=== PATIENT | male | born 1955 | race Two or more races ===

== ENCOUNTER 2017-02-01 06:17 | Emergency (ER) | payer BC, OTHER ==
[~2017-02-01 06:17] MED LIST: AMLO10TA2 PO; APIX5TAB PO; ASPI-482 PO; ATOR40TA PO; CARV12.5 PO; CIPR500T PO; CLOP75TA57 PO; DILT120T PO; FENO54TA6 PO; FLUT16SP NS; LOSA50TA6 PO; NIAC500T PO; NITR0.4T22 SL; OMEG1CAP6 PO; combivent
--- NOTE | 2017-02-01 06:42 | PHYS DOC ---
Past Medical History Past Medical History: A-Fib, Heart Disease, Hypertension Past Surgical History: Other Additional Past Surgical Histo: STENT Alcohol Use: Occasionally Drug Use: None Adult General Chief Complaint Chief Complaint: Congestion HPI HPI Patient is a 61 year old M who presents with SOA for the past 2 days. Pt states increased SOA with productive cough. Pt denies fevers or cp. Pt has a smoking hx but quite 27 years ago. Review of Systems Review of Systems Constitutional: Denies fever or chills [] Eyes: Denies change in visual acuity, redness, or eye pain [] HENT: Denies nasal congestion or sore throat [] Respiratory: Productive cough and shortness of breath [] Cardiovascular: No additional information not addressed in HPI [] GI: Denies abdominal pain, nausea, vomiting, bloody stools or diarrhea [] : Denies dysuria or hematuria [] Musculoskeletal: Denies back pain or joint pain [] Integument: Denies rash or skin lesions [] Neurologic: Denies headache, focal weakness or sensory changes [] Current Medications Current Medications Current Medications Medications (Trade) Dose Ordered Sig/Connie Start Time Stop Time Status Last Admin Dose Admin Albuterol/ Ipratropium (Duoneb) 3 ml 1X ONCE 02/01/17 09:00 02/01/17 09:01 DC 02/01/17 09:05 3 ML Dexamethasone Sodium Phosphate (Decadron) 10 mg 1X ONCE 02/01/17 09:00 02/01/17 09:01 DC 02/01/17 09:43 10 MG Allergies Allergies Allergies Coded Allergies Type Severity Reaction Last Updated Verified iodine Allergy Unknown 07/22/15 Yes Physical Exam Physical Exam Constitutional: Well developed, well nourished, no acute distress, non-toxic appearance. [] HENT: Normocephalic, atraumatic, bilateral external ears normal, oropharynx moist, no oral exudates, nose normal. [] Eyes: PERRLA, EOMI, conjunctiva normal, no discharge. [] Neck: Normal range of motion, no tenderness, supple, no stridor. [] Cardiovascular:Heart rate regular rhythm, no murmur [] Lungs & Thorax: Crackles left lung base, no tachypnea Abdomen: Bowel sounds normal, soft, no tenderness, no masses, no pulsatile masses. [] Skin: Warm, dry, no erythema, no rash. [] Back: No tenderness, no CVA tenderness. [] Extremities: No tenderness, no cyanosis, no clubbing, ROM intact, no edema. [] Neurologic: Alert and oriented X 3, normal motor function, normal sensory function, no focal deficits noted. [] Psychologic: Affect normal, judgement normal, mood normal. [] Current Patient Data Vital Signs Vital Signs Date Time Temp Pulse Resp B/P (MAP) Pulse Ox O2 Delivery O2 Flow Rate FiO2 02/01/17 09:22 86 16 182/99 (126) 94 Room Air 02/01/17 06:31 98.7 98.7 Lab Values Laboratory Tests Test 02/01/17 07:18 White Blood Count 9.6 x10^3/uL (4.0-11.0) Red Blood Count 5.04 x10^6/uL (4.30-5.70) Hemoglobin 13.8 g/dL (13.0-17.5) Hematocrit 41.9 % (39.0-53.0) Mean Corpuscular Volume 83 fL (79-100) Mean Corpuscular Hemoglobin 27 pg (25-35) Mean Corpuscular Hemoglobin Concent 33 g/dL (31-37) Red Cell Distribution Width 13.4 % (11.5-14.5) Platelet Count 171 x10^3/uL (140-400) Neutrophils (%) (Auto) 81 % (31-73) H Lymphocytes (%) (Auto) 11 % (24-48) L Monocytes (%) (Auto) 5 % (0-9) Eosinophils (%) (Auto) 2 % (0-3) Basophils (%) (Auto) 1 % (0-3) Neutrophils # (Auto) 7.8 x10^3uL (1.8-7.7) H Lymphocytes # (Auto) 1.1 x10^3/uL (1.0-4.8) Monocytes # (Auto) 0.5 x10^3/uL (0.0-1.1) Eosinophils # (Auto) 0.2 x10^3/uL (0.0-0.7) Basophils # (Auto) 0.0 x10^3/uL (0.0-0.2) Sodium Level 140 mmol/L (136-145) Potassium Level 4.1 mmol/L (3.5-5.1) Chloride Level 105 mmol/L (98-107) Carbon Dioxide Level 26 mmol/L (21-32) Anion Gap 9 (6-14) Blood Urea Nitrogen 21 mg/dL (8-26) Creatinine 1.1 mg/dL (0.7-1.3) Estimated GFR (Cockcroft-Gault) 68.1 BUN/Creatinine Ratio 19 (6-20) Glucose Level 137 mg/dL (70-99) H Calcium Level 8.5 mg/dL (8.5-10.1) Total Bilirubin 0.9 mg/dL (0.2-1.0) Aspartate Amino Transferase (AST) 18 U/L (15-37) Alanine Aminotransferase (ALT) 29 U/L (16-63) Alkaline Phosphatase 79 U/L (46-116) Troponin I Quantitative 0.039 ng/mL (0.000-0.055) Total Protein 6.5 g/dL (6.4-8.2) Albumin 3.7 g/dL (3.4-5.0) Albumin/Globulin Ratio 1.3 (1.0-1.7) Laboratory Tests 02/01/17 07:18 Laboratory Tests 02/01/17 07:18 EKG EKG 0707: EKG shows normal sinus rhythm rate of 83 no STEMI [] Radiology/Procedures Radiology/Procedures Chest x-ray shows right lower lobe pneumonia [] Course & Med Decision Making Course & Med Decision Making Pertinent Labs and Imaging studies reviewed. (See chart for details) ED course: Patient was seen and examined emergency room CBC, CMP, troponin, EKG, chest x- ray were ordered 0915: Patient was reexamined still complaining of some difficult to breathing with minimal wheezing heard throughout therefore breathing treatment was ordered 0938: Patient was reexamined feeling much better and wanting to go home. Wheezing had resolved after the breathing treatment and steroids. Explained to the patient will be sent home with antibiotics and steroids MDM: After reviewing the chart, CC/HPI/PMH, physical exam, [lab results], [ radiological results], I do not believe the patient has a significant rust or infection warranting further workup and/or admission at this time. I believe the patient has a right lower lobe pneumonia with bronchitis and is not septic and can be discharged home with oral antibiotics and short-term follow-up with his PCP. Patient is comfortable being discharged home. Patient is stable for discharge. Additional verbal discharge instructions were provided to the patient and that if symptoms get worse or any new symptoms arise that are worrisome to the patient he is to return to the emergency room immediately [] Dragon Disclaimer Dragon Disclaimer This electronic medical record was generated, in whole or in part, using a voice recognition dictation system. Departure Departure Impression: Primary Impression: Right lower lobe pneumonia Additional Impression: Bronchitis Disposition: 01 HOME, SELF-CARE Condition: IMPROVED Referrals: NO PCP (PCP) Patient Instructions: Acute Bronchitis, Pneumonia, Adult Additional Instructions: Please follow up with your family doctor next one to 2 days and return if symptoms increase Scripts Azithromycin (ZITHROMAX) 250 Mg Tablet 1 PKG PO UD, #6 TAB Prov: SAVANNAH HALE DO 02/01/17 Prednisone (PREDNISONE) 50 Mg Tablet 1 TAB PO DAILY, #5 TAB Prov: SAVANNAH HALE DO 02/01/17 Problem Qualifiers SAVANNAH HALE DO Feb 01, 2017 06:42
[2017-02-01 07:27] LABS: BASO % 1 % (0-3); EOS % 2 % (0-3); HEMATOCRIT 41.9 % (39.0-53.0); HEMOGLOBIN 13.8 g/dL (13.0-17.5); LYMPH # 1.1 x10^3/uL (1.0-4.8); LYMPH % 11 % (24-48); MEAN CORPUSCULAR HEMOGLOBIN 27 pg (25-35); MEAN CORPUSCULAR HGB CONC 33 g/dL (31-37); MEAN CORPUSCULAR VOLUME 83 fL (79-100); MONO % 5 % (0-9); NEUT % 81 % (31-73); PLATELET COUNT 171 x10^3/uL (140-400); RED BLOOD COUNT 5.04 x10^6/uL (4.30-5.70); RED CELL DISTRIBUTION WIDTH 13.4 % (11.5-14.5); WHITE BLOOD COUNT 9.6 x10^3/uL (4.0-11.0)
[2017-02-01 07:36] LABS: CALCIUM 8.5 mg/dL (8.5-10.1); CREATININE 1.1 mg/dL (0.7-1.3); GFR 68.1; POTASSIUM 4.1 mmol/L (3.5-5.1)
[2017-02-01 07:42] LABS: ALBUMIN 3.7 g/dL (3.4-5.0); ALBUMIN/GLOBULIN RATIO 1.3 (1.0-1.7); TOTAL BILIRUBIN 0.9 mg/dL (0.2-1.0); TOTAL PROTEIN 6.5 g/dL (6.4-8.2)
[2017-02-01] MEDS ORDERED: DEXAMETHASONE SOD PHOS 4 MG/ML VIAL IV ONE (09:00)
[2017-02-01] MEDS ORDERED: IPRATRPIUM/ALBUTEROL 0.5/2.5MG 3 ML NEBU. NEB ONE (09:00)
[2017-02-01] MEDS ORDERED: cefTRIAXone IM 1 GM VIAL IM ONE (09:45)
[2017-02-01] MEDS ORDERED: AZIT250T PO (09:47)
[2017-02-01] MEDS ORDERED: PRED50TA PO (09:47)
--- NOTE | 2017-02-01 09:52 | RAD ---
Chest radiograph 2 views 02/01/2017 Clinical indication: Shortness of air for 3 days, productive cough. Comparison: Chest radiograph 07/22/2015. Findings: Mild right perihilar interstitial opacities without focal consolidation. No pleural effusion or pneumothorax. Cardiac and mediastinal silhouettes are within normal limits. Impression: Asymmetric prominent right perihilar interstitial opacities which may represent bronchitis or less likely viral pneumonia. No consolidating pneumonia.
[2017-02-01 10:09] VITALS: BP 182/89
--- NOTE | 2017-02-01 12:51 | EKG ---
[facility] [address] [place] [address] Test Date: 2017-02-01 Test Time: 07:02:09 Pat Name: LONDON CRESPO Department: Room: Gender: M Noc Engineer: [id number] : 1955 Requested By: SAVANNAH HALE Order Number: [id number] Reading MD: Henrry Heller Measurements Intervals [place] Rate: 83 P: 54 [place]: 162 QRS: 24 QRSD: 88 T: 57 QT: 392 QTc: 467 Interpretive Statements SINUS RHYTHM Electronically Signed On 02-02-2017 12:03:15 CDT by Henrry Heller
== END 2017-02-01 10:33 | disposition home or self-care (01) ==
LOC: ER 06:17
DX: J18.1 Lobar pneumonia, unspecified organism (principal); J40 Bronchitis, not specified as acute or chronic; I48.91 Unspecified atrial fibrillation; I11.9 Hypertensive heart disease without heart failure; Z87.891 Personal history of nicotine dependence; Z95.5 Presence of coronary angioplasty implant and graft; Z88.8 Allergy status to other drugs, medicaments and biological substances
CPT/HCPCS: 36415; 71020; 80053; 84484; 85025; 93005; 94250; 94640; 96372; 96374; 99285; J0696; J1100; J7620

== ENCOUNTER 2018-01-01 03:11 | Inpatient (IN) | payer OTHER ==
[2018-01-01] MEDS: IPRATRPIUM/ALBUTEROL 0.5/2.5MG 3 ML NEBU. NEB ×5 (03:27→20:26)
[2018-01-01 03:47] LABS: ADD MAN DIFF? NO
[2018-01-01 03:53] LABS: BASO % 1 % (0-3); EOS # 0.1 x10^3/uL (0.0-0.7); EOS % 1 % (0-3); HEMATOCRIT 46.3 % (39.0-53.0); HEMOGLOBIN 15.9 g/dL (13.0-17.5); LYMPH # 1.2 x10^3/uL (1.0-4.8); LYMPH % 14 % (24-48); MEAN CORPUSCULAR HEMOGLOBIN 29 pg (25-35); MEAN CORPUSCULAR HGB CONC 34 g/dL (31-37); MEAN CORPUSCULAR VOLUME 86 fL (79-100); MONO # 0.2 x10^3/uL (0.0-1.1); MONO % 2 % (0-9); NEUT # 7.4 x10^3uL (1.8-7.7); NEUT % 83 % (31-73); PLATELET COUNT 192 x10^3/uL (140-400); RED CELL DISTRIBUTION WIDTH 13.3 % (11.5-14.5); WHITE BLOOD COUNT 8.9 x10^3/uL (4.0-11.0)
[2018-01-01 03:54] LABS: BILIRUBIN,URINE NEGATIVE (NEG); CLARITY,URINE CLOUDY; COLOR,URINE YELLOW; GLUCOSE,URINE NEGATIVE (NEG); NITRITE,URINE NEGATIVE (NEG); PROTEIN,URINE 30 mg/dL (NEG-TRACE); UROBILINOGEN,URINE 0.2 mg/dL (0.2 mg/dL)
[2018-01-01] MEDS: ACETAMINOPHEN 325 MG TABLET. PO (04:00)
[2018-01-01 04:20] LABS: LACTIC ACID 3.3 mmol/L (0.4-2.0)
[2018-01-01 04:29] LABS: BACTERIA,URINE 0 /HPF (0-FEW); RBC,URINE OCC /HPF (0-2)
[2018-01-01 04:30] LABS: SQUAMOUS EPITHELIAL CELL,UR OCC /LPF
[2018-01-01] MEDS: IV NORMAL SALINE 1000ML BAG 1,000 ML IV ×4 (04:55→09:23)
[2018-01-01] MEDS ORDERED: ACETAMINOPHEN 325 MG TABLET. PO (05:00)
[2018-01-01] MEDS ORDERED: fentaNYL PF VIAL 100 MCG/2 ML VIAL IV (05:00)
[2018-01-01] MEDS ORDERED: ONDANSETRON PF 4 MG/2 ML VIAL. IV (05:00)
[2018-01-01 05:21] LABS: NT-PRO BNP 325 pg/mL (0-124)
[2018-01-01 05:21] LABS: CKMB MASS 0.8 ng/mL (0.0-3.6); CREATINE KINASE 74 U/L (39-308)
[2018-01-01 05:23] LABS: TROPONINI < 0.017 ng/mL (0.000-0.055)
[2018-01-01] MEDS: VANCOMYCIN 2 GM in IV NORMAL SALINE 500ML BAG 500 ML IV (05:30)
[2018-01-01] MEDS: PIPERACILLIN/TAZOBACTAM 4.5 GM in IV NORMAL SALINE 100ML 100 ML IV ×4 (05:30→23:21)
[2018-01-01 05:31] LABS: ANION GAP 10 (6-14); BLOOD UREA NITROGEN 26 mg/dL (8-26); BUN/CREATININE RATIO 17 (6-20); CALCIUM 8.7 mg/dL (8.5-10.1); CARBON DIOXIDE 28 mmol/L (21-32); CHLORIDE 102 mmol/L (98-107); CREATININE 1.5 mg/dL (0.7-1.3); GFR 47.4; GLUCOSE 169 mg/dL (70-99); POTASSIUM 3.9 mmol/L (3.5-5.1); SODIUM 140 mmol/L (136-145)
[2018-01-01 05:36] LABS: ALBUMIN 3.8 g/dL (3.4-5.0); ALBUMIN/GLOBULIN RATIO 1.2 (1.0-1.7); ALK PHOS 101 U/L (46-116); ALT (SGPT) 47 U/L (16-63); AST (SGOT) 31 U/L (15-37); MAGNESIUM 1.6 mg/dL (1.8-2.4); TOTAL BILIRUBIN 0.9 mg/dL (0.2-1.0)
[2018-01-01 08:25] LABS: LACTIC ACID 3.8 mmol/L (0.4-2.0)
[2018-01-01 08:26] LABS: TROPONINI 0.034 ng/mL (0.000-0.055)
[2018-01-01] MEDS ORDERED: PIP/TAZO PER PHARMACY MC (09:15)
[2018-01-01] MEDS ORDERED: NITROGLYCERIN SUBLINGUAL 0.4 MG BOTTLE OF 25. SL (09:15)
[2018-01-01] MEDS ORDERED: VANCOMYCIN PER PHARMACY MC (09:15)
[2018-01-01] MEDS: ASPIRIN ENTERIC COATED 81 MG TABLET.DR. PO (09:23)
[2018-01-01] MEDS: APIXABAN 5 MG TABLET. PO ×2 (09:24→21:01)
[2018-01-01] MEDS: amLODIPine BESYLATE 10 MG TABLET PO (09:24)
[2018-01-01] MEDS: SOTALOL 80 MG TABLET. PO ×2 (09:24→21:01)
[2018-01-01] MEDS ORDERED: ENOXAPARIN 40 MG/0.4 ML SYRINGE. SQ (09:30)
[2018-01-01] MEDS ORDERED: FUROSEMIDE 40 MG TABLET. PO (10:00)
[2018-01-01] MEDS: DOXYCYCLINE HYCLATE 100 MG TABLET PO ×2 (11:16→21:01)
[2018-01-01] MEDS: BUDESONIDE 0.5 MG/2 ML NEBU. NEB ×2 (12:04→20:26)
[2018-01-01 12:17] LABS: LACTIC ACID 2.1 mmol/L (0.4-2.0); TROPONINI < 0.017 ng/mL (0.000-0.055)
[2018-01-01] MEDS ORDERED: PIPERACILLIN/TAZOBACTAM 3.375 GM in IV NORMAL SALINE 50ML 50 ML IV (14:00)
[2018-01-01] MEDS: LINEZOLID 600 MG TABLET PO ×2 (15:28→23:20)
[2018-01-01] MEDS ORDERED: guaiFENesin DM 200MG/20MG 10 ML SYRUP PO (15:30)
[2018-01-01] MEDS: ANTI-COAG MONITOR BY PHARMACY. MC (15:43)
[2018-01-01] MEDS: ATORVASTATIN CALCIUM 40 MG TABLET. PO (21:01)
[2018-01-01 23:13] LABS: MRSA BY PCR Negative (Negative)
[2018-01-02] MEDS: PIPERACILLIN/TAZOBACTAM 4.5 GM in IV NORMAL SALINE 100ML 100 ML IV ×3 (05:28→17:15)
[2018-01-02] MEDS: ASPIRIN ENTERIC COATED 81 MG TABLET.DR. PO (06:30)
[2018-01-02] MEDS: ANTI-COAG MONITOR BY PHARMACY. MC (07:38)
[2018-01-02 08:16] LABS: HEMOGLOBIN 14.1 g/dL (13.0-17.5); MEAN CORPUSCULAR HEMOGLOBIN 29 pg (25-35); MEAN CORPUSCULAR HGB CONC 34 g/dL (31-37); MEAN CORPUSCULAR VOLUME 85 fL (79-100); PLATELET COUNT 131 x10^3/uL (140-400); RED BLOOD COUNT 4.85 x10^6/uL (4.30-5.70); RED CELL DISTRIBUTION WIDTH 13.5 % (11.5-14.5); WHITE BLOOD COUNT 10.8 x10^3/uL (4.0-11.0)
[2018-01-02] MEDS: APIXABAN 5 MG TABLET. PO ×2 (08:18→20:38)
[2018-01-02] MEDS: DOXYCYCLINE HYCLATE 100 MG TABLET PO (08:18)
[2018-01-02] MEDS: amLODIPine BESYLATE 10 MG TABLET PO (08:19)
[2018-01-02] MEDS: LINEZOLID 600 MG TABLET PO (08:19)
[2018-01-02] MEDS: SOTALOL 80 MG TABLET. PO ×2 (08:24→20:39)
[2018-01-02 08:30] LABS: ANION GAP 6 (6-14); BLOOD UREA NITROGEN 15 mg/dL (8-26); CALCIUM 8.1 mg/dL (8.5-10.1); CARBON DIOXIDE 28 mmol/L (21-32); CHLORIDE 103 mmol/L (98-107); CREATININE 1.2 mg/dL (0.7-1.3); GFR 61.3; GLUCOSE 154 mg/dL (70-99); POTASSIUM 3.5 mmol/L (3.5-5.1); SODIUM 137 mmol/L (136-145)
[2018-01-02] MEDS: IPRATRPIUM/ALBUTEROL 0.5/2.5MG 3 ML NEBU. NEB ×5 (08:31→19:44)
[2018-01-02] MEDS: BUDESONIDE 0.5 MG/2 ML NEBU. NEB ×2 (08:31→19:44)
[2018-01-02] MEDS: LACTOBACILLUS RHAMNOSUS GG 1 CAPSULE. PO ×2 (09:00→20:38)
[2018-01-02] MEDS: ONDANSETRON PF 4 MG/2 ML VIAL. IV (09:47)
[2018-01-02] MEDS: ATORVASTATIN CALCIUM 40 MG TABLET. PO (20:38)
[2018-01-03] MEDS: PIPERACILLIN/TAZOBACTAM 4.5 GM in IV NORMAL SALINE 100ML 100 ML IV ×4 (06:04→17:53)
[2018-01-03] MEDS: BUDESONIDE 0.5 MG/2 ML NEBU. NEB (07:25)
[2018-01-03] MEDS: IPRATRPIUM/ALBUTEROL 0.5/2.5MG 3 ML NEBU. NEB ×5 (07:25→19:14)
[2018-01-03] MEDS: ASPIRIN ENTERIC COATED 81 MG TABLET.DR. PO (07:54)
[2018-01-03] MEDS: ACETAMINOPHEN 500 MG TABLET PO (07:54)
[2018-01-03] MEDS: LACTOBACILLUS RHAMNOSUS GG 1 CAPSULE. PO ×2 (07:55→20:32)
[2018-01-03] MEDS: APIXABAN 5 MG TABLET. PO ×2 (07:55→20:32)
[2018-01-03] MEDS: SOTALOL 80 MG TABLET. PO ×2 (07:55→20:32)
[2018-01-03] MEDS: amLODIPine BESYLATE 10 MG TABLET PO (07:55)
[2018-01-03] MEDS: VANCOMYCIN 2 GM in IV NORMAL SALINE 500ML BAG 500 ML IV (15:08)
[2018-01-03] MEDS: VANCOMYCIN PER PHARMACY MC (18:47)
[2018-01-03] MEDS: ATORVASTATIN CALCIUM 40 MG TABLET. PO (20:33)
[2018-01-04] MEDS: PIPERACILLIN/TAZOBACTAM 4.5 GM in IV NORMAL SALINE 100ML 100 ML IV ×5 (00:19→23:50)
[2018-01-04] MEDS: VANCOMYCIN 2 GM in IV NORMAL SALINE 500ML BAG 500 ML IV ×2 (02:54→15:30)
[2018-01-04 03:04] LABS: ADD MAN DIFF? NO
[2018-01-04 03:08] LABS: BASO # 0.1 x10^3/uL (0.0-0.2); BASO % 1 % (0-3); EOS # 0.3 x10^3/uL (0.0-0.7); EOS % 4 % (0-3); HEMATOCRIT 40.9 % (39.0-53.0); LYMPH # 1.9 x10^3/uL (1.0-4.8); LYMPH % 24 % (24-48); MEAN CORPUSCULAR HEMOGLOBIN 29 pg (25-35); MEAN CORPUSCULAR HGB CONC 34 g/dL (31-37); MEAN CORPUSCULAR VOLUME 85 fL (79-100); MONO # 0.7 x10^3/uL (0.0-1.1); MONO % 8 % (0-9); NEUT % 63 % (31-73); PLATELET COUNT 150 x10^3/uL (140-400); RED CELL DISTRIBUTION WIDTH 13.4 % (11.5-14.5); WHITE BLOOD COUNT 7.9 x10^3/uL (4.0-11.0)
[2018-01-04 03:31] LABS: ANION GAP 4 (6-14); BLOOD UREA NITROGEN 13 mg/dL (8-26); CALCIUM 8.1 mg/dL (8.5-10.1); CARBON DIOXIDE 30 mmol/L (21-32); CHLORIDE 104 mmol/L (98-107); CREATININE 1.2 mg/dL (0.7-1.3); GFR 61.3; GLUCOSE 181 mg/dL (70-99); POTASSIUM 3.6 mmol/L (3.5-5.1); SODIUM 138 mmol/L (136-145)
[2018-01-04] MEDS: ASPIRIN ENTERIC COATED 81 MG TABLET.DR. PO (05:51)
[2018-01-04] MEDS: IPRATRPIUM/ALBUTEROL 0.5/2.5MG 3 ML NEBU. NEB ×5 (08:52→22:00)
[2018-01-04] MEDS: SOTALOL 80 MG TABLET. PO ×2 (09:34→20:53)
[2018-01-04] MEDS: APIXABAN 5 MG TABLET. PO ×2 (09:34→20:53)
[2018-01-04] MEDS: amLODIPine BESYLATE 10 MG TABLET PO (09:35)
[2018-01-04] MEDS: LACTOBACILLUS RHAMNOSUS GG 1 CAPSULE. PO ×2 (09:35→20:53)
[2018-01-04] MEDS: ANTI-COAG MONITOR BY PHARMACY. MC (12:28)
[2018-01-04 14:47] LABS: VANC TR 13.3 mcg/mL (10.0-20.0)
[2018-01-04] MEDS: VANCOMYCIN PER PHARMACY MC (15:06)
[2018-01-04] MEDS: ATORVASTATIN CALCIUM 40 MG TABLET. PO (20:54)
[2018-01-05] MEDS: VANCOMYCIN 2 GM in IV NORMAL SALINE 500ML BAG 500 ML IV (04:15)
[2018-01-05] MEDS: PIPERACILLIN/TAZOBACTAM 4.5 GM in IV NORMAL SALINE 100ML 100 ML IV (06:03)
[2018-01-05 07:04] LABS: ADD MAN DIFF? NO
[2018-01-05 07:10] LABS: BASO % 1 % (0-3); EOS # 0.3 x10^3/uL (0.0-0.7); EOS % 4 % (0-3); HEMATOCRIT 41.7 % (39.0-53.0); HEMOGLOBIN 14.3 g/dL (13.0-17.5); LYMPH # 1.9 x10^3/uL (1.0-4.8); LYMPH % 21 % (24-48); MEAN CORPUSCULAR HEMOGLOBIN 29 pg (25-35); MEAN CORPUSCULAR HGB CONC 34 g/dL (31-37); MEAN CORPUSCULAR VOLUME 86 fL (79-100); MONO # 0.7 x10^3/uL (0.0-1.1); MONO % 8 % (0-9); NEUT % 67 % (31-73); PLATELET COUNT 162 x10^3/uL (140-400); RED BLOOD COUNT 4.86 x10^6/uL (4.30-5.70); RED CELL DISTRIBUTION WIDTH 13.2 % (11.5-14.5)
[2018-01-05 07:26] LABS: ANION GAP 4 (6-14); BLOOD UREA NITROGEN 15 mg/dL (8-26); CALCIUM 8.4 mg/dL (8.5-10.1); CARBON DIOXIDE 30 mmol/L (21-32); CHLORIDE 105 mmol/L (98-107); CREATININE 1.2 mg/dL (0.7-1.3); GFR 61.3; GLUCOSE 144 mg/dL (70-99); POTASSIUM 3.8 mmol/L (3.5-5.1); SODIUM 139 mmol/L (136-145)
[2018-01-05] MEDS: IPRATRPIUM/ALBUTEROL 0.5/2.5MG 3 ML NEBU. NEB ×2 (08:27→12:03)
[2018-01-05] MEDS: APIXABAN 5 MG TABLET. PO (08:33)
[2018-01-05] MEDS: LACTOBACILLUS RHAMNOSUS GG 1 CAPSULE. PO (08:33)
[2018-01-05] MEDS: ACETAMINOPHEN 500 MG TABLET PO (08:33)
[2018-01-05] MEDS: ASPIRIN ENTERIC COATED 81 MG TABLET.DR. PO (08:34)
[2018-01-05] MEDS: SOTALOL 80 MG TABLET. PO (08:34)
[2018-01-05] MEDS: amLODIPine BESYLATE 10 MG TABLET PO (08:36)
[2018-01-05] MEDS ORDERED: AMOXICILLIN/K CLAV 875/125MG TABLET. PO (10:00)
== END 2018-01-05 12:15 | disposition home or self-care (01) | DRG 871 ==
LOC: 6 SOUTH 01-02 09:52 → ER 03:11 → 1 WEST ICU 04:50
PROVIDERS: Internal Medicine
DX: A41.9 Sepsis, unspecified organism (principal); J18.9 Pneumonia, unspecified organism; J44.0 Chronic obstructive pulmonary disease with (acute) lower respiratory infection; N17.9 Acute kidney failure, unspecified; Z68.41 Body mass index [BMI] 40.0-44.9, adult; R65.20 Severe sepsis without septic shock; D35.02 Benign neoplasm of left adrenal gland; R09.02 Hypoxemia; E66.9 Obesity, unspecified; E78.5 Hyperlipidemia, unspecified; F17.201 Nicotine dependence, unspecified, in remission; G47.33 Obstructive sleep apnea (adult) (pediatric); I11.0 Hypertensive heart disease with heart failure; I25.10 Atherosclerotic heart disease of native coronary artery without angina pectoris; I50.9 Heart failure, unspecified; M19.90 Unspecified osteoarthritis, unspecified site; I48.91 Unspecified atrial fibrillation; Z82.49 Family history of ischemic heart disease and other diseases of the circulatory system; Z95.5 Presence of coronary angioplasty implant and graft
CPT/HCPCS: 36415; 71045; 71250; 74176; 80048; 80053; 80202; 81001; 82553; 83605; 83735; 83880; 84484; 85025; 85027; 87040; 87086; 87205; 87641; 93005; 94640; 94760; 96361; 96365; 96368; 97161-GP; 97165-GO; 99285; 99285-25; J1956; J2405; J2543; J3370; J7030; J7040; J7620; J7626

== ENCOUNTER 2019-03-09 10:31 | Inpatient (IN) | payer OTHER, MEDICAID ==
[~2019-03-09] VITALS: Ht 167.6 cm; Wt 117.1 kg
[~2019-03-09 10:31] MED LIST changes: -AMLO10TA2 PO; +AMLO10TA8 PO; +ATORVASTATIN CA80 MG PO; +AZIT250T PO; +DOCU-109 PO; +FURO40TA4 PO; +LOSA-73 PO; +LOSA100T14 PO; -LOSA50TA6 PO; +LUBI8CAP4 PO; +POLY17PO28 PO; +POTA20TA82 PO; +PRED50TA PO; +PROVENTIL HFA6.7 GM IH; +SOTA80TA20 PO; +SOTA80TA48 PO
[2019-03-09] MEDS ORDERED: ASPIRIN CHEWABLE 81 MG TABLET. PO ONE (11:00)
[2019-03-09 11:20] LABS: BASO % 1 % (0-3); EOS # 0.2 x10^3/uL (0.0-0.7); EOS % 3 % (0-3); HEMATOCRIT 41.7 % (39.0-53.0); HEMOGLOBIN 13.8 g/dL (13.0-17.5); LYMPH # 1.3 x10^3/uL (1.0-4.8); LYMPH % 16 % (24-48); MEAN CORPUSCULAR HEMOGLOBIN 29 pg (25-35); MEAN CORPUSCULAR HGB CONC 33 g/dL (31-37); MEAN CORPUSCULAR VOLUME 88 fL (79-100); MONO # 0.5 x10^3/uL (0.0-1.1); MONO % 6 % (0-9); NEUT # 6.1 x10^3/uL (1.8-7.7); NEUT % 75 % (31-73); PLATELET COUNT 192 x10^3/uL (140-400); RED BLOOD COUNT 4.74 x10^6/uL (4.30-5.70); RED CELL DISTRIBUTION WIDTH 13.1 % (11.5-14.5); WHITE BLOOD COUNT 8.2 x10^3/uL (4.0-11.0)
--- NOTE | 2019-03-09 11:27 | RAD ---
EXAM: Chest, single view. HISTORY: Shortness of breath. COMPARISON: CT dated 01/01/2018. FINDINGS: A frontal view of the chest is obtained. There is no infiltrate, pleural effusion or pneumothorax. There is a stable prominent cardiac silhouette. IMPRESSION: No acute pulmonary finding. Electronically signed by: Ying Quinonez MD (03/09/2019 11:24 AM) [place] [id number]
[2019-03-09 11:30] LABS: CALCIUM 9.5 mg/dL (8.5-10.1); CREATININE 1.2 mg/dL (0.7-1.3); GFR 61.1; POTASSIUM 4.1 mmol/L (3.5-5.1)
[2019-03-09 11:34] LABS: PROTHROMBIN TIME PATIENT 14.6 SEC (11.7-14.0)
[2019-03-09 11:36] LABS: ALBUMIN 3.6 g/dL (3.4-5.0); ALBUMIN/GLOBULIN RATIO 1.1 (1.0-1.7); TOTAL BILIRUBIN 0.8 mg/dL (0.2-1.0); TOTAL PROTEIN 6.8 g/dL (6.4-8.2)
--- NOTE | 2019-03-09 12:32 | PHYS DOC ---
Past Medical History Past Medical History: A-Fib, CAD, CHF, COPD, High Cholesterol, Heart Disease, Hypertension Past Surgical History: Other Additional Past Surgical Histo: STENT X 3,HERNIA Alcohol Use: Rarely Drug Use: None Adult General Chief Complaint Chief Complaint: CHEST PAIN HPI HPI Patient is a 63 year old male presenting with chest pain onset about 2 weeks ago on and off worse with lying flat at night associate with shortness of breath as well as frequent diaphoresis he says when he tries to lift a heavy box or walk a short distance he gets very short of breath. Initially does for some chest tightness described as substernal radiates up to the sternal area He is very worried about his cardiac stents which she had placed in 2011 he is followed over at he does not recall his last stress test CO6 months ago but then the was not sure could've been much longer they really don't know exactly. Review of Systems Review of Systems Constitutional: Frequent sweating, or eye pain [] HENT: Denies nasal congestion or sore throat []positive cough Positive nausea and intermittent vomiting Musculoskeletal: Denies back pain or joint pain [] Integument: Denies rash or skin lesions [] Neurologic: Denies headache, focal weakness or sensory changes [] Endocrine: Denies polyuria or polydipsia [] All other systems were reviewed and found to be within normal limits, except as documented in this note. Current Medications Current Medications Current Medications Medications (Trade) Dose Ordered Sig/Connie Start Time Stop Time Status Last Admin Dose Admin Aspirin (Children'S Aspirin) 324 mg 1X ONCE 03/09/19 11:00 03/09/19 11:01 DC 03/09/19 10:57 324 MG Allergies Allergies Allergies Coded Allergies Type Severity Reaction Last Updated Verified iodine Allergy Unknown 07/22/15 Yes Physical Exam Physical Exam Constitutional: Well developed, well nourished, no acute distress, non-toxic appearance. [] HENT: Normocephalic, atraumatic, bilateral external ears normal, oropharynx moist, no oral exudates, nose normal. [] Eyes: PERRLA, EOMI, conjunctiva normal, no discharge. [] Neck: Normal range of motion, no tenderness, supple, no stridor. [] Cardiovascular:Heart rate regular rhythm, 2/6 systolic murmur Lungs & Thorax: Bilateral breath sounds clear to auscultation []decreased breath sounds at the right lung base Abdomen: Bowel sounds normal, soft, no tenderness, no masses, no pulsatile masses. [] Skin: Warm, dry, no erythema, no rash. [] Back: No tenderness, no CVA tenderness. [] Extremities: No tenderness, no cyanosis, no clubbing, ROM intact, 1+ symmetric edema bilaterally Neurologic: Alert and oriented X 3, normal motor function, normal sensory function, no focal deficits noted. [] Psychologic: Affect normal, judgement normal, mood normal. [] Current Patient Data Vital Signs Vital Signs Date Time Temp Pulse Resp B/P (MAP) Pulse Ox O2 Delivery O2 Flow Rate FiO2 03/09/19 10:35 97.4 80 20 179/102 (127) 94 Room Air 97.4 Lab Values Laboratory Tests Test 03/09/19 11:04 White Blood Count 8.2 x10^3/uL (4.0-11.0) Red Blood Count 4.74 x10^6/uL (4.30-5.70) Hemoglobin 13.8 g/dL (13.0-17.5) Hematocrit 41.7 % (39.0-53.0) Mean Corpuscular Volume 88 fL (79-100) Mean Corpuscular Hemoglobin 29 pg (25-35) Mean Corpuscular Hemoglobin Concent 33 g/dL (31-37) Red Cell Distribution Width 13.1 % (11.5-14.5) Platelet Count 192 x10^3/uL (140-400) Neutrophils (%) (Auto) 75 % (31-73) H Lymphocytes (%) (Auto) 16 % (24-48) L Monocytes (%) (Auto) 6 % (0-9) Eosinophils (%) (Auto) 3 % (0-3) Basophils (%) (Auto) 1 % (0-3) Neutrophils # (Auto) 6.1 x10^3/uL (1.8-7.7) Lymphocytes # (Auto) 1.3 x10^3/uL (1.0-4.8) Monocytes # (Auto) 0.5 x10^3/uL (0.0-1.1) Eosinophils # (Auto) 0.2 x10^3/uL (0.0-0.7) Basophils # (Auto) 0.0 x10^3/uL (0.0-0.2) Prothrombin Time 14.6 SEC (11.7-14.0) H Prothrombin Time INR 1.2 (0.8-1.1) H Sodium Level 142 mmol/L (136-145) Potassium Level 4.1 mmol/L (3.5-5.1) Chloride Level 106 mmol/L (98-107) Carbon Dioxide Level 26 mmol/L (21-32) Anion Gap 10 (6-14) Blood Urea Nitrogen 12 mg/dL (8-26) Creatinine 1.2 mg/dL (0.7-1.3) Estimated GFR (Cockcroft-Gault) 61.1 BUN/Creatinine Ratio 10 (6-20) Glucose Level 150 mg/dL (70-99) H Calcium Level 9.5 mg/dL (8.5-10.1) Total Bilirubin 0.8 mg/dL (0.2-1.0) Aspartate Amino Transferase (AST) 27 U/L (15-37) Alanine Aminotransferase (ALT) 43 U/L (16-63) Alkaline Phosphatase 78 U/L (46-116) Troponin I Quantitative 0.053 ng/mL (0.000-0.055) [id number]-Type Natriuretic Peptide 564 pg/mL (0-124) H Total Protein 6.8 g/dL (6.4-8.2) Albumin 3.6 g/dL (3.4-5.0) Albumin/Globulin Ratio 1.1 (1.0-1.7) Lipase 83 U/L (73-393) Laboratory Tests 03/09/19 11:04 Laboratory Tests 03/09/19 11:04 EKG EKG []EKG shows a sinus rhythm rate of [address] elevation was noted interpreted by me the time of encounter Radiology/Procedures Radiology/Procedures [] Impressions: Chest x-ray negative according to the radiologist I thought there might be some mild congestion Course & Med Decision Making Course & Med Decision Making Pertinent Labs and Imaging studies reviewed. (See chart for details) []63-year-old history of multiple medical problems including coronary artery disease status post stent placement back in 2011 followed at cardiology presenting with sensation of chest discomfort as well as dyspnea on exertion diaphoresis generalized weakness for the last 2 weeks EKG shows no definite ischemia. Troponin is 0.053 it is sort of intermediate at this time. BNP was mildly elevated I felt a chest x-ray showed some mild congestion and the symptoms of orthopnea that are described be consistent with this. Perhaps it is a CHF component of symptoms after rule out acute coronary syndrome given his history of probably warrants risk stratification I spoke with Dr. TAVARES PLAN TO ADMIT FOR THE ABOVE Dragon Disclaimer Dragon Disclaimer This electronic medical record was generated, in whole or in part, using a voice recognition dictation system. Departure Departure Impression: Primary Impression: Chest pain Disposition: ADMITTED INPATIENT Admitting Physician: JUAN Condition: STABLE Referrals: UNKNOWN PCP NAME (PCP) LAMONT CONDE MD Mar 09, 2019 12:32
[2019-03-09] MEDS ORDERED: NITROGLYCERIN SUBLINGUAL 0.4 MG BOTTLE OF 25. SL PRN (12:45)
--- NOTE | 2019-03-09 13:13 | PDOC1 ---
History and Physical Date of Admission Date of Admission DATE: 03/09/19 TIME: 13:11 Identification/Chief Complaint Chief Complaint Chest pain Source Source: Patient History of Present Illness History of Present Illness Mr Davis is a 63 year old male w/ PMHx A-Fib, CAD s/p stenting x2, CHF, COPD, High Cholesterol, Heart Disease, Hypertension who is presenting with acute chest pain. His original onset was about 2 weeks ago on and off worse with lying flat at night associate with shortness of breath as well as frequent diaphoresis he says when he tries to lift a heavy box or walk a short distance he gets very short of breath. Initially does for some chest tightness described as substernal radiates up to the sternal area. He is very worried about his cardiac stents which she had placed in 2011 he is followed over at he does not recall his last stress test, it was actually done here last year (negative). He is recovering from a hemorrhoidectomy 3 weeks ago, still has some rectal pain. Also, on ROS he notes a bilateral axillary rash and left elbow rash that is just slightly pruritic, but is irritated. Initial EKG shows no ST segment changes, troponin was 0.05. Concerning his chest pain and his risk ACS will be admitted for further workup and treatment of his pain. Past Medical History Cardiovascular: AFIB, CAD, HTN, Hyperlipidemia Pulmonary: COPD, Pneumonia CENTRAL NERVOUS SYSTEM: Other GI: GERD Heme/Onc: No pertinent hx Psych: No pertinent hx Musculoskeletal: Osteoarthritis Infectious disease: No pertinent hx Renal/: No pertinent hx, Other Endocrine: Hypothyroidism, Other Past Surgical History Past Surgical History: Hernia Repair, Other Family History Family History: Heart Disease Social History Smoke: Quit (18 years ago) ALCOHOL: none Drugs: None Current Problem List Problem List Problems Medical Problems: (1) Chest pain Status: Acute Current Medications Current Medications Current Medications Aspirin (Children'S Aspirin) 324 mg 1X ONCE PO Last administered on 03/09/19at 10:57; Start 03/09/19 at 11:00; Stop 03/09/19 at 11:01; Status DC Nitroglycerin (Nitrostat) 0.4 mg PRN Q5MIN PRN SL CHEST PAIN; Start 03/09/19 at 12:45; Stop 03/10/19 at 12:44 Active Scripts Active Polyethylene Glycol 3350 17 Gm Powd.pack 17 Gm PO PRN DAILY PRN Amitiza (Lubiprostone) 8 Mcg Capsule 8 Mcg PO BIDWMEALS 30 Days Colace (Docusate Sodium) 100 Mg Capsule 100 Mg PO PRN DAILY PRN Betapace (Sotalol Hcl) 80 Mg Tablet 80 Mg PO BID 30 Days Reported Proventil Hfa Inhaler (Albuterol Sulfate) 6.7 Gm Hfa.aer.ad 2 Puff IH PRN Q6HRS PRN Furosemide 40 Mg Tablet 40 Mg PO DAILY Atorvastatin Calcium 80 Mg Tablet 80 Mg PO HS Losartan Potassium 100 Mg Tablet 100 Mg PO DAILY Potassium Chloride 20 Meq Tablet.er 20 Meq PO DAILY Eliquis (Apixaban) 5 Mg Tablet 5 Mg PO BID Aspir 81 (Aspirin) 81 Mg Tablet.dr 1 Tab PO DAILY LAST DOSE GIVEN: DATE: 07/23/15 TIME: 0900 AM NEXT DOSE DUE: DATE: TOMORROW 07/24/15 TIME: 0900 AM Amlodipine Besylate 10 Mg Tablet 10 Mg PO DAILY LAST DOSE GIVEN: DATE: 07/23/15 TIME: 0900 NEXT DOSE DUE: DATE: Tomorr07/24/15 TIME: 0900 NITROGLYCERIN SubLingual (Nitroglycerin) 0.4 Mg Tab.subl 0.4 Mg SL PRN Q5MIN PRN Allergies Allergies: Coded Allergies: iodine (Verified Allergy, Unknown, 07/22/15) ROS General: YES: Fatigue, Malaise; No: Chills, Night Sweats, Appetite, Other PSYCHOLOGICAL ROS: No: Anxiety, Behavioral Disorder, Concentration difficultie, Decreased libido, Depression, Disorientation, Hallucinations, Hostility, Irritablity, Memory difficulties, Mood Swings, Obsessive thoughts, Physical abuse, Sexual abuse, Sleep disturbances, Suicidal ideation, Other Eyes: No Blurry vision, No Decreased vision, No Double vision, No Dry eyes, No Excessive tearing, No Eye Pain, No Itchy Eyes, No Loss of vision, No Photophobia, No Scotomata, No Uses contacts, No Uses glasses, No Other HEENT: No: Heacaches, Visual Changes, Hearing change, Nasal congestion, Nasal discharge, Oral lesions, Sinus pain, Sore Throat, Epistaxis, Sneezing, Snoring, Tinnitus, Vertigo, Vocal changes, Other ALLERGY AND IMMUNOLOGY: No: Hives, Insect Bite Sensitivity, Itchy/Watery Eyes, Nasal Congestion, Post Nasal Drip, Seasonal Allergies, Other Hematological and Lymphatic: No: Bleeding Problems, Blood Clots, Blood Transfusions, Brusing, Night Sweats, Pallor, Swollen Lymph Nodes, Other ENDOCRINE: No: Breast Changes, Galactorrhea, Hair Pattern Changes, Hot Flashes, Malaise/lethargy, Mood Swings, Palpitations, Polydipsia/polyuria, Skin Changes, Temperature Intolerance, Unexpected Weight Changes, Other Breast: No New/Changing Breast Lumps, No Nipple changes, No Nipple discharge, No Other Respiratory: YES: Cough, Shortness of breath; No: Hemoptysis, Orthopnea, Pleuritic Pain, SOB with excertion, Sputum Ch anges, Stridor, Tachypnea, Wheezing, Other Cardiovascular: yes Chest Pain; No Palpitations, No Orthopnea, No Paroxysmal Noc. Dyspnea, No Edema, No Lt Headedness, No Other Gastrointestinal: No Nausea, No Vomiting, No Abdominal Pain, No Diarrhea, No Constipation, No Melena, No Hematochezia, No Other Genitourinary: No Dysuria, No Frequency, No Incontinence, No Hematuria, No Retention, No Discharge, No Urgency, No Pain, No Flank Pain, No Other, No , No , No , No , No , No , No Musculoskeletal: No Gait Disturbance, No Joint Pain, No Joint Stiffness, No Joint Swelling, No Muscle Pain, No Muscular Weakness, No Pain In:, No Swelling In:, No Other Neurological: No Behavorial Changes, No Bowel/Bladder ControlChng, No Confusion, No Dizziness, No Gait Disturbance, No Headaches, No Impaired Coord/balance, No Memory Loss, No Numbness/Tingling, No Seizures, No Speech Problems, No Tremors, No Visual Changes, No Weakness, No Other Skin: Yes Rash, Yes Skin Lesion Changes; No Dry Skin, No Eczema, No Hair Changes, No Lumps, No Mole Changes, No Mottling, No Nail Changes, No Pruritus, No Other, No Acne Physical Exam General: Alert, Oriented X3, Cooperative, No acute distress HEENT: Atraumatic, PERRLA, EOMI, Mucous membr. moist/pink Lungs: Other (Slight scattered wheezing) Heart: S1S2, RRR, no gallops, no murmurs Abdomen: Normal bowel sounds, Soft, No tenderness, No hepatosplenomegaly, No masses, Other (Large contour) Male Genitals Exam: normal genitalia Rectal Exam: other (No bleeding) Extremities: No clubbing, No cyanosis, No edema, Normal pulses, No tenderness/swelling Skin: No breakdown, No significant lesion, Other (Bilateral scattered raised macules with satellite lesions) Neuro: Normal gait, Normal speech, Strength at 5/5 X4 ext, Normal tone, Sensation intact, Cranial nerves 3-12 NL, Reflexes 2+ Psych/Mental Status: Mental status NL, Mood NL Vitals Vitals Vital Signs Date Time Temp Pulse Resp B/P (MAP) Pulse Ox O2 Delivery O2 Flow Rate FiO2 03/09/19 12:06 76 158/88 (111) 93 Room Air 03/09/19 10:35 97.4 20 97.4 Labs Labs Laboratory Tests Test 03/09/19 11:04 White Blood Count 8.2 x10^3/uL (4.0-11.0) Red Blood Count 4.74 x10^6/uL (4.30-5.70) Hemoglobin 13.8 g/dL (13.0-17.5) Hematocrit 41.7 % (39.0-53.0) Mean Corpuscular Volume 88 fL (79-100) Mean Corpuscular Hemoglobin 29 pg (25-35) Mean Corpuscular Hemoglobin Concent 33 g/dL (31-37) Red Cell Distribution Width 13.1 % (11.5-14.5) Platelet Count 192 x10^3/uL (140-400) Neutrophils (%) (Auto) 75 % (31-73) Lymphocytes (%) (Auto) 16 % (24-48) Monocytes (%) (Auto) 6 % (0-9) Eosinophils (%) (Auto) 3 % (0-3) Basophils (%) (Auto) 1 % (0-3) Neutrophils # (Auto) 6.1 x10^3/uL (1.8-7.7) Lymphocytes # (Auto) 1.3 x10^3/uL (1.0-4.8) Monocytes # (Auto) 0.5 x10^3/uL (0.0-1.1) Eosinophils # (Auto) 0.2 x10^3/uL (0.0-0.7) Basophils # (Auto) 0.0 x10^3/uL (0.0-0.2) Prothrombin Time 14.6 SEC (11.7-14.0) Prothromb Time International Ratio 1.2 (0.8-1.1) Sodium Level 142 mmol/L (136-145) Potassium Level 4.1 mmol/L (3.5-5.1) Chloride Level 106 mmol/L (98-107) Carbon Dioxide Level 26 mmol/L (21-32) Anion Gap 10 (6-14) Blood Urea Nitrogen 12 mg/dL (8-26) Creatinine 1.2 mg/dL (0.7-1.3) Estimated GFR (Cockcroft-Gault) 61.1 BUN/Creatinine Ratio 10 (6-20) Glucose Level 150 mg/dL (70-99) Calcium Level 9.5 mg/dL (8.5-10.1) Total Bilirubin 0.8 mg/dL (0.2-1.0) Aspartate Amino Transf (AST/SGOT) 27 U/L (15-37) Alanine Aminotransferase (ALT/SGPT) 43 U/L (16-63) Alkaline Phosphatase 78 U/L (46-116) Troponin I Quantitative 0.053 ng/mL (0.000-0.055) GP-Pzh-D-Type Natriuretic Peptide 564 pg/mL (0-124) Total Protein 6.8 g/dL (6.4-8.2) Albumin 3.6 g/dL (3.4-5.0) Albumin/Globulin Ratio 1.1 (1.0-1.7) Lipase 83 U/L (73-393) Laboratory Tests Test 03/09/19 11:04 White Blood Count 8.2 x10^3/uL (4.0-11.0) Red Blood Count 4.74 x10^6/uL (4.30-5.70) Hemoglobin 13.8 g/dL (13.0-17.5) Hematocrit 41.7 % (39.0-53.0) Mean Corpuscular Volume 88 fL (79-100) Mean Corpuscular Hemoglobin 29 pg (25-35) Mean Corpuscular Hemoglobin Concent 33 g/dL (31-37) Red Cell Distribution Width 13.1 % (11.5-14.5) Platelet Count 192 x10^3/uL (140-400) Neutrophils (%) (Auto) 75 % (31-73) Lymphocytes (%) (Auto) 16 % (24-48) Monocytes (%) (Auto) 6 % (0-9) Eosinophils (%) (Auto) 3 % (0-3) Basophils (%) (Auto) 1 % (0-3) Neutrophils # (Auto) 6.1 x10^3/uL (1.8-7.7) Lymphocytes # (Auto) 1.3 x10^3/uL (1.0-4.8) Monocytes # (Auto) 0.5 x10^3/uL (0.0-1.1) Eosinophils # (Auto) 0.2 x10^3/uL (0.0-0.7) Basophils # (Auto) 0.0 x10^3/uL (0.0-0.2) Prothrombin Time 14.6 SEC (11.7-14.0) Prothromb Time International Ratio 1.2 (0.8-1.1) Sodium Level 142 mmol/L (136-145) Potassium Level 4.1 mmol/L (3.5-5.1) Chloride Level 106 mmol/L (98-107) Carbon Dioxide Level 26 mmol/L (21-32) Anion Gap 10 (6-14) Blood Urea Nitrogen 12 mg/dL (8-26) Creatinine 1.2 mg/dL (0.7-1.3) Estimated GFR (Cockcroft-Gault) 61.1 BUN/Creatinine Ratio 10 (6-20) Glucose Level 150 mg/dL (70-99) Calcium Level 9.5 mg/dL (8.5-10.1) Total Bilirubin 0.8 mg/dL (0.2-1.0) Aspartate Amino Transf (AST/SGOT) 27 U/L (15-37) Alanine Aminotransferase (ALT/SGPT) 43 U/L (16-63) Alkaline Phosphatase 78 U/L (46-116) Troponin I Quantitative 0.053 ng/mL (0.000-0.055) IB-Fyx-N-Type Natriuretic Peptide 564 pg/mL (0-124) Total Protein 6.8 g/dL (6.4-8.2) Albumin 3.6 g/dL (3.4-5.0) Albumin/Globulin Ratio 1.1 (1.0-1.7) Lipase 83 U/L (73-393) Images Images CXR - A frontal view of the chest is obtained. There is no infiltrate, pleural effusion or pneumothorax. There is a stable prominent cardiac silhouette. VTE Prophylaxis Ordered VTE Prophylaxis Devices: No VTE Pharmacological Prophylaxi: Yes Assessment/Plan Assessment/Plan A/P: Chest pain - high risk ACS. Cardiology consulted. Will trend troponins. BB, ASA, morphine prn. Likely will need angiography Axillary rash - looks like fungal intertrigo. will treat topically with nystatin cream Paroxysmal A-Fib - sinus rhythm currently, on sotalol and eliquis, will continue. Hold eliquis tonight for likely cath in AM CAD s/p stenting x2 - has [facility] f/u outpatient diastolic CHF - seems to be in mild acute failure. Will need echo to assess EF as reduced EF could be reason to hold or d/c his anti-arrhythmic COPD - cont albuterol prn High Cholesterol - LDL goal < 70mg/dL, will cont Hypertension - cont amlodipine, sotalol Hyperglycemia - 150mg/dL, will check A1c FEN - Cardiac diet PPX - eliquis FULL CODE Dispo - inpatient for acute coronary syndrome DANIELLA TAVARES MD Mar 09, 2019 13:13
--- NOTE | 2019-03-09 13:48 | PDOC2 ---
VICKIE MITCHELL BISCUIT MACHINE OPERATOR 03/09/19 1348: CARDIAC CONSULT DATE OF CONSULT Date of Consult DATE: 03/09/19 TIME: 13:28 REASON FOR CONSULT Reason for Consult: Chest pain REFERRING PHYSICIAN Referring Physician: Andreas SOURCE Source: Chart review, Patient HISTORY OF PRESENT ILLNESS HISTORY OF PRESENT ILLNESS This is a pleasant 63 yo male admitted for complains of chest pain and shortness. of breath. Reports that he has not been feeling well in the last month. He has been more tired than usual. He recently had hemorrhoidectomy about 3 weeks ago at and tolerated the procedure well. He has been having plethora of symptoms. Positive for orthopnea and PND which were intermittent despite use of CPAP. Also sometimes with leg swelling. He has been having PEDERSON and exertional CP worse in the last week. He has been having almost daily. He could not really tell me how long an episode last but he said it takes a while with rest before the SOA and chest pain dissipates. Describes his chest discomfort as pressure and it seem to occur more at night and early in the morning and sometimes waking up diaphoretic. Occasional palpitations and his activity tolerance has decreased. His NTG SL was and decided to take one last night but it did not help. He has been compliant with his medications including eliquis which he took this morning. He was told to stop his ASA 2 months ago for unknown reason. His PCP is Dr. Avila and he was referred to Dr. Carr from cardiology, he assumes because his PCP is at the same office as Dr. Carr. He is familiar to our cardiology group. PAST MEDICAL HISTORY Past Medical History Cardiovascular: AFIB, CAD, HTN, Hyperlipidemia Pulmonary: COPD, Pneumonia CENTRAL NERVOUS SYSTEM: Other (No pertinent history) GI: GERD, hemorrhoids, anal fissure, constipation Heme/Onc: No pertinent hx Psych: No pertinent hx Musculoskeletal: Osteoarthritis Infectious disease: No pertinent hx ENT: No pertinent hx Renal/: ED new Endocrine: left adrenal adenoma Dermatology: No pertinent hx PAST SURGICAL HISTORY Past Surgical History right inguinal hernia repair, Other (s/p PCI/stent in 2013 and PCI/SALOME to RCA in 2016), hemorrhoidectomy 3 weeks ago FAMILY HISTORY Family History Heart Disease (mother) SOCIAL HISTORY Smoke: Quit ALCOHOL: none Drugs: None Lives: with Family CURRENT MEDICATIONS CURRENT MEDICATIONS Current Medications Medications (Trade) Dose Ordered Sig/Connie Route PRN Reason Start Time Stop Time Status Last Admin Dose Admin Aspirin (Children'S Aspirin) 324 mg 1X ONCE PO 03/09/19 11:00 03/09/19 11:01 DC 03/09/19 10:57 ALLERGIES ALLERGIES: Coded Allergies: iodine (Verified Allergy, Unknown, 07/22/15) ROS Review of System 14 point ROS evaluated with pertinent positives noted per HPI PHYSICAL EXAM General: Alert, Oriented X3, Cooperative, No acute distress HEENT: Atraumatic, Mucous membr. moist/pink Lungs: Clear to auscultation, Normal air movement Heart: Regular rate (sinus arrhythmia), Normal S1, Normal S2, Other (2/6 systolic murmur to LLS border) Abdomen: Soft, No tenderness, Other (obese) Extremities: No cyanosis, Other (1+ bilateral LE pitting edema) Skin: No breakdown, Other (axillary scattered maculopapular lesions) Neuro: Normal speech, Sensation intact Psych/Mental Status: Mental status NL, Mood NL MUSCULOSKELETAL: Osteoarthritic changes both hands VITALS/I&O VITALS/I&O: Vital Signs Date Time Temp Pulse Resp B/P (MAP) Pulse Ox O2 Delivery O2 Flow Rate FiO2 03/09/19 12:06 76 158/88 (111) 93 Room Air 03/09/19 10:35 97.4 20 97.4 LABS Lab: Laboratory Tests Test 03/09/19 11:04 White Blood Count 8.2 x10^3/uL (4.0-11.0) Red Blood Count 4.74 x10^6/uL (4.30-5.70) Hemoglobin 13.8 g/dL (13.0-17.5) Hematocrit 41.7 % (39.0-53.0) Mean Corpuscular Volume 88 fL (79-100) Mean Corpuscular Hemoglobin 29 pg (25-35) Mean Corpuscular Hemoglobin Concent 33 g/dL (31-37) Red Cell Distribution Width 13.1 % (11.5-14.5) Platelet Count 192 x10^3/uL (140-400) Neutrophils (%) (Auto) 75 % (31-73) H Lymphocytes (%) (Auto) 16 % (24-48) L Monocytes (%) (Auto) 6 % (0-9) Eosinophils (%) (Auto) 3 % (0-3) Basophils (%) (Auto) 1 % (0-3) Neutrophils # (Auto) 6.1 x10^3/uL (1.8-7.7) Lymphocytes # (Auto) 1.3 x10^3/uL (1.0-4.8) Monocytes # (Auto) 0.5 x10^3/uL (0.0-1.1) Eosinophils # (Auto) 0.2 x10^3/uL (0.0-0.7) Basophils # (Auto) 0.0 x10^3/uL (0.0-0.2) Prothrombin Time 14.6 SEC (11.7-14.0) H Prothrombin Time INR 1.2 (0.8-1.1) H Sodium Level 142 mmol/L (136-145) Potassium Level 4.1 mmol/L (3.5-5.1) Chloride Level 106 mmol/L (98-107) Carbon Dioxide Level 26 mmol/L (21-32) Anion Gap 10 (6-14) Blood Urea Nitrogen 12 mg/dL (8-26) Creatinine 1.2 mg/dL (0.7-1.3) Estimated GFR (Cockcroft-Gault) 61.1 BUN/Creatinine Ratio 10 (6-20) Glucose Level 150 mg/dL (70-99) H Calcium Level 9.5 mg/dL (8.5-10.1) Total Bilirubin 0.8 mg/dL (0.2-1.0) Aspartate Amino Transferase (AST) 27 U/L (15-37) Alanine Aminotransferase (ALT) 43 U/L (16-63) Alkaline Phosphatase 78 U/L (46-116) Troponin I Quantitative 0.053 ng/mL (0.000-0.055) TW-Jfl-Q-Type Natriuretic Peptide 564 pg/mL (0-124) H Total Protein 6.8 g/dL (6.4-8.2) Albumin 3.6 g/dL (3.4-5.0) Albumin/Globulin Ratio 1.1 (1.0-1.7) Lipase 83 U/L (73-393) Laboratory Tests 03/09/19 11:04 Laboratory Tests 03/09/19 11:04 ECHOCARDIOGRAM ECHOCARDIOGRAM <Conclusion> The left ventricle is normal size. The left ventricular systolic function is normal and the ejection fraction is within normal range. The Ejection Fraction is 50-55%. There is mild concentric left ventricular hypertrophy. There is no significant aortic valvular stenosis. Doppler and Color Flow revealed no significant aortic regurgitation. Doppler and Color-flow revealed mild mitral regurgitation. Doppler and Color Flow revealed no tricuspid valve regurgitation noted. DATE: 07/23/15 1624 STRESS TEST STRESS TEST Conclusion 1. Regadenoson cardioisotope stress test did not show any evidence of ischemia or infarct. 2. Normal left ventricular systolic function with ejection fraction calculated at 66%. 3. Low risk for cardiac events. DATE: 02/27/18 1411 ASSESSMENT/PLAN ASSESSMENT/PLAN 1. Chest pain: UA features 2. CAD: past stents 3. HTN: labile episodes 4. PAFIB: maintaining SR. 5. HLP 6. Morbid obesity 7. New onset DM2 vs dysmetabolic syndrome 8. ALEN: CPAP at home 9. Bilateral Axillary maculopapular rash: defer to PCP 10. Mild acute diastolic CHF Recommendations 1. Will obtain accurate med list. Continue sotalol, QTc 472. Hold eliquis, last dose this am 2. Restart home BP meds. ASA and statin 3. TTE, lipids in AM. Check A1C. Trend troponin 4. Lasix x1. 5. C tomorrow, risks and benefits discussed and agreeable to proceed. 6. Will premed for iodine allergy precath CALEB KNIGHT MD 03/09/19 7014: CARDIAC CONSULT ASSESSMENT/PLAN ASSESSMENT/PLAN Patient seen and examined. Agree with ZOO KEEPER's assessment and plan. Clinical picture suspicious for unstable angina Myocardial infarction has been ruled out Agree with cardiac catheterization for definitive evaluation tomorrow We will premedicate for dye allergy 2-D echo showed LVEF 50% with moderate mitral regurgitation PAF maintaining sinus rhythm. Hold eliquis for cardiac cath. Thank you for your consultation. VICKIE MITCHELL APRN Mar 09, 2019 13:48 CALEB KNIGHT MD Mar 09, 2019 16:49
[2019-03-09 13:56] VITALS: BP 141/98
--- NOTE | 2019-03-09 14:22 | EKG ---
[facility] [address] [place] [address] Test Date: 2019-03-09 Test Time: 10:37:11 Pat Name: LONDON CRESPO Department: Room: 209 1 Gender: M Muffler Hand: : 1955 Requested By: LAMONT CONDE Order Number: [id number] Reading MD: Elie Le Measurements Intervals [place] Rate: 80 P: -55 DC: 178 QRS: 47 QRSD: 82 T: 64 QT: 406 QTc: 472 Interpretive Statements SINUS RHYTHM ATRIAL PREMATURE COMPLEX(ES) LOW LIMB LEADS NONSPECIFIC ST-T WAVE CHANGES. Electronically Signed On 03-18-2019 15:42:18 CDT by Elie Le
[2019-03-09] MEDS ORDERED: ALBUTEROL SULFATE 2.5 MG/3 ML NEBU. INH PRN (14:30)
[2019-03-09] MEDS ORDERED: POLYETHYLENE GLYCOL 3350 17 GM PACKET. PO PRN (14:30)
[2019-03-09] MEDS ORDERED: DOCUSATE SODIUM 100 MG CAPSULE. PO PRN (14:30)
[2019-03-09] MEDS: NYSTATIN 100,000 UNIT/GM TOPICAL CREAM 15GM TUBE. TP SCH ×2 (14:30→20:53)
[2019-03-09] MEDS ORDERED: CARV6.2511 PO (14:43)
[2019-03-09] MEDS ORDERED: OLME40TA12 PO (14:45)
[2019-03-09] MEDS ORDERED: FUROSEMIDE 40 MG TABLET. PO ONE (14:45)
[2019-03-09] MEDS: amLODIPine BESYLATE 10 MG TABLET PO SCH (14:53)
[2019-03-09] MEDS: LOSARTAN POTASSIUM 50 MG TABLET. PO SCH (14:53)
[2019-03-09] MEDS: POTASSIUM CHLORIDE 20 MEQ TABLET.ER. PO SCH (14:53)
[2019-03-09] MEDS: ASPIRIN ENTERIC COATED 81 MG TABLET.DR. PO SCH (14:53)
--- NOTE | 2019-03-09 15:44 | CARD ---
MR#: [id number] Date of Study: 03/09/2019 Ordering Physician: VICKIE MITCHELL, Referring Physician: VICKIE MITCHELL Tech: Rekha Harper MATEO APPROVED REPORT EXAM: Two-dimensional and M-mode echocardiogram with Doppler and color Doppler. Other Information Quality : AverageHR: 76bpm Rhythm : NSR INDICATION Chest Pain 2D DIMENSIONS RVDd3.4 (2.9-3.5cm)Left Atrium(2D)4.6 (1.6-4.0cm) IVSd1.6 (0.7-1.1cm)Aortic Root(2D)2.7 (2.0-3.7cm) LVDd5.2 (3.9-5.9cm)LVOT Diameter1.8 (1.8-2.4cm) PWd1.3 (0.7-1.1cm)LVDs4.1 (2.5-4.0cm) FS (%) 19.6 %SV51.0 ml M-Mode DIMENSIONS Left Atrium(MM)4.63 (2.5-4.0cm)Aortic Root2.99 (2.2-3.7cm) Aortic Valve AoV Peak Ej.169.0cm/sAoV VTI28.1cm AO Peak GR.11.4mmHgLVOT Peak Ej.71.1cm/s AO Mean GR.6mmHgAVA (VMAX)1.04cm2 CLARENCE (VTI)1.24ul8TX P 1/2 Getz2148cl Mitral Valve MV E Itrqszkz666.9cm/sMV E Peak Gr.127mmHg MV DECEL APCP993zyCW A Reewvsnl96.2cm/s MV E Mean Gr.4mmHgE/A Ratio4.4 Pulmonary Valve PV Peak Fhncocjs99.8cm/s Tricuspid Valve TR P. Pqtgworz569tp/sRAP VIWDMMNE7dzLf TR Peak Gr.25kaOxTURE36huWe LEFT VENTRICLE The left ventricle is normal size. There is moderate concentric left ventricular hypertrophy. Left ve ntricle systolic function is low normal. The Ejection Fraction is 50%. There is normal LV segmental w all motion. RIGHT VENTRICLE The right ventricle is normal size. There is normal right ventricular wall thickness. The right ventr icular systolic function is normal. ATRIA The left atrium is mild to moderately dilated. The right atrium is mildly dilated. The interatrial se ptum is intact with no evidence for an atrial septal defect or patent foramen ovale as noted on 2-D o r Doppler imaging. AORTIC VALVE The aortic valve is trileaflet. The aortic valve is mildly calcified. Doppler and Color Flow revealed trace aortic regurgitation. There is no significant aortic valvular stenosis. MITRAL VALVE The mitral valve is normal in structure and function. There is no evidence of mitral valve prolapse. There is no mitral valve stenosis. Doppler and Color-flow revealed moderate mitral regurgitation. TRICUSPID VALVE The tricuspid valve is normal in structure and function. Doppler and Color Flow revealed mild tricusp id regurgitation. The PA pressure was estimated at 31 mmHg. There is no tricuspid valve prolapse or v egetation. There is no tricuspid valve stenosis. PULMONIC VALVE The pulmonic valve is not well visualized. GREAT VESSELS The aortic root is normal in size. The ascending aorta is normal in size. The IVC is normal in size a nd collapses >50% with inspiration. PERICARDIAL EFFUSION There is no evidence of significant pericardial effusion. Critical Notification Critical Value: No <Conclusion> Left ventricle systolic function is low normal. The Ejection Fraction is 50%. Moderate mitral regurgitation. Mild tricuspid regurgitation. The PA pressure was estimated at 31 mmHg. There is no evidence of significant pericardial effusion. Signed by : Cristiano García, Electronically Approved : 03/09/2019 15:44:22
[2019-03-09] MEDS: CARVEDILOL 6.25 MG TABLET. PO SCH (17:03)
[2019-03-09] MEDS: LUBIPROSTONE 8 MCG CAPSULE PO SCH (17:03)
[2019-03-09 19:22] VITALS: BP 119/56
[2019-03-09] MEDS: SOTALOL 80 MG TABLET. PO SCH (20:52)
[2019-03-09] MEDS ORDERED: ATORVASTATIN CALCIUM 40 MG TABLET. PO SCH (21:00)
[2019-03-09 22:31] VITALS: BP 137/79
[2019-03-10] VITALS (15 sets, daily range): BP systolic 134–181; BP diastolic 68–107
[2019-03-10 03:13] LABS: HEMOGLOBIN A1C 6.4 % (4.8-5.6)
[2019-03-10 04:47] LABS: BASO % 1 % (0-3); EOS # 0.3 x10^3/uL (0.0-0.7); EOS % 5 % (0-3); HEMATOCRIT 42.2 % (39.0-53.0); HEMOGLOBIN 14.3 g/dL (13.0-17.5); LYMPH # 1.8 x10^3/uL (1.0-4.8); LYMPH % 26 % (24-48); MEAN CORPUSCULAR HEMOGLOBIN 30 pg (25-35); MEAN CORPUSCULAR HGB CONC 34 g/dL (31-37); MEAN CORPUSCULAR VOLUME 88 fL (79-100); MONO # 0.6 x10^3/uL (0.0-1.1); MONO % 8 % (0-9); NEUT # 4.4 x10^3/uL (1.8-7.7); NEUT % 61 % (31-73); PLATELET COUNT 172 x10^3/uL (140-400); RED BLOOD COUNT 4.81 x10^6/uL (4.30-5.70); RED CELL DISTRIBUTION WIDTH 13.4 % (11.5-14.5); WHITE BLOOD COUNT 7.2 x10^3/uL (4.0-11.0)
[2019-03-10 05:03] LABS: CALCIUM 9.6 mg/dL (8.5-10.1); CREATININE 1.2 mg/dL (0.7-1.3); GFR 61.1; MAGNESIUM 1.9 mg/dL (1.8-2.4); POTASSIUM 3.4 mmol/L (3.5-5.1)
[2019-03-10 05:10] LABS: CHOLESTEROL/HDL RATIO 7.1
[2019-03-10] MEDS: LUBIPROSTONE 8 MCG CAPSULE PO SCH ×2 (08:00→16:54)
[2019-03-10] MEDS ORDERED: FUROSEMIDE 40 MG TABLET. PO SCH (09:00)
[2019-03-10] MEDS ORDERED: OLMESARTAN MEDOXOMIL 40 MG PO SCH (09:00)
[2019-03-10] MEDS: CARVEDILOL 6.25 MG TABLET. PO SCH ×2 (09:12→16:55)
[2019-03-10] MEDS: ASPIRIN ENTERIC COATED 81 MG TABLET.DR. PO SCH (09:12)
[2019-03-10] MEDS: POTASSIUM CHLORIDE 20 MEQ TABLET.ER. PO SCH (09:12)
[2019-03-10] MEDS: amLODIPine BESYLATE 10 MG TABLET PO SCH (09:12)
[2019-03-10] MEDS: LOSARTAN POTASSIUM 50 MG TABLET. PO SCH (09:13)
[2019-03-10] MEDS: SOTALOL 80 MG TABLET. PO SCH (09:13)
[2019-03-10] MEDS: NYSTATIN 100,000 UNIT/GM TOPICAL CREAM 15GM TUBE. TP SCH (09:14)
[2019-03-10] MEDS ORDERED: LIDOCAINE 1% PF 2 ML VIAL. ONE (10:35)
[2019-03-10] MEDS ORDERED: diphenhydrAMINE 50 MG/ML VIAL IVP ONE (11:00)
[2019-03-10] MEDS ORDERED: methylPREDNISolone SOD SUCC PF 125 MG/2 ML VIAL. IV ONE (11:00)
[2019-03-10] MEDS ORDERED: FAMOTIDINE 20 MG/2 ML VIAL IVP ONE (11:00)
[2019-03-10] MEDS ORDERED: VERAPAMIL 5 MG/2 ML VIAL. ONE (11:13)
[2019-03-10] MEDS ORDERED: fentaNYL PF VIAL 100 MCG/2 ML VIAL ONE (11:13)
[2019-03-10] MEDS ORDERED: HEPARIN for IV BOLUS 10,000 UNIT/10 ML VIAL. ONE (11:13)
[2019-03-10] MEDS ORDERED: MIDAZOLAM HCL/PF 2 MG/2 ML VIAL. ONE ×2 (11:13→11:50)
[2019-03-10] MEDS ORDERED: NITROGLYCERIN 200 MCG/2 ML SYRINGE FOR CATH/VASC LAB. ONE (11:14)
--- NOTE | 2019-03-10 11:27 | PDOC ---
[employer] PROGRESS NOTE Chief Complaint Chief Complaint Chest pain History of Present Illness History of Present Illness 03/10/19 Pt seen and examined EF= 50-55% Troponin = .053, .031, .023 PT is feeling better and denies any chest pain today He states that he often gets sweaty and his worried about why he has to change his clothes so much. We are checking his thyroid. MARGARITO RN Vitals/I&O Vitals/I&O: Vital Signs Date Time Temp Pulse Resp B/P (MAP) Pulse Ox O2 Delivery O2 Flow Rate FiO2 03/10/19 09:13 72 148/86 03/10/19 08:00 Room Air 03/10/19 07:00 98.7 18 97 98.7 I & O 03/09/19 03/09/19 03/10/19 15:00 23:00 07:00 Intake Total 0 ml Output Total 901 ml Balance -901 ml 0 ml Physical Exam General: Alert, Oriented X3, Cooperative, No acute distress Heart: Regular rate (sinus arrhythmia), Normal S1, Normal S2, Other (2/6 systolic murmur to LLS border) Lungs: Clear Abdomen: Soft, No tenderness, Other (obese) Extremities: No cyanosis, Other (1+ bilateral LE pitting edema) Skin: No breakdown, Other (axillary scattered maculopapular lesions) Labs Labs: Laboratory Tests Test 03/09/19 15:40 03/09/19 18:15 03/10/19 03:27 Troponin I Quantitative 0.031 ng/mL (0.000-0.055) 0.023 ng/mL (0.000-0.055) White Blood Count 7.2 x10^3/uL (4.0-11.0) Red Blood Count 4.81 x10^6/uL (4.30-5.70) Hemoglobin 14.3 g/dL (13.0-17.5) Hematocrit 42.2 % (39.0-53.0) Mean Corpuscular Volume 88 fL (79-100) Mean Corpuscular Hemoglobin 30 pg (25-35) Mean Corpuscular Hemoglobin Concent 34 g/dL (31-37) Red Cell Distribution Width 13.4 % (11.5-14.5) Platelet Count 172 x10^3/uL (140-400) Neutrophils (%) (Auto) 61 % (31-73) Lymphocytes (%) (Auto) 26 % (24-48) Monocytes (%) (Auto) 8 % (0-9) Eosinophils (%) (Auto) 5 % (0-3) Basophils (%) (Auto) 1 % (0-3) Neutrophils # (Auto) 4.4 x10^3/uL (1.8-7.7) Lymphocytes # (Auto) 1.8 x10^3/uL (1.0-4.8) Monocytes # (Auto) 0.6 x10^3/uL (0.0-1.1) Eosinophils # (Auto) 0.3 x10^3/uL (0.0-0.7) Basophils # (Auto) 0.0 x10^3/uL (0.0-0.2) Sodium Level 141 mmol/L (136-145) Potassium Level 3.4 mmol/L (3.5-5.1) Chloride Level 104 mmol/L (98-107) Carbon Dioxide Level 29 mmol/L (21-32) Anion Gap 8 (6-14) Blood Urea Nitrogen 18 mg/dL (8-26) Creatinine 1.2 mg/dL (0.7-1.3) Estimated GFR (Cockcroft-Gault) 61.1 Glucose Level 150 mg/dL (70-99) Calcium Level 9.6 mg/dL (8.5-10.1) Magnesium Level 1.9 mg/dL (1.8-2.4) Triglycerides Level 216 mg/dL (0-150) Cholesterol Level 228 mg/dL (0-200) LDL Cholesterol, Calculated 153 mg/dL (0-100) VLDL Cholesterol, Calculated 43 mg/dL (0-40) Non-HDL Cholesterol Calculated 196 mg/dL (0-129) HDL Cholesterol 32 mg/dL (40-60) Cholesterol/HDL Ratio 7.1 Review of Systems Review of Systems: Denies n/v/d Denies weakness Assessment and Plan Assessmemt and Plan Problems Medical Problems: (1) Chest pain Status: Acute Assessment Chest pain Axillary rash Afib CAD COPD High cholesterol Htn Plan Cardiac monitoring Serial EKG Serial enzymes Cardiac diet Full code DVT prophylaxis Appreciate card input Discharge per cards Comment Review of Relevant I have reviewed the following items robbin (where applicable) has been applied. Medications: Current Medications Medications (Trade) Dose Ordered Sig/Connie Route PRN Reason Start Time Stop Time Status Last Admin Dose Admin Amlodipine Besylate (Norvasc) 10 mg DAILY PO 03/09/19 15:00 03/10/19 09:12 Aspirin (Ecotrin) 81 mg DAILY PO 03/09/19 15:00 03/10/19 09:12 Lubiprostone (Amitiza) 8 mcg BIDWMEALS PO 03/09/19 17:00 03/09/19 17:03 Sotalol HCl (Betapace) 80 mg BID PO 03/09/19 21:00 03/10/19 09:13 Atorvastatin Calcium (Lipitor) 80 mg QHS PO 03/09/19 21:00 03/09/19 20:51 Losartan Potassium (Cozaar) 100 mg DAILY PO 03/09/19 15:00 03/10/19 09:13 Potassium Chloride (Klor-Con) 20 meq DAILYWBKFT PO 03/09/19 15:00 03/10/19 09:12 Nystatin (Mycostatin) 1 prabhjot BID TP 03/09/19 14:30 03/10/19 09:14 Methylprednisolone Sodium Succinate (SOLU-Medrol 125MG VIAL) 125 mg 1X ONCE IV 03/10/19 11:00 03/10/19 11:01 DC 03/10/19 10:56 Diphenhydramine HCl (Benadryl) 25 mg 1X ONCE IVP 03/10/19 11:00 03/10/19 11:01 DC 03/10/19 10:55 Famotidine (Pepcid Vial) 20 mg 1X ONCE IVP 03/10/19 11:00 03/10/19 11:01 DC 03/10/19 10:55 Furosemide (Lasix) 40 mg 1X ONCE PO 03/09/19 14:45 03/09/19 14:46 DC 03/09/19 15:19 Carvedilol (Coreg) 6.25 mg BIDWMEALS PO 03/09/19 17:00 03/10/19 09:12 REZA KOWALSKI III DO Mar 10, 2019 11:27
[2019-03-10] MEDS ORDERED: MIDAZOLAM HCL/PF 2 MG/2 ML VIAL. IV ONE (11:30)
[2019-03-10] MEDS ORDERED: LIDOCAINE 1% PF 2 ML VIAL. INJ ONE (11:30)
[2019-03-10] MEDS ORDERED: NITROGLYCERIN 200 MCG/2 ML SYRINGE FOR CATH/VASC LAB. IART ONE (11:30)
[2019-03-10] MEDS ORDERED: IODIXANOL 320 MG/ML 100 ML VIAL. IART ONE (11:30)
[2019-03-10] MEDS ORDERED: fentaNYL PF VIAL 100 MCG/2 ML VIAL IV ONE (11:30)
[2019-03-10] MEDS ORDERED: HEPARIN for IV BOLUS 10,000 UNIT/10 ML VIAL. IART ONE (11:30)
[2019-03-10] MEDS ORDERED: VERAPAMIL 5 MG/2 ML VIAL. IART ONE (11:30)
[2019-03-10] MEDS ORDERED: IODIXANOL 320 MG/ML 100 ML VIAL. ONE (11:40)
--- NOTE | 2019-03-10 11:47 | NUR ---
SS following for discharge planning. SS reviewed pt chart. Pt is from home with spouse and is currently on room air. SS will continue to follow for discharge planning.
[2019-03-10] MEDS ORDERED: POTASSIUM CHLORIDE 20 MEQ TABLET.ER. PO ONE (12:00)
--- NOTE | 2019-03-10 12:31 | PDOC ---
MODERATE SEDATION ASSESSMENT RISKS/ALTERNATIVES Risks/Alternatives Risks and alternatives of this type of sedation and procedure discussed with: RISK/ALTERNATIVES: Patient H & P ON CHART H & P H & P on chart and reviewed for co-morbid conditions and appropriate labs. H&P ON CHART: Yes STATUS PREG STATUS ASSESSED: N/A MEDS/ALLERGIES REVIEWED Meds/Allergies Reviewed Medications and Allergies including time and route of recently administered narcotics and sedatives. MEDS/ALLERGIES REVIEWED: Yes ASA RATING ASA RATING: II AIRWAY ASSESSMENT Airway Assessment Airway patency, oral function limitations, presence of caps, crowns, dentures, partials, and ability to extend neck assessed. AIRWAY ASSESSMENT: Yes MALLAMPATI SCORE MALLAMPATI SCORE: II PRE-SEDATION ASSESSMENT PRE-SEDATION ASSESSMENT: Yes CALEB KNIGHT MD Mar 10, 2019 12:30
--- NOTE | 2019-03-10 12:44 | CARD ---
MR#: [id number] Date of Study: 03/10/2019 Ordering Physician: VICKIE MITCHELL, Referring Physician: VICKIE MITCHELL Tech: Leisa Washburn APPROVED REPORT Technologist: Leisa Washburn Nurse: Pushpa Lowry RN Procedure(s) performed: Left heart catheterization and selective coronary angiography via right trans radial approach fl time: 4.7 mins dose: 56 gy/cm2 contrast: 75 ml moderate sedation: 24 min INDICATION The indication(s) include : unstable angina . CSHA Clinical Frailty Scale [facility] Clinical Frailty Scale: Managing Well Heart Failure Heart Failure: No PROCEDURE NARRATIVE After explaining the risks, benefits and alternative options, informed consent was obtained from fatemeh ent. Patient was brought to the cardiac Baker Test and right wrist was prepped and draped in the usual fashion after confirming a positive modified Demetrius's test. Arterial access was obtained in the righ t radial artery and a 6 Ukrainian sheath was inserted. 6 Ukrainian Harrison catheter was used to perform shilpa ective angiography of the left and right coronary arteries. LVEDP and transaortic gradients were maria victoria ured. Left ventriculography was not performed since 2-D echo this admission showed normal LV systolic function. Patient tolerated the procedure well. Hemostasis was achieved using TR band. There were no immediate complications. The following findings were noted. FINDINGS 1. Hemodynamics: Left ventricular end-diastolic pressure of 24 mmHg. No pullback gradient across th e aortic valve. 2. Coronary angiography: a. The left main coronary artery arose from the left sinus of Valsalva, was short, gave rise to the left anterior descending and left circumflex arteries and did not show any significant stenosis. b. The left anterior descending artery did not show any significant stenosis. c. The left circumflex artery showed widely patent stent in the proximal to midsegment. d. The right coronary artery was a large and dominant vessel arising from the right sinus of Valsalv a that showed widely patent stent in the midsegment. Conclusion No significant coronary artery disease with widely patent previously placed stents and left circumfle x and right coronary arteries. Recommendations Medical Therapy Signed by : Cristiano Pasnoori, Electronically Approved : 03/10/2019 12:44:12
[2019-03-10] MEDS ORDERED: NITROGLYCERIN SUBLINGUAL 0.4 MG BOTTLE OF 25. SL PRN (12:45)
[2019-03-10] MEDS ORDERED: IV 1/2 NORMAL SALINE 1,000 ML IV SCH (13:00)
--- NOTE | 2019-03-10 17:38 | NUR ---
Discharge Note: SADIQ CRESPO [place] Discharge instructions and discharge home medications reviewed with Patient and a copy given. All questions have been answered and understanding verbalized. The following instructions and handouts were given: coronary angiography, chest pain Patient discharged to home or self care with self via ambulated
--- NOTE | 2019-03-15 08:13 | DS ---
DATE OF DISCHARGE: 03/10/2019 ADMISSION DIAGNOSIS: Chest pain. DISCHARGE DIAGNOSIS: Atypical chest pain. CONSULTS: Cardiology. PROCEDURES: Cardiac catheterization, which was negative and showed a 50% EF. HOSPITAL COURSE: The patient is a pleasant 63-year-old male who presented with chest pain. He was admitted. We checked serial enzymes, serial EKGs. We consulted Cardiology. He was actually taken for a catheterization, which apparently was clean. They recommended medical management. We discharged to home with close outpatient followup. DISPOSITION: Home. ACTIVITY: As tolerated. DIET: Low sodium. MEDICATIONS: Please see the MRAD. TOTAL TIME: 32 minutes. REZA KOWALSKI DO DR: YANN/shiv JOB#: [id number] / [id number]
== END 2019-03-10 17:40 | disposition home or self-care (01) | DRG 286 ==
LOC: ER 10:31 → OBSVTOIN 12:30 → 2 NORTH 12:30
PROVIDERS: ADMIT Internal Medicine; ATTEND Internal Medicine
PROC: 4A023N7 Measurement of Cardiac Sampling and Pressure, Left Heart, Percutaneous Approach (ICD-10-PCS; principal; 2019-03-10)
PROC: B2111ZZ Fluoroscopy of Multiple Coronary Arteries using Low Osmolar Contrast (ICD-10-PCS; 2019-03-10)
PROC: B2151ZZ Fluoroscopy of Left Heart using Low Osmolar Contrast (ICD-10-PCS; 2019-03-10)
DX: I25.110 Atherosclerotic heart disease of native coronary artery with unstable angina pectoris (principal); I50.33 Acute on chronic diastolic (congestive) heart failure; Z68.41 Body mass index [BMI] 40.0-44.9, adult; J44.9 Chronic obstructive pulmonary disease, unspecified; E78.00 Pure hypercholesterolemia, unspecified; I11.0 Hypertensive heart disease with heart failure; I48.91 Unspecified atrial fibrillation; E78.5 Hyperlipidemia, unspecified; K21.9 Gastro-esophageal reflux disease without esophagitis; M19.90 Unspecified osteoarthritis, unspecified site; E03.9 Hypothyroidism, unspecified; G47.33 Obstructive sleep apnea (adult) (pediatric); E66.01 Morbid (severe) obesity due to excess calories; L29.9 Pruritus, unspecified; Z95.5 Presence of coronary angioplasty implant and graft; Z87.01 Personal history of pneumonia (recurrent); Z88.8 Allergy status to other drugs, medicaments and biological substances; Z82.49 Family history of ischemic heart disease and other diseases of the circulatory system
CPT/HCPCS: 36415; 71045; 80048; 80053; 80061; 83036; 83690; 83735; 83880; 84443; 84484; 85025; 85610; 93005; 93306; 93458; 99152; 99153; C1769; C1892; J1200; J1644; J2250; J2930; J3010; J3490; Q9967; G0378

== ENCOUNTER 2019-04-06 08:41 | Emergency (ER) | payer OTHER, MEDICAID ==
[~2019-04-06] VITALS: Ht 167.6 cm; Wt 111.1 kg
[~2019-04-06 08:41] MED LIST changes: +CARV6.2511 PO; +OLME40TA12 PO
[2019-04-06 09:28] LABS: CALCIUM 8.4 mg/dL (8.5-10.1); CREATININE 1.4 mg/dL (0.7-1.3); GFR 51.2; POTASSIUM 4.1 mmol/L (3.5-5.1)
--- NOTE | 2019-04-06 09:36 | RAD ---
CHEST AP ONLY History: Shortness of breath Comparison: March 09, 2019 Findings: No consolidation or pleural effusion. Normal heart size. Impression: 1. No acute cardiopulmonary process. Electronically signed by: Eusebio Cabrales DO (04/06/2019 9:32 AM) [facility]
[2019-04-06 09:37] LABS: ALBUMIN 3.6 g/dL (3.4-5.0); ALBUMIN/GLOBULIN RATIO 1.2 (1.0-1.7); TOTAL BILIRUBIN 0.8 mg/dL (0.2-1.0); TOTAL PROTEIN 6.7 g/dL (6.4-8.2)
[2019-04-06 09:50] LABS: BASO # 0.1 x10^3/uL (0.0-0.2); BASO % 1 % (0-3); EOS # 0.3 x10^3/uL (0.0-0.7); EOS % 3 % (0-3); HEMATOCRIT 43.2 % (39.0-53.0); LYMPH # 1.3 x10^3/uL (1.0-4.8); LYMPH % 14 % (24-48); MEAN CORPUSCULAR HEMOGLOBIN 28 pg (25-35); MEAN CORPUSCULAR HGB CONC 33 g/dL (31-37); MEAN CORPUSCULAR VOLUME 87 fL (79-100); MONO # 0.4 x10^3/uL (0.0-1.1); MONO % 5 % (0-9); NEUT # 6.9 x10^3/uL (1.8-7.7); NEUT % 77 % (31-73); PLATELET COUNT 156 x10^3/uL (140-400); RED BLOOD COUNT 4.97 x10^6/uL (4.30-5.70); RED CELL DISTRIBUTION WIDTH 13.5 % (11.5-14.5)
[2019-04-06] MEDS ORDERED: IPRATRPIUM/ALBUTEROL 0.5/2.5MG 3 ML NEBU. NEB ONE (10:15)
--- NOTE | 2019-04-06 10:56 | PHYS DOC ---
Past Medical History Past Medical History: A-Fib, CAD, CHF, COPD, High Cholesterol, Heart Disease, Hypertension Past Surgical History: Other Additional Past Surgical Histo: STENT X 3,HERNIA Alcohol Use: Rarely Drug Use: None Adult General Chief Complaint Chief Complaint: SHORTNESS OF BREATH HPI HPI Patient is a 63 year old male with history of CAD, COPD, congestive heart failure presents with productive cough with increased shortness of breath over the past 3-5 days. No fever chills, nausea vomiting or sweats. Orts chest tightness but denies chest pain. Denies increased leg pain or swelling. No history of DVT or PE. Patient is compliant with therapy. [] Review of Systems Review of Systems Review symptoms as per history of present illness. All other review symptoms are negative. All other systems were reviewed and found to be within normal limits, except as documented in this note. Current Medications Current Medications Current Medications Medications (Trade) Dose Ordered Sig/Connie Start Time Stop Time Status Last Admin Dose Admin Albuterol/ Ipratropium (Duoneb) 3 ml 1X ONCE 04/06/19 10:15 04/06/19 10:16 DC 04/06/19 10:30 3 ML Furosemide (Lasix) 20 mg 1X ONCE 04/06/19 11:00 04/06/19 11:01 DC 04/06/19 11:19 20 MG Allergies Allergies Allergies Coded Allergies Type Severity Reaction Last Updated Verified iodine Allergy Intermediate 03/10/19 Yes Physical Exam Physical Exam Constitutional: Well developed, well nourished, no acute distress, non-toxic appearance. [] HENT: Normocephalic, atraumatic, bilateral external ears normal, oropharynx moist, dry, nonproductive cough.. [] Eyes: PERRLA, EOMI, conjunctiva normal, no discharge. [] Neck: Normal range of motion, no tenderness, supple, no stridor. [] Cardiovascular:Heart rate regular rhythm, no murmur [] Lungs & Thorax: Patient's nonlabored, coarse diminished breath sounds with rales in bases.[] Abdomen: Bowel sounds normal, soft, no tenderness, no masses, no pulsatile masses. [] Skin: Warm, dry, no erythema, no rash. [] Back: No tenderness, no CVA tenderness. [] Extremities: No tenderness, no cyanosis, no clubbing, ROM intact, no edema. [] Neurologic: Alert and oriented X 3, normal motor function, normal sensory function, no focal deficits noted. [] Psychologic: Affect normal, judgement normal, mood normal. [] Current Patient Data Vital Signs Vital Signs Date Time Temp Pulse Resp B/P (MAP) Pulse Ox O2 Delivery O2 Flow Rate FiO2 04/06/19 10:30 94 Room Air 04/06/19 08:51 97.4 86 30 184/98 (126) 2.0 97.4 Lab Values Laboratory Tests Test 04/06/19 09:00 White Blood Count 9.0 x10^3/uL (4.0-11.0) Red Blood Count 4.97 x10^6/uL (4.30-5.70) Hemoglobin 14.0 g/dL (13.0-17.5) Hematocrit 43.2 % (39.0-53.0) Mean Corpuscular Volume 87 fL (79-100) Mean Corpuscular Hemoglobin 28 pg (25-35) Mean Corpuscular Hemoglobin Concent 33 g/dL (31-37) Red Cell Distribution Width 13.5 % (11.5-14.5) Platelet Count 156 x10^3/uL (140-400) Neutrophils (%) (Auto) 77 % (31-73) H Lymphocytes (%) (Auto) 14 % (24-48) L Monocytes (%) (Auto) 5 % (0-9) Eosinophils (%) (Auto) 3 % (0-3) Basophils (%) (Auto) 1 % (0-3) Neutrophils # (Auto) 6.9 x10^3/uL (1.8-7.7) Lymphocytes # (Auto) 1.3 x10^3/uL (1.0-4.8) Monocytes # (Auto) 0.4 x10^3/uL (0.0-1.1) Eosinophils # (Auto) 0.3 x10^3/uL (0.0-0.7) Basophils # (Auto) 0.1 x10^3/uL (0.0-0.2) Sodium Level 140 mmol/L (136-145) Potassium Level 4.1 mmol/L (3.5-5.1) Chloride Level 103 mmol/L (98-107) Carbon Dioxide Level 28 mmol/L (21-32) Anion Gap 9 (6-14) Blood Urea Nitrogen 24 mg/dL (8-26) Creatinine 1.4 mg/dL (0.7-1.3) H Estimated GFR (Cockcroft-Gault) 51.2 BUN/Creatinine Ratio 17 (6-20) Glucose Level 203 mg/dL (70-99) H Calcium Level 8.4 mg/dL (8.5-10.1) L Total Bilirubin 0.8 mg/dL (0.2-1.0) Aspartate Amino Transferase (AST) 41 U/L (15-37) H Alanine Aminotransferase (ALT) 52 U/L (16-63) Alkaline Phosphatase 80 U/L (46-116) Troponin I Quantitative 0.038 ng/mL (0.000-0.055) OY-Bkr-L-Type Natriuretic Peptide 355 pg/mL (0-124) H Total Protein 6.7 g/dL (6.4-8.2) Albumin 3.6 g/dL (3.4-5.0) Albumin/Globulin Ratio 1.2 (1.0-1.7) Laboratory Tests 04/06/19 09:00 Laboratory Tests 04/06/19 09:00 EKG EKG [EKG: #1 Reviewed] EKG #2 reviewed Radiology/Procedures Radiology/Procedures [Chest x-ray: Reviewed] Course & Med Decision Making Course & Med Decision Making Pertinent Labs and Imaging studies reviewed. (See chart for details) [Symptoms carefully improved with breathing treatment and Lasix. Chest pain. Repeat EKG does not show any acute ST-T wave changes. Repeat troponin pending. Anticipate discharge home with continued supportive care cardiology follow-up.] Dragon Disclaimer Dragon Disclaimer This electronic medical record was generated, in whole or in part, using a voice recognition dictation system. Departure Departure Impression: Primary Impression: Dyspnea Additional Impression: Congestive heart failure Disposition: HOME, SELF-CARE Condition: STABLE Referrals: ERNST WEIR (PCP) Patient Instructions: Heart Failure, [id number] Additional Instructions: Please take an extra dose of your diuretic daily for the next 3 days. 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 Return to the ED if new or worsening symptoms. Problem Qualifiers IDALIA ARMANDO DO Apr 06, 2019 10:56
[2019-04-06] MEDS ORDERED: FUROSEMIDE 20 MG/2 ML VIAL. IVP ONE (11:00)
[2019-04-06 13:05] VITALS: BP 162/79
--- NOTE | 2019-04-06 13:53 | EKG ---
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
--- NOTE | 2019-04-06 13:53 | EKG ---
[facility] [address] [place] [address] Test Date: 2019-04-06 Test Time: 08:46:25 Pat Name: LONDON CRESPO Department: Room: Gender: M Legal Advisor: : 1955 Requested By: IDALIA ARMANDO Order Number: [id number] Reading MD: Measurements Intervals [place] Rate: 83 P: 53 ND: 198 QRS: 48 QRSD: 82 T: 58 QT: 406 QTc: 483 Interpretive Statements SINUS RHYTHM LOW LIMB LEAD VOLTAGE T ABNORMALITY IN ANTERIOR LEADS PROLONGED QT ABNORMAL ECG RI6.01 No previous ECG available for comparison
== END 2019-04-06 13:25 | disposition home or self-care (01) ==
LOC: ER 08:41
DX: I11.0 Hypertensive heart disease with heart failure (principal); I50.9 Heart failure, unspecified; R06.02 Shortness of breath; I48.91 Unspecified atrial fibrillation; E78.00 Pure hypercholesterolemia, unspecified; I25.10 Atherosclerotic heart disease of native coronary artery without angina pectoris; Z95.5 Presence of coronary angioplasty implant and graft; Z98.890 Other specified postprocedural states; Z88.8 Allergy status to other drugs, medicaments and biological substances
CPT/HCPCS: 36415; 71045; 80053; 83880; 84484; 85025; 93005; 94640; 96374; 99285; J1940; J7620

== ENCOUNTER 2019-04-15 04:53 | Inpatient (IN) | payer OTHER, MEDICAID ==
[~2019-04-15] VITALS: Ht 167.6 cm; Wt 119.3 kg
[2019-04-15 05:19] LABS: BASO # 0.1 x10^3/uL (0.0-0.2); BASO % 1 % (0-3); EOS # 0.2 x10^3/uL (0.0-0.7); EOS % 3 % (0-3); HEMATOCRIT 45.5 % (39.0-53.0); LYMPH # 2.3 x10^3/uL (1.0-4.8); LYMPH % 25 % (24-48); MEAN CORPUSCULAR HEMOGLOBIN 29 pg (25-35); MEAN CORPUSCULAR HGB CONC 33 g/dL (31-37); MEAN CORPUSCULAR VOLUME 87 fL (79-100); MONO # 0.6 x10^3/uL (0.0-1.1); MONO % 7 % (0-9); NEUT # 5.9 x10^3/uL (1.8-7.7); NEUT % 65 % (31-73); PLATELET COUNT 194 x10^3/uL (140-400); RED BLOOD COUNT 5.22 x10^6/uL (4.30-5.70); RED CELL DISTRIBUTION WIDTH 13.2 % (11.5-14.5); WHITE BLOOD COUNT 9.1 x10^3/uL (4.0-11.0)
--- NOTE | 2019-04-15 05:19 | PHYS DOC ---
Past Medical History Past Medical History: A-Fib, CAD, CHF, COPD, High Cholesterol, Heart Disease, Hypertension Past Surgical History: Other Additional Past Surgical Histo: STENT X 3,HERNIA Alcohol Use: None Drug Use: None Adult General Chief Complaint Chief Complaint: SHORTNESS OF BREATH HPI HPI 62-year-old male presents to the emergency department with complaints of shortness of breath. Patient has a history of COPD, congestive heart rate, hypertension, obstructive sleep apnea. Patient states he woke approximately 1 hour ago from his sleep with shortness of breath. describes him not feeling well over the last 1-2 weeks. He describes a cough which is nonproductive. Denies any chest pain, nausea, vomiting, abdominal pain. Nothing makes his symptoms worse, nothing makes his symptoms better. Saturations 77% on RA upon arrival Review of Systems Review of Systems Constitutional: Denies fever or chills [] HENT: congestion, no sore throat Respiratory: + cough/SOB Cardiovascular: No additional information not addressed in HPI [] GI: Denies abdominal pain, nausea, vomiting, bloody stools or diarrhea [] : Denies dysuria or hematuria [] Musculoskeletal: Denies back pain or joint pain [] Neurologic: Denies headache, focal weakness or sensory changes [] All other systems were reviewed and found to be within normal limits, except as documented in this note. Current Medications Current Medications Current Medications Medications (Trade) Dose Ordered Sig/Connie Start Time Stop Time Status Last Admin Dose Admin Albuterol/ Ipratropium (Duoneb) 3 ml 1X ONCE 04/15/19 05:30 04/15/19 05:31 DC 04/15/19 05:21 3 ML Levofloxacin/ Dextrose 150 ml @ 100 mls/hr 1X ONCE 04/15/19 06:00 04/15/19 07:29 Methylprednisolone Sodium Succinate (SOLU-Medrol 125MG VIAL) 125 mg 1X ONCE 04/15/19 05:30 04/15/19 05:31 DC Allergies Allergies Allergies Coded Allergies Type Severity Reaction Last Updated Verified iodine Allergy Intermediate 03/10/19 Yes Physical Exam Physical Exam Constitutional: Well developed, well nourished, no acute distress, non-toxic appearance. [] HENT: Normocephalic, atraumatic, bilateral external ears normal, oropharynx moist, no oral exudates, nose normal. [] Eyes: PERRLA, EOMI, conjunctiva normal, no discharge. [] Cardiovascular:Heart rate regular rhythm, no murmur [] Lungs & Thorax: exp wheeze appreciated bilaterally Abdomen: Bowel sounds normal, soft, no tenderness, no masses, no pulsatile masses. [] Skin: Warm, dry, no erythema, no rash. [] Back: No tenderness, no CVA tenderness. [] Extremities: No tenderness, no edema. [] Neurologic: Alert and oriented X 3, no focal deficits noted. [] Psychologic: Affect normal, judgement normal, mood normal. [] Current Patient Data Vital Signs Vital Signs Date Time Temp Pulse Resp B/P (MAP) Pulse Ox O2 Delivery O2 Flow Rate FiO2 04/15/19 05:18 97 Nasal Cannula 4.0 04/15/19 04:55 98.4 89 28 191/109 (136) 98.4 Lab Values Laboratory Tests Test 04/15/19 05:03 White Blood Count 9.1 x10^3/uL (4.0-11.0) Red Blood Count 5.22 x10^6/uL (4.30-5.70) Hemoglobin 15.0 g/dL (13.0-17.5) Hematocrit 45.5 % (39.0-53.0) Mean Corpuscular Volume 87 fL (79-100) Mean Corpuscular Hemoglobin 29 pg (25-35) Mean Corpuscular Hemoglobin Concent 33 g/dL (31-37) Red Cell Distribution Width 13.2 % (11.5-14.5) Platelet Count 194 x10^3/uL (140-400) Neutrophils (%) (Auto) 65 % (31-73) Lymphocytes (%) (Auto) 25 % (24-48) Monocytes (%) (Auto) 7 % (0-9) Eosinophils (%) (Auto) 3 % (0-3) Basophils (%) (Auto) 1 % (0-3) Neutrophils # (Auto) 5.9 x10^3/uL (1.8-7.7) Lymphocytes # (Auto) 2.3 x10^3/uL (1.0-4.8) Monocytes # (Auto) 0.6 x10^3/uL (0.0-1.1) Eosinophils # (Auto) 0.2 x10^3/uL (0.0-0.7) Basophils # (Auto) 0.1 x10^3/uL (0.0-0.2) Sodium Level 143 mmol/L (136-145) Potassium Level 4.3 mmol/L (3.5-5.1) Chloride Level 104 mmol/L (98-107) Carbon Dioxide Level 28 mmol/L (21-32) Anion Gap 11 (6-14) Blood Urea Nitrogen 28 mg/dL (8-26) H Creatinine 1.5 mg/dL (0.7-1.3) H Estimated GFR (Cockcroft-Gault) 47.3 BUN/Creatinine Ratio 19 (6-20) Glucose Level 217 mg/dL (70-99) H Calcium Level 8.2 mg/dL (8.5-10.1) L Total Bilirubin 0.7 mg/dL (0.2-1.0) Aspartate Amino Transferase (AST) 38 U/L (15-37) H Alanine Aminotransferase (ALT) 40 U/L (16-63) Alkaline Phosphatase 74 U/L (46-116) Troponin I Quantitative 0.029 ng/mL (0.000-0.055) Total Protein 7.2 g/dL (6.4-8.2) Albumin 3.8 g/dL (3.4-5.0) Albumin/Globulin Ratio 1.1 (1.0-1.7) Laboratory Tests 04/15/19 05:03 Laboratory Tests 04/15/19 05:03 EKG EKG EKG reviewed, normal sinus rhythm, no evidence of acute ST elevation NC appreciated on exam. Nonurgent EKG interpretation time 0 521[] Radiology/Procedures Radiology/Procedures [facility] [address] [place] [address] IMAGING REPORT Signed PATIENT: LONDON CRESPO ACCOUNT: [id number] : 1955 LOCATION: ER AGE: 63 SEX: M EXAM STATUS: PRE ER ORD. PHYSICIAN: DUNCAN RODRIGUEZ MD REASON: Dyspnea/Cough/COPD PROCEDURE: PORTABLE CHEST 1V AP chest. HISTORY: Dyspnea, COPD, cough AP view was taken of the chest. Heart is mildly prominent. PA and lateral views would be of benefit for better evaluation. There is possible retrocardiac atelectasis or infiltrate in the left lung base. There is no definite effusion. There is mild vascular congestion. IMPRESSION: 1. Borderline heart size. 2. Mild vascular congestion. 2. Possible retrocardiac atelectasis or infiltrate. Electronically signed by: Matt Cornelius MD (04/15/2019 5:27 AM) [facility] DICTATED and SIGNED BY: MATT CORNELIUS MD DATE: 04/15/19526 [] Course & Med Decision Making Course & Med Decision Making Pertinent Labs and Imaging studies reviewed. (See chart for details) []62-year-old male presents to the emergency department with complaints of shortness of breath. Patient has a history of COPD, congestive heart rate, hypertension, obstructive sleep apnea. Patient states he woke approximately 1 hour ago from his sleep with shortness of breath. describes him not feeling well over the last 1-2 weeks. He describes a cough which is nonproductive. Denies any chest pain, nausea, vomiting, abdominal pain. Nothing makes his symptoms worse, nothing makes his symptoms better. Labs/Imaging reviewed Lasix 40mg IV Solumedrol 125mg IV x 1 Duoneb x 1 Discussed admit with patient and family Dragon Disclaimer Dragon Disclaimer This electronic medical record was generated, in whole or in part, using a voice recognition dictation system. Critical Care Time Critical care time was 35 minutes exclusive of procedures. Departure Departure Impression: Primary Impression: COPD exacerbation Additional Impression: CHF (congestive heart failure) Disposition: ADMITTED INPATIENT Admitting Physician: [facility] Condition: IMPROVED Referrals: ERNST WEIR (PCP) Problem Qualifiers Additional Impression: CHF (congestive heart failure) Heart failure type: unspecified Heart failure chronicity: acute Qualified Codes: I50.9 - Heart failure, unspecified DUNCAN RODRIGUEZ MD Apr 15, 2019 05:19
[2019-04-15 05:29] LABS: CALCIUM 8.2 mg/dL (8.5-10.1); CREATININE 1.5 mg/dL (0.7-1.3); GFR 47.3; POTASSIUM 4.3 mmol/L (3.5-5.1)
[2019-04-15] MEDS ORDERED: IPRATRPIUM/ALBUTEROL 0.5/2.5MG 3 ML NEBU. NEB ONE (05:30)
[2019-04-15] MEDS ORDERED: methylPREDNISolone SOD SUCC PF 125 MG/2 ML VIAL. IV ONE (05:30)
--- NOTE | 2019-04-15 05:30 | RAD ---
AP chest. HISTORY: Dyspnea, COPD, cough AP view was taken of the chest. Heart is mildly prominent. PA and lateral views would be of benefit for better evaluation. There is possible retrocardiac atelectasis or infiltrate in the left lung base. There is no definite effusion. There is mild vascular congestion. IMPRESSION: 1. Borderline heart size. 2. Mild vascular congestion. 2. Possible retrocardiac atelectasis or infiltrate. Electronically signed by: Matt Cornelius MD (04/15/2019 5:27 AM) [facility]
[2019-04-15 05:35] LABS: ALBUMIN 3.8 g/dL (3.4-5.0); ALBUMIN/GLOBULIN RATIO 1.1 (1.0-1.7); TOTAL BILIRUBIN 0.7 mg/dL (0.2-1.0); TOTAL PROTEIN 7.2 g/dL (6.4-8.2)
[2019-04-15] MEDS ORDERED: ACETAMINOPHEN 325 MG TABLET. PO PRN (05:45)
[2019-04-15] MEDS ORDERED: ONDANSETRON PF 4 MG/2 ML VIAL. IV PRN (05:45)
[2019-04-15] MEDS ORDERED: FUROSEMIDE 40 MG/4 ML VIAL. ONE (05:51)
[2019-04-15] MEDS ORDERED: FUROSEMIDE 40 MG/4 ML VIAL. IVP ONE (06:00)
--- NOTE | 2019-04-15 06:16 | EKG ---
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
[2019-04-15 06:26] LABS: BILIRUBIN,URINE NEGATIVE (NEG); CLARITY,URINE CLEAR; COLOR,URINE YELLOW; NITRITE,URINE NEGATIVE (NEG); PH,URINE 5.5; PROTEIN,URINE 100 mg/dL (NEG-TRACE); UROBILINOGEN,URINE 0.2 mg/dL (0.2 mg/dL)
[2019-04-15 06:36] LABS: BACTERIA,URINE 0 /HPF (0-FEW); RBC,URINE 0 /HPF (0-2); SQUAMOUS EPITHELIAL CELL,UR FEW /LPF
[2019-04-15] MEDS: IPRATRPIUM/ALBUTEROL 0.5/2.5MG 3 ML NEBU. NEB SCH ×4 (08:08→20:39)
[2019-04-15 08:31] VITALS: BP 168/97
[2019-04-15] MEDS ORDERED: FUROSEMIDE 40 MG/4 ML VIAL. IVP SCH (09:00)
--- NOTE | 2019-04-15 09:47 | PDOC1 ---
History and Physical Date of Admission Date of Admission DATE: 04/15/19 TIME: 09:47 Identification/Chief Complaint Chief Complaint 62-year-old male presents to the emergency department with complaints of shortness of breath. Patient has a history of COPD, congestive heart rate, hypertension, obstructive sleep apnea not been consistently using his CPAP.Retrocardiac atelectasis or infiltrate. ON CXR , PT HYPOXIC IN ER Past Medical History Past Medical History Past Medical History Past Medical History: A-Fib, CAD, CHF, COPD, High Cholesterol, Heart Disease, Hypertension Past Surgical History: Other Additional Past Surgical Histo: STENT X 3,HERNIA Alcohol Use: None Drug Use: None PAST MEDICAL HISTORY Past Medical History Cardiovascular: AFIB, CAD, HTN, Hyperlipidemia Pulmonary: COPD, Pneumonia CENTRAL NERVOUS SYSTEM: Other (No pertinent history) GI: GERD, hemorrhoids, anal fissure, constipation Heme/Onc: No pertinent hx Psych: No pertinent hx Musculoskeletal: Osteoarthritis Infectious disease: No pertinent hx ENT: No pertinent hx Renal/: ED new Endocrine: left adrenal adenoma Dermatology: No pertinent hx PAST SURGICAL HISTORY Past Surgical History right inguinal hernia repair, Other (s/p PCI/stent in 2012 and PCI/SALOME to RCA in 2016), hemorrhoidectomy 03/26 FAMILY HISTORY Family History Heart Disease (mother) SOCIAL HISTORY Smoke: Quit ALCOHOL: none Drugs: None Lives: with Family Cardiovascular: AFIB, CAD, HTN, Hyperlipidemia Pulmonary: COPD, Pneumonia CENTRAL NERVOUS SYSTEM: Other GI: GERD Heme/Onc: No pertinent hx Psych: No pertinent hx Musculoskeletal: Osteoarthritis Infectious disease: No pertinent hx Renal/: No pertinent hx, Other Endocrine: Hypothyroidism, Other Past Surgical History Past Surgical History: Hernia Repair, Other Family History Family History: Heart Disease Social History Smoke: Quit ALCOHOL: none Drugs: None Current Problem List Problem List Problems Medical Problems: (1) CHF (congestive heart failure) Status: Acute (2) COPD exacerbation Status: Acute Current Medications Current Medications Current Medications Albuterol/ Ipratropium (Duoneb) 3 ml 1X ONCE NEB Last administered on 04/15/19at 05:21; Start 04/15/19 at 05:30; Stop 04/15/19 at 05:31; Status DC Methylprednisolone Sodium Succinate (SOLU-Medrol 125MG VIAL) 125 mg 1X ONCE IV Last administered on 04/15/19at 05:41; Start 04/15/19 at 05:30; Stop 04/15/19 at 05:31; Status DC Levofloxacin/ Dextrose 150 ml @ 100 mls/hr 1X ONCE IV Last administered on 04/15/19at 05:57; Start 04/15/19 at 06:00; Stop 04/15/19 at 07:29; Status DC Furosemide (Lasix) 40 mg DAILY IVP ; Start 04/15/19 at 09:00; Stop 04/15/19 at 05:50; Status DC Ondansetron HCl (Zofran) 4 mg PRN Q8HRS PRN IV NAUSEA/VOMITING 1ST CHOICE; Start 04/15/19 at 05:45; Stop 04/16/19 at 05:44 Acetaminophen (Tylenol) 650 mg PRN Q4HRS PRN PO FEVER; Start 04/15/19 at 05:45; Stop 04/16/19 at 05:44 Albuterol/ Ipratropium (Duoneb) 3 ml RTQID NEB Last administered on 04/15/19at 08:08; Start 04/15/19 at 08:00; Stop 04/16/19 at 07:59 Furosemide (Lasix) 40 mg 1X ONCE IVP Last administered on 04/15/19at 05:55; Start 04/15/19 at 06:00; Stop 04/15/19 at 06:01; Status DC Furosemide (Lasix) 40 mg STK-MED ONCE .ROUTE ; Start 04/15/19 at 05:51; Stop 04/15/19 at 05:51; Status DC Active Scripts Active Polyethylene Glycol 3350 17 Gm Powd.pack 17 Gm PO PRN DAILY PRN Amitiza (Lubiprostone) 8 Mcg Capsule 8 Mcg PO BIDWMEALS 30 Days Colace (Docusate Sodium) 100 Mg Capsule 100 Mg PO PRN DAILY PRN Betapace (Sotalol Hcl) 80 Mg Tablet 80 Mg PO BID 30 Days Reported Benicar (Olmesartan Medoxomil) 40 Mg Tablet 40 Mg PO DAILY Carvedilol (Carvedilol) 6.25 Mg Tablet 6.25 Mg PO BIDWMEALS Proventil Hfa Inhaler (Albuterol Sulfate) 6.7 Gm Hfa.aer.ad 2 Puff IH PRN Q6HRS PRN Furosemide 40 Mg Tablet 40 Mg PO DAILY Atorvastatin Calcium 80 Mg Tablet 80 Mg PO HS Losartan Potassium 100 Mg Tablet 100 Mg PO DAILY Potassium Chloride 20 Meq Tablet.er 20 Meq PO DAILY Eliquis (Apixaban) 5 Mg Tablet 5 Mg PO BID Aspir 81 (Aspirin) 81 Mg Tablet.dr 1 Tab PO DAILY LAST DOSE GIVEN: DATE: 07/23/15 TIME: 0900 AM NEXT DOSE DUE: DATE: TOMORROW 07/24/15 TIME: 0900 AM Amlodipine Besylate 10 Mg Tablet 10 Mg PO DAILY LAST DOSE GIVEN: DATE: 07/23/15 TIME: 0900 NEXT DOSE DUE: DATE: Tomorrow 07/24/15 TIME: 0900 NITROGLYCERIN SubLingual (Nitroglycerin) 0.4 Mg Tab.subl 0.4 Mg SL PRN Q5MIN PRN Allergies Allergies: Coded Allergies: iodine (Verified Allergy, Intermediate, 03/10/19) ROS Review of System Review of Systems Review of Systems Constitutional: Denies fever or chills [] HENT: congestion, no sore throat Respiratory: + cough/SOB Cardiovascular: No additional information not addressed in HPI [] GI: Denies abdominal pain, nausea, vomiting, bloody stools or diarrhea [] : Denies dysuria or hematuria [] Musculoskeletal: Denies back pain or joint pain [] Neurologic: Denies headache, focal weakness or sensory changes [] 14 pt systems were reviewed and found to be within normal limits, except as documented Respiratory: YES: Shortness of breath, SOB with excertion Gastrointestinal: No Nausea, No Vomiting, No Abdominal Pain, No Diarrhea, No Constipation, No Melena, No Hematochezia, No Other Physical Exam Physical Exam Physical Exam Physical Exam Constitutional: Well developed, well nourished, no acute distress, non-toxic appearance. [] HENT: Normocephalic, atraumatic, bilateral external ears normal, oropharynx moist, no oral exudates, nose normal. [] Eyes: PERRLA, EOMI, conjunctiva normal, no discharge. [] Cardiovascular:Heart rate regular rhythm, no murmur [] Lungs & Thorax: exp wheeze mod , bilaterally Abdomen: Bowel sounds normal, soft, no tenderness, no masses, no pulsatile masses. [] Skin: Warm, dry, no erythema, no rash. [] Back: No tenderness, no CVA tenderness. [] Extremities: No tenderness, no edema. [] Neurologic: Alert and oriented X 3, no focal deficits noted. [] Psychologic: Affect normal, judgement normal, mood normal. [] General: Alert, Oriented X3, Cooperative, No acute distress HEENT: EOMI, Mucous membr. moist/pink Heart: no thrills Breasts: Not examined Abdomen: Normal bowel sounds, Soft, No tenderness Rectal Exam: not examined PELVIC: Examination not indicated Extremities: No cyanosis Neuro: Normal speech, Cranial nerves 3-12 NL Psych/Mental Status: Mental status NL, Mood NL Vitals Vitals Vital Signs Date Time Temp Pulse Resp B/P (MAP) Pulse Ox O2 Delivery O2 Flow Rate FiO2 04/15/19 08:31 97.9 74 18 168/97 (120) Nasal Cannula 97.0 97.9 04/15/19 08:11 96 Labs Labs Laboratory Tests Test 04/15/19 05:03 04/15/19 05:50 White Blood Count 9.1 x10^3/uL (4.0-11.0) Red Blood Count 5.22 x10^6/uL (4.30-5.70) Hemoglobin 15.0 g/dL (13.0-17.5) Hematocrit 45.5 % (39.0-53.0) Mean Corpuscular Volume 87 fL (79-100) Mean Corpuscular Hemoglobin 29 pg (25-35) Mean Corpuscular Hemoglobin Concent 33 g/dL (31-37) Red Cell Distribution Width 13.2 % (11.5-14.5) Platelet Count 194 x10^3/uL (140-400) Neutrophils (%) (Auto) 65 % (31-73) Lymphocytes (%) (Auto) 25 % (24-48) Monocytes (%) (Auto) 7 % (0-9) Eosinophils (%) (Auto) 3 % (0-3) Basophils (%) (Auto) 1 % (0-3) Neutrophils # (Auto) 5.9 x10^3/uL (1.8-7.7) Lymphocytes # (Auto) 2.3 x10^3/uL (1.0-4.8) Monocytes # (Auto) 0.6 x10^3/uL (0.0-1.1) Eosinophils # (Auto) 0.2 x10^3/uL (0.0-0.7) Basophils # (Auto) 0.1 x10^3/uL (0.0-0.2) D-Dimer (Kita) < 0.27 ug/mlFEU Sodium Level 143 mmol/L (136-145) Potassium Level 4.3 mmol/L (3.5-5.1) Chloride Level 104 mmol/L (98-107) Carbon Dioxide Level 28 mmol/L (21-32) Anion Gap 11 (6-14) Blood Urea Nitrogen 28 mg/dL (8-26) Creatinine 1.5 mg/dL (0.7-1.3) Estimated GFR (Cockcroft-Gault) 47.3 BUN/Creatinine Ratio 19 (6-20) Glucose Level 217 mg/dL (70-99) Calcium Level 8.2 mg/dL (8.5-10.1) Total Bilirubin 0.7 mg/dL (0.2-1.0) Aspartate Amino Transf (AST/SGOT) 38 U/L (15-37) Alanine Aminotransferase (ALT/SGPT) 40 U/L (16-63) Alkaline Phosphatase 74 U/L (46-116) Troponin I Quantitative 0.029 ng/mL (0.000-0.055) XO-Vjn-D-Type Natriuretic Peptide 407 pg/mL (0-124) Total Protein 7.2 g/dL (6.4-8.2) Albumin 3.8 g/dL (3.4-5.0) Albumin/Globulin Ratio 1.1 (1.0-1.7) Urine Collection Type Unknown Urine Color Yellow Urine Clarity Clear Urine pH 5.5 Urine Specific [place] 1.015 Urine Protein 100 mg/dL (NEG-TRACE) Urine Glucose (UA) Negative mg/dL (NEG) Urine Ketones (Stick) Negative mg/dL (NEG) Urine Blood Negative (NEG) Urine Nitrite Negative (NEG) Urine Bilirubin Negative (NEG) Urine Urobilinogen Dipstick 0.2 mg/dL (0.2 mg/dL) Urine Leukocyte Esterase Trace (NEG) Urine RBC 0 /HPF (0-2) Urine WBC 1-4 /HPF (0-4) Urine Squamous Epithelial Cells Few /LPF Urine Bacteria 0 /HPF (0-FEW) Laboratory Tests Test 04/15/19 05:03 04/15/19 05:50 White Blood Count 9.1 x10^3/uL (4.0-11.0) Red Blood Count 5.22 x10^6/uL (4.30-5.70) Hemoglobin 15.0 g/dL (13.0-17.5) Hematocrit 45.5 % (39.0-53.0) Mean Corpuscular Volume 87 fL (79-100) Mean Corpuscular Hemoglobin 29 pg (25-35) Mean Corpuscular Hemoglobin Concent 33 g/dL (31-37) Red Cell Distribution Width 13.2 % (11.5-14.5) Platelet Count 194 x10^3/uL (140-400) Neutrophils (%) (Auto) 65 % (31-73) Lymphocytes (%) (Auto) 25 % (24-48) Monocytes (%) (Auto) 7 % (0-9) Eosinophils (%) (Auto) 3 % (0-3) Basophils (%) (Auto) 1 % (0-3) Neutrophils # (Auto) 5.9 x10^3/uL (1.8-7.7) Lymphocytes # (Auto) 2.3 x10^3/uL (1.0-4.8) Monocytes # (Auto) 0.6 x10^3/uL (0.0-1.1) Eosinophils # (Auto) 0.2 x10^3/uL (0.0-0.7) Basophils # (Auto) 0.1 x10^3/uL (0.0-0.2) D-Dimer (Kita) < 0.27 ug/mlFEU Sodium Level 143 mmol/L (136-145) Potassium Level 4.3 mmol/L (3.5-5.1) Chloride Level 104 mmol/L (98-107) Carbon Dioxide Level 28 mmol/L (21-32) Anion Gap 11 (6-14) Blood Urea Nitrogen 28 mg/dL (8-26) Creatinine 1.5 mg/dL (0.7-1.3) Estimated GFR (Cockcroft-Gault) 47.3 BUN/Creatinine Ratio 19 (6-20) Glucose Level 217 mg/dL (70-99) Calcium Level 8.2 mg/dL (8.5-10.1) Total Bilirubin 0.7 mg/dL (0.2-1.0) Aspartate Amino Transf (AST/SGOT) 38 U/L (15-37) Alanine Aminotransferase (ALT/SGPT) 40 U/L (16-63) Alkaline Phosphatase 74 U/L (46-116) Troponin I Quantitative 0.029 ng/mL (0.000-0.055) [place]-Ggs-W-Type Natriuretic Peptide 407 pg/mL (0-124) Total Protein 7.2 g/dL (6.4-8.2) Albumin 3.8 g/dL (3.4-5.0) Albumin/Globulin Ratio 1.1 (1.0-1.7) Urine Collection Type Unknown Urine Color Yellow Urine Clarity Clear Urine pH 5.5 Urine Specific [place] 1.015 Urine Protein 100 mg/dL (NEG-TRACE) Urine Glucose (UA) Negative mg/dL (NEG) Urine Ketones (Stick) Negative mg/dL (NEG) Urine Blood Negative (NEG) Urine Nitrite Negative (NEG) Urine Bilirubin Negative (NEG) Urine Urobilinogen Dipstick 0.2 mg/dL (0.2 mg/dL) Urine Leukocyte Esterase Trace (NEG) Urine RBC 0 /HPF (0-2) Urine WBC 1-4 /HPF (0-4) Urine Squamous Epithelial Cells Few /LPF Urine Bacteria 0 /HPF (0-FEW) Images Images AP chest. HISTORY: Dyspnea, COPD, cough AP view was taken of the chest. Heart is mildly prominent. PA and lateral views would be of benefit for better evaluation. There is possible retrocardiac atelectasis or infiltrate in the left lung base. There is no definite effusion. There is mild vascular congestion. IMPRESSION: 1. Borderline heart size. 2. Mild vascular congestion. 2. Possible retrocardiac atelectasis or infiltrate. Electronically signed by: Matt Cornelius MD (04/15/2019 5:27 AM) [facility] DICTATED and SIGNED BY: MATT CORNELIUS MD DATE: 04/15/19 0527 RIGHT VENTRICLE The right ventricle is normal size. There is normal right ventricular wall thickness. The right ventricular systolic function is normal. ATRIA The left atrium is mild to moderately dilated. The right atrium is mildly d ilated. The interatrial septum is intact with no evidence for an atrial septal defect or patent foramen ovale as noted on 2-D or Doppler imaging. AORTIC VALVE The aortic valve is trileaflet. The aortic valve is mildly calcified. Doppler and Color Flow revealed trace aortic regurgitation. There is no significant aortic valvular stenosis. MITRAL VALVE The mitral valve is normal in structure and function. There is no evidence of mitral valve prolapse. There is no mitral valve stenosis. Doppler and Color-flow revealed moderate mitral regurgitation. TRICUSPID VALVE The tricuspid valve is normal in structure and function. Doppler and Color Flow revealed mild tricuspid regurgitation. The PA pressure was estimated at 31 mmHg. There is no tricuspid valve prolapse or vegetation. There is no tricuspid valve stenosis. PULMONIC VALVE The pulmonic valve is not well visualized. GREAT VESSELS The aortic root is normal in size. The ascending aorta is normal in size. The IVC is normal in size and collapses >50% with inspiration. PERICARDIAL EFFUSION There is no evidence of significant pericardial effusion. Critical Notification Critical Value: No <Conclusion> Left ventricle systolic function is low normal. The Ejection Fraction is 50%. Moderate mitral regurgitation. Mild tricuspid regurgitation. The PA pressure was estimated at 31 mmHg. There is no evidence of significant pericardial effusion. Signed by : Caleb Knight, Electronically Approved : 03/09/2019 15:44:22 DICTATED and SIGNED BY: CALEB KNIGHT MD DATE: 03/09/19 1502 Technologist: Leisa Washburn Nurse: Pushpa Lowry RN Procedure(s) performed: Left heart catheterization and selective coronary angiography via right transradial approach fl time: 4.7 mins dose: 56 gy/cm2 contrast: 75 ml moderate sedation: 24 min INDICATION The indication(s) include : unstable angina . CSHA Clinical Frailty Scale [facility] Clinical Frailty Scale: Managing Well Heart Failure Heart Failure: No PROCEDURE NARRATIVE After explaining the risks, benefits and alternative options, informed consent was obtained from patient. Patient was brought to the cardiac C4 Planner and right wrist was prepped and draped in the usual fashion after confirming a positive modified Demetrius's test. Arterial access was obtained in the right radial artery and a 6 [place] sheath was inserted. 6 [place] Harrison catheter was used to perform selective angiography of the left and right coronary arteries. LVEDP and transaortic gradients were measured. Left ventriculography was not performed since 2-D echo this admission showed normal LV systolic function. Patient tolerated the procedure well. Hemostasis was achieved using TR band. There were no immediate complications. The following findings were noted. FINDINGS 1. Hemodynamics: Left ventricular end-diastolic pressure of 24 mmHg. No pullback gradient across the aortic valve. 2. Coronary angiography: a. The left main coronary artery arose from the left sinus of Valsalva, was short, gave rise to the left anterior descending and left circumflex arteries and did not show any significant stenosis. b. The left anterior descending artery did not show any significant stenosis. c. The left circumflex artery showed widely patent stent in the proximal to midsegment. d. The right coronary artery was a large and dominant vessel arising from the right sinus of Valsalva that showed widely patent stent in the midsegment. Conclusion No significant coronary artery disease with widely patent previously placed st ents and left circumflex and right coronary arteries. Recommendations Medical Therapy Signed by : Caleb Knight, Electronically Approved : 03/10/2019 12:44:12 DICTATED and SIGNED BY: CALEB KNIGHT MD DATE: 03/10/19 1213 VTE Prophylaxis Ordered VTE Prophylaxis Devices: No VTE Pharmacological Prophylaxi: Yes Assessment/Plan Assessment/Plan Impression: acute COPD exacerbation Possible retrocardiac atelectasis or infiltrate. by cxr 04/14 acute hypoxic respiratory failure morbid obesity acute exac CHF (congestive heart failure) Left ventricle systolic function is low normal. recent echo Ejection Fraction is 50%.Moderate mitral regurgitation. recent cath 03/26 No significant coronary artery disease with widely patent previously placed stents and left circumflex and right coronary arteries. TARA ADMITTED consult pulm tele consult cardiology echo DVT PROPHYLAXIS Nephrology consult 58 min pt exam, chart review, > 50% of time spent with exam, chart review, pt ca re coordination BLUE ARMAS MD Apr 15, 2019 09:47
--- NOTE | 2019-04-15 10:05 | PDOC2 ---
[facility] 04/15/19 1005: CARDIAC CONSULT DATE OF CONSULT Date of Consult DATE: 04/15/19 TIME: 10:02 REASON FOR CONSULT Reason for Consult: CHF REFERRING PHYSICIAN Referring Physician: Ochoa SOURCE Source: Chart review, Patient HISTORY OF PRESENT ILLNESS HISTORY OF PRESENT ILLNESS This is a pleasant 63 yo male admitted for complains of shortness of breath. Reports that he feels suffocated. Positive for PEDERSON but no significant chest pain. No significant leg swelling but positive for orthopnea. This has been going on in the last 2 days. Verbalized no significant salt consumption and his wt has been fluctuating 2 pounds at a time. He has not been consistently using his CPAP and has not been checking his BP consistently and 2 days ago he noted SBP was at the 170s. He has been compliant otherwise with his PO meds. Denies any ETOH or recreational drug use. PAST MEDICAL HISTORY Past Medical History Cardiovascular: AFIB, CAD, HTN, Hyperlipidemia Pulmonary: COPD, Pneumonia CENTRAL NERVOUS SYSTEM: Other (No pertinent history) GI: GERD, hemorrhoids, anal fissure, constipation Heme/Onc: No pertinent hx Psych: No pertinent hx Musculoskeletal: Osteoarthritis Infectious disease: No pertinent hx ENT: No pertinent hx Renal/: ED new Endocrine: left adrenal adenoma Dermatology: No pertinent hx PAST SURGICAL HISTORY Past Surgical History right inguinal hernia repair, Other (s/p PCI/stent in 2013 and PCI/SALOME to RCA in 2016), hemorrhoidectomy 3 weeks ago FAMILY HISTORY Family History Heart Disease (mother) SOCIAL HISTORY Smoke: Quit ALCOHOL: none Drugs: None Lives: with Family CURRENT MEDICATIONS CURRENT MEDICATIONS Current Medications Medications (Trade) Dose Ordered Sig/Connie Route PRN Reason Start Time Stop Time Status Last Admin Dose Admin Albuterol/ Ipratropium (Duoneb) 3 ml 1X ONCE NEB 04/15/19 05:30 04/15/19 05:31 DC 04/15/19 05:21 Methylprednisolone Sodium Succinate (SOLU-Medrol 125MG VIAL) 125 mg 1X ONCE IV 04/15/19 05:30 04/15/19 05:31 DC 04/15/19 05:41 Levofloxacin/ Dextrose 150 ml @ 100 mls/hr 1X ONCE IV 04/15/19 06:00 04/15/19 07:29 DC 04/15/19 05:57 Albuterol/ Ipratropium (Duoneb) 3 ml RTQID NEB 04/15/19 08:00 04/16/19 07:59 04/15/19 08:08 Furosemide (Lasix) 40 mg 1X ONCE IVP 04/15/19 06:00 04/15/19 06:01 DC 04/15/19 05:55 ALLERGIES ALLERGIES: Coded Allergies: iodine (Verified Allergy, Intermediate, 03/10/19) ROS Review of System 14 point ROS evalauted with pertinent positives noted per HPI PHYSICAL EXAM General: Alert, Oriented X3, Cooperative, No acute distress HEENT: Atraumatic, Mucous membr. moist/pink Lungs: Clear to auscultation, Normal air movement Heart: Regular rate (SR), Normal S1, Normal S2, Other (2/6 systolic murmur to LLs border) Abdomen: Soft, No tenderness Extremities: No cyanosis, Other (1+ bilateral Le pitting edema) Skin: No breakdown, No significant lesion Neuro: Normal speech, Sensation intact Psych/Mental Status: Mental status NL, Other (anxious) MUSCULOSKELETAL: Osteoarthritic changes both hands VITALS/I&O VITALS/I&O: Vital Signs Date Time Temp Pulse Resp B/P (MAP) Pulse Ox O2 Delivery O2 Flow Rate FiO2 04/15/19 08:31 97.9 74 18 168/97 (120) Nasal Cannula 97.0 97.9 04/15/19 08:11 96 LABS Lab: Laboratory Tests Test 04/15/19 05:03 04/15/19 05:50 White Blood Count 9.1 x10^3/uL (4.0-11.0) Red Blood Count 5.22 x10^6/uL (4.30-5.70) Hemoglobin 15.0 g/dL (13.0-17.5) Hematocrit 45.5 % (39.0-53.0) Mean Corpuscular Volume 87 fL (79-100) Mean Corpuscular Hemoglobin 29 pg (25-35) Mean Corpuscular Hemoglobin Concent 33 g/dL (31-37) Red Cell Distribution Width 13.2 % (11.5-14.5) Platelet Count 194 x10^3/uL (140-400) Neutrophils (%) (Auto) 65 % (31-73) Lymphocytes (%) (Auto) 25 % (24-48) Monocytes (%) (Auto) 7 % (0-9) Eosinophils (%) (Auto) 3 % (0-3) Basophils (%) (Auto) 1 % (0-3) Neutrophils # (Auto) 5.9 x10^3/uL (1.8-7.7) Lymphocytes # (Auto) 2.3 x10^3/uL (1.0-4.8) Monocytes # (Auto) 0.6 x10^3/uL (0.0-1.1) Eosinophils # (Auto) 0.2 x10^3/uL (0.0-0.7) Basophils # (Auto) 0.1 x10^3/uL (0.0-0.2) D-Dimer (Kita) < 0.27 ug/mlFEU Sodium Level 143 mmol/L (136-145) Potassium Level 4.3 mmol/L (3.5-5.1) Chloride Level 104 mmol/L (98-107) Carbon Dioxide Level 28 mmol/L (21-32) Anion Gap 11 (6-14) Blood Urea Nitrogen 28 mg/dL (8-26) H Creatinine 1.5 mg/dL (0.7-1.3) H Estimated GFR (Cockcroft-Gault) 47.3 BUN/Creatinine Ratio 19 (6-20) Glucose Level 217 mg/dL (70-99) H Calcium Level 8.2 mg/dL (8.5-10.1) L Total Bilirubin 0.7 mg/dL (0.2-1.0) Aspartate Amino Transferase (AST) 38 U/L (15-37) H Alanine Aminotransferase (ALT) 40 U/L (16-63) Alkaline Phosphatase 74 U/L (46-116) Troponin I Quantitative 0.029 ng/mL (0.000-0.055) ZU-Nep-U-Type Natriuretic Peptide 407 pg/mL (0-124) H Total Protein 7.2 g/dL (6.4-8.2) Albumin 3.8 g/dL (3.4-5.0) Albumin/Globulin Ratio 1.1 (1.0-1.7) Urine Collection Type Unknown Urine Color Yellow Urine Clarity Clear Urine pH 5.5 Urine Specific [place] 1.015 Urine Protein 100 mg/dL (NEG-TRACE) Urine Glucose (UA) Negative mg/dL (NEG) Urine Ketones (Stick) Negative mg/dL (NEG) Urine Blood Negative (NEG) Urine Nitrite Negative (NEG) Urine Bilirubin Negative (NEG) Urine Urobilinogen Dipstick 0.2 mg/dL (0.2 mg/dL) Urine Leukocyte Esterase Trace (NEG) Urine RBC 0 /HPF (0-2) Urine WBC 1-4 /HPF (0-4) Urine Squamous Epithelial Cells Few /LPF Urine Bacteria 0 /HPF (0-FEW) Laboratory Tests 04/15/19 05:03 Laboratory Tests 04/15/19 05:03 ECHOCARDIOGRAM ECHOCARDIOGRAM <Conclusion> Left ventricle systolic function is low normal. The Ejection Fraction is 50%. Moderate mitral regurgitation. Mild tricuspid regurgitation. The PA pressure was estimated at 31 mmHg. There is no evidence of significant pericardial effusion. DATE: 03/09/19 1502 HEART CATH HEART CATH FINDINGS 1. Hemodynamics: Left ventricular end-diastolic pressure of 24 mmHg. No pullback gradient across the aortic valve. 2. Coronary angiography: a. The left main coronary artery arose from the left sinus of Valsalva, was short, gave rise to the left anterior descending and left circumflex arteries and did not show any significant stenosis. b. The left anterior descending artery did not show any significant stenosis. c. The left circumflex artery showed widely patent stent in the proximal to midsegment. d. The right coronary artery was a large and dominant vessel arising from the right sinus of Valsalva that showed widely patent stent in the midsegment. Conclusion No significant coronary artery disease with widely patent previously placed stents and left circumflex and right coronary arteries. Recommendations Medical Therapy DATE: 03/10/19 1213 ASSESSMENT/PLAN ASSESSMENT/PLAN 1. Acute on chronic diastolic CHF: suspect due to uncontrolled BP and inconsistent use of CPAP 2. ALEN: skips CPAP use 3. HTN: labile episodes at home 4. CAD: recent LHC with patent stents to RCA/LCx 5. HLP 6. Morbid obesity 7. PAFIB: maintaining SR. QTc 470 8. suspect CKD3 Recommendations 1. Continue with sotalol and eliquis 2. Continue with norvasc and may resume ARB tomorrow. Hydralazine IV PRN 3. Received IV lasix in ED. may resume home lasix tomorrow pending renal labs 4. Continue to use home CPAP 5. Discussed CPAP compliance and daily HBPM and to call if outside parameters. CALEB KNIGHT MD 04/16/19 0923: CARDIAC CONSULT ASSESSMENT/PLAN ASSESSMENT/PLAN Patient seen and examined 04/15/19. Agree with STEEL WHEEL ENGRAVER's assessment and plan. Acute on chronic diastolic HF better compensated with diuresis CAD stable. Recent cath showed patent RCA/LCX Stents PAF maintaining SR. Continue sotalol and eliquis Change Lasix to PO tomorrow Thank you for your consultation VICKIE MITCHELL APRN Apr 15, 2019 10:05 CALEB KNIGHT MD Apr 16, 2019 09:23
[2019-04-15 11:00] VITALS: BP 151/77
[2019-04-15] MEDS: APIXABAN 5 MG TABLET. PO SCH ×2 (13:07→21:16)
[2019-04-15] MEDS: amLODIPine BESYLATE 10 MG TABLET PO SCH (13:07)
[2019-04-15] MEDS: ASPIRIN ENTERIC COATED 81 MG TABLET.DR. PO SCH (13:07)
[2019-04-15] MEDS: SOTALOL 80 MG TABLET. PO SCH ×2 (13:07→21:17)
[2019-04-15] MEDS ORDERED: TAMS0.4C97 PO (13:40)
[2019-04-15] MEDS ORDERED: ALBUTEROL SULFATE 2.5 MG/3 ML NEBU. NEB PRN (14:00)
[2019-04-15] MEDS ORDERED: DOCUSATE SODIUM 100 MG CAPSULE. PO PRN (14:00)
[2019-04-15] MEDS ORDERED: NITROGLYCERIN SUBLINGUAL 0.4 MG BOTTLE OF 25. SL PRN (14:00)
[2019-04-15] MEDS ORDERED: POLYETHYLENE GLYCOL 3350 17 GM PACKET. PO PRN (14:00)
--- NOTE | 2019-04-15 14:43 | NUR ---
SW following pt for dc planning. Chart reviewed and discussed with RN. Pt lives at home with significant other. Cardiology following pt. No needs identified at this time. SW will be available as needed.
[2019-04-15 14:56] VITALS: BP 136/66
[2019-04-15] MEDS ORDERED: ANTI-COAG MONITOR BY PHARMACY. MC PRN (16:45)
--- NOTE | 2019-04-15 16:49 | PDOC ---
PULMONARY PROGRESS NOTES Vitals Vital Signs Date Time Temp Pulse Resp B/P (MAP) Pulse Ox O2 Delivery O2 Flow Rate FiO2 04/15/19 15:49 Nasal Cannula 3.0 04/15/19 14:56 98.2 72 16 136/66 (89) 97 98.2 General: Alert, Oriented X4 HEENT: Other Lungs: Clear Cardiovascular: S1, S2 Abdomen: Soft, Non-tender Extremities: No Edema Labs Laboratory Tests Test 04/15/19 05:03 04/15/19 05:50 04/15/19 16:23 White Blood Count 9.1 x10^3/uL (4.0-11.0) Red Blood Count 5.22 x10^6/uL (4.30-5.70) Hemoglobin 15.0 g/dL (13.0-17.5) Hematocrit 45.5 % (39.0-53.0) Mean Corpuscular Volume 87 fL (79-100) Mean Corpuscular Hemoglobin 29 pg (25-35) Mean Corpuscular Hemoglobin Concent 33 g/dL (31-37) Red Cell Distribution Width 13.2 % (11.5-14.5) Platelet Count 194 x10^3/uL (140-400) Neutrophils (%) (Auto) 65 % (31-73) Lymphocytes (%) (Auto) 25 % (24-48) Monocytes (%) (Auto) 7 % (0-9) Eosinophils (%) (Auto) 3 % (0-3) Basophils (%) (Auto) 1 % (0-3) Neutrophils # (Auto) 5.9 x10^3/uL (1.8-7.7) Lymphocytes # (Auto) 2.3 x10^3/uL (1.0-4.8) Monocytes # (Auto) 0.6 x10^3/uL (0.0-1.1) Eosinophils # (Auto) 0.2 x10^3/uL (0.0-0.7) Basophils # (Auto) 0.1 x10^3/uL (0.0-0.2) D-Dimer (Kita) < 0.27 ug/mlFEU Sodium Level 143 mmol/L (136-145) Potassium Level 4.3 mmol/L (3.5-5.1) Chloride Level 104 mmol/L (98-107) Carbon Dioxide Level 28 mmol/L (21-32) Anion Gap 11 (6-14) Blood Urea Nitrogen 28 mg/dL (8-26) Creatinine 1.5 mg/dL (0.7-1.3) Estimated GFR (Cockcroft-Gault) 47.3 BUN/Creatinine Ratio 19 (6-20) Glucose Level 217 mg/dL (70-99) Calcium Level 8.2 mg/dL (8.5-10.1) Total Bilirubin 0.7 mg/dL (0.2-1.0) Aspartate Amino Transf (AST/SGOT) 38 U/L (15-37) Alanine Aminotransferase (ALT/SGPT) 40 U/L (16-63) Alkaline Phosphatase 74 U/L (46-116) Troponin I Quantitative 0.029 ng/mL (0.000-0.055) YN-Wdk-V-Type Natriuretic Peptide 407 pg/mL (0-124) Total Protein 7.2 g/dL (6.4-8.2) Albumin 3.8 g/dL (3.4-5.0) Albumin/Globulin Ratio 1.1 (1.0-1.7) Urine Collection Type Unknown Urine Color Yellow Urine Clarity Clear Urine pH 5.5 Urine Specific [place] 1.015 Urine Protein 100 mg/dL (NEG-TRACE) Urine Glucose (UA) Negative mg/dL (NEG) Urine Ketones (Stick) Negative mg/dL (NEG) Urine Blood Negative (NEG) Urine Nitrite Negative (NEG) Urine Bilirubin Negative (NEG) Urine Urobilinogen Dipstick 0.2 mg/dL (0.2 mg/dL) Urine Leukocyte Esterase Trace (NEG) Urine RBC 0 /HPF (0-2) Urine WBC 1-4 /HPF (0-4) Urine Squamous Epithelial Cells Few /LPF Urine Bacteria 0 /HPF (0-FEW) Glucose (Fingerstick) 182 mg/dL (70-99) Laboratory Tests Test 04/15/19 05:03 04/15/19 05:50 04/15/19 16:23 White Blood Count 9.1 x10^3/uL (4.0-11.0) Red Blood Count 5.22 x10^6/uL (4.30-5.70) Hemoglobin 15.0 g/dL (13.0-17.5) Hematocrit 45.5 % (39.0-53.0) Mean Corpuscular Volume 87 fL (79-100) Mean Corpuscular Hemoglobin 29 pg (25-35) Mean Corpuscular Hemoglobin Concent 33 g/dL (31-37) Red Cell Distribution Width 13.2 % (11.5-14.5) Platelet Count 194 x10^3/uL (140-400) Neutrophils (%) (Auto) 65 % (31-73) Lymphocytes (%) (Auto) 25 % (24-48) Monocytes (%) (Auto) 7 % (0-9) Eosinophils (%) (Auto) 3 % (0-3) Basophils (%) (Auto) 1 % (0-3) Neutrophils # (Auto) 5.9 x10^3/uL (1.8-7.7) Lymphocytes # (Auto) 2.3 x10^3/uL (1.0-4.8) Monocytes # (Auto) 0.6 x10^3/uL (0.0-1.1) Eosinophils # (Auto) 0.2 x10^3/uL (0.0-0.7) Basophils # (Auto) 0.1 x10^3/uL (0.0-0.2) D-Dimer (Kita) < 0.27 ug/mlFEU Sodium Level 143 mmol/L (136-145) Potassium Level 4.3 mmol/L (3.5-5.1) Chloride Level 104 mmol/L (98-107) Carbon Dioxide Level 28 mmol/L (21-32) Anion Gap 11 (6-14) Blood Urea Nitrogen 28 mg/dL (8-26) Creatinine 1.5 mg/dL (0.7-1.3) Estimated GFR (Cockcroft-Gault) 47.3 BUN/Creatinine Ratio 19 (6-20) Glucose Level 217 mg/dL (70-99) Calcium Level 8.2 mg/dL (8.5-10.1) Total Bilirubin 0.7 mg/dL (0.2-1.0) Aspartate Amino Transf (AST/SGOT) 38 U/L (15-37) Alanine Aminotransferase (ALT/SGPT) 40 U/L (16-63) Alkaline Phosphatase 74 U/L (46-116) Troponin I Quantitative 0.029 ng/mL (0.000-0.055) QG-Act-Q-Type Natriuretic Peptide 407 pg/mL (0-124) Total Protein 7.2 g/dL (6.4-8.2) Albumin 3.8 g/dL (3.4-5.0) Albumin/Globulin Ratio 1.1 (1.0-1.7) Urine Collection Type Unknown Urine Color Yellow Urine Clarity Clear Urine pH 5.5 Urine Specific [place] 1.015 Urine Protein 100 mg/dL (NEG-TRACE) Urine Glucose (UA) Negative mg/dL (NEG) Urine Ketones (Stick) Negative mg/dL (NEG) Urine Blood Negative (NEG) Urine Nitrite Negative (NEG) Urine Bilirubin Negative (NEG) Urine Urobilinogen Dipstick 0.2 mg/dL (0.2 mg/dL) Urine Leukocyte Esterase Trace (NEG) Urine RBC 0 /HPF (0-2) Urine WBC 1-4 /HPF (0-4) Urine Squamous Epithelial Cells Few /LPF Urine Bacteria 0 /HPF (0-FEW) Glucose (Fingerstick) 182 mg/dL (70-99) Medications Active Scripts Medications Dose Route/Sig Max Daily Dose Days Date Category Dose Instructions Flomax (Tamsulosin Hcl) 0.4 Mg Cap.er.24h 1 Cap PO DAILY 04/15/19 Reported Benicar (Olmesartan Medoxomil) 40 Mg Tablet 40 Mg PO DAILY 03/09/19 Reported Carvedilol (Carvedilol) 6.25 Mg Tablet 6.25 Mg PO BIDWMEALS 03/09/19 Reported Polyethylene Glycol 3350 17 Gm Powd.pack 17 Gm PO PRN DAILY PRN 02/28/18 Rx Amitiza (Lubiprostone) 8 Mcg Capsule 8 Mcg PO BIDWMEALS 30 02/28/18 Rx Colace (Docusate Sodium) 100 Mg Capsule 100 Mg PO PRN DAILY PRN 02/28/18 Rx Betapace (Sotalol Hcl) 80 Mg Tablet 80 Mg PO BID 30 02/28/18 Rx Proventil Hfa Inhaler (Albuterol Sulfate) 6.7 Gm Hfa.aer.ad 2 Puff IH PRN Q6HRS PRN 01/01/18 Reported Furosemide 40 Mg Tablet 40 Mg PO DAILY 01/01/18 Reported Atorvastatin Calcium 80 Mg Tablet 80 Mg PO HS 01/01/18 Reported Losartan Potassium 100 Mg Tablet 100 Mg PO DAILY 01/01/18 Reported Potassium Chloride 20 Meq Tablet.er 20 Meq PO DAILY 01/01/18 Reported Eliquis (Apixaban) 5 Mg Tablet 5 Mg PO BID 07/23/15 Reported Aspir 81 (Aspirin) 81 Mg Tablet.dr 1 Tab PO DAILY 07/22/15 Reported LAST DOSE GIVEN: DATE: 07/23/15 TIME: 0900 AM NEXT DOSE DUE: DATE: TOMORROW 07/24/15 TIME: 0900 AM Amlodipine Besylate 10 Mg Tablet 10 Mg PO DAILY 08/13/14 Reported LAST DOSE GIVEN: DATE: 07/23/15 TIME: 0900 NEXT DOSE DUE: DATE: Tomorrow 07/24/15 TIME: 0900 NITROGLYCERIN SubLingual (Nitroglycerin) 0.4 Mg Tab.subl 0.4 Mg SL PRN Q5MIN PRN 08/13/14 Reported Impression . FULL NOTE DICTATED SUSPECT MOSTLY CHF THANKS URIEL MEEKS MD Apr 15, 2019 16:49
[2019-04-15] MEDS ORDERED: LUBIPROSTONE 8 MCG CAPSULE PO SCH (17:00)
[2019-04-15] MEDS ORDERED: CARVEDILOL 6.25 MG TABLET. PO SCH (17:00)
[2019-04-15] MEDS: LUBIPROSTONE 24 MCG CAPSULE PO SCH (17:16)
[2019-04-15] MEDS: DOXYCYCLINE HYCLATE 100 MG TABLET PO SCH (18:36)
--- NOTE | 2019-04-15 18:52 | CONS ---
DATE OF CONSULTATION: 04/15/2019 ATTENDING PHYSICIAN: Dr. Stallings. REASON FOR CONSULTATION: The patient seen in pulmonary consultation at the request of Dr. Stallings for shortness of air. HISTORY OF PRESENT ILLNESS: The patient is a 63-year-old with underlying COPD, obstructive sleep apnea, quit tobacco 25 years ago, presented to the Emergency Room with increasing shortness of breath. He has been short of breath now for quite some time. He did not notice any paroxysmal nocturnal dyspnea or pedal edema. He normally uses CPAP, but has been unable to tolerate the CPAP at home. The patient is also complaining of having periods of diaphoresis. He states that he is very active despite the fact that he is currently retired. Chest x-ray was obtained revealing basically cardiomegaly with vascular congestion and possible infiltrate, retrocardiac. The patient denies fever, chills, nausea, vomiting. PAST MEDICAL HISTORY: Coronary artery disease with previous recent cardiac catheterization dated 03/09/2019 revealing no significant coronary artery disease with widely patent previously placed stents in the left circumflex and right coronary arteries. He also had an echocardiogram revealing ejection fraction of 50%, PA pressure was 31. Chronic atrial fibrillation, coronary artery disease, hypertension, hyperlipidemia, COPD, previous pneumonia, osteoarthritis. He has had a left adrenal adenoma. PAST SURGICAL HISTORY: No recent major surgeries. FAMILY HISTORY: Hypertension. Brother with lung cancer. REVIEW OF SYSTEMS: CONSTITUTIONAL: No fever or chills. EYES: No change in visual acuity. HENT: No nasal congestion or sore throat. PULMONARY: As indicated above. CARDIOVASCULAR: As indicated above. GASTROINTESTINAL: No nausea, vomiting, diarrhea. GENITOURINARY: No dysuria or frequency. MUSCULOSKELETAL: No localized muscle aches or joint pains. SKIN: No new skin rashes. NEUROLOGIC: No headaches, diplopia or blurred vision. MEDICATIONS: List was reviewed. PHYSICAL EXAMINATION: VITAL SIGNS: Stable. He is currently on 2 liters of oxygen supplementation, saturation greater than 92%. HEENT: Eyes, the sclerae were nonicteric. NECK: Jugular venous distention could not be assessed secondary to body habitus. LUNGS: Adequate airway flow, no wheezes. CARDIOVASCULAR: Regular rate and rhythm with S1, S2, no S3. ABDOMEN: Soft, obese. EXTREMITIES: No clubbing, cyanosis or edema. NEUROLOGICAL: The patient was awake, alert, following commands. A detailed neuro exam was not performed. IMAGING: Chest x-ray as indicated above. IMPRESSION: 1. Acute on chronic diastolic heart failure. 2. Secondary pulmonary hypertension. 3. Obstructive sleep apnea. 4. Chronic obstructive pulmonary disease. 5. Chronic atrial fibrillation. 6. Morbid obesity. 7. Chronic kidney disease. PLAN: 1. Recommend continue diuresis. 2. Empiric antibiotics. 3. Follow clinical course and make adjustments. My clinical suspicion for infection is low. We will continue doxycycline. 4. No need for continuous Steroids. 5. Nebulized treatments. 6. The patient instructed on the importance of continuing CPAP at home. 7. The patient instructed on the importance of continued exercise regimen. URIEL MEEKS MD DR: ARUN/nts JOB#: [id number] / [id number]
[2019-04-15 19:28] VITALS: BP 122/57
[2019-04-15] MEDS ORDERED: ATORVASTATIN CALCIUM 40 MG TABLET. PO SCH (21:00)
--- NOTE | 2019-04-15 22:10 | NUR ---
NURSING NOTE Pt noted to have ST on artist's model, up into the 120-130s. Pt had recently went to the bathroom around 2144. Pt denies chest pain or increase in SOA. BP at 141/85. Pt asked to cough and bear down without result. Dr. Gonzáles called at 2234 and notified of pts HR and brief cardiac history and recent medications taken this HS. Order for Digoxin x1 given. Will monitor.
[2019-04-15] MEDS ORDERED: DIGOXIN IV 500 MCG/2 ML AMPUL. IV ONE (23:00)
[2019-04-15 23:39] VITALS: BP 141/85
[2019-04-16 03:09] VITALS: BP 113/53
[2019-04-16 04:17] LABS: BASO % 0 % (0-3); EOS % 0 % (0-3); HEMATOCRIT 42.9 % (39.0-53.0); LYMPH # 1.2 x10^3/uL (1.0-4.8); LYMPH % 9 % (24-48); MEAN CORPUSCULAR HEMOGLOBIN 28 pg (25-35); MEAN CORPUSCULAR HGB CONC 33 g/dL (31-37); MEAN CORPUSCULAR VOLUME 86 fL (79-100); MONO # 0.9 x10^3/uL (0.0-1.1); MONO % 6 % (0-9); NEUT # 11.7 x10^3/uL (1.8-7.7); NEUT % 84 % (31-73); PLATELET COUNT 162 x10^3/uL (140-400); RED BLOOD COUNT 4.99 x10^6/uL (4.30-5.70); RED CELL DISTRIBUTION WIDTH 13.3 % (11.5-14.5); WHITE BLOOD COUNT 13.8 x10^3/uL (4.0-11.0)
[2019-04-16 04:37] LABS: ALBUMIN 3.4 g/dL (3.4-5.0); ALBUMIN/GLOBULIN RATIO 1.2 (1.0-1.7); CALCIUM 8.5 mg/dL (8.5-10.1); CREATININE 1.2 mg/dL (0.7-1.3); GFR 61.1; POTASSIUM 3.9 mmol/L (3.5-5.1); TOTAL BILIRUBIN 0.7 mg/dL (0.2-1.0); TOTAL PROTEIN 6.3 g/dL (6.4-8.2)
[2019-04-16 07:00] VITALS: BP 125/66
[2019-04-16] MEDS: IPRATRPIUM/ALBUTEROL 0.5/2.5MG 3 ML NEBU. NEB SCH (07:15)
[2019-04-16] MEDS ORDERED: POTASSIUM CHLORIDE 20 MEQ TABLET.ER. PO SCH (08:00)
[2019-04-16] MEDS ORDERED: FUROSEMIDE 40 MG TABLET. PO SCH (09:00)
[2019-04-16] MEDS ORDERED: LOSARTAN POTASSIUM 50 MG TABLET. PO SCH (09:00)
[2019-04-16] MEDS ORDERED: TAMSULOSIN 0.4 MG CAP.ER.24H. PO SCH (09:00)
--- NOTE | 2019-04-16 09:45 | PDOC ---
PULMONARY PROGRESS NOTES Subjective Pt. is up walking the halls this am, Remains on room air. He repost SOB, when lying flat and denies increased cough Vitals Vital Signs Date Time Temp Pulse Resp B/P (MAP) Pulse Ox O2 Delivery O2 Flow Rate FiO2 04/16/19 07:16 98 Room Air 04/16/19 07:00 98.4 113 18 125/66 (85) 2.0 98.4 ROS: No Nausea, No Chest Pain, No Increase Cough General: Alert, Oriented X4 HEENT: Other Lungs: Clear Cardiovascular: S1, S2 Abdomen: Soft, Non-tender Neuro Exam: Alert Extremities: Other (+1 edema BLE) Skin: Warm, Dry Labs Laboratory Tests Test 04/15/19 05:03 04/15/19 05:50 04/15/19 16:23 04/16/19 03:20 White Blood Count 9.1 x10^3/uL (4.0-11.0) 13.8 x10^3/uL (4.0-11.0) Red Blood Count 5.22 x10^6/uL (4.30-5.70) 4.99 x10^6/uL (4.30-5.70) Hemoglobin 15.0 g/dL (13.0-17.5) 14.0 g/dL (13.0-17.5) Hematocrit 45.5 % (39.0-53.0) 42.9 % (39.0-53.0) Mean Corpuscular Volume 87 fL (79-100) 86 fL (79-100) Mean Corpuscular Hemoglobin 29 pg (25-35) 28 pg (25-35) Mean Corpuscular Hemoglobin Concent 33 g/dL (31-37) 33 g/dL (31-37) Red Cell Distribution Width 13.2 % (11.5-14.5) 13.3 % (11.5-14.5) Platelet Count 194 x10^3/uL (140-400) 162 x10^3/uL (140-400) Neutrophils (%) (Auto) 65 % (31-73) 84 % (31-73) Lymphocytes (%) (Auto) 25 % (24-48) 9 % (24-48) Monocytes (%) (Auto) 7 % (0-9) 6 % (0-9) Eosinophils (%) (Auto) 3 % (0-3) 0 % (0-3) Basophils (%) (Auto) 1 % (0-3) 0 % (0-3) Neutrophils # (Auto) 5.9 x10^3/uL (1.8-7.7) 11.7 x10^3/uL (1.8-7.7) Lymphocytes # (Auto) 2.3 x10^3/uL (1.0-4.8) 1.2 x10^3/uL (1.0-4.8) Monocytes # (Auto) 0.6 x10^3/uL (0.0-1.1) 0.9 x10^3/uL (0.0-1.1) Eosinophils # (Auto) 0.2 x10^3/uL (0.0-0.7) 0.0 x10^3/uL (0.0-0.7) Basophils # (Auto) 0.1 x10^3/uL (0.0-0.2) 0.0 x10^3/uL (0.0-0.2) D-Dimer (Kita) < 0.27 ug/mlFEU Sodium Level 143 mmol/L (136-145) 143 mmol/L (136-145) Potassium Level 4.3 mmol/L (3.5-5.1) 3.9 mmol/L (3.5-5.1) Chloride Level 104 mmol/L (98-107) 105 mmol/L (98-107) Carbon Dioxide Level 28 mmol/L (21-32) 29 mmol/L (21-32) Anion Gap 11 (6-14) 9 (6-14) Blood Urea Nitrogen 28 mg/dL (8-26) 28 mg/dL (8-26) Creatinine 1.5 mg/dL (0.7-1.3) 1.2 mg/dL (0.7-1.3) Estimated GFR (Cockcroft-Gault) 47.3 61.1 BUN/Creatinine Ratio 19 (6-20) 23 (6-20) Glucose Level 217 mg/dL (70-99) 220 mg/dL (70-99) Calcium Level 8.2 mg/dL (8.5-10.1) 8.5 mg/dL (8.5-10.1) Total Bilirubin 0.7 mg/dL (0.2-1.0) 0.7 mg/dL (0.2-1.0) Aspartate Amino Transf (AST/SGOT) 38 U/L (15-37) 21 U/L (15-37) Alanine Aminotransferase (ALT/SGPT) 40 U/L (16-63) 30 U/L (16-63) Alkaline Phosphatase 74 U/L (46-116) 68 U/L (46-116) Troponin I Quantitative 0.029 ng/mL (0.000-0.055) XO-Jdc-L-Type Natriuretic Peptide 407 pg/mL (0-124) Total Protein 7.2 g/dL (6.4-8.2) 6.3 g/dL (6.4-8.2) Albumin 3.8 g/dL (3.4-5.0) 3.4 g/dL (3.4-5.0) Albumin/Globulin Ratio 1.1 (1.0-1.7) 1.2 (1.0-1.7) Urine Collection Type Unknown Urine Color Yellow Urine Clarity Clear Urine pH 5.5 Urine Specific [place] 1.015 Urine Protein 100 mg/dL (NEG-TRACE) Urine Glucose (UA) Negative mg/dL (NEG) Urine Ketones (Stick) Negative mg/dL (NEG) Urine Blood Negative (NEG) Urine Nitrite Negative (NEG) Urine Bilirubin Negative (NEG) Urine Urobilinogen Dipstick 0.2 mg/dL (0.2 mg/dL) Urine Leukocyte Esterase Trace (NEG) Urine RBC 0 /HPF (0-2) Urine WBC 1-4 /HPF (0-4) Urine Squamous Epithelial Cells Few /LPF Urine Bacteria 0 /HPF (0-FEW) Glucose (Fingerstick) 182 mg/dL (70-99) Laboratory Tests Test 04/15/19 16:23 04/16/19 03:20 Glucose (Fingerstick) 182 mg/dL (70-99) White Blood Count 13.8 x10^3/uL (4.0-11.0) Red Blood Count 4.99 x10^6/uL (4.30-5.70) Hemoglobin 14.0 g/dL (13.0-17.5) Hematocrit 42.9 % (39.0-53.0) Mean Corpuscular Volume 86 fL (79-100) Mean Corpuscular Hemoglobin 28 pg (25-35) Mean Corpuscular Hemoglobin Concent 33 g/dL (31-37) Red Cell Distribution Width 13.3 % (11.5-14.5) Platelet Count 162 x10^3/uL (140-400) Neutrophils (%) (Auto) 84 % (31-73) Lymphocytes (%) (Auto) 9 % (24-48) Monocytes (%) (Auto) 6 % (0-9) Eosinophils (%) (Auto) 0 % (0-3) Basophils (%) (Auto) 0 % (0-3) Neutrophils # (Auto) 11.7 x10^3/uL (1.8-7.7) Lymphocytes # (Auto) 1.2 x10^3/uL (1.0-4.8) Monocytes # (Auto) 0.9 x10^3/uL (0.0-1.1) Eosinophils # (Auto) 0.0 x10^3/uL (0.0-0.7) Basophils # (Auto) 0.0 x10^3/uL (0.0-0.2) Sodium Level 143 mmol/L (136-145) Potassium Level 3.9 mmol/L (3.5-5.1) Chloride Level 105 mmol/L (98-107) Carbon Dioxide Level 29 mmol/L (21-32) Anion Gap 9 (6-14) Blood Urea Nitrogen 28 mg/dL (8-26) Creatinine 1.2 mg/dL (0.7-1.3) Estimated GFR (Cockcroft-Gault) 61.1 BUN/Creatinine Ratio 23 (6-20) Glucose Level 220 mg/dL (70-99) Calcium Level 8.5 mg/dL (8.5-10.1) Total Bilirubin 0.7 mg/dL (0.2-1.0) Aspartate Amino Transf (AST/SGOT) 21 U/L (15-37) Alanine Aminotransferase (ALT/SGPT) 30 U/L (16-63) Alkaline Phosphatase 68 U/L (46-116) Total Protein 6.3 g/dL (6.4-8.2) Albumin 3.4 g/dL (3.4-5.0) Albumin/Globulin Ratio 1.2 (1.0-1.7) Medications Active Scripts Medications Dose Route/Sig Max Daily Dose Days Date Category Dose Instructions Flomax (Tamsulosin Hcl) 0.4 Mg Cap.er.24h 1 Cap PO DAILY 04/15/19 Reported Benicar (Olmesartan Medoxomil) 40 Mg Tablet 40 Mg PO DAILY 03/09/19 Reported Carvedilol (Carvedilol) 6.25 Mg Tablet 6.25 Mg PO BIDWMEALS 03/09/19 Reported Polyethylene Glycol 3350 17 Gm Powd.pack 17 Gm PO PRN DAILY PRN 02/28/18 Rx Amitiza (Lubiprostone) 8 Mcg Capsule 8 Mcg PO BIDWMEALS 30 02/28/18 Rx Colace (Docusate Sodium) 100 Mg Capsule 100 Mg PO PRN DAILY PRN 02/28/18 Rx Betapace (Sotalol Hcl) 80 Mg Tablet 80 Mg PO BID 30 02/28/18 Rx Proventil Hfa Inhaler (Albuterol Sulfate) 6.7 Gm Hfa.aer.ad 2 Puff IH PRN Q6HRS PRN 01/01/18 Reported Furosemide 40 Mg Tablet 40 Mg PO DAILY 01/01/18 Reported Atorvastatin Calcium 80 Mg Tablet 80 Mg PO HS 01/01/18 Reported Losartan Potassium 100 Mg Tablet 100 Mg PO DAILY 01/01/18 Reported Potassium Chloride 20 Meq Tablet.er 20 Meq PO DAILY 01/01/18 Reported Eliquis (Apixaban) 5 Mg Tablet 5 Mg PO BID 07/23/15 Reported Aspir 81 (Aspirin) 81 Mg Tablet.dr 1 Tab PO DAILY 07/22/15 Reported LAST DOSE GIVEN: DATE: 07/23/15 TIME: 0900 AM NEXT DOSE DUE: DATE: TOMORROW 07/24/15 TIME: 0900 AM Amlodipine Besylate 10 Mg Tablet 10 Mg PO DAILY 08/13/14 Reported LAST DOSE GIVEN: DATE: 07/23/15 TIME: 0900 NEXT DOSE DUE: DATE: Tomorrow 07/24/15 TIME: 0900 NITROGLYCERIN SubLingual (Nitroglycerin) 0.4 Mg Tab.subl 0.4 Mg SL PRN Q5MIN PRN 08/13/14 Reported Impression . 1. Acute on chronic diastolic heart failure- EF in 03/26 was 50% with MVR and TVR and PA pressures 31 2. Secondary pulmonary hypertension. 3. Obstructive sleep apnea. 4. Chronic obstructive pulmonary disease. 5. Chronic atrial fibrillation on fdc A/C 6. Morbid obesity. 7. Chronic kidney disease with TARA Plan . 1. continue diuresis. per cardiology recommendations 2. Empiric antibiotics-- cont with DOXY 3. Nebulized treatments. 4. cont. need for education and encouragement of home CPAP use, would like to try nasal pillows 5. cont. A/C 6. CR. down to 1.2 today which is baseline-- cont. to avoid nephrotoxic medications URIEL MEEKS MD Apr 16, 2019 09:45
[2019-04-16] MEDS: LUBIPROSTONE 24 MCG CAPSULE PO SCH ×2 (10:08→17:20)
[2019-04-16] MEDS: amLODIPine BESYLATE 10 MG TABLET PO SCH (10:08)
[2019-04-16] MEDS: APIXABAN 5 MG TABLET. PO SCH (10:09)
[2019-04-16] MEDS: ASPIRIN ENTERIC COATED 81 MG TABLET.DR. PO SCH (10:09)
[2019-04-16] MEDS: SOTALOL 80 MG TABLET. PO SCH (10:09)
[2019-04-16] MEDS: DOXYCYCLINE HYCLATE 100 MG TABLET PO SCH (10:09)
--- NOTE | 2019-04-16 10:27 | PDOC ---
PROGRESS NOTES History of Present Illness History of Present Illness VTE Prophylaxis Ordered VTE Prophylaxis Devices: No VTE Pharmacological Prophylaxi: Yes Assessment/Plan Assessment/Plan Impression: acute COPD exacerbation pulm hypertension retrocardiac atelectasis or infiltrate. by cxr 04/14 acute hypoxic respiratory failure morbid obesity acute exac CHF (congestive heart failure) Left ventricle systolic function is low normal. recent echo Ejection Fraction is 50%.Moderate mitral regurgitation. recent cath 03/26 No significant coronary artery disease with widely patent previously placed stents and left circumflex and right coronary arteries. TARA a-fib on longterm anticoagulation eliquis 5 mg po bid ADMITTED consult pulm tele consult cardiology echo DVT PROPHYLAXIS Nephrology consult po antibiotics doxy 100mg bid Vitals Vitals Vital Signs Date Time Temp Pulse Resp B/P (MAP) Pulse Ox O2 Delivery O2 Flow Rate FiO2 04/16/19 10:09 113 125/66 04/16/19 07:16 98 Room Air 04/16/19 07:00 98.4 18 2.0 98.4 Physical Exam General: Alert, Oriented X3, Cooperative, No acute distress Heart: Regular rate (SR), Normal S1, Normal S2, Other (2/6 systolic murmur to LLs border) Lungs: Clear, Crackles Abdomen: Normal bowel sounds, Soft, No tenderness Extremities: No cyanosis, Other (1+ bilateral Le pitting edema) Skin: No breakdown, No significant lesion Labs LABS Mitral Valve MV E Velocity 129.9cm/s MV E Peak Gr. 127mmHg MV DECEL TIME 145ms MV A Velocity 29.2cm/s MV E Mean Gr. 4mmHg E/A Ratio 4.4 Pulmonary Valve PV Peak Velocity 75.8cm/s Tricuspid Valve TR P. Velocity 265cm/s RAP ESTIMATE 3mmHg TR Peak Gr. 28mmHg RVSP 31mmHg LEFT VENTRICLE The left ventricle is normal size. There is moderate concentric left ventricular hypertrophy. Left ventricle systolic function is low normal. The Ejection Fraction is 50%. There is normal LV segmental wall motion. RIGHT VENTRICLE The right ventricle is normal size. There is normal right ventricular wall thickness. The right ventricular systolic function is normal. ATRIA The left atrium is mild to moderately dilated. The right atrium is mildly dilated. The interatrial septum is intact with no evidence for an atrial septal defect or patent foramen ovale as noted on 2-D or Doppler imaging. AORTIC VALVE The aortic valve is trileaflet. The aortic valve is mildly calcified. Doppler and Color Flow revealed trace aortic regurgitation. There is no significant aortic valvular stenosis. MITRAL VALVE The mitral valve is normal in structure and function. There is no evidence of mitral valve prolapse. There is no mitral valve stenosis. Doppler and Color-flow revealed moderate mitral regurgitation. TRICUSPID VALVE The tricuspid valve is normal in structure and function. Doppler and Color Flow revealed mild tricuspid regurgitation. The PA pressure was estimated at 31 mmHg. There is no tricuspid valve prolapse or vegetation. There is no tricuspid valve stenosis. PULMONIC VALVE The pulmonic valve is not well visualized. GREAT VESSELS The aortic root is normal in size. The ascending aorta is normal in size. The IVC is normal in size and collapses >50% with inspiration. PERICARDIAL EFFUSION There is no evidence of significant pericardial effusion. Critical Notification Critical Value: No <Conclusion> Left ventricle systolic function is low normal. The Ejection Fraction is 50%. Moderate mitral regurgitation. Mild tricuspid regurgitation. The PA pressure was estimated at 31 mmHg. There is no evidence of significant pericardial effusion. Signed by : Cristiano García, Electronically Approved : 03/09/2019 15:44:22 Laboratory Tests Test 04/15/19 16:23 04/16/19 03:20 Glucose (Fingerstick) 182 mg/dL (70-99) White Blood Count 13.8 x10^3/uL (4.0-11.0) Red Blood Count 4.99 x10^6/uL (4.30-5.70) Hemoglobin 14.0 g/dL (13.0-17.5) Hematocrit 42.9 % (39.0-53.0) Mean Corpuscular Volume 86 fL (79-100) Mean Corpuscular Hemoglobin 28 pg (25-35) Mean Corpuscular Hemoglobin Concent 33 g/dL (31-37) Red Cell Distribution Width 13.3 % (11.5-14.5) Platelet Count 162 x10^3/uL (140-400) Neutrophils (%) (Auto) 84 % (31-73) Lymphocytes (%) (Auto) 9 % (24-48) Monocytes (%) (Auto) 6 % (0-9) Eosinophils (%) (Auto) 0 % (0-3) Basophils (%) (Auto) 0 % (0-3) Neutrophils # (Auto) 11.7 x10^3/uL (1.8-7.7) Lymphocytes # (Auto) 1.2 x10^3/uL (1.0-4.8) Monocytes # (Auto) 0.9 x10^3/uL (0.0-1.1) Eosinophils # (Auto) 0.0 x10^3/uL (0.0-0.7) Basophils # (Auto) 0.0 x10^3/uL (0.0-0.2) Sodium Level 143 mmol/L (136-145) Potassium Level 3.9 mmol/L (3.5-5.1) Chloride Level 105 mmol/L (98-107) Carbon Dioxide Level 29 mmol/L (21-32) Anion Gap 9 (6-14) Blood Urea Nitrogen 28 mg/dL (8-26) Creatinine 1.2 mg/dL (0.7-1.3) Estimated GFR (Cockcroft-Gault) 61.1 BUN/Creatinine Ratio 23 (6-20) Glucose Level 220 mg/dL (70-99) Calcium Level 8.5 mg/dL (8.5-10.1) Total Bilirubin 0.7 mg/dL (0.2-1.0) Aspartate Amino Transf (AST/SGOT) 21 U/L (15-37) Alanine Aminotransferase (ALT/SGPT) 30 U/L (16-63) Alkaline Phosphatase 68 U/L (46-116) Total Protein 6.3 g/dL (6.4-8.2) Albumin 3.4 g/dL (3.4-5.0) Albumin/Globulin Ratio 1.2 (1.0-1.7) Assessment and Plan Assessmemt and Plan Problems Medical Problems: (1) CHF (congestive heart failure) Status: Acute (2) COPD exacerbation Status: Acute Comment Review of Relevant I have reviewed the following items robbin (where applicable) has been applied. Labs Laboratory Tests Test 04/15/19 05:03 04/15/19 05:50 04/15/19 16:23 04/16/19 03:20 White Blood Count 9.1 x10^3/uL (4.0-11.0) 13.8 x10^3/uL (4.0-11.0) Red Blood Count 5.22 x10^6/uL (4.30-5.70) 4.99 x10^6/uL (4.30-5.70) Hemoglobin 15.0 g/dL (13.0-17.5) 14.0 g/dL (13.0-17.5) Hematocrit 45.5 % (39.0-53.0) 42.9 % (39.0-53.0) Mean Corpuscular Volume 87 fL (79-100) 86 fL (79-100) Mean Corpuscular Hemoglobin 29 pg (25-35) 28 pg (25-35) Mean Corpuscular Hemoglobin Concent 33 g/dL (31-37) 33 g/dL (31-37) Red Cell Distribution Width 13.2 % (11.5-14.5) 13.3 % (11.5-14.5) Platelet Count 194 x10^3/uL (140-400) 162 x10^3/uL (140-400) Neutrophils (%) (Auto) 65 % (31-73) 84 % (31-73) Lymphocytes (%) (Auto) 25 % (24-48) 9 % (24-48) Monocytes (%) (Auto) 7 % (0-9) 6 % (0-9) Eosinophils (%) (Auto) 3 % (0-3) 0 % (0-3) Basophils (%) (Auto) 1 % (0-3) 0 % (0-3) Neutrophils # (Auto) 5.9 x10^3/uL (1.8-7.7) 11.7 x10^3/uL (1.8-7.7) Lymphocytes # (Auto) 2.3 x10^3/uL (1.0-4.8) 1.2 x10^3/uL (1.0-4.8) Monocytes # (Auto) 0.6 x10^3/uL (0.0-1.1) 0.9 x10^3/uL (0.0-1.1) Eosinophils # (Auto) 0.2 x10^3/uL (0.0-0.7) 0.0 x10^3/uL (0.0-0.7) Basophils # (Auto) 0.1 x10^3/uL (0.0-0.2) 0.0 x10^3/uL (0.0-0.2) D-Dimer (Kita) < 0.27 ug/mlFEU Sodium Level 143 mmol/L (136-145) 143 mmol/L (136-145) Potassium Level 4.3 mmol/L (3.5-5.1) 3.9 mmol/L (3.5-5.1) Chloride Level 104 mmol/L (98-107) 105 mmol/L (98-107) Carbon Dioxide Level 28 mmol/L (21-32) 29 mmol/L (21-32) Anion Gap 11 (6-14) 9 (6-14) Blood Urea Nitrogen 28 mg/dL (8-26) 28 mg/dL (8-26) Creatinine 1.5 mg/dL (0.7-1.3) 1.2 mg/dL (0.7-1.3) Estimated GFR (Cockcroft-Gault) 47.3 61.1 BUN/Creatinine Ratio 19 (6-20) 23 (6-20) Glucose Level 217 mg/dL (70-99) 220 mg/dL (70-99) Calcium Level 8.2 mg/dL (8.5-10.1) 8.5 mg/dL (8.5-10.1) Total Bilirubin 0.7 mg/dL (0.2-1.0) 0.7 mg/dL (0.2-1.0) Aspartate Amino Transf (AST/SGOT) 38 U/L (15-37) 21 U/L (15-37) Alanine Aminotransferase (ALT/SGPT) 40 U/L (16-63) 30 U/L (16-63) Alkaline Phosphatase 74 U/L (46-116) 68 U/L (46-116) Troponin I Quantitative 0.029 ng/mL (0.000-0.055) GI-Ppk-P-Type Natriuretic Peptide 407 pg/mL (0-124) Total Protein 7.2 g/dL (6.4-8.2) 6.3 g/dL (6.4-8.2) Albumin 3.8 g/dL (3.4-5.0) 3.4 g/dL (3.4-5.0) Albumin/Globulin Ratio 1.1 (1.0-1.7) 1.2 (1.0-1.7) Urine Collection Type Unknown Urine Color Yellow Urine Clarity Clear Urine pH 5.5 Urine Specific [place] 1.015 Urine Protein 100 mg/dL (NEG-TRACE) Urine Glucose (UA) Negative mg/dL (NEG) Urine Ketones (Stick) Negative mg/dL (NEG) Urine Blood Negative (NEG) Urine Nitrite Negative (NEG) Urine Bilirubin Negative (NEG) Urine Urobilinogen Dipstick 0.2 mg/dL (0.2 mg/dL) Urine Leukocyte Esterase Trace (NEG) Urine RBC 0 /HPF (0-2) Urine WBC 1-4 /HPF (0-4) Urine Squamous Epithelial Cells Few /LPF Urine Bacteria 0 /HPF (0-FEW) Glucose (Fingerstick) 182 mg/dL (70-99) Laboratory Tests Test 04/15/19 16:23 04/16/19 03:20 Glucose (Fingerstick) 182 mg/dL (70-99) White Blood Count 13.8 x10^3/uL (4.0-11.0) Red Blood Count 4.99 x10^6/uL (4.30-5.70) Hemoglobin 14.0 g/dL (13.0-17.5) Hematocrit 42.9 % (39.0-53.0) Mean Corpuscular Volume 86 fL (79-100) Mean Corpuscular Hemoglobin 28 pg (25-35) Mean Corpuscular Hemoglobin Concent 33 g/dL (31-37) Red Cell Distribution Width 13.3 % (11.5-14.5) Platelet Count 162 x10^3/uL (140-400) Neutrophils (%) (Auto) 84 % (31-73) Lymphocytes (%) (Auto) 9 % (24-48) Monocytes (%) (Auto) 6 % (0-9) Eosinophils (%) (Auto) 0 % (0-3) Basophils (%) (Auto) 0 % (0-3) Neutrophils # (Auto) 11.7 x10^3/uL (1.8-7.7) Lymphocytes # (Auto) 1.2 x10^3/uL (1.0-4.8) Monocytes # (Auto) 0.9 x10^3/uL (0.0-1.1) Eosinophils # (Auto) 0.0 x10^3/uL (0.0-0.7) Basophils # (Auto) 0.0 x10^3/uL (0.0-0.2) Sodium Level 143 mmol/L (136-145) Potassium Level 3.9 mmol/L (3.5-5.1) Chloride Level 105 mmol/L (98-107) Carbon Dioxide Level 29 mmol/L (21-32) Anion Gap 9 (6-14) Blood Urea Nitrogen 28 mg/dL (8-26) Creatinine 1.2 mg/dL (0.7-1.3) Estimated GFR (Cockcroft-Gault) 61.1 BUN/Creatinine Ratio 23 (6-20) Glucose Level 220 mg/dL (70-99) Calcium Level 8.5 mg/dL (8.5-10.1) Total Bilirubin 0.7 mg/dL (0.2-1.0) Aspartate Amino Transf (AST/SGOT) 21 U/L (15-37) Alanine Aminotransferase (ALT/SGPT) 30 U/L (16-63) Alkaline Phosphatase 68 U/L (46-116) Total Protein 6.3 g/dL (6.4-8.2) Albumin 3.4 g/dL (3.4-5.0) Albumin/Globulin Ratio 1.2 (1.0-1.7) Medications Current Medications Albuterol/ Ipratropium (Duoneb) 3 ml 1X ONCE NEB Last administered on 04/15/19at 05:21; Start 04/15/19 at 05:30; Stop 04/15/19 at 05:31; Status DC Methylprednisolone Sodium Succinate (SOLU-Medrol 125MG VIAL) 125 mg 1X ONCE IV Last administered on 04/15/19at 05:41; Start 04/15/19 at 05:30; Stop 04/15/19 at 05:31; Status DC Levofloxacin/ Dextrose 150 ml @ 100 mls/hr 1X ONCE IV Last administered on 04/15/19at 05:57; Start 04/15/19 at 06:00; Stop 04/15/19 at 07:29; Status DC Furosemide (Lasix) 40 mg DAILY IVP ; Start 04/15/19 at 09:00; Stop 04/15/19 at 05:50; Status DC Ondansetron HCl (Zofran) 4 mg PRN Q8HRS PRN IV NAUSEA/VOMITING 1ST CHOICE; Start 04/15/19 at 05:45; Stop 04/16/19 at 05:44; Status DC Acetaminophen (Tylenol) 650 mg PRN Q4HRS PRN PO FEVER; Start 04/15/19 at 05:45; Stop 04/16/19 at 05:44; Status DC Albuterol/ Ipratropium (Duoneb) 3 ml RTQID NEB Last administered on 04/16/19at 07:15; Start 04/15/19 at 08:00; Stop 04/16/19 at 07:59; Status DC Furosemide (Lasix) 40 mg 1X ONCE IVP Last administered on 04/15/19at 05:55; Start 04/15/19 at 06:00; Stop 04/15/19 at 06:01; Status DC Furosemide (Lasix) 40 mg STK-MED ONCE .ROUTE ; Start 04/15/19 at 05:51; Stop 04/15/19 at 05:51; Status DC Amlodipine Besylate (Norvasc) 10 mg DAILY PO Last administered on 04/16/19at 10:08; Start 04/15/19 at 13:00 Apixaban (Eliquis) 5 mg BID PO Last administered on 04/16/19at 10:09; Start 04/15/19 at 13:00 Aspirin (Ecotrin) 81 mg DAILY PO Last administered on 04/16/19at 10:09; Start 04/15/19 at 13:00 Carvedilol (Coreg) 6.25 mg BIDWMEALS PO ; Start 04/15/19 at 17:00; Stop 04/15/19 at 12:18; Status DC Sotalol HCl (Betapace) 80 mg BID PO Last administered on 04/16/19at 10:09; Start 04/15/19 at 13:00 Atorvastatin Calcium (Lipitor) 80 mg QHS PO Last administered on 04/15/19at 21:16; Start 04/15/19 at 21:00 Albuterol Sulfate (Ventolin Neb Soln) 2.5 mg PRN Q6HRS PRN NEB FOR ASTHMA; Start 04/15/19 at 14:00 Docusate Sodium (Colace) 100 mg PRN DAILY PRN PO CONSTIPATION; Start 04/15/19 at 14:00 Furosemide (Lasix) 40 mg DAILY PO Last administered on 04/16/19 10:08; Start 04/16/19 at 09:00 Lubiprostone (Amitiza) 8 mcg BIDWMEALS PO ; Start 04/15/19 at 17:00; Stop 04/15/19 at 14:08; Status DC Nitroglycerin (Nitrostat) 0.4 mg PRN Q5MIN PRN SL CHEST PAIN; Start 04/15/19 at 14:00 Polyethylene Glycol (miraLAX PACKET) 17 gm PRN DAILY PRN PO CONSTIPATION; Start 04/15/19 at 14:00 Tamsulosin HCl (Flomax) 0.4 mg DAILY PO Last administered on 04/16/19 10:09; Start 04/16/19 at 09:00 Losartan Potassium (Cozaar) 100 mg DAILY PO Last administered on 04/16/19 10:07; Start 04/16/19 at 09:00 Potassium Chloride (Klor-Con) 20 meq DAILYWBKFT PO Last administered on 04/16/19at 10:08; Start 04/16/19 at 08:00 Lubiprostone (Amitiza) 24 mcg BIDWMEALS PO Last administered on 04/16/19at 10:08; Start 04/15/19 at 17:00 Info (Anti-Coagulation Monitoring By Pharmacy) 1 each PRN DAILY PRN MC SEE COMMENTS; Start 04/15/19 at 16:45 Doxycycline Hyclate (Vibra-Tab) 100 mg BID PO Last administered on 04/16/19at 10:09; Start 04/15/19 at 18:00 Digoxin (Lanoxin) 250 mcg 1X ONCE IV Last administered on 04/15/19at 22:55; Start 04/15/19 at 23:00; Stop 04/15/19 at 23:01; Status DC Active Scripts Active Polyethylene Glycol 3350 17 Gm Powd.pack 17 Gm PO PRN DAILY PRN Amitiza (Lubiprostone) 8 Mcg Capsule 8 Mcg PO BIDWMEALS 30 Days Colace (Docusate Sodium) 100 Mg Capsule 100 Mg PO PRN DAILY PRN Betapace (Sotalol Hcl) 80 Mg Tablet 80 Mg PO BID 30 Days Reported Flomax (Tamsulosin Hcl) 0.4 Mg Cap.er.24h 1 Cap PO DAILY Benicar (Olmesartan Medoxomil) 40 Mg Tablet 40 Mg PO DAILY Carvedilol (Carvedilol) 6.25 Mg Tablet 6.25 Mg PO BIDWMEALS Proventil Hfa Inhaler (Albuterol Sulfate) 6.7 Gm Hfa.aer.ad 2 Puff IH PRN Q6HRS PRN Furosemide 40 Mg Tablet 40 Mg PO DAILY Atorvastatin Calcium 80 Mg Tablet 80 Mg PO HS Losartan Potassium 100 Mg Tablet 100 Mg PO DAILY Potassium Chloride 20 Meq Tablet.er 20 Meq PO DAILY Eliquis (Apixaban) 5 Mg Tablet 5 Mg PO BID Aspir 81 (Aspirin) 81 Mg Tablet.dr 1 Tab PO DAILY LAST DOSE GIVEN: DATE: 07/23/15 TIME: 0900 AM NEXT DOSE DUE: DATE: TOMORROW 07/24/15 TIME: 0900 AM Amlodipine Besylate 10 Mg Tablet 10 Mg PO DAILY LAST DOSE GIVEN: DATE: 07/23/15 TIME: 0900 NEXT DOSE DUE: DATE: Tomorr07/24/15 TIME: 0900 NITROGLYCERIN SubLingual (Nitroglycerin) 0.4 Mg Tab.subl 0.4 Mg SL PRN Q5MIN PRN Vitals/I & O Vital Sign - Last 24 Hours 04/15/19 04/15/19 04/15/19 04/15/19 11:00 11:53 13:07 13:07 Temp 98.6 98.6 Pulse 70 70 70 Resp 16 B/P (MAP) 151/77 (101) 151/77 151/77 Pulse Ox 99 96 O2 Delivery Nasal Cannula Nasal Cannula O2 Flow Rate 2.0 3.0 04/15/19 04/15/19 04/15/19 04/15/19 14:56 15:49 19:28 20:30 Temp 98.2 98.7 98.2 98.7 Pulse 72 72 Resp 16 18 B/P (MAP) 136/66 (89) 122/57 (78) Pulse Ox 97 95 O2 Delivery Nasal Cannula Nasal Cannula Nasal Cannula Nasal Cannula O2 Flow Rate 2.0 3.0 2.0 2.5 04/15/19 04/15/19 04/15/19 04/15/19 20:39 21:17 22:55 23:39 Temp 98.7 98.7 Pulse 72 131 128 Resp 20 B/P (MAP) 122/57 141/85 141/85 (103) Pulse Ox 94 97 O2 Delivery Nasal Cannula Nasal Cannula O2 Flow Rate 2.0 2.0 04/16/19 04/16/19 04/16/19 04/16/19 03:09 07:00 07:16 10:07 Temp 98.9 98.4 98.9 98.4 Pulse 93 113 113 Resp 18 18 B/P (MAP) 113/53 (73) 125/66 (85) 125/66 Pulse Ox 92 97 98 O2 Delivery Nasal Cannula Nasal Cannula Room Air O2 Flow Rate 2.0 2.0 04/16/19 04/16/19 10:08 10:09 Pulse 113 113 B/P (MAP) 125/66 125/66 Intake and Output 04/15/19 04/15/19 04/16/19 15:00 23:00 07:00 Intake Total 100 ml 350 ml 200 ml Output Total 300 ml Balance -200 ml 350 ml 200 ml BLUE ARMAS MD Apr 16, 2019 10:27
--- NOTE | 2019-04-16 10:31 | PDOC2 ---
CONSULT Date of Consult Date of Consult DATE: 04/16/19 TIME: 10:31 Reason for Consult Reason for Consult: TARA Referring Physician Referring Physician: Fullbright Source Source: Chart review, Patient History of Present Illness Reason for Visit: 62-year-old male who presented to the emergency department with complaints of shortness of breath. Patient has a history of COPD, congestive heart rate, hypertension, obstructive sleep apnea. He describes a cough which is nonproductive. Denies any chest pain, nausea, vomiting, abdominal pain. Nothing makes his symptoms worse, nothing makes his symptoms better. Saturations 77% on RA upon arrival. He remains on Lasix. Creatinine was 1.5 at presentation. He follows with Dr. Kim in our office. Lasix has been held and creatinines up to 1.2 now. Urinating better. Denies any new complaints, he is breathing much easier also. Past Medical History Cardiovascular: AFIB, CAD, HTN, Hyperlipidemia Pulmonary: COPD, Pneumonia CENTRAL NERVOUS SYSTEM: Other GI: GERD Heme/Onc: No pertinent hx Psych: No pertinent hx Musculoskeletal: Osteoarthritis Infectious disease: No pertinent hx Renal/: No pertinent hx, Other Endocrine: Hypothyroidism, Other Past Surgical History Past Surgical History: Hernia Repair, Other Family History Family History: Heart Disease Social History Quit ALCOHOL: none Drugs: None Lives: with Family Domestic Violence: Neg Current Problem List Problem List Problems Medical Problems: (1) CHF (congestive heart failure) Status: Acute (2) COPD exacerbation Status: Acute Current Medications Current Medications Current Medications Albuterol/ Ipratropium (Duoneb) 3 ml 1X ONCE NEB Last administered on 04/15/19at 05:21; Start 04/15/19 at 05:30; Stop 04/15/19 at 05:31; Status DC Methylprednisolone Sodium Succinate (SOLU-Medrol 125MG VIAL) 125 mg 1X ONCE IV Last administered on 04/15/19at 05:41; Start 04/15/19 at 05:30; Stop 04/15/19 at 05:31; Status DC Levofloxacin/ Dextrose 150 ml @ 100 mls/hr 1X ONCE IV Last administered on 04/15/19at 05:57; Start 04/15/19 at 06:00; Stop 04/15/19 at 07:29; Status DC Furosemide (Lasix) 40 mg DAILY IVP ; Start 04/15/19 at 09:00; Stop 04/15/19 at 05:50; Status DC Ondansetron HCl (Zofran) 4 mg PRN Q8HRS PRN IV NAUSEA/VOMITING 1ST CHOICE; Start 04/15/19 at 05:45; Stop 04/16/19 at 05:44; Status DC Acetaminophen (Tylenol) 650 mg PRN Q4HRS PRN PO FEVER; Start 04/15/19 at 05:45; Stop 04/16/19 at 05:44; Status DC Albuterol/ Ipratropium (Duoneb) 3 ml RTQID NEB Last administered on 04/16/19at 07:15; Start 04/15/19 at 08:00; Stop 04/16/19 at 07:59; Status DC Furosemide (Lasix) 40 mg 1X ONCE IVP Last administered on 04/15/19at 05:55; Start 04/15/19 at 06:00; Stop 04/15/19 at 06:01; Status DC Furosemide (Lasix) 40 mg STK-MED ONCE .ROUTE ; Start 04/15/19 at 05:51; Stop 04/15/19 at 05:51; Status DC Amlodipine Besylate (Norvasc) 10 mg DAILY PO Last administered on 04/16/19at 10:08; Start 04/15/19 at 13:00 Apixaban (Eliquis) 5 mg BID PO Last administered on 04/16/19at 10:09; Start 04/15/19 at 13:00 Aspirin (Ecotrin) 81 mg DAILY PO Last administered on 04/16/19at 10:09; Start 04/15/19 at 13:00 Carvedilol (Coreg) 6.25 mg BIDWMEALS PO ; Start 04/15/19 at 17:00; Stop 04/15/19 at 12:18; Status DC Sotalol HCl (Betapace) 80 mg BID PO Last administered on 04/16/19at 10:09; St art 04/15/19 at 13:00 Atorvastatin Calcium (Lipitor) 80 mg QHS PO Last administered on 04/15/19at 21:16; Start 04/15/19 at 21:00 Albuterol Sulfate (Ventolin Neb Soln) 2.5 mg PRN Q6HRS PRN NEB FOR ASTHMA; Start 04/15/19 at 14:00 Docusate Sodium (Colace) 100 mg PRN DAILY PRN PO CONSTIPATION; Start 04/15/19 at 14:00 Furosemide (Lasix) 40 mg DAILY PO Last administered on 04/16/19at 10:08; Start 04/16/19 at 09:00 Lubiprostone (Amitiza) 8 mcg BIDWMEALS PO ; Start 04/15/19 at 17:00; Stop 04/15/19 at 14:08; Status DC Nitroglycerin (Nitrostat) 0.4 mg PRN Q5MIN PRN SL CHEST PAIN; Start 04/15/19 at 14:00 Polyethylene Glycol (miraLAX PACKET) 17 gm PRN DAILY PRN PO CONSTIPATION; Start 04/15/19 at 14:00 Tamsulosin HCl (Flomax) 0.4 mg DAILY PO Last administered on 04/16/19at 10:09; Start 04/16/19 at 09:00 Losartan Potassium (Cozaar) 100 mg DAILY PO Last administered on 04/16/19 10:07; Start 04/16/19 at 09:00 Potassium Chloride (Klor-Con) 20 meq DAILYWBKFT PO Last administered on 04/16/19at 10:08; Start 04/16/19 at 08:00 Lubiprostone (Amitiza) 24 mcg BIDWMEALS PO Last administered on 04/16/19 10:08; Start 04/15/19 at 17:00 Info (Anti-Coagulation Monitoring By Pharmacy) 1 each PRN DAILY PRN [facility] SEE COMMENTS; Start 04/15/19 at 16:45 Doxycycline Hyclate (Vibra-Tab) 100 mg BID PO Last administered on 04/16/19at 10:09; Start 04/15/19 at 18:00 Digoxin (Lanoxin) 250 mcg 1X ONCE IV Last administered on 04/15/19at 22:55; Start 04/15/19 at 23:00; Stop 04/15/19 at 23:01; Status DC Active Scripts Active Polyethylene Glycol 3350 17 Gm Powd.pack 17 Gm PO PRN DAILY PRN Amitiza (Lubiprostone) 8 Mcg Capsule 8 Mcg PO BIDWMEALS 30 Days Colace (Docusate Sodium) 100 Mg Capsule 100 Mg PO PRN DAILY PRN Betapace (Sotalol Hcl) 80 Mg Tablet 80 Mg PO BID 30 Days Reported Flomax (Tamsulosin Hcl) 0.4 Mg Cap.er.24h 1 Cap PO DAILY Benicar (Olmesartan Medoxomil) 40 Mg Tablet 40 Mg PO DAILY Carvedilol (Carvedilol) 6.25 Mg Tablet 6.25 Mg PO BIDWMEALS Proventil Hfa Inhaler (Albuterol Sulfate) 6.7 Gm Hfa.aer.ad 2 Puff IH PRN Q6HRS PRN Furosemide 40 Mg Tablet 40 Mg PO DAILY Atorvastatin Calcium 80 Mg Tablet 80 Mg PO HS Losartan Potassium 100 Mg Tablet 100 Mg PO DAILY Potassium Chloride 20 Meq Tablet.er 20 Meq PO DAILY Eliquis (Apixaban) 5 Mg Tablet 5 Mg PO BID Aspir 81 (Aspirin) 81 Mg Tablet.dr 1 Tab PO DAILY LAST DOSE GIVEN: DATE: 07/23/15 TIME: 0900 AM NEXT DOSE DUE: DATE: TOMORROW 07/24/15 TIME: 0900 AM Amlodipine Besylate 10 Mg Tablet 10 Mg PO DAILY LAST DOSE GIVEN: DATE: 07/23/15 TIME: 0900 NEXT DOSE DUE: DATE: Tomorrow 07/24/15 TIME: 0900 NITROGLYCERIN SubLingual (Nitroglycerin) 0.4 Mg Tab.subl 0.4 Mg SL PRN Q5MIN PRN Allergies Allergies: Coded Allergies: iodine (Verified Allergy, Intermediate, 03/10/19) ROS Review of System 14 Point review of systems as mentioned under history of present illness. Rest is negative Physical Exam Physical Exam GEN: Awake, Oriented x 3, In no distress, obese gentleman EYES: Vision Unchanged, Conjunctiva Normal EN: No EN Drainage, Mucous Membranes moist NECK: no JVD, no JVP, Supple, no Thyromegaly short thick neck CVS: S1S2, no Murmur, No Gallop, No Rub,no Edema RESP: no Rales, no Rhonchi,no Acc. Muscle Use GI: BS + ve, NO Bruit, Non Tender, Non Distended his abdomen : no CVA tenderness, no Suprapubic Tenderness Vital Signs Vital Signs Date Time Temp Pulse Resp B/P (MAP) Pulse Ox O2 Delivery O2 Flow Rate FiO2 04/16/19 10:09 113 125/66 04/16/19 07:16 98 Room Air 04/16/19 07:00 98.4 18 2.0 98.4 Assessment & Plan Acute kidney injury: Now improved presumably associated with dehydration. Urine output is better Possible underlying history of chronic kidney disease: Patient follows with Dr. Kim as an outpatient. We'll defer to Dr. Kim Hypertension: currently appears to be well controlled. We will be available if needed please call with questions concerns Labs Labs Laboratory Tests Test 04/15/19 05:03 04/15/19 05:50 04/15/19 16:23 04/16/19 03:20 White Blood Count 9.1 x10^3/uL (4.0-11.0) 13.8 x10^3/uL (4.0-11.0) Red Blood Count 5.22 x10^6/uL (4.30-5.70) 4.99 x10^6/uL (4.30-5.70) Hemoglobin 15.0 g/dL (13.0-17.5) 14.0 g/dL (13.0-17.5) Hematocrit 45.5 % (39.0-53.0) 42.9 % (39.0-53.0) Mean Corpuscular Volume 87 fL (79-100) 86 fL (79-100) Mean Corpuscular Hemoglobin 29 pg (25-35) 28 pg (25-35) Mean Corpuscular Hemoglobin Concent 33 g/dL (31-37) 33 g/dL (31-37) Red Cell Distribution Width 13.2 % (11.5-14.5) 13.3 % (11.5-14.5) Platelet Count 194 x10^3/uL (140-400) 162 x10^3/uL (140-400) Neutrophils (%) (Auto) 65 % (31-73) 84 % (31-73) Lymphocytes (%) (Auto) 25 % (24-48) 9 % (24-48) Monocytes (%) (Auto) 7 % (0-9) 6 % (0-9) Eosinophils (%) (Auto) 3 % (0-3) 0 % (0-3) Basophils (%) (Auto) 1 % (0-3) 0 % (0-3) Neutrophils # (Auto) 5.9 x10^3/uL (1.8-7.7) 11.7 x10^3/uL (1.8-7.7) Lymphocytes # (Auto) 2.3 x10^3/uL (1.0-4.8) 1.2 x10^3/uL (1.0-4.8) Monocytes # (Auto) 0.6 x10^3/uL (0.0-1.1) 0.9 x10^3/uL (0.0-1.1) Eosinophils # (Auto) 0.2 x10^3/uL (0.0-0.7) 0.0 x10^3/uL (0.0-0.7) Basophils # (Auto) 0.1 x10^3/uL (0.0-0.2) 0.0 x10^3/uL (0.0-0.2) D-Dimer (Kita) < 0.27 ug/mlFEU Sodium Level 143 mmol/L (136-145) 143 mmol/L (136-145) Potassium Level 4.3 mmol/L (3.5-5.1) 3.9 mmol/L (3.5-5.1) Chloride Level 104 mmol/L (98-107) 105 mmol/L (98-107) Carbon Dioxide Level 28 mmol/L (21-32) 29 mmol/L (21-32) Anion Gap 11 (6-14) 9 (6-14) Blood Urea Nitrogen 28 mg/dL (8-26) 28 mg/dL (8-26) Creatinine 1.5 mg/dL (0.7-1.3) 1.2 mg/dL (0.7-1.3) Estimated GFR (Cockcroft-Gault) 47.3 61.1 BUN/Creatinine Ratio 19 (6-20) 23 (6-20) Glucose Level 217 mg/dL (70-99) 220 mg/dL (70-99) Calcium Level 8.2 mg/dL (8.5-10.1) 8.5 mg/dL (8.5-10.1) Total Bilirubin 0.7 mg/dL (0.2-1.0) 0.7 mg/dL (0.2-1.0) Aspartate Amino Transf (AST/SGOT) 38 U/L (15-37) 21 U/L (15-37) Alanine Aminotransferase (ALT/SGPT) 40 U/L (16-63) 30 U/L (16-63) Alkaline Phosphatase 74 U/L (46-116) 68 U/L (46-116) Troponin I Quantitative 0.029 ng/mL (0.000-0.055) JZ-Tel-U-Type Natriuretic Peptide 407 pg/mL (0-124) Total Protein 7.2 g/dL (6.4-8.2) 6.3 g/dL (6.4-8.2) Albumin 3.8 g/dL (3.4-5.0) 3.4 g/dL (3.4-5.0) Albumin/Globulin Ratio 1.1 (1.0-1.7) 1.2 (1.0-1.7) Urine Collection Type Unknown Urine Color Yellow Urine Clarity Clear Urine pH 5.5 Urine Specific Hubbard 1.015 Urine Protein 100 mg/dL (NEG-TRACE) Urine Glucose (UA) Negative mg/dL (NEG) Urine Ketones (Stick) Negative mg/dL (NEG) Urine Blood Negative (NEG) Urine Nitrite Negative (NEG) Urine Bilirubin Negative (NEG) Urine Urobilinogen Dipstick 0.2 mg/dL (0.2 mg/dL) Urine Leukocyte Esterase Trace (NEG) Urine RBC 0 /HPF (0-2) Urine WBC 1-4 /HPF (0-4) Urine Squamous Epithelial Cells Few /LPF Urine Bacteria 0 /HPF (0-FEW) Glucose (Fingerstick) 182 mg/dL (70-99) Laboratory Tests Test 04/15/19 16:23 04/16/19 03:20 Glucose (Fingerstick) 182 mg/dL (70-99) White Blood Count 13.8 x10^3/uL (4.0-11.0) Red Blood Count 4.99 x10^6/uL (4.30-5.70) Hemoglobin 14.0 g/dL (13.0-17.5) Hematocrit 42.9 % (39.0-53.0) Mean Corpuscular Volume 86 fL (79-100) Mean Corpuscular Hemoglobin 28 pg (25-35) Mean Corpuscular Hemoglobin Concent 33 g/dL (31-37) Red Cell Distribution Width 13.3 % (11.5-14.5) Platelet Count 162 x10^3/uL (140-400) Neutrophils (%) (Auto) 84 % (31-73) Lymphocytes (%) (Auto) 9 % (24-48) Monocytes (%) (Auto) 6 % (0-9) Eosinophils (%) (Auto) 0 % (0-3) Basophils (%) (Auto) 0 % (0-3) Neutrophils # (Auto) 11.7 x10^3/uL (1.8-7.7) Lymphocytes # (Auto) 1.2 x10^3/uL (1.0-4.8) Monocytes # (Auto) 0.9 x10^3/uL (0.0-1.1) Eosinophils # (Auto) 0.0 x10^3/uL (0.0-0.7) Basophils # (Auto) 0.0 x10^3/uL (0.0-0.2) Sodium Level 143 mmol/L (136-145) Potassium Level 3.9 mmol/L (3.5-5.1) Chloride Level 105 mmol/L (98-107) Carbon Dioxide Level 29 mmol/L (21-32) Anion Gap 9 (6-14) Blood Urea Nitrogen 28 mg/dL (8-26) Creatinine 1.2 mg/dL (0.7-1.3) Estimated GFR (Cockcroft-Gault) 61.1 BUN/Creatinine Ratio 23 (6-20) Glucose Level 220 mg/dL (70-99) Calcium Level 8.5 mg/dL (8.5-10.1) Total Bilirubin 0.7 mg/dL (0.2-1.0) Aspartate Amino Transf (AST/SGOT) 21 U/L (15-37) Alanine Aminotransferase (ALT/SGPT) 30 U/L (16-63) Alkaline Phosphatase 68 U/L (46-116) Total Protein 6.3 g/dL (6.4-8.2) Albumin 3.4 g/dL (3.4-5.0) Albumin/Globulin Ratio 1.2 (1.0-1.7) Review All relevant outside records, renal labs, imaging studies, telemetry/EKG's were reviewed. SUYAPA SAMANO MD Apr 16, 2019 10:31
[2019-04-16 11:50] VITALS: BP 109/55
--- NOTE | 2019-04-16 14:55 | PDOC ---
PROGRESS NOTES Subjective Subjective Patient seen and examined Objective Objective Vital Signs Date Time Temp Pulse Resp B/P (MAP) Pulse Ox O2 Delivery O2 Flow Rate FiO2 04/16/19 11:50 98.5 56 20 109/55 (73) 96 Nasal Cannula 2.0 98.5 Intake and Output0 04/16/19 07:00 Intake Total 650 ml Output Total 300 ml Balance 350 ml Intake Oral 650 ml Output Urine Total 300 ml # Voids 1 Physical Exam Abdomen: Normal bowel sounds Heart: Regular rate General: mild distress Lungs: Other (mildly decreased breath sounds) Assessment Assessment Problems Medical Problems: (1) CHF (congestive heart failure) Status: Acute (2) COPD exacerbation Status: Acute 1. Acute on chronic diastolic CHF: Improving. Suspect due to uncontrolled BP and inconsistent use of CPAP 2. ALEN: skips CPAP use 3. HTN: labile episodes. Continue present medications. 4. CAD: recent LHC with patent stents to RCA/LCx 5. HLP 6. Morbid obesity 7. PAFIB: continue present medications. Comment Review of Relevant I have reviewed the following items robbin (where applicable) has been applied. Labs Laboratory Tests Test 04/15/19 05:03 04/15/19 05:50 04/15/19 16:23 04/16/19 03:20 White Blood Count 9.1 x10^3/uL (4.0-11.0) 13.8 x10^3/uL (4.0-11.0) Red Blood Count 5.22 x10^6/uL (4.30-5.70) 4.99 x10^6/uL (4.30-5.70) Hemoglobin 15.0 g/dL (13.0-17.5) 14.0 g/dL (13.0-17.5) Hematocrit 45.5 % (39.0-53.0) 42.9 % (39.0-53.0) Mean Corpuscular Volume 87 fL (79-100) 86 fL (79-100) Mean Corpuscular Hemoglobin 29 pg (25-35) 28 pg (25-35) Mean Corpuscular Hemoglobin Concent 33 g/dL (31-37) 33 g/dL (31-37) Red Cell Distribution Width 13.2 % (11.5-14.5) 13.3 % (11.5-14.5) Platelet Count 194 x10^3/uL (140-400) 162 x10^3/uL (140-400) Neutrophils (%) (Auto) 65 % (31-73) 84 % (31-73) Lymphocytes (%) (Auto) 25 % (24-48) 9 % (24-48) Monocytes (%) (Auto) 7 % (0-9) 6 % (0-9) Eosinophils (%) (Auto) 3 % (0-3) 0 % (0-3) Basophils (%) (Auto) 1 % (0-3) 0 % (0-3) Neutrophils # (Auto) 5.9 x10^3/uL (1.8-7.7) 11.7 x10^3/uL (1.8-7.7) Lymphocytes # (Auto) 2.3 x10^3/uL (1.0-4.8) 1.2 x10^3/uL (1.0-4.8) Monocytes # (Auto) 0.6 x10^3/uL (0.0-1.1) 0.9 x10^3/uL (0.0-1.1) Eosinophils # (Auto) 0.2 x10^3/uL (0.0-0.7) 0.0 x10^3/uL (0.0-0.7) Basophils # (Auto) 0.1 x10^3/uL (0.0-0.2) 0.0 x10^3/uL (0.0-0.2) D-Dimer (Kita) < 0.27 ug/mlFEU Sodium Level 143 mmol/L (136-145) 143 mmol/L (136-145) Potassium Level 4.3 mmol/L (3.5-5.1) 3.9 mmol/L (3.5-5.1) Chloride Level 104 mmol/L (98-107) 105 mmol/L (98-107) Carbon Dioxide Level 28 mmol/L (21-32) 29 mmol/L (21-32) Anion Gap 11 (6-14) 9 (6-14) Blood Urea Nitrogen 28 mg/dL (8-26) 28 mg/dL (8-26) Creatinine 1.5 mg/dL (0.7-1.3) 1.2 mg/dL (0.7-1.3) Estimated GFR (Cockcroft-Gault) 47.3 61.1 BUN/Creatinine Ratio 19 (6-20) 23 (6-20) Glucose Level 217 mg/dL (70-99) 220 mg/dL (70-99) Calcium Level 8.2 mg/dL (8.5-10.1) 8.5 mg/dL (8.5-10.1) Total Bilirubin 0.7 mg/dL (0.2-1.0) 0.7 mg/dL (0.2-1.0) Aspartate Amino Transf (AST/SGOT) 38 U/L (15-37) 21 U/L (15-37) Alanine Aminotransferase (ALT/SGPT) 40 U/L (16-63) 30 U/L (16-63) Alkaline Phosphatase 74 U/L (46-116) 68 U/L (46-116) Troponin I Quantitative 0.029 ng/mL (0.000-0.055) MV-Wit-K-Type Natriuretic Peptide 407 pg/mL (0-124) Total Protein 7.2 g/dL (6.4-8.2) 6.3 g/dL (6.4-8.2) Albumin 3.8 g/dL (3.4-5.0) 3.4 g/dL (3.4-5.0) Albumin/Globulin Ratio 1.1 (1.0-1.7) 1.2 (1.0-1.7) Urine Collection Type Unknown Urine Color Yellow Urine Clarity Clear Urine pH 5.5 Urine Specific Ignacio 1.015 Urine Protein 100 mg/dL (NEG-TRACE) Urine Glucose (UA) Negative mg/dL (NEG) Urine Ketones (Stick) Negative mg/dL (NEG) Urine Blood Negative (NEG) Urine Nitrite Negative (NEG) Urine Bilirubin Negative (NEG) Urine Urobilinogen Dipstick 0.2 mg/dL (0.2 mg/dL) Urine Leukocyte Esterase Trace (NEG) Urine RBC 0 /HPF (0-2) Urine WBC 1-4 /HPF (0-4) Urine Squamous Epithelial Cells Few /LPF Urine Bacteria 0 /HPF (0-FEW) Glucose (Fingerstick) 182 mg/dL (70-99) Laboratory Tests Test 04/15/19 16:23 04/16/19 03:20 Glucose (Fingerstick) 182 mg/dL (70-99) White Blood Count 13.8 x10^3/uL (4.0-11.0) Red Blood Count 4.99 x10^6/uL (4.30-5.70) Hemoglobin 14.0 g/dL (13.0-17.5) Hematocrit 42.9 % (39.0-53.0) Mean Corpuscular Volume 86 fL (79-100) Mean Corpuscular Hemoglobin 28 pg (25-35) Mean Corpuscular Hemoglobin Concent 33 g/dL (31-37) Red Cell Distribution Width 13.3 % (11.5-14.5) Platelet Count 162 x10^3/uL (140-400) Neutrophils (%) (Auto) 84 % (31-73) Lymphocytes (%) (Auto) 9 % (24-48) Monocytes (%) (Auto) 6 % (0-9) Eosinophils (%) (Auto) 0 % (0-3) Basophils (%) (Auto) 0 % (0-3) Neutrophils # (Auto) 11.7 x10^3/uL (1.8-7.7) Lymphocytes # (Auto) 1.2 x10^3/uL (1.0-4.8) Monocytes # (Auto) 0.9 x10^3/uL (0.0-1.1) Eosinophils # (Auto) 0.0 x10^3/uL (0.0-0.7) Basophils # (Auto) 0.0 x10^3/uL (0.0-0.2) Sodium Level 143 mmol/L (136-145) Potassium Level 3.9 mmol/L (3.5-5.1) Chloride Level 105 mmol/L (98-107) Carbon Dioxide Level 29 mmol/L (21-32) Anion Gap 9 (6-14) Blood Urea Nitrogen 28 mg/dL (8-26) Creatinine 1.2 mg/dL (0.7-1.3) Estimated GFR (Cockcroft-Gault) 61.1 BUN/Creatinine Ratio 23 (6-20) Glucose Level 220 mg/dL (70-99) Calcium Level 8.5 mg/dL (8.5-10.1) Total Bilirubin 0.7 mg/dL (0.2-1.0) Aspartate Amino Transf (AST/SGOT) 21 U/L (15-37) Alanine Aminotransferase (ALT/SGPT) 30 U/L (16-63) Alkaline Phosphatase 68 U/L (46-116) Total Protein 6.3 g/dL (6.4-8.2) Albumin 3.4 g/dL (3.4-5.0) Albumin/Globulin Ratio 1.2 (1.0-1.7) Medications Current Medications Albuterol/ Ipratropium (Duoneb) 3 ml 1X ONCE NEB Last administered on 04/15/19at 05:21; Start 04/15/19 at 05:30; Stop 04/15/19 at 05:31; Status DC Methylprednisolone Sodium Succinate (SOLU-Medrol 125MG VIAL) 125 mg 1X ONCE IV Last administered on 04/15/19at 05:41; Start 04/15/19 at 05:30; Stop 04/15/19 at 05:31; Status DC Levofloxacin/ Dextrose 150 ml @ 100 mls/hr 1X ONCE IV Last administered on 04/15/19at 05:57; Start 04/15/19 at 06:00; Stop 04/15/19 at 07:29; Status DC Furosemide (Lasix) 40 mg DAILY IVP ; Start 04/15/19 at 09:00; Stop 04/15/19 at 05:50; Status DC Ondansetron HCl (Zofran) 4 mg PRN Q8HRS PRN IV NAUSEA/VOMITING 1ST CHOICE; Start 04/15/19 at 05:45; Stop 04/16/19 at 05:44; Status DC Acetaminophen (Tylenol) 650 mg PRN Q4HRS PRN PO FEVER; Start 04/15/19 at 05:45; Stop 04/16/19 at 05:44; Status DC Albuterol/ Ipratropium (Duoneb) 3 ml RTQID NEB Last administered on 04/16/19at 07:15; Start 04/15/19 at 08:00; Stop 04/16/19 at 07:59; Status DC Furosemide (Lasix) 40 mg 1X ONCE IVP Last administered on 04/15/19at 05:55; Start 04/15/19 at 06:00; Stop 04/15/19 at 06:01; Status DC Furosemide (Lasix) 40 mg STK-MED ONCE .ROUTE ; Start 04/15/19 at 05:51; Stop 04/15/19 at 05:51; Status DC Amlodipine Besylate (Norvasc) 10 mg DAILY PO Last administered on 04/16/19at 10:08; Start 04/15/19 at 13:00 Apixaban (Eliquis) 5 mg BID PO Last administered on 04/16/19at 10:09; Start 04/15/19 at 13:00 Aspirin (Ecotrin) 81 mg DAILY PO Last administered on 04/16/19at 10:09; Start 04/15/19 at 13:00 Carvedilol (Coreg) 6.25 mg BIDWMEALS PO ; Start 04/15/19 at 17:00; Stop 04/15/19 at 12:18; Status DC Sotalol HCl (Betapace) 80 mg BID PO Last administered on 04/16/19at 10:09; Start 04/15/19 at 13:00 Atorvastatin Calcium (Lipitor) 80 mg QHS PO Last administered on 04/15/19at 21:16; Start 04/15/19 at 21:00 Albuterol Sulfate (Ventolin Neb Soln) 2.5 mg PRN Q6HRS PRN NEB FOR ASTHMA; Start 04/15/19 at 14:00 Docusate Sodium (Colace) 100 mg PRN DAILY PRN PO HARD STOOLS; Start 04/15/19 at 14:00 Furosemide (Lasix) 40 mg DAILY PO Last administered on 04/16/19at 10:08; Start 04/16/19 at 09:00 Lubiprostone (Amitiza) 8 mcg BIDWMEALS PO ; Start 04/15/19 at 17:00; Stop 04/15/19 at 14:08; Status DC Nitroglycerin (Nitrostat) 0.4 mg PRN Q5MIN PRN SL CHEST PAIN; Start 04/15/19 at 14:00 Polyethylene Glycol (miraLAX PACKET) 17 gm PRN DAILY PRN PO CONSTIPATION; Start 04/15/19 at 14:00 Tamsulosin HCl (Flomax) 0.4 mg DAILY PO Last administered on 04/16/19at 10:09; Start 04/16/19 at 09:00 Losartan Potassium (Cozaar) 100 mg DAILY PO Last administered on 04/16/19at 10:07; Start 04/16/19 at 09:00 Potassium Chloride (Klor-Con) 20 meq DAILYWBKFT PO Last administered on 04/16/19at 10:08; Start 04/16/19 at 08:00 Lubiprostone (Amitiza) 24 mcg BIDWMEALS PO Last administered on 04/16/19at 10:08; Start 04/15/19 at 17:00 Info (Anti-Coagulation Monitoring By Pharmacy) 1 each PRN DAILY PRN MC SEE COMMENTS; Start 04/15/19 at 16:45 Doxycycline Hyclate (Vibra-Tab) 100 mg BID PO Last administered on 04/16/19at 10:09; Start 04/15/19 at 18:00 Digoxin (Lanoxin) 250 mcg 1X ONCE IV Last administered on 04/15/19at 22:55; Start 04/15/19 at 23:00; Stop 04/15/19 at 23:01; Status DC Lactobacillus Rhamnosus (Culturelle) 1 cap BID PO ; Start 04/16/19 at 21:00 Active Scripts Active Polyethylene Glycol 3350 17 Gm Powd.pack 17 Gm PO PRN DAILY PRN Amitiza (Lubiprostone) 8 Mcg Capsule 8 Mcg PO BIDWMEALS 30 Days Colace (Docusate Sodium) 100 Mg Capsule 100 Mg PO PRN DAILY PRN Betapace (Sotalol Hcl) 80 Mg Tablet 80 Mg PO BID 30 Days Reported Flomax (Tamsulosin Hcl) 0.4 Mg Cap.er.24h 1 Cap PO DAILY Benicar (Olmesartan Medoxomil) 40 Mg Tablet 40 Mg PO DAILY Carvedilol (Carvedilol) 6.25 Mg Tablet 6.25 Mg PO BIDWMEALS Proventil Hfa Inhaler (Albuterol Sulfate) 6.7 Gm Hfa.aer.ad 2 Puff IH PRN Q6HRS PRN Furosemide 40 Mg Tablet 40 Mg PO DAILY Atorvastatin Calcium 80 Mg Tablet 80 Mg PO HS Losartan Potassium 100 Mg Tablet 100 Mg PO DAILY Potassium Chloride 20 Meq Tablet.er 20 Meq PO DAILY Eliquis (Apixaban) 5 Mg Tablet 5 Mg PO BID Aspir 81 (Aspirin) 81 Mg Tablet.dr 1 Tab PO DAILY LAST DOSE GIVEN: DATE: 02/15/16 TIME: 0900 AM NEXT DOSE DUE: DATE: TOMORR07/24/15 TIME: 0900 AM Amlodipine Besylate 10 Mg Tablet 10 Mg PO DAILY LAST DOSE GIVEN: DATE: 07/23/15 TIME: 0900 NEXT DOSE DUE: DATE: Tomorr07/24/15 TIME: 09 NITROGLYCERIN SubLingual (Nitroglycerin) 0.4 Mg Tab.subl 0.4 Mg SL PRN Q5MIN PRN Vitals/I & O Vital Sign - Last 24 Hours 04/15/19 04/15/19 04/15/19 04/15/19 14:56 15:49 19:28 20:30 Temp 98.2 98.7 98.2 98.7 Pulse 72 72 Resp 16 18 B/P (MAP) 136/66 (89) 122/57 (78) Pulse Ox 97 95 O2 Delivery Nasal Cannula Nasal Cannula Nasal Cannula Nasal Cannula O2 Flow Rate 2.0 3.0 2.0 2.5 04/15/19 04/15/19 04/15/19 04/15/19 20:39 21:17 22:55 23:39 Temp 98.7 98.7 Pulse 72 131 128 Resp 20 B/P (MAP) 122/57 141/85 141/85 (103) Pulse Ox 94 97 O2 Delivery Nasal Cannula Nasal Cannula O2 Flow Rate 2.0 2.0 04/16/19 04/16/19 04/16/19 04/16/19 03:09 07:00 07:16 10:07 Temp 98.9 98.4 98.9 98.4 Pulse 93 113 113 Resp 18 18 B/P (MAP) 113/53 (73) 125/66 (85) 125/66 Pulse Ox 92 97 98 O2 Delivery Nasal Cannula Nasal Cannula Room Air O2 Flow Rate 2.0 2.0 04/16/19 04/16/19 04/16/19 04/16/19 10:08 10:08 10:09 11:32 Pulse 113 113 B/P (MAP) 125/66 125/66 O2 Delivery Room Air Room Air 04/16/19 11:50 Temp 98.5 98.5 Pulse 56 Resp 20 B/P (MAP) 109/55 (73) Pulse Ox 96 O2 Delivery Nasal Cannula O2 Flow Rate 2.0 Intake and Output0 04/15/19 04/15/19 04/16/19 15:00 23:00 07:00 Intake Total 100 ml 350 ml 200 ml Output Total 300 ml Balance -200 ml 350 ml 200 ml PAULINO ESPARZA MD Apr 16, 2019 14:55
[2019-04-16 15:15] VITALS: BP 139/84
--- NOTE | 2019-04-16 17:20 | PDOC3 ---
Discharge Summary Date of Admission: Apr 15, 2019 Date of Discharge: Apr 16, 2019 Follow-Up: 3-5 days Admitting Diagnosis comment: DISCHARGE DX Assessment/Plan Impression: acute COPD exacerbation pulm hypertension retrocardiac atelectasis or infiltrate. by cxr 04/14 acute hypoxic respiratory failure morbid obesity acute exac CHF (congestive heart failure) Left ventricle systolic function is low normal. recent echo Ejection Fraction is 50%.Moderate mitral regurgitation. recent cath 03/26 No significant coronary artery disease with widely patent previously placed stents and left circumflex and right coronary arteries. 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 anticoagulation eliquis 5 mg po bid ADMITTED consult pulm tele consult cardiology echo DVT PROPHYLAXIS Nephrology consult po antibiotics doxy 100mg bid SLEEP STUDY SOON OUTPT Vitals Vitals Vital Signs Date Time Temp Pulse Resp B/P (MAP) Pulse Ox O2 Delivery O2 Flow Rate FiO2 04/16/19 10:09 113 125/66 04/16/19 07:16 98 Room Air 04/16/19 07:00 98.4 18 2.0 98.4 Physical Exam General: Alert, Oriented X3, Cooperative, No acute distress Heart: Regular rate (SR), Normal S1, Normal S2, Other (2/6 systolic murmur to LLs border) Lungs: Clear, Crackles Abdomen: Normal bowel sounds, Soft, No tenderness Extremities: No cyanosis, Other (1+ bilateral Le pitting edema) Skin: No breakdown, No significant lesion Labs LABS Mitral Valve MV E Velocity 129.9cm/s MV E Peak Gr. 127mmHg MV DECEL TIME 145ms MV A Velocity 29.2cm/s MV E Mean Gr. 4mmHg E/A Ratio 4.4 Pulmonary Valve PV Peak Velocity 75.8cm/s Tricuspid Valve TR P. Velocity 265cm/s RAP ESTIMATE 3mmHg TR Peak Gr. 28mmHg RVSP 31mmHg LEFT VENTRICLE The left ventricle is normal size. There is moderate concentric left ventricular hypertrophy. Left ventricle systolic function is low normal. The Ejection Fraction is 50%. There is normal LV segmental wall motion. RIGHT VENTRICLE The right ventricle is normal size. There is normal right ventricular wall thickness. The right ventricular systolic function is normal. ATRIA The left atrium is mild to moderately dilated. The right atrium is mildly dilated. The interatrial septum is intact with no evidence for an atrial septal defect or patent foramen ovale as noted on 2-D or Doppler imaging. AORTIC VALVE The aortic valve is trileaflet. The aortic valve is mildly calcified. Doppler and Color Flow revealed trace aortic regurgitation. There is no significant aortic valvular stenosis. MITRAL VALVE The mitral valve is normal in structure and function. There is no evidence of mitral valve prolapse. There is no mitral valve stenosis. Doppler and Color-flow revealed moderate mitral regurgitation. TRICUSPID VALVE The tricuspid valve is normal in structure and function. Doppler and Color Flow revealed mild tricuspid regurgitation. The PA pressure was estimated at 31 mmHg. There is no tricuspid valve prolapse or vegetation. There is no tricuspid valve stenosis. PULMONIC VALVE The pulmonic valve is not well visualized. GREAT VESSELS The aortic root is normal in size. The ascending aorta is normal in size. The IVC is normal in size and collapses >50% with inspiration. PERICARDIAL EFFUSION FINAL DIAGNOSIS Problems Medical Problems: (1) CHF (congestive heart failure) Status: Acute (2) COPD exacerbation Status: Acute Brief Hospital Course Mr. Davis is a 63 old [sex] who presented with [COPD EXAC ] CONDITION AT DISCHARGE: Improved Discharge Medications Current Medications Albuterol/ Ipratropium (Duoneb) 3 ml 1X ONCE NEB Last administered on at 05:21; Start 04/15/19 at 05:30; Stop 04/15/19 at 05:31; Status DC Methylprednisolone Sodium Succinate (SOLU-Medrol 125MG VIAL) 125 mg 1X ONCE IV Last administered on 04/15/19at 05:41; Start 04/15/19 at 05:30; Stop 04/15/19 at 05:31; Status DC Levofloxacin/ Dextrose 150 ml @ 100 mls/hr 1X ONCE IV Last administered on 04/15/19at 05:57; Start 04/15/19 at 06:00; Stop 04/15/19 at 07:29; Status DC Furosemide (Lasix) 40 mg DAILY IVP ; Start 04/15/19 at 09:00; Stop 04/15/19 at 05:50; Status DC Ondansetron HCl (Zofran) 4 mg PRN Q8HRS PRN IV NAUSEA/VOMITING 1ST CHOICE; Start 04/15/19 at 05:45; Stop 04/16/19 at 05:44; Status DC Acetaminophen (Tylenol) 650 mg PRN Q4HRS PRN PO FEVER; Start 04/15/19 at 05:45; Stop 04/16/19 at 05:44; Status DC Albuterol/ Ipratropium (Duoneb) 3 ml RTQID NEB Last administered on 04/16/19at 07:15; Start 04/15/19 at 08:00; Stop 04/16/19 at 07:59; Status DC Furosemide (Lasix) 40 mg 1X ONCE IVP Last administered on 04/15/19at 05:55; Start 04/15/19 at 06:00; Stop 04/15/19 at 06:01; Status DC Furosemide (Lasix) 40 mg STK-MED ONCE .ROUTE ; Start 04/15/19 at 05:51; Stop 04/15/19 at 05:51; Status DC Amlodipine Besylate (Norvasc) 10 mg DAILY PO Last administered on 04/16/19 10:08; Start 04/15/19 at 13:00 Apixaban (Eliquis) 5 mg BID PO Last administered on 04/16/19at 10:09; Start 04/15/19 at 13:00 Aspirin (Ecotrin) 81 mg DAILY PO Last administered on 04/16/19 10:09; Start 04/15/19 at 13:00 Carvedilol (Coreg) 6.25 mg BIDWMEALS PO ; Start 04/15/19 at 17:00; Stop 04/15/19 at 12:18; Status DC Sotalol HCl (Betapace) 80 mg BID PO Last administered on 04/16/19 10:09; Start 04/15/19 at 13:00 Atorvastatin Calcium (Lipitor) 80 mg QHS PO Last administered on 04/15/19 21:16; Start 04/15/19 at 21:00 Albuterol Sulfate (Ventolin Neb Soln) 2.5 mg PRN Q6HRS PRN NEB FOR ASTHMA Last administered on 04/16/19at 15:26; Start 04/15/19 at 14:00 Docusate Sodium (Colace) 100 mg PRN DAILY PRN PO HARD STOOLS; Start 04/15/19 at 14:00 Furosemide (Lasix) 40 mg DAILY PO Last administered on 11/9/19at 10:08; Start 04/16/19 at 09:00 Lubiprostone (Amitiza) 8 mcg BIDWMEALS PO ; Start 04/15/19 at 17:00; Stop 04/15/19 at 14:08; Status DC Nitroglycerin (Nitrostat) 0.4 mg PRN Q5MIN PRN SL CHEST PAIN; Start 04/15/19 at 14:00 Polyethylene Glycol (miraLAX PACKET) 17 gm PRN DAILY PRN PO CONSTIPATION; Start 04/15/19 at 14:00 Tamsulosin HCl (Flomax) 0.4 mg DAILY PO Last administered on 04/16/19at 10:09; Start 04/16/19 at 09:00 Losartan Potassium (Cozaar) 100 mg DAILY PO Last administered on 04/16/19 10:07; Start 04/16/19 at 09:00 Potassium Chloride (Klor-Con) 20 meq DAILYWBKFT PO Last administered on 04/16/19at 10:08; Start 04/16/19 at 08:00 Lubiprostone (Amitiza) 24 mcg BIDWMEALS PO Last administered on 04/16/19at 10:08; Start 04/15/19 at 17:00 Info (Anti-Coagulation Monitoring By Pharmacy) 1 each PRN DAILY PRN MC SEE COMMENTS; Start 04/15/19 at 16:45 Doxycycline Hyclate (Vibra-Tab) 100 mg BID PO Last administered on 04/16/19at 10:09; Start 04/15/19 at 18:00 Digoxin (Lanoxin) 250 mcg 1X ONCE IV Last administered on 04/15/19at 22:55; Start 04/15/19 at 23:00; Stop 04/15/19 at 23:01; Status DC Lactobacillus Rhamnosus (Culturelle) 1 cap BID PO ; Start 04/16/19 at 21:00 Active Scripts Active Polyethylene Glycol 3350 17 Gm Powd.pack 17 Gm PO PRN DAILY PRN Amitiza (Lubiprostone) 8 Mcg Capsule 8 Mcg PO BIDWMEALS 30 Days Colace (Docusate Sodium) 100 Mg Capsule 100 Mg PO PRN DAILY PRN Betapace (Sotalol Hcl) 80 Mg Tablet 80 Mg PO BID 30 Days Reported Flomax (Tamsulosin Hcl) 0.4 Mg Cap.er.24h 1 Cap PO DAILY Benicar (Olmesartan Medoxomil) 40 Mg Tablet 40 Mg PO DAILY Carvedilol (Carvedilol) 6.25 Mg Tablet 6.25 Mg PO BIDWMEALS Proventil Hfa Inhaler (Albuterol Sulfate) 6.7 Gm Hfa.aer.ad 2 Puff IH PRN Q6HRS PRN Furosemide 40 Mg Tablet 40 Mg PO DAILY Atorvastatin Calcium 80 Mg Tablet 80 Mg PO HS Losartan Potassium 100 Mg Tablet 100 Mg PO DAILY Potassium Chloride 20 Meq Tablet.er 20 Meq PO DAILY Eliquis (Apixaban) 5 Mg Tablet 5 Mg PO BID Aspir 81 (Aspirin) 81 Mg Tablet.dr 1 Tab PO DAILY LAST DOSE GIVEN: DATE: 07/23/15 TIME: 0900 AM NEXT DOSE DUE: DATE: TOMORROW 07/24/15 TIME: 0900 AM Amlodipine Besylate 10 Mg Tablet 10 Mg PO DAILY LAST DOSE GIVEN: DATE: 07/23/15 TIME: 0900 NEXT DOSE DUE: DATE: Tomorr07/24/15 TIME: 0900 NITROGLYCERIN SubLingual (Nitroglycerin) 0.4 Mg Tab.subl 0.4 Mg SL PRN Q5MIN PRN Vital Signs Vital Signs Date Time Temp Pulse Resp B/P (MAP) Pulse Ox O2 Delivery O2 Flow Rate FiO2 04/16/19 15:27 Room Air 04/16/19 15:15 98.5 87 20 139/84 (102) 99 2.0 98.5 Labs Laboratory Tests Test 04/15/19 05:03 04/15/19 05:50 04/15/19 16:23 04/16/19 03:20 White Blood Count 9.1 x10^3/uL (4.0-11.0) 13.8 x10^3/uL (4.0-11.0) Red Blood Count 5.22 x10^6/uL (4.30-5.70) 4.99 x10^6/uL (4.30-5.70) Hemoglobin 15.0 g/dL (13.0-17.5) 14.0 g/dL (13.0-17.5) Hematocrit 45.5 % (39.0-53.0) 42.9 % (39.0-53.0) Mean Corpuscular Volume 87 fL (79-100) 86 fL (79-100) Mean Corpuscular Hemoglobin 29 pg (25-35) 28 pg (25-35) Mean Corpuscular Hemoglobin Concent 33 g/dL (31-37) 33 g/dL (31-37) Red Cell Distribution Width 13.2 % (11.5-14.5) 13.3 % (11.5-14.5) Platelet Count 194 x10^3/uL (140-400) 162 x10^3/uL (140-400) Neutrophils (%) (Auto) 65 % (31-73) 84 % (31-73) Lymphocytes (%) (Auto) 25 % (24-48) 9 % (24-48) Monocytes (%) (Auto) 7 % (0-9) 6 % (0-9) Eosinophils (%) (Auto) 3 % (0-3) 0 % (0-3) Basophils (%) (Auto) 1 % (0-3) 0 % (0-3) Neutrophils # (Auto) 5.9 x10^3/uL (1.8-7.7) 11.7 x10^3/uL (1.8-7.7) Lymphocytes # (Auto) 2.3 x10^3/uL (1.0-4.8) 1.2 x10^3/uL (1.0-4.8) Monocytes # (Auto) 0.6 x10^3/uL (0.0-1.1) 0.9 x10^3/uL (0.0-1.1) Eosinophils # (Auto) 0.2 x10^3/uL (0.0-0.7) 0.0 x10^3/uL (0.0-0.7) Basophils # (Auto) 0.1 x10^3/uL (0.0-0.2) 0.0 x10^3/uL (0.0-0.2) D-Dimer (Kita) < 0.27 ug/mlFEU Sodium Level 143 mmol/L (136-145) 143 mmol/L (136-145) Potassium Level 4.3 mmol/L (3.5-5.1) 3.9 mmol/L (3.5-5.1) Chloride Level 104 mmol/L (98-107) 105 mmol/L (98-107) Carbon Dioxide Level 28 mmol/L (21-32) 29 mmol/L (21-32) Anion Gap 11 (6-14) 9 (6-14) Blood Urea Nitrogen 28 mg/dL (8-26) 28 mg/dL (8-26) Creatinine 1.5 mg/dL (0.7-1.3) 1.2 mg/dL (0.7-1.3) Estimated GFR (Cockcroft-Gault) 47.3 61.1 BUN/Creatinine Ratio 19 (6-20) 23 (6-20) Glucose Level 217 mg/dL (70-99) 220 mg/dL (70-99) Calcium Level 8.2 mg/dL (8.5-10.1) 8.5 mg/dL (8.5-10.1) Total Bilirubin 0.7 mg/dL (0.2-1.0) 0.7 mg/dL (0.2-1.0) Aspartate Amino Transf (AST/SGOT) 38 U/L (15-37) 21 U/L (15-37) Alanine Aminotransferase (ALT/SGPT) 40 U/L (16-63) 30 U/L (16-63) Alkaline Phosphatase 74 U/L (46-116) 68 U/L (46-116) Troponin I Quantitative 0.029 ng/mL (0.000-0.055) ZT-Opv-A-Type Natriuretic Peptide 407 pg/mL (0-124) Total Protein 7.2 g/dL (6.4-8.2) 6.3 g/dL (6.4-8.2) Albumin 3.8 g/dL (3.4-5.0) 3.4 g/dL (3.4-5.0) Albumin/Globulin Ratio 1.1 (1.0-1.7) 1.2 (1.0-1.7) Urine Collection Type Unknown Urine Color Yellow Urine Clarity Clear Urine pH 5.5 Urine Specific Achille 1.015 Urine Protein 100 mg/dL (NEG-TRACE) Urine Glucose (UA) Negative mg/dL (NEG) Urine Ketones (Stick) Negative mg/dL (NEG) Urine Blood Negative (NEG) Urine Nitrite Negative (NEG) Urine Bilirubin Negative (NEG) Urine Urobilinogen Dipstick 0.2 mg/dL (0.2 mg/dL) Urine Leukocyte Esterase Trace (NEG) Urine RBC 0 /HPF (0-2) Urine WBC 1-4 /HPF (0-4) Urine Squamous Epithelial Cells Few /LPF Urine Bacteria 0 /HPF (0-FEW) Glucose (Fingerstick) 182 mg/dL (70-99) Laboratory Tests Test 04/16/19 03:20 White Blood Count 13.8 x10^3/uL (4.0-11.0) Red Blood Count 4.99 x10^6/uL (4.30-5.70) Hemoglobin 14.0 g/dL (13.0-17.5) Hematocrit 42.9 % (39.0-53.0) Mean Corpuscular Volume 86 fL (79-100) Mean Corpuscular Hemoglobin 28 pg (25-35) Mean Corpuscular Hemoglobin Concent 33 g/dL (31-37) Red Cell Distribution Width 13.3 % (11.5-14.5) Platelet Count 162 x10^3/uL (140-400) Neutrophils (%) (Auto) 84 % (31-73) Lymphocytes (%) (Auto) 9 % (24-48) Monocytes (%) (Auto) 6 % (0-9) Eosinophils (%) (Auto) 0 % (0-3) Basophils (%) (Auto) 0 % (0-3) Neutrophils # (Auto) 11.7 x10^3/uL (1.8-7.7) Lymphocytes # (Auto) 1.2 x10^3/uL (1.0-4.8) Monocytes # (Auto) 0.9 x10^3/uL (0.0-1.1) Eosinophils # (Auto) 0.0 x10^3/uL (0.0-0.7) Basophils # (Auto) 0.0 x10^3/uL (0.0-0.2) Sodium Level 143 mmol/L (136-145) Potassium Level 3.9 mmol/L (3.5-5.1) Chloride Level 105 mmol/L (98-107) Carbon Dioxide Level 29 mmol/L (21-32) Anion Gap 9 (6-14) Blood Urea Nitrogen 28 mg/dL (8-26) Creatinine 1.2 mg/dL (0.7-1.3) Estimated GFR (Cockcroft-Gault) 61.1 BUN/Creatinine Ratio 23 (6-20) Glucose Level 220 mg/dL (70-99) Calcium Level 8.5 mg/dL (8.5-10.1) Total Bilirubin 0.7 mg/dL (0.2-1.0) Aspartate Amino Transf (AST/SGOT) 21 U/L (15-37) Alanine Aminotransferase (ALT/SGPT) 30 U/L (16-63) Alkaline Phosphatase 68 U/L (46-116) Total Protein 6.3 g/dL (6.4-8.2) Albumin 3.4 g/dL (3.4-5.0) Albumin/Globulin Ratio 1.2 (1.0-1.7) Allergies Allergies Coded Allergies Type Severity Reaction Last Updated Verified iodine Allergy Intermediate 03/10/19 Yes Disposition/Orders: D/C to Home Patient Instructions D/C PLANNING 32 MIN BLUE ARMAS MD Apr 16, 2019 17:20
[2019-04-16] MEDS ORDERED: DOXY100T PO (17:22)
[2019-04-16] MEDS ORDERED: LACT1CAP19 PO (17:22)
--- NOTE | 2019-04-16 17:23 | DISCH ---
DISCHARGE INSTRUCTIONS Condition on Discharge Condition on Discharge: Stable Activity After Discharge Activity Instructions for Disc: Activity as tolerated Lifting Instructions after Dis: Do not lift >10 pounds Exercise Instruction after Dis: Progress as tolerated Driving Instructions after Dis: Do not drive today Weight Bearing Status after Di: As tolerated Diet after Discharge Diet after Discharge: Cardiac Diet Texture: Regular Liquid Texture: Thin Liquid Swallowing Supervision: None needed Wound Incision Care Wound/Incision Care: No wound care needed Checks after Discharge Checks after discharge: Check blood press - daily, Check your Temp as needed Contacting the DRKate after DC Call your doctor for: If your condition worsens Treatment/Equipment after DC Adaptive Equipment Issued: None Warfarin Follow-Up Warfarin Follow UP: SEE BLUE PALMA MD Apr 16, 2019 17:23
--- NOTE | 2019-04-16 19:07 | NUR ---
Patient discharged to home. Discharge instructions, medications, and follow up appointments discussed with patient. Patient verbalized understanding. Discharge papers given to patient. Prescriptions sent to pharmacy. IV discontinued. All belongings with patient. Patient ambulated out with staff and spouse at this time.
[2019-04-16] MEDS ORDERED: LACTOBACILLUS RHAMNOSUS GG 1 CAPSULE. PO SCH (21:00)
== END 2019-04-16 19:15 | disposition home or self-care (01) | DRG 291 ==
LOC: ER 04:53 → 6 SOUTH 05:40
PROVIDERS: ADMIT Internal Medicine; ATTEND Internal Medicine
DX: I13.0 Hypertensive heart and chronic kidney disease with heart failure and stage 1 through stage 4 chronic kidney disease, or unspecified chronic kidney disease (principal); J96.01 Acute respiratory failure with hypoxia; I50.33 Acute on chronic diastolic (congestive) heart failure; I48.20 Chronic atrial fibrillation, unspecified; J44.1 Chronic obstructive pulmonary disease with (acute) exacerbation; N17.9 Acute kidney failure, unspecified; J98.11 Atelectasis; Z68.41 Body mass index [BMI] 40.0-44.9, adult; E03.9 Hypothyroidism, unspecified; E66.01 Morbid (severe) obesity due to excess calories; E78.00 Pure hypercholesterolemia, unspecified; E78.5 Hyperlipidemia, unspecified; G47.33 Obstructive sleep apnea (adult) (pediatric); I25.10 Atherosclerotic heart disease of native coronary artery without angina pectoris; I27.29 Other secondary pulmonary hypertension; I48.0 Paroxysmal atrial fibrillation; K21.9 Gastro-esophageal reflux disease without esophagitis; M19.90 Unspecified osteoarthritis, unspecified site; N18.9 Chronic kidney disease, unspecified; Z79.01 Long term (current) use of anticoagulants; Z80.1 Family history of malignant neoplasm of trachea, bronchus and lung; Z82.49 Family history of ischemic heart disease and other diseases of the circulatory system; Z87.891 Personal history of nicotine dependence; Z87.01 Personal history of pneumonia (recurrent); Z98.61 Coronary angioplasty status; Z88.8 Allergy status to other drugs, medicaments and biological substances
CPT/HCPCS: 36415; 71045; 80053; 81001; 82962; 83880; 84484; 85025; 85379; 87086; 93005; 94640; 94760; J1160; J1940; J1956; J2930; J7613; J7620; 99285-25; G0378

== ENCOUNTER 2019-06-01 23:51 | Emergency (ER) | payer OTHER, MEDICAID ==
[~2019-06-01] VITALS: Ht 167.6 cm; Wt 111.1 kg
[~2019-06-01 23:51] MED LIST changes: +DOXY100T PO; +LACT1CAP19 PO; +POTA20TA4 PO; -POTA20TA82 PO; +TAMS0.4C97 PO
[2019-06-02] VITALS: BP 153/94
[2019-06-02 00:43] LABS: BASO # 0.1 x10^3/uL (0.0-0.2); BASO % 1 % (0-3); EOS # 0.2 x10^3/uL (0.0-0.7); EOS % 3 % (0-3); HEMATOCRIT 42.4 % (39.0-53.0); HEMOGLOBIN 13.7 g/dL (13.0-17.5); LYMPH # 1.1 x10^3/uL (1.0-4.8); LYMPH % 14 % (24-48); MEAN CORPUSCULAR HEMOGLOBIN 27 pg (25-35); MEAN CORPUSCULAR HGB CONC 32 g/dL (31-37); MEAN CORPUSCULAR VOLUME 84 fL (79-100); MONO # 0.6 x10^3/uL (0.0-1.1); MONO % 7 % (0-9); NEUT % 75 % (31-73); PLATELET COUNT 156 x10^3/uL (140-400); RED BLOOD COUNT 5.06 x10^6/uL (4.30-5.70); RED CELL DISTRIBUTION WIDTH 13.7 % (11.5-14.5)
[2019-06-02] MEDS: methylPREDNISolone SOD SUCC PF 125 MG/2 ML VIAL. IV ONE (00:46)
[2019-06-02 00:58] LABS: CALCIUM 8.6 mg/dL (8.5-10.1); CREATININE 1.3 mg/dL (0.7-1.3); GFR 55.8; POTASSIUM 3.9 mmol/L (3.5-5.1)
[2019-06-02] MEDS: IPRATRPIUM/ALBUTEROL 0.5/2.5MG 3 ML NEBU. NEB ONE (01:01)
[2019-06-02 01:05] LABS: ALBUMIN 3.5 g/dL (3.4-5.0); ALBUMIN/GLOBULIN RATIO 1.1 (1.0-1.7); TOTAL BILIRUBIN 0.7 mg/dL (0.2-1.0); TOTAL PROTEIN 6.6 g/dL (6.4-8.2)
--- NOTE | 2019-06-02 01:45 | RAD ---
Exam: Chest one view INDICATION: Shortness of breath TECHNIQUE: Frontal view of the chest Comparisons: 04/15/2019 FINDINGS: The cardiomediastinal silhouette and pulmonary vessels are within normal limits. The lung and pleural spaces are clear. IMPRESSION: No acute cardiopulmonary process. Electronically signed by: Gabbie Larios MD (06/02/2019 1:43 AM) [facility]
--- NOTE | 2019-06-02 02:30 | PHYS DOC ---
Past Medical History Past Medical History: A-Fib, CAD, CHF, COPD, High Cholesterol, Heart Disease, Hypertension Past Surgical History: Other Additional Past Surgical Histo: STENT X 3,HERNIA Alcohol Use: None Drug Use: None Adult General Chief Complaint Chief Complaint: SHORTNESS OF BREATH [facility] HPI 63-year-old male presents to the emergency Department complaints of shortness of breath 5-6 days. Describes a dry cough. No orthopnea appreciated. Denies any chest pain. Patient has had intermittent nausea, he is well describes rectal pain. Nothing makes his pain worse, nothing makes his pain better. Blood pressure is mildly elevated 145/106 upon arrival. Heart rate was 98. Patient with evidence of wheeze appreciated initially provided with DuoNeb. Review of Systems Review of Systems Constitutional: Denies fever or chills [] Eyes: Denies change in visual acuity, redness, or eye pain [] HENT: Denies nasal congestion or sore throat [] Respiratory: + cough/SOB Cardiovascular: No additional information not addressed in HPI [] GI: Denies abdominal pain, nausea, vomiting, bloody stools or diarrhea, + rectal pain [] : Denies dysuria or hematuria [] Musculoskeletal: Denies back pain or joint pain [] Neurologic: Denies headache, focal weakness or sensory changes [] All other systems were reviewed and found to be within normal limits, except as documented in this note. Current Medications Current Medications Current Medications Medications (Trade) Dose Ordered Sig/Connie Start Time Stop Time Status Last Admin Dose Admin Albuterol/ Ipratropium (Duoneb) 3 ml 1X ONCE 06/02/19 00:45 06/02/19 00:46 DC 06/02/19 01:01 3 ML Methylprednisolone Sodium Succinate (SOLU-Medrol 125MG VIAL) 125 mg 1X ONCE 06/02/19 00:45 06/02/19 00:46 DC 06/02/19 00:46 125 MG Allergies Allergies Allergies Coded Allergies Type Severity Reaction Last Updated Verified iodine Allergy Intermediate 03/10/19 Yes Physical Exam Physical Exam Constitutional: Well developed, well nourished, no acute distress, non-toxic appearance. [] HENT: Normocephalic, atraumatic, bilateral external ears normal, oropharynx moist, no oral exudates, nose normal. [] Eyes: PERRLA, EOMI, conjunctiva normal, no discharge. [] Cardiovascular:Heart rate regular rhythm, no murmur [] Lungs & Thorax: decreased BS, + wheeze Abdomen: Bowel sounds normal, soft, no tenderness, no masses, no pulsatile ma sses. : rectal exam reveals external hemorrhoids and irritation, no bleeding or fissure. Rectal exam painful described as burning on exam, prostate normal[] Skin: Warm, dry, no erythema, no rash. [] Back: No tenderness, no CVA tenderness. [] Extremities: No tenderness, no edema. [] Neurologic: Alert and oriented X 3, no focal deficits noted. [] Psychologic: Affect normal, judgement normal, mood normal. [] Current Patient Data Vital Signs Vital Signs Date Time Temp Pulse Resp B/P (MAP) Pulse Ox O2 Delivery O2 Flow Rate FiO2 06/02/19 01:02 95 Room Air 06/02/19 00:00 98.4 108 20 153/94 (113) 98.4 Lab Values Laboratory Tests Test 06/02/19 00:05 06/02/19 02:30 White Blood Count 8.0 x10^3/uL (4.0-11.0) Red Blood Count 5.06 x10^6/uL (4.30-5.70) Hemoglobin 13.7 g/dL (13.0-17.5) Hematocrit 42.4 % (39.0-53.0) Mean Corpuscular Volume 84 fL (79-100) Mean Corpuscular Hemoglobin 27 pg (25-35) Mean Corpuscular Hemoglobin Concent 32 g/dL (31-37) Red Cell Distribution Width 13.7 % (11.5-14.5) Platelet Count 156 x10^3/uL (140-400) Neutrophils (%) (Auto) 75 % (31-73) H Lymphocytes (%) (Auto) 14 % (24-48) L Monocytes (%) (Auto) 7 % (0-9) Eosinophils (%) (Auto) 3 % (0-3) Basophils (%) (Auto) 1 % (0-3) Neutrophils # (Auto) 6.0 x10^3/uL (1.8-7.7) Lymphocytes # (Auto) 1.1 x10^3/uL (1.0-4.8) Monocytes # (Auto) 0.6 x10^3/uL (0.0-1.1) Eosinophils # (Auto) 0.2 x10^3/uL (0.0-0.7) Basophils # (Auto) 0.1 x10^3/uL (0.0-0.2) Sodium Level 143 mmol/L (136-145) Potassium Level 3.9 mmol/L (3.5-5.1) Chloride Level 108 mmol/L (98-107) H Carbon Dioxide Level 25 mmol/L (21-32) Anion Gap 10 (6-14) Blood Urea Nitrogen 18 mg/dL (8-26) Creatinine 1.3 mg/dL (0.7-1.3) Estimated GFR (Cockcroft-Gault) 55.8 BUN/Creatinine Ratio 14 (6-20) Glucose Level 170 mg/dL (70-99) H Calcium Level 8.6 mg/dL (8.5-10.1) Total Bilirubin 0.7 mg/dL (0.2-1.0) Aspartate Amino Transferase (AST) 24 U/L (15-37) Alanine Aminotransferase (ALT) 36 U/L (16-63) Alkaline Phosphatase 69 U/L (46-116) Troponin I Quantitative 0.034 ng/mL (0.000-0.055) 0.036 ng/mL (0.000-0.055) JB-Pqo-X-Type Natriuretic Peptide 1333 pg/mL (0-124) H Total Protein 6.6 g/dL (6.4-8.2) Albumin 3.5 g/dL (3.4-5.0) Albumin/Globulin Ratio 1.1 (1.0-1.7) Laboratory Tests 06/02/19 00:05 Laboratory Tests 06/02/19 00:05 EKG EKG [] Radiology/Procedures Radiology/Procedures [] Course & Med Decision Making Course & Med Decision Making Pertinent Labs and Imaging studies reviewed. (See chart for details) []63-year-old male presents to the emergency Department complaints of shortness of breath 5-6 days. Describes a dry cough. No orthopnea appreciated. Denies any chest pain. Patient has had intermittent nausea, he is well describes rectal pain. Nothing makes his pain worse, nothing makes his pain better. Blood pressure is mildly elevated 145/106 upon arrival. Heart rate was 98. Patient with evidence of wheeze appreciated initially provided with DuoNeb. Labs and imaging reviewed Carrdiac enzymes negative x 2 Chest xray negative for acute process no consolidation Duoneb, solumedrol IV x 1 Overall improved symptoms Recommend dc home Rx provided for steroids/medrol dose bridget, Anusol, INH Dragon Disclaimer Dragon Disclaimer This electronic medical record was generated, in whole or in part, using a voice recognition dictation system. Departure Departure Impression: Primary Impression: COPD exacerbation Additional Impression: Rectal pain Disposition: , SELF-CARE Condition: IMPROVED Referrals: ERNST WEIR (PCP) Patient Instructions: Anal Pruritus, [id number], Chronic Obstructive Pulmonary Disease Exacerbation, [id number] Additional Instructions: Recommend follow up with PCP 3 - 5 days Return to the ER with worsening symptoms, intractable pain, fever, altered mental status Tylenol/Motrin as needed for pain Take antibiotics as directed Inhaler provided upon discharge Medrol dose pack provided up on discharge Scripts Methylprednisolone (MEDROL) 4 Mg Tab.ds.pk 1 PKG PO UD for inflammation, #1 PKG Prov: DUNCAN RODRIGUEZ MD 06/02/19 Albuterol Sulfate (PROAIR HFA INHALER) 8.5 Gm Hfa.aer.ad 2 PUFF INH PRN Q6HRS PRN for SHORTNESS OF BREATH, #1 INHALER 0 Refills Prov: DUNCAN RODRIGUEZ MD 06/02/19 Hydrocortisone (ANUSOL-HC) 30 Gm Cream..g. 1 PEÑA TP BID for 12 Days, #30 GM 0 Refills Prov: DUNCAN RODRIGUEZ MD 06/02/19 The HEART Score for CP Pts HEART Score for Chest Pain: HEART Score for Chest Pain Response (Comments) Value History Slighlty/Non-Suspicious 0 ECG Nonspecific Repolarizatio 1 Age >45 - < 65 1 Risk Factors 1 or 2 Risk Factors 1 Troponin < Normal Limit 0 Total 3 Risk Factors: Risk Factors: DM, Current or recent (<one month) smoker, HTN, HLP, family history of CAD, obesity. Risk Scores: Score 0 - 3: 2.5% MACE over next 6 weeks - Discharge Home Score 4 - 6: 20.3% MACE over next 6 weeks - Admit for Clinical Observation Score 7 - 10: 72.7% MACE over next 6 weeks - Early Invasive Strategies Problem Qualifiers DUNCAN RODRIGUEZ MD Jun 02, 2019 02:30
[2019-06-02] MEDS ORDERED: METH4TAB2 PO (03:45)
[2019-06-02] MEDS ORDERED: ALBU2.5V8 INH (03:45)
[2019-06-02] MEDS ORDERED: HYDR30CR61 TP (03:45)
--- NOTE | 2019-06-02 06:25 | EKG ---
[address] [place] [address] Test Date: 2019-06-02 Test Time: 00:03:47 Pat Name: LONDON CRESPO Department: Room: Gender: M Technical Coordinator: : 1955 Requested By: DUNCAN RODRIGUEZ Order Number: [id number] Reading MD: Measurements Intervals [place] Rate: 107 P: DE: QRS: 74 QRSD: 82 T: 54 QT: 356 QTc: 481 Interpretive Statements ATRIAL FIB./FLUTTER WITH RAPID VENTRICULAR RESPONSE LOW LIMB LEAD VOLTAGE QRS(T) CONTOUR ABNORMALITY CONSIDER ANTEROSEPTAL MYOCARDIAL DAMAGE ABNORMAL ECG No previous ECG available for comparison
== END 2019-06-02 04:00 | disposition home or self-care (01) ==
LOC: ER 23:51
DX: J44.1 Chronic obstructive pulmonary disease with (acute) exacerbation (principal); K62.89 Other specified diseases of anus and rectum; I11.0 Hypertensive heart disease with heart failure; I50.9 Heart failure, unspecified; I25.10 Atherosclerotic heart disease of native coronary artery without angina pectoris; E78.00 Pure hypercholesterolemia, unspecified; I48.91 Unspecified atrial fibrillation; Z95.5 Presence of coronary angioplasty implant and graft; Z88.8 Allergy status to other drugs, medicaments and biological substances
CPT/HCPCS: 36415; 71045; 80053; 83880; 84484; 85025; 93005; 94640; 96374; 99285; J2930; J7620

== ENCOUNTER 2019-07-11 12:01 | Inpatient (IN) | payer OTHER, MEDICAID ==
[~2019-07-11] VITALS: Ht 167.6 cm; Wt 108.5 kg
[~2019-07-11 12:01] MED LIST changes: +ALBU2.5V8 INH; +HYDR30CR61 TP; +METH4TAB2 PO
--- NOTE | 2019-07-11 12:42 | PHYS DOC ---
Past Medical History Past Medical History: A-Fib, CAD, CHF, COPD, High Cholesterol, Heart Disease, Hypertension Past Surgical History: Other Additional Past Surgical Histo: STENT X 3,HERNIA Smoking: Quit Greater Than 1 Year Alcohol Use: None Drug Use: None Adult General Chief Complaint Chief Complaint: SHORTNESS OF BREATH HPI HPI Patient is a 63-year-old male who presents to the emergency department for evaluation. He states last night he had numerous episodes where he woke up overnight having increased shortness of breath, and unable to catch his breath. He states for the past 2 days he has had a cough productive of some brown sputum. He denies any new chest pain, he states he has some chronic discomfort in his chest, and had a cardiac catheter in March, which showed patent stents, without other acute disease, per recent hospital discharge summary. He has not had any fevers or chills. He feels very weak generally, and low energy, since getting ill over the past few days. He has not had any fevers or chills, nausea, vomiting, or abdominal pain. There are no alleviating or exacerbating factors to his symptoms. Review of Systems Review of Systems Constitutional: Denies fever or chills [] Eyes: Denies change in visual acuity, redness, or eye pain [] HENT: Denies nasal congestion or sore throat [] Respiratory:No additional information not addressed in HPI [] Cardiovascular: No additional information not addressed in HPI [] GI: Denies abdominal pain, nausea, vomiting, bloody stools or diarrhea [] : Denies dysuria or hematuria [] Musculoskeletal: Denies back pain or joint pain [] Integument: Denies rash or skin lesions [] Neurologic: Denies headache, focal weakness or sensory changes [] Endocrine: Denies polyuria or polydipsia [] All other systems were reviewed and found to be within normal limits, except as documented in this note. Current Medications Current Medications Current Medications Medications (Trade) Dose Ordered Sig/Connie Start Time Stop Time Status Last Admin Dose Admin Albuterol/ Ipratropium (Duoneb) 3 ml 1X ONCE 07/11/19 12:45 07/11/19 12:46 DC 07/11/19 12:54 3 ML Azithromycin 250 ml @ 250 mls/hr 1X ONCE 07/11/19 14:15 07/11/19 15:14 07/11/19 14:10 250 MLS/HR Furosemide (Lasix) 40 mg 1X ONCE 07/11/19 14:15 07/11/19 14:16 07/11/19 14:10 40 MG Allergies Allergies Allergies Coded Allergies Type Severity Reaction Last Updated Verified iodine Allergy Intermediate 03/10/19 Yes Physical Exam Physical Exam PHYSICAL EXAM: CONSTITUTIONAL: Well developed, well nourished HEAD: normocephalic, atraumatic EENT: PERRL, EOMI. Conjunctivae normal color, sclerae non-icteric; moist mucous membranes. NECK: Supple, non-tender; no meningismus. LUNGS: There are mildly diminished breath sounds diffusely, some scattered wheezes, no rales. Breathing is very mildly labored. HEART: Irregularly irregular rhythm, no murmur CHEST: No deformity; non-tender ABDOMEN: The abdomen is soft, and non-tender, no masses or bruits. EXTREM: Normal ROM; no deformity, no calf tenderness. Normal pulses palpable in all extremities. There is I'll bilateral pedal edema. SKIN: No rash; no diaphoresis NEURO: Alert; normal speech and cognition; CN's grossly intact; strength grossly intact without focal deficit. BACK: No CVA TTP. Current Patient Data Vital Signs Vital Signs Date Time Temp Pulse Resp B/P (MAP) Pulse Ox O2 Delivery O2 Flow Rate FiO2 07/11/19 12:55 93 Room Air 07/11/19 12:10 97.8 89 28 164/100 (121) 97.8 Lab Values Laboratory Tests Test 07/11/19 12:18 07/11/19 13:00 White Blood Count 9.3 x10^3/uL (4.0-11.0) Red Blood Count 5.23 x10^6/uL (4.30-5.70) Hemoglobin 13.8 g/dL (13.0-17.5) Hematocrit 43.1 % (39.0-53.0) Mean Corpuscular Volume 82 fL (79-100) Mean Corpuscular Hemoglobin 26 pg (25-35) Mean Corpuscular Hemoglobin Concent 32 g/dL (31-37) Red Cell Distribution Width 14.9 % (11.5-14.5) H Platelet Count 161 x10^3/uL (140-400) Neutrophils (%) (Auto) 80 % (31-73) H Lymphocytes (%) (Auto) 11 % (24-48) L Monocytes (%) (Auto) 7 % (0-9) Eosinophils (%) (Auto) 1 % (0-3) Basophils (%) (Auto) 0 % (0-3) Neutrophils # (Auto) 7.4 x10^3/uL (1.8-7.7) Lymphocytes # (Auto) 1.0 x10^3/uL (1.0-4.8) Monocytes # (Auto) 0.7 x10^3/uL (0.0-1.1) Eosinophils # (Auto) 0.1 x10^3/uL (0.0-0.7) Basophils # (Auto) 0.0 x10^3/uL (0.0-0.2) Sodium Level 144 mmol/L (136-145) Potassium Level 4.0 mmol/L (3.5-5.1) Chloride Level 106 mmol/L (98-107) Carbon Dioxide Level 28 mmol/L (21-32) Anion Gap 10 (6-14) Blood Urea Nitrogen 23 mg/dL (8-26) Creatinine 1.3 mg/dL (0.7-1.3) Estimated GFR (Cockcroft-Gault) 55.8 BUN/Creatinine Ratio 18 (6-20) Glucose Level 197 mg/dL (70-99) H Lactic Acid Level 1.7 mmol/L (0.4-2.0) Calcium Level 8.6 mg/dL (8.5-10.1) Magnesium Level 1.7 mg/dL (1.8-2.4) L Total Bilirubin 1.6 mg/dL (0.2-1.0) H Aspartate Amino Transferase (AST) 20 U/L (15-37) Alanine Aminotransferase (ALT) 25 U/L (16-63) Alkaline Phosphatase 82 U/L (46-116) Troponin I Quantitative < 0.017 ng/mL (0.000-0.055) SJ-Pqj-M-Type Natriuretic Peptide 1965 pg/mL (0-124) H Total Protein 5.9 g/dL (6.4-8.2) L Albumin 3.5 g/dL (3.4-5.0) Albumin/Globulin Ratio 1.5 (1.0-1.7) Influenza Type A Antigen Negative (NEGATIVE) Influenza Type B Antigen Negative (NEGATIVE) Laboratory Tests 07/11/19 12:18 Laboratory Tests 07/11/19 12:18 EKG EKG []Atrial fibrillation at a rate of 86 bpm, normal axis, normal intervals, poor anterior R-wave progression without acute ischemic ST/T changes. Radiology/Procedures Radiology/Procedures PROCEDURE: CHEST PA & LATERAL CHEST PA LATERAL History: Cough. Short of breath. Comparison: May 23, [address] January 01, 2018 Findings: Hazy bilateral mid and basilar opacities. No pleural effusion. Mild cardiomegaly, unchanged. No pneumothorax. Impression: 1. Hazy bilateral opacities, right greater than left, may represent infection or pulmonary edema. Recommend follow-up to ensure resolution. [] Course & Med Decision Making Course & Med Decision Making Pertinent Labs and Imaging studies reviewed. (See chart for details) []2:00 PM: The patient's condition remained stable. His lungs are mostly clear at this time. I discussed the uncertain etiology of his symptoms. I am not highly suspicious that he actually has pneumonia. However, I am unable to exclude this with certainty. The patient states he does not feel well enough to go home at this point, although his oxygen saturations remained stable in the low to mid 90s at rest. I spoke with the hospitalist, who accepted the patient to the hospital for further evaluation and treatment. His BNP is higher than prior values, however. Dragon Disclaimer Dragon Disclaimer This electronic medical record was generated, in whole or in part, using a voice recognition dictation system. Departure Departure Impression: Primary Impression: Dyspnea Additional Impressions: Congestive heart failure Pneumonitis Disposition: ADMITTED INPATIENT Admitting Physician: HIMS Condition: STABLE Referrals: ERNST WEIR (PCP) Problem Qualifiers ACE CONNELLY MD Jul 11, 2019 12:42
[2019-07-11] MEDS ORDERED: IPRATRPIUM/ALBUTEROL 0.5/2.5MG 3 ML NEBU. NEB ONE (12:45)
[2019-07-11 13:02] LABS: BASO % 0 % (0-3); EOS # 0.1 x10^3/uL (0.0-0.7); EOS % 1 % (0-3); HEMATOCRIT 43.1 % (39.0-53.0); HEMOGLOBIN 13.8 g/dL (13.0-17.5); LYMPH % 11 % (24-48); MEAN CORPUSCULAR HEMOGLOBIN 26 pg (25-35); MEAN CORPUSCULAR HGB CONC 32 g/dL (31-37); MEAN CORPUSCULAR VOLUME 82 fL (79-100); MONO # 0.7 x10^3/uL (0.0-1.1); MONO % 7 % (0-9); NEUT # 7.4 x10^3/uL (1.8-7.7); NEUT % 80 % (31-73); PLATELET COUNT 161 x10^3/uL (140-400); RED BLOOD COUNT 5.23 x10^6/uL (4.30-5.70); RED CELL DISTRIBUTION WIDTH 14.9 % (11.5-14.5); WHITE BLOOD COUNT 9.3 x10^3/uL (4.0-11.0)
[2019-07-11 13:14] LABS: CALCIUM 8.6 mg/dL (8.5-10.1); CREATININE 1.3 mg/dL (0.7-1.3); GFR 55.8
[2019-07-11 13:18] LABS: ALBUMIN 3.5 g/dL (3.4-5.0); ALBUMIN/GLOBULIN RATIO 1.5 (1.0-1.7); MAGNESIUM 1.7 mg/dL (1.8-2.4); TOTAL BILIRUBIN 1.6 mg/dL (0.2-1.0); TOTAL PROTEIN 5.9 g/dL (6.4-8.2)
--- NOTE | 2019-07-11 13:20 | RAD ---
CHEST PA LATERAL History: Cough. Short of breath. Comparison: May 23, [address] January 01, 2018 Findings: Hazy bilateral mid and basilar opacities. No pleural effusion. Mild cardiomegaly, unchanged. No pneumothorax. Impression: 1. Hazy bilateral opacities, right greater than left, may represent infection or pulmonary edema. Recommend follow-up to ensure resolution. Electronically signed by: Eusebio Cabrales DO (07/11/2019 1:17 PM) [id number]
[2019-07-11 13:36] LABS: INFLUENZA A PATIENT NEGATIVE (NEGATIVE); INFLUENZA B PATIENT NEGATIVE (NEGATIVE)
[2019-07-11] MEDS ORDERED: FUROSEMIDE 40 MG/4 ML VIAL. IVP ONE (14:15)
[2019-07-11] MEDS ORDERED: AZITHRMYCN 500MG IVPB FOR OMNI 250 ML IV ONE (14:15)
[2019-07-11] MEDS ORDERED: DOCUSATE SODIUM 100 MG CAPSULE. PO PRN (15:15)
[2019-07-11] MEDS ORDERED: NITROGLYCERIN SUBLINGUAL 0.4 MG BOTTLE OF 25. SL PRN (15:15)
[2019-07-11] MEDS ORDERED: NON FORMULARY ITEM (Albuterol Sulfate (Proventil Hfa Inhaler) 2 PUFF) IH PRN (15:15)
[2019-07-11] MEDS ORDERED: VANCOMYCIN PER PHARMACY MC PRN (15:15)
[2019-07-11] MEDS ORDERED: POLYETHYLENE GLYCOL 3350 17 GM PACKET. PO PRN (15:15)
--- NOTE | 2019-07-11 15:29 | PDOC1 ---
History and Physical Date of Admission Date of Admission DATE: 07/11/19 TIME: 15:16 Identification/Chief Complaint Chief Complaint sob, cough Problems: (1) Congestive heart failure (2) Dyspnea Source Source: Chart review, Patient History of Present Illness History of Present Illness 64 year old hx of COPD, afib, obesity, cad, preserved EF CHF Ef50%, last admission in Apr 2019 for copd exac/CHF exacerbation presents with 1 week hx of cough sob on ambulation, worsening over past 3 days. reports fever chills seats. reports increased swelling in LE. had cath 03/26 showing No significant coronary artery disease with widely patent previously placed stents and left circumflex and right coronary arteries. in ED patient had chest xray concerning for fluid overload vs PNA. patient wishes to be admitted for further care. Past Medical History Cardiovascular: AFIB, CAD, HTN, Hyperlipidemia Pulmonary: COPD, Pneumonia CENTRAL NERVOUS SYSTEM: Other GI: GERD Heme/Onc: No pertinent hx Psych: No pertinent hx Musculoskeletal: Osteoarthritis Infectious disease: No pertinent hx Renal/: No pertinent hx, Other Endocrine: Hypothyroidism, Other Past Surgical History Past Surgical History: Hernia Repair, Other Family History Family History: Heart Disease Social History ALCOHOL: none Drugs: None Current Problem List Problem List Problems Medical Problems: (1) Congestive heart failure Status: Acute (2) Dyspnea Status: Acute (3) Pneumonitis Status: Acute Current Medications Current Medications Current Medications Albuterol/ Ipratropium (Duoneb) 3 ml 1X ONCE NEB Last administered on 07/11/19at 12:54; Start 07/11/19 at 12:45; Stop 07/11/19 at 12:46; Status DC Azithromycin 250 ml @ 250 mls/hr 1X ONCE IV Last administered on 07/11/19at 14:10; Start 07/11/19 at 14:15; Stop 07/11/19 at 15:14 Furosemide (Lasix) 40 mg 1X ONCE IVP Last administered on 07/11/19at 14:10; Start 07/11/19 at 14:15; Stop 07/11/19 at 14:16; Status DC Active Scripts Active Medrol (Methylprednisolone) 4 Mg Tab.ds.pk 1 Pkg PO UD Proair Hfa Inhaler (Albuterol Sulfate) 8.5 Gm Hfa.aer.ad 2 Puff INH PRN Q6HRS PRN Anusol-Hc (Hydrocortisone) 30 Gm Cream..g. 1 Edwin TP BID 12 Days Culturelle (Lactobacillus Rhamnosus Gg) 1 Each Cap.sprink 1 Cap PO BID 30 Days Doxycycline Hyclate 100 Mg Tablet 100 Mg PO BID 10 Days Polyethylene Glycol 3350 17 Gm Powd.pack 17 Gm PO PRN DAILY PRN Amitiza (Lubiprostone) 8 Mcg Capsule 8 Mcg PO BIDWMEALS 30 Days Colace (Docusate Sodium) 100 Mg Capsule 100 Mg PO PRN DAILY PRN Betapace (Sotalol Hcl) 80 Mg Tablet 80 Mg PO BID 30 Days Reported Flomax (Tamsulosin Hcl) 0.4 Mg Cap.er.24h 1 Cap PO DAILY Carvedilol (Carvedilol) 6.25 Mg Tablet 6.25 Mg PO BIDWMEALS Proventil Hfa Inhaler (Albuterol Sulfate) 6.7 Gm Hfa.aer.ad 2 Puff IH PRN Q6HRS PRN Furosemide 40 Mg Tablet 40 Mg PO DAILY Atorvastatin Calcium 80 Mg Tablet 80 Mg PO HS Losartan Potassium 100 Mg Tablet 100 Mg PO DAILY Potassium Chloride (Potassium Chloride) 20 Meq Tablet.er 20 Meq PO DAILY Eliquis (Apixaban) 5 Mg Tablet 5 Mg PO BID Aspir 81 (Aspirin) 81 Mg Tablet.dr 1 Tab PO DAILY LAST DOSE GIVEN: DATE: 07/23/15 TIME: 0900 AM NEXT DOSE DUE: DATE: TOMORROW 07/24/15 TIME: 0900 AM Amlodipine Besylate 10 Mg Tablet 10 Mg PO DAILY LAST DOSE GIVEN: DATE: 07/23/15 TIME: 0900 NEXT DOSE DUE: DATE: Tomorr07/24/15 TIME: 0900 NITROGLYCERIN SubLingual (Nitroglycerin) 0.4 Mg Tab.subl 0.4 Mg SL PRN Q5MIN PRN Allergies Allergies: Coded Allergies: iodine (Verified Allergy, Intermediate, 03/10/19) ROS Review of System CONSTITUTIONAL: No fever or chills EYES: No recent changes SKIN: No rash or itching CARDIOVASCULAR: No chest pain, syncope, palpitations, or edema RESPIRATORY: No SOB or cough GASTROINTESTINAL: No nausea, vomiting or abdominal pain NEUROLOGICAL: No headaches or weakness ENDOCRINE: No cold or heat intolerance GENITOURINARY: No urgency or frequency of urination MUSCULOSKELETAL: No back pain or joint pain LYMPHATICS: No enlarged lymph nodes PSYCHIATRIC: No anxiety or depression Physical Exam Physical Exam GENERAL: No apparent distress. Alert and oriented. HEENT: Head normocephalic, atraumatic. NECK: Supple LUNGS: Clear to auscultation. HEART: RRR, S1, S2 present, pulses intact ABDOMEN: Soft, positive bowel sounds. EXTREMITIES: No cyanosis or edema. NEUROLOGIC: Normal speech, normal tone PSYCHIATRIC: Normal affect, normal mood. SKIN: No ulceration. Vitals Vitals Vital Signs Date Time Temp Pulse Resp B/P (MAP) Pulse Ox O2 Delivery O2 Flow Rate FiO2 07/11/19 12:55 93 Room Air 07/11/19 12:10 97.8 89 28 164/100 (121) 97.8 Labs Labs Laboratory Tests Test 07/11/19 12:18 07/11/19 13:00 White Blood Count 9.3 x10^3/uL (4.0-11.0) Red Blood Count 5.23 x10^6/uL (4.30-5.70) Hemoglobin 13.8 g/dL (13.0-17.5) Hematocrit 43.1 % (39.0-53.0) Mean Corpuscular Volume 82 fL (79-100) Mean Corpuscular Hemoglobin 26 pg (25-35) Mean Corpuscular Hemoglobin Concent 32 g/dL (31-37) Red Cell Distribution Width 14.9 % (11.5-14.5) Platelet Count 161 x10^3/uL (140-400) Neutrophils (%) (Auto) 80 % (31-73) Lymphocytes (%) (Auto) 11 % (24-48) Monocytes (%) (Auto) 7 % (0-9) Eosinophils (%) (Auto) 1 % (0-3) Basophils (%) (Auto) 0 % (0-3) Neutrophils # (Auto) 7.4 x10^3/uL (1.8-7.7) Lymphocytes # (Auto) 1.0 x10^3/uL (1.0-4.8) Monocytes # (Auto) 0.7 x10^3/uL (0.0-1.1) Eosinophils # (Auto) 0.1 x10^3/uL (0.0-0.7) Basophils # (Auto) 0.0 x10^3/uL (0.0-0.2) Sodium Level 144 mmol/L (136-145) Potassium Level 4.0 mmol/L (3.5-5.1) Chloride Level 106 mmol/L (98-107) Carbon Dioxide Level 28 mmol/L (21-32) Anion Gap 10 (6-14) Blood Urea Nitrogen 23 mg/dL (8-26) Creatinine 1.3 mg/dL (0.7-1.3) Estimated GFR (Cockcroft-Gault) 55.8 BUN/Creatinine Ratio 18 (6-20) Glucose Level 197 mg/dL (70-99) Lactic Acid Level 1.7 mmol/L (0.4-2.0) Calcium Level 8.6 mg/dL (8.5-10.1) Magnesium Level 1.7 mg/dL (1.8-2.4) Total Bilirubin 1.6 mg/dL (0.2-1.0) Aspartate Amino Transf (AST/SGOT) 20 U/L (15-37) Alanine Aminotransferase (ALT/SGPT) 25 U/L (16-63) Alkaline Phosphatase 82 U/L (46-116) Troponin I Quantitative < 0.017 ng/mL (0.000-0.055) ZD-Gyq-T-Type Natriuretic Peptide 1965 pg/mL (0-124) Total Protein 5.9 g/dL (6.4-8.2) Albumin 3.5 g/dL (3.4-5.0) Albumin/Globulin Ratio 1.5 (1.0-1.7) Influenza Type A Antigen Negative (NEGATIVE) Influenza Type B Antigen Negative (NEGATIVE) Laboratory Tests Test 07/11/19 12:18 07/11/19 13:00 White Blood Count 9.3 x10^3/uL (4.0-11.0) Red Blood Count 5.23 x10^6/uL (4.30-5.70) Hemoglobin 13.8 g/dL (13.0-17.5) Hematocrit 43.1 % (39.0-53.0) Mean Corpuscular Volume 82 fL (79-100) Mean Corpuscular Hemoglobin 26 pg (25-35) Mean Corpuscular Hemoglobin Concent 32 g/dL (31-37) Red Cell Distribution Width 14.9 % (11.5-14.5) Platelet Count 161 x10^3/uL (140-400) Neutrophils (%) (Auto) 80 % (31-73) Lymphocytes (%) (Auto) 11 % (24-48) Monocytes (%) (Auto) 7 % (0-9) Eosinophils (%) (Auto) 1 % (0-3) Basophils (%) (Auto) 0 % (0-3) Neutrophils # (Auto) 7.4 x10^3/uL (1.8-7.7) Lymphocytes # (Auto) 1.0 x10^3/uL (1.0-4.8) Monocytes # (Auto) 0.7 x10^3/uL (0.0-1.1) Eosinophils # (Auto) 0.1 x10^3/uL (0.0-0.7) Basophils # (Auto) 0.0 x10^3/uL (0.0-0.2) Sodium Level 144 mmol/L (136-145) Potassium Level 4.0 mmol/L (3.5-5.1) Chloride Level 106 mmol/L (98-107) Carbon Dioxide Level 28 mmol/L (21-32) Anion Gap 10 (6-14) Blood Urea Nitrogen 23 mg/dL (8-26) Creatinine 1.3 mg/dL (0.7-1.3) Estimated GFR (Cockcroft-Gault) 55.8 BUN/Creatinine Ratio 18 (6-20) Glucose Level 197 mg/dL (70-99) Lactic Acid Level 1.7 mmol/L (0.4-2.0) Calcium Level 8.6 mg/dL (8.5-10.1) Magnesium Level 1.7 mg/dL (1.8-2.4) Total Bilirubin 1.6 mg/dL (0.2-1.0) Aspartate Amino Transf (AST/SGOT) 20 U/L (15-37) Alanine Aminotransferase (ALT/SGPT) 25 U/L (16-63) Alkaline Phosphatase 82 U/L (46-116) Troponin I Quantitative < 0.017 ng/mL (0.000-0.055) QV-Eix-P-Type Natriuretic Peptide 1965 pg/mL (0-124) Total Protein 5.9 g/dL (6.4-8.2) Albumin 3.5 g/dL (3.4-5.0) Albumin/Globulin Ratio 1.5 (1.0-1.7) Influenza Type A Antigen Negative (NEGATIVE) Influenza Type B Antigen Negative (NEGATIVE) VTE Prophylaxis Ordered VTE Prophylaxis Devices: Yes VTE Pharmacological Prophylaxi: Yes Assessment/Plan Assessment/Plan ASSESSMENT Acute Hypoxic Resp failure secondary to probably CHF exacerbation vs HCAP a fib on oral AC CAD, cath 03/26 normal COPD LE edema HLD HTN PLAN dose of lasix given in ED start cefepime and vanc given recent admission 90 days ago check flu swab neb treatment restart home meds including oral AC check CT chest and echo will admit under observation. OSCAR CLARK MD Jul 11, 2019 15:29
[2019-07-11] MEDS ORDERED: VANCOMYCIN 2 GM in IV NORMAL SALINE 500ML BAG 500 ML IV ONE (16:00)
--- NOTE | 2019-07-11 16:02 | RAD ---
Exam: CT of chest without contrast INDICATION: Cough, shortness of air TECHNIQUE: Sequential axial images through the chest obtained without IV contrast. Sagittal and coronal reformatted images were reconstructed from the axial data and reviewed. Comparisons: 07/11/2019 FINDINGS: Visualized portions of the thyroid are unremarkable. No enlarged mediastinal lymph nodes are identified. Heart size is normal. There is a small pericardial effusion. Moderate coronary artery calcifications are noted. Thoracic aorta has a normal course and caliber. Pulmonary artery is not enlarged. Airways are patent. No consolidation or pneumothorax. There are small bilateral pleural effusions greater on the right with adjacent atelectasis. 5 mm nodule in the right upper lobe series 2 image 25. Gallstone noted within the gallbladder. There is trace perihepatic and pericholecystic fluid noted. No suspicious osseous lesions or acute fractures. IMPRESSION: 1. Small pericardial and small bilateral pleural effusions. Findings may be related to volume overload. 2. No consolidation. 3. Trace amount of pericholecystic and perihepatic fluid. Gallstone is noted within the gallbladder. 4. A 5 mm nodule in the right upper lobe. In a low-risk patient no further follow-up imaging is recommended. In a high-risk patient and optional one-year follow-up CT can BE performed. Exposure: One or more of the following in the visualized dose reduction techniques were utilized for this examination: 1. Automated exposure control 2. Adjustment of the MA and/or KV according to patient size 3. Use of iterative of reconstructive technique Electronically signed by: Gabbie Larios MD (07/11/2019 4:00 PM) [id number]
--- NOTE | 2019-07-11 16:07 | EKG ---
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
[2019-07-11] MEDS: CEFEPIME HCL IV Push 2 GM VIAL. IVP SCH ×2 (16:08→20:45)
[2019-07-11 17:55] VITALS: BP 153/112
[2019-07-11] MEDS ORDERED: ALBUTEROL SULFATE 2.5 MG/3 ML NEBU. NEB PRN (18:30)
--- NOTE | 2019-07-11 18:32 | NUR ---
Pharmacy Vancomycin Dosing Note S:Consulted to monitor and dose vancomycin started 07/11/19. O:LONDON CRESPO is a 63 year old M with possible pneumonia vs CHF exacerbation. Height: 5 feet, 6 inches Weight: 114 kg Dosing Weight: Actual Other Antibiotics: CEFEPIME 1G IV Q8HRS LABS: Last BUN: 23 Last Creatinine: 1.3 Creatinine Clearance: 62 mL/min Last WBC: 9.3 Last Procalcitonin: ordered for / Tmax (past 24 hours): 97.8 Microbiology: N/A A: Patient requires vancomycin for possible pneumonia, goal trough 15-20 mcg/ml. His SCr is 1.3 with an eCrCl of 62 ml/min (possibly elevated due to weight). Initiate the following: P: 1. Initiate Vancomycin 1500 mg IV q12h 2. Follow up Trough level on 07/13/19 at 0330 3. Pharmacy will continue to monitor, follow and adjust therapy as needed. MARLIN SO, [facility], 07/11/19 [id number]
[2019-07-11] MEDS ORDERED: MAGNESIUM SULFATE 2GM 50 ML IV ONE (18:45)
[2019-07-11 19:55] VITALS: BP 194/101
[2019-07-11] MEDS: APIXABAN 5 MG TABLET. PO SCH (20:44)
[2019-07-11] MEDS: SOTALOL 80 MG TABLET. PO SCH (20:44)
[2019-07-11] MEDS: ATORVASTATIN CALCIUM 40 MG TABLET. PO SCH (20:45)
[2019-07-11] MEDS: LACTOBACILLUS RHAMNOSUS GG 1 CAPSULE. PO SCH (20:45)
[2019-07-11] MEDS: CARVEDILOL 6.25 MG TABLET. PO SCH (20:45)
[2019-07-11] MEDS ORDERED: HYDROCORTISONE 2.5% RECTAL CREAM 30GM TUBE. TP SCH (21:00)
[2019-07-11 22:58] VITALS: BP 165/83
[2019-07-12] VITALS (7 sets, daily range): BP systolic 138–183; BP diastolic 75–115
[2019-07-12] MEDS ORDERED: VANCOMYCIN 1.5 GM in IV NORMAL SALINE 500ML BAG 500 ML IV SCH (04:00)
[2019-07-12 04:10] LABS: CREATININE 1.2 mg/dL (0.7-1.3); GFR 61.1
[2019-07-12] MEDS ORDERED: CEFEPIME HCL IV Push 2 GM VIAL. IVP SCH (06:00)
[2019-07-12] MEDS: ASPIRIN ENTERIC COATED 81 MG TABLET.DR. PO SCH (08:28)
[2019-07-12] MEDS: TAMSULOSIN 0.4 MG CAP.ER.24H. PO SCH (08:28)
[2019-07-12] MEDS: CARVEDILOL 6.25 MG TABLET. PO SCH ×2 (08:29→17:00)
[2019-07-12] MEDS: LOSARTAN POTASSIUM 50 MG TABLET. PO SCH (08:30)
[2019-07-12] MEDS: POTASSIUM CHLORIDE 20 MEQ TABLET.ER. PO SCH (08:31)
[2019-07-12] MEDS: APIXABAN 5 MG TABLET. PO SCH ×2 (08:31→21:15)
[2019-07-12] MEDS: amLODIPine BESYLATE 10 MG TABLET PO SCH (08:31)
[2019-07-12] MEDS: FUROSEMIDE 40 MG/4 ML VIAL. IVP SCH ×2 (08:32→13:41)
[2019-07-12] MEDS: SOTALOL 80 MG TABLET. PO SCH ×2 (08:33→21:15)
[2019-07-12] MEDS ORDERED: FUROSEMIDE 40 MG TABLET. PO SCH (09:00)
[2019-07-12] MEDS ORDERED: ANTI-COAG MONITOR BY PHARMACY. MC PRN (09:30)
--- NOTE | 2019-07-12 10:11 | NUR ---
SS following for discharge planning. SS reviewed pt chart. Pt is from home with spouse and is currently on room air. SS will continue to follow for discharge planning.
--- NOTE | 2019-07-12 10:49 | PDOC2 ---
VICKIE MITCHELL [employer]O [employer] 07/12/19 1049: CARDIAC CONSULT DATE OF CONSULT Date of Consult DATE: 07/12/19 TIME: 10:45 REASON FOR CONSULT Reason for Consult: CHF REFERRING PHYSICIAN Referring Physician: Ned SOURCE Source: Chart review, Patient HISTORY OF PRESENT ILLNESS HISTORY OF PRESENT ILLNESS This is a pleasant 63 yo male admitted for complains of shortness of breath. Reports that 1.5 months ago he stopped using his CPAP. He thinks it does not work in winter time as it makes him feel stuffy. IN the last month he has been having PEDERSON and felt tired. His SBP has been running 150-160. Verbalized diet compliance and medication complaince. He also has been having some palpitations. Does have occasional wheezing. He also has noticed that legs have been swollen and has been having some intermittent chest tightness. About 3 days he had bowel prep for colonoscopy and had a polpectomy and his eliquis has been resumed. Presently denies SOA but still has leg swelling. Positive for nausea, PND and orthopnea. PAST MEDICAL HISTORY Past Medical History Cardiovascular: AFIB, CAD, HTN, Hyperlipidemia Pulmonary: COPD, Pneumonia CENTRAL NERVOUS SYSTEM: Other (No pertinent history) GI: GERD, hemorrhoids, anal fissure, constipation Heme/Onc: No pertinent hx Psych: No pertinent hx Musculoskeletal: Osteoarthritis Infectious disease: No pertinent hx ENT: No pertinent hx Renal/: ED new Endocrine: left adrenal adenoma Dermatology: No pertinent hx PAST SURGICAL HISTORY Past Surgical History right inguinal hernia repair, Other (s/p PCI/stent in 2013 and PCI/SALOME to RCA in 2016), hemorrhoidectomy 3 weeks ago FAMILY HISTORY Family History Heart Disease (mother) SOCIAL HISTORY Social History Smoke: Quit ALCOHOL: none Drugs: None Lives: with Family CURRENT MEDICATIONS CURRENT MEDICATIONS Current Medications Medications (Trade) Dose Ordered Sig/Connie Route PRN Reason Start Time Stop Time Status Last Admin Dose Admin Albuterol/ Ipratropium (Duoneb) 3 ml 1X ONCE NEB 07/11/19 12:45 07/11/19 12:46 DC 07/11/19 12:54 Azithromycin 250 ml @ 250 mls/hr 1X ONCE IV 07/11/19 14:15 07/11/19 15:14 DC 07/11/19 14:10 Furosemide (Lasix) 40 mg 1X ONCE IVP 07/11/19 14:15 07/11/19 14:16 DC 07/11/19 14:10 Amlodipine Besylate (Norvasc) 10 mg DAILY PO 07/12/19 09:00 07/12/19 08:31 Apixaban (Eliquis) 5 mg BID PO 07/11/19 21:00 07/12/19 08:31 Aspirin (Ecotrin) 81 mg DAILY PO 07/12/19 09:00 07/12/19 08:28 Carvedilol (Coreg) 6.25 mg BIDWMEALS PO 07/11/19 19:00 07/12/19 08:29 Lactobacillus Rhamnosus (Culturelle) 1 cap BID PO 07/11/19 21:00 07/11/19 20:45 Potassium Chloride (Klor-Con) 20 meq DAILYWBKFT PO 07/12/19 08:00 07/12/19 08:31 Sotalol HCl (Betapace) 80 mg BID PO 07/11/19 21:00 07/12/19 08:33 Tamsulosin HCl (Flomax) 0.4 mg DAILY PO 07/12/19 09:00 07/12/19 08:28 Atorvastatin Calcium (Lipitor) 80 mg QHS PO 07/11/19 21:00 07/11/19 20:45 Losartan Potassium (Cozaar) 100 mg DAILY PO 07/12/19 09:00 07/12/19 08:30 Cefepime HCl (Maxipime) 2 gm Q8HRS IVP 07/11/19 16:00 07/12/19 04:17 DC 07/11/19 20:45 Vancomycin HCl (Vanco Per Pharmacy) 1 each PRN DAILY PRN MC SEE COMMENTS 07/11/19 15:15 07/12/19 07:55 DC 07/11/19 18:23 Vancomycin HCl 2 gm/Sodium Chloride 500 ml @ 250 mls/hr 1X ONCE IV 07/11/19 16:00 07/11/19 17:59 DC 07/11/19 16:08 Vancomycin HCl 1.5 gm/Sodium Chloride 500 ml @ 250 mls/hr Q12H IV 07/12/19 04:00 07/12/19 07:55 DC 07/12/19 05:21 Magnesium Sulfate 50 ml @ 25 mls/hr 1X ONCE IV 07/11/19 18:45 07/11/19 20:44 DC 07/11/19 19:53 Cefepime HCl (Maxipime) 2 gm Q8HRS IVP 07/12/19 06:00 07/12/19 07:55 DC 07/12/19 06:27 Furosemide (Lasix) 40 mg BID92 IVP 07/12/19 09:00 07/12/19 08:32 ALLERGIES ALLERGIES: Coded Allergies: iodine (Verified Allergy, Intermediate, 03/10/19) ROS Review of System 14 point ROS evaluated with pertinent positives noted per HPI PHYSICAL EXAM General: Alert, Oriented X3, Cooperative, No acute distress HEENT: Atraumatic, Mucous membr. moist/pink Lungs: Clear to auscultation, Normal air movement Heart: Normal S1, Normal S2, Other (AFIB) Abdomen: Soft, No tenderness Extremities: No cyanosis, Other (2+) Skin: No breakdown Neuro: Normal speech, Sensation intact Psych/Mental Status: Mental status NL, Mood NL MUSCULOSKELETAL: Osteoarthritic changes both hands VITALS/I&O VITALS/I&O: Vital Signs Date Time Temp Pulse Resp B/P (MAP) Pulse Ox O2 Delivery O2 Flow Rate FiO2 07/12/19 10:29 97.6 90 20 173/104 (127) 96 Room Air 97.6 I & O 07/11/19 07/11/19 07/12/19 15:00 23:00 07:00 Intake Total 120 ml Output Total 400 ml 700 ml Balance -280 ml -700 ml LABS Lab: Laboratory Tests Test 07/11/19 12:18 07/11/19 13:00 07/12/19 03:45 White Blood Count 9.3 x10^3/uL (4.0-11.0) Red Blood Count 5.23 x10^6/uL (4.30-5.70) Hemoglobin 13.8 g/dL (13.0-17.5) Hematocrit 43.1 % (39.0-53.0) Mean Corpuscular Volume 82 fL (79-100) Mean Corpuscular Hemoglobin 26 pg (25-35) Mean Corpuscular Hemoglobin Concent 32 g/dL (31-37) Red Cell Distribution Width 14.9 % (11.5-14.5) H Platelet Count 161 x10^3/uL (140-400) Neutrophils (%) (Auto) 80 % (31-73) H Lymphocytes (%) (Auto) 11 % (24-48) L Monocytes (%) (Auto) 7 % (0-9) Eosinophils (%) (Auto) 1 % (0-3) Basophils (%) (Auto) 0 % (0-3) Neutrophils # (Auto) 7.4 x10^3/uL (1.8-7.7) Lymphocytes # (Auto) 1.0 x10^3/uL (1.0-4.8) Monocytes # (Auto) 0.7 x10^3/uL (0.0-1.1) Eosinophils # (Auto) 0.1 x10^3/uL (0.0-0.7) Basophils # (Auto) 0.0 x10^3/uL (0.0-0.2) Sodium Level 144 mmol/L (136-145) Potassium Level 4.0 mmol/L (3.5-5.1) Chloride Level 106 mmol/L (98-107) Carbon Dioxide Level 28 mmol/L (21-32) Anion Gap 10 (6-14) Blood Urea Nitrogen 23 mg/dL (8-26) Creatinine 1.3 mg/dL (0.7-1.3) 1.2 mg/dL (0.7-1.3) Estimated GFR (Cockcroft-Gault) 55.8 61.1 BUN/Creatinine Ratio 18 (6-20) Glucose Level 197 mg/dL (70-99) H Lactic Acid Level 1.7 mmol/L (0.4-2.0) Calcium Level 8.6 mg/dL (8.5-10.1) Magnesium Level 1.7 mg/dL (1.8-2.4) L Total Bilirubin 1.6 mg/dL (0.2-1.0) H Aspartate Amino Transferase (AST) 20 U/L (15-37) Alanine Aminotransferase (ALT) 25 U/L (16-63) Alkaline Phosphatase 82 U/L (46-116) Troponin I Quantitative < 0.017 ng/mL (0.000-0.055) HK-Ifd-C-Type Natriuretic Peptide 1965 pg/mL (0-124) H Total Protein 5.9 g/dL (6.4-8.2) L Albumin 3.5 g/dL (3.4-5.0) Albumin/Globulin Ratio 1.5 (1.0-1.7) Influenza Type A Antigen Negative (NEGATIVE) Influenza Type B Antigen Negative (NEGATIVE) Procalcitonin < 0.10 ng/mL (0.00-0.10) Laboratory Tests 07/11/19 12:18 Laboratory Tests 07/11/19 12:18 07/12/19 03:45 ECHOCARDIOGRAM ECHOCARDIOGRAM <Conclusion> Left ventricle systolic function is low normal. The Ejection Fraction is 50%. Moderate mitral regurgitation. Mild tricuspid regurgitation. The PA pressure was estimated at 31 mmHg. There is no evidence of significant pericardial effusion. DATE: 03/09/19 1502 HEART CATH HEART CATH Conclusion No significant coronary artery disease with widely patent previously placed stents and left circumflex and right coronary arteries. Recommendations Medical Therapy DATE: 03/10/19 1213 ASSESSMENT/PLAN ASSESSMENT/PLAN 1. Acute on chronic diastolic/systolic CHF: Multifactorial as noted below. 2. Accelerated HTN 3. PAFIB: presently in AFIB rate controlled. Suspect RVR episodes based on sensation of palpitations 4. ALEN and CPAP noncompliant: contributing to CHF and refractory AFIB 5. Recent high volume bowel prep for colonoscopy: contributing to CHF. 6. HLP 7. Morbid obesity 8. Chest pain: likely from wheezing and palpitations. 9. CAD: recent LHC with patent stents. 10. Cardiomyopathy. multifactorial with ALEN, obesity, AFIB, and uncontrolled HTN Recommendations 1. Discussed follow up compliance and compliance with CPAP 2. Continue eliquis for stroke prevention. Continue sotalol. Secondary prevention measures. 3. HBPM 4. Diurese 6. BMP and Mg today CALEB KNIGHT MD 07/12/192026: CARDIAC CONSULT ASSESSMENT/PLAN ASSESSMENT/PLAN Patient seen and examined. Agree with SUPERVISOR INSECTICIDE's assessment and plan. Continue diuresis for acute on chr combined syst/diast HF 2D echo showed EF 40-45% AF rate controlled Continue eliquis for stroke prophylaxis CAD clinically stable Recent cardiac cath showed patent RCA/KLCX stents Thank you for your consultation VICKIE MITCHELL APRN Jul 12, 2019 10:49 CALEB KNIGHT MD Jul 12, 2019 20:27
--- NOTE | 2019-07-12 11:01 | CARD ---
MR#: [id number] Date of Study: 07/12/2019 Ordering Physician: OSCAR CLARK, Referring Physician: OSCAR CLARK, Tech: Tawana Gomez APPROVED REPORT EXAM: Two-dimensional and M-mode echocardiogram with Doppler and color Doppler. Other Information Quality : AverageHR: 88bpm Technically limited study due to body habitus. INDICATION Dyspnea Atrial Fibrillation Cardiac Disease: CAD Congestive Heart Failure Elevated BNP, Edema RISK FACTORS Hypertension Hyperlipidemia 2D DIMENSIONS RVDd3.2 (2.9-3.5cm)Left Atrium(2D)5.2 (1.6-4.0cm) IVSd1.4 (0.7-1.1cm)Aortic Root(2D)2.9 (2.0-3.7cm) LVDd5.5 (3.9-5.9cm)LVOT Diameter2.2 (1.8-2.4cm) PWd1.3 (0.7-1.1cm)LVDs4.4 (2.5-4.0cm) FS (%) 20.1 %SV61.1 ml LVEF(%)40.6 (>50%) Aortic Valve AoV Peak Ej.172.7cm/sAoV VTI29.8cm AO Peak GR.11.9mmHgLVOT Peak Ej.90.2cm/s LVOT VTI 15.79cmAO Mean GR.6mmHg CLARENCE (VMAX)1.12kb2YEM (VTI)1.92cm2 AI P 1/2 [id number] Mitral Valve MV E Oktdgzot868.5cm/sMV E Peak Gr.143mmHg MV DECEL [id number] A Mwmedhoj12.3cm/s MV E Mean Gr.4mmHgMV [id number] E/A Ratio2.3MVA (PHT)4.48cm2 TDI E/Lateral E'12.3E/Medial E'13.1 Pulmonary Valve PV Peak Hvbneckq05.6cm/sPV Peak Grad.3mmHg Tricuspid Valve TR P. Jrpjjhpo167dv/sRAP [id number] TR Peak Gr.54mmHg LEFT VENTRICLE The left ventricle is normal size. There is moderate concentric left ventricular hypertrophy. The lef t ventricular systolic function is mild to moderately decreased. LVEF 40-45% Wall motion consistent w ith conduction abnormality. There is mild global hypokinesis. Tissue Doppler imaging reveals moderate left ventricular diastolic dysfunction. RIGHT VENTRICLE The right ventricle is normal size. The right ventricle is borderline hypertrophied. The right ventri cular systolic function is normal. ATRIA The left atrium is mildly to moderately dilated. The right atrium is mildly to moderately dilated. Th e interatrial septum is intact with no evidence for an atrial septal defect or patent foramen ovale a s noted on 2-D or Doppler imaging. AORTIC VALVE The aortic valve is thickened but opens well. Doppler and Color Flow revealed trace aortic regurgitat ion. There is no significant aortic valvular stenosis. Calculated aortic valve area is 1.92 cm2 with maximum pressure gradient of 12 mmHg and mean pressure gradient of 6 mmHg. MITRAL VALVE The mitral valve is normal in structure and function. There is no evidence of mitral valve prolapse. Mitral valve has a mean gradient of 4 mmHg. Doppler and Color-flow revealed moderate mitral regurgita tion. TRICUSPID VALVE The tricuspid valve is normal in structure and function. Doppler and Color Flow revealed mild tricusp id regurgitation with an estimated PAP of 62 mmHg. There is no tricuspid valve stenosis. PULMONIC VALVE The pulmonic valve is not well visualized. Doppler and Color Flow revealed trace to mild pulmonic moira vular regurgitation. There is no pulmonic valvular stenosis. GREAT VESSELS The aortic root is normal in size. The ascending aorta is normal in size. The IVC is dilated and cici apses >50% with inspiration. PERICARDIAL EFFUSION There is a trace circumferential pericardial effusion. Critical Notification Critical Value: No <Conclusion> The left ventricular systolic function is mild to moderately decreased. LVEF 40-45% Wall motion consistent with conduction abnormality. There is mild global hypokinesis. Doppler and Color-flow revealed moderate mitral regurgitation. Doppler and Color Flow revealed mild tricuspid regurgitation with an estimated PAP of 62 mmHg. There is a trace circumferential pericardial effusion. Signed by : Henrry Heller, Electronically Approved : 07/12/2019 11:01:11
[2019-07-12 11:36] LABS: CALCIUM 8.3 mg/dL (8.5-10.1); CREATININE 1.2 mg/dL (0.7-1.3); GFR 61.1; POTASSIUM 3.6 mmol/L (3.5-5.1)
--- NOTE | 2019-07-12 11:59 | NUR ---
Student cosign: I have read the shift assessments and documentation from SN Michelle and concur unless otherwise documented. Grace Tabor, MSN, MICHELLE, RN [facility]
[2019-07-12] MEDS: LACTOBACILLUS RHAMNOSUS GG 1 CAPSULE. PO SCH ×2 (12:05→21:15)
--- NOTE | 2019-07-12 14:00 | PDOC ---
PROGRESS NOTES Chief Complaint Chief Complaint Acute Hypoxic Resp failure secondary to Acute on chronic diastolic CHF, Multifactorial secondary to non-compliance with cpap (ALEN), recent bowel prep for colo b/l pleural effusions secondary to CHF HTN PAFIB ALEN and CPAP noncompliant HLD Morbid obesity a fib on oral AC CAD, cath 03/26 normal COPD LE edema 5 mm RUL nodule, needs outpatient follow up PLAN cefepime and vanc given cocern for PNA. stopped abx as symptoms more likely chf flu negative restart home meds including oral AC change PO to IV lasix echo: the left ventricular systolic function is mild to moderately decreased. LVEF 40-45% Wall motion consistent with conduction abnormality. There is mild global hypokinesis. Doppler and Color-flow revealed moderate mitral regurgitation. Doppler and Color Flow revealed mild tricuspid regurgitation with an estimated PAP of 62 mmHg. There is a trace circumferential pericardial effusion. apprec cards History of Present Illness History of Present Illness no acute issues overnight. Vitals Vitals Vital Signs Date Time Temp Pulse Resp B/P (MAP) Pulse Ox O2 Delivery O2 Flow Rate FiO2 07/12/19 12:07 97.6 76 20 158/87 (110) 96 Room Air 97.6 Physical Exam Lungs: Clear, Crackles Labs LABS Laboratory Tests Test 07/12/19 03:45 Sodium Level 143 mmol/L (136-145) Potassium Level 3.6 mmol/L (3.5-5.1) Chloride Level 105 mmol/L (98-107) Carbon Dioxide Level 28 mmol/L (21-32) Anion Gap 10 (6-14) Blood Urea Nitrogen 20 mg/dL (8-26) Creatinine 1.2 mg/dL (0.7-1.3) Estimated GFR (Cockcroft-Gault) 61.1 Glucose Level 117 mg/dL (70-99) Calcium Level 8.3 mg/dL (8.5-10.1) Magnesium Level 1.9 mg/dL (1.8-2.4) Procalcitonin < 0.10 ng/mL (0.00-0.10) Assessment and Plan Assessmemt and Plan Problems Medical Problems: (1) Congestive heart failure Status: Acute (2) Dyspnea Status: Acute (3) Pneumonitis Status: Acute Comment Review of Relevant I have reviewed the following items robbin (where applicable) has been applied. Labs Laboratory Tests Test 07/11/19 12:18 07/11/19 13:00 07/12/19 03:45 White Blood Count 9.3 x10^3/uL (4.0-11.0) Red Blood Count 5.23 x10^6/uL (4.30-5.70) Hemoglobin 13.8 g/dL (13.0-17.5) Hematocrit 43.1 % (39.0-53.0) Mean Corpuscular Volume 82 fL (79-100) Mean Corpuscular Hemoglobin 26 pg (25-35) Mean Corpuscular Hemoglobin Concent 32 g/dL (31-37) Red Cell Distribution Width 14.9 % (11.5-14.5) Platelet Count 161 x10^3/uL (140-400) Neutrophils (%) (Auto) 80 % (31-73) Lymphocytes (%) (Auto) 11 % (24-48) Monocytes (%) (Auto) 7 % (0-9) Eosinophils (%) (Auto) 1 % (0-3) Basophils (%) (Auto) 0 % (0-3) Neutrophils # (Auto) 7.4 x10^3/uL (1.8-7.7) Lymphocytes # (Auto) 1.0 x10^3/uL (1.0-4.8) Monocytes # (Auto) 0.7 x10^3/uL (0.0-1.1) Eosinophils # (Auto) 0.1 x10^3/uL (0.0-0.7) Basophils # (Auto) 0.0 x10^3/uL (0.0-0.2) Sodium Level 144 mmol/L (136-145) 143 mmol/L (136-145) Potassium Level 4.0 mmol/L (3.5-5.1) 3.6 mmol/L (3.5-5.1) Chloride Level 106 mmol/L (98-107) 105 mmol/L (98-107) Carbon Dioxide Level 28 mmol/L (21-32) 28 mmol/L (21-32) Anion Gap 10 (6-14) 10 (6-14) Blood Urea Nitrogen 23 mg/dL (8-26) 20 mg/dL (8-26) Creatinine 1.3 mg/dL (0.7-1.3) 1.2 mg/dL (0.7-1.3) Estimated GFR (Cockcroft-Gault) 55.8 61.1 BUN/Creatinine Ratio 18 (6-20) Glucose Level 197 mg/dL (70-99) 117 mg/dL (70-99) Lactic Acid Level 1.7 mmol/L (0.4-2.0) Calcium Level 8.6 mg/dL (8.5-10.1) 8.3 mg/dL (8.5-10.1) Magnesium Level 1.7 mg/dL (1.8-2.4) 1.9 mg/dL (1.8-2.4) Total Bilirubin 1.6 mg/dL (0.2-1.0) Aspartate Amino Transf (AST/SGOT) 20 U/L (15-37) Alanine Aminotransferase (ALT/SGPT) 25 U/L (16-63) Alkaline Phosphatase 82 U/L (46-116) Troponin I Quantitative < 0.017 ng/mL (0.000-0.055) UJ-Vbn-M-Type Natriuretic Peptide 1965 pg/mL (0-124) Total Protein 5.9 g/dL (6.4-8.2) Albumin 3.5 g/dL (3.4-5.0) Albumin/Globulin Ratio 1.5 (1.0-1.7) Influenza Type A Antigen Negative (NEGATIVE) Influenza Type B Antigen Negative (NEGATIVE) Procalcitonin < 0.10 ng/mL (0.00-0.10) Laboratory Tests Test 07/12/19 03:45 Sodium Level 143 mmol/L (136-145) Potassium Level 3.6 mmol/L (3.5-5.1) Chloride Level 105 mmol/L (98-107) Carbon Dioxide Level 28 mmol/L (21-32) Anion Gap 10 (6-14) Blood Urea Nitrogen 20 mg/dL (8-26) Creatinine 1.2 mg/dL (0.7-1.3) Estimated GFR (Cockcroft-Gault) 61.1 Glucose Level 117 mg/dL (70-99) Calcium Level 8.3 mg/dL (8.5-10.1) Magnesium Level 1.9 mg/dL (1.8-2.4) Procalcitonin < 0.10 ng/mL (0.00-0.10) Medications Current Medications Albuterol/ Ipratropium (Duoneb) 3 ml 1X ONCE NEB Last administered on 07/11/19at 12:54; Start 07/11/19 at 12:45; Stop 07/11/19 at 12:46; Status DC Azithromycin 250 ml @ 250 mls/hr 1X ONCE IV Last administered on 07/11/19at 1 4:10; Start 07/11/19 at 14:15; Stop 07/11/19 at 15:14; Status DC Furosemide (Lasix) 40 mg 1X ONCE IVP Last administered on 07/11/19at 14:10; Start 07/11/19 at 14:15; Stop 07/11/19 at 14:16; Status DC Amlodipine Besylate (Norvasc) 10 mg DAILY PO Last administered on 07/12/19at 08:31; Start 07/12/19 at 09:00 Apixaban (Eliquis) 5 mg BID PO Last administered on 07/12/19at 08:31; Start at 21:00 Aspirin (Ecotrin) 81 mg DAILY PO Last administered on 07/12/19at 08:28; Start 07/12/19 at 09:00 Carvedilol (Coreg) 6.25 mg BIDWMEALS PO Last administered on 07/12/19at 08:29; Start 07/11/19 at 19:00 Docusate Sodium (Colace) 100 mg PRN DAILY PRN PO HARD STOOLS; Start 07/11/19 at 15:15 Furosemide (Lasix) 40 mg DAILY PO ; Start 07/12/19 at 09:00; Stop 07/12/19 at 07:55; Status DC Hydrocortisone (Proctosol-Hc) 1 prabhjot BID TP ; Start 07/11/19 at 21:00; Status UNV Lactobacillus Rhamnosus (Culturelle) 1 cap BID PO Last administered on 07/12/19at 12:05; Start 07/11/19 at 21:00 Nitroglycerin (Nitrostat) 0.4 mg PRN Q5MIN PRN SL CHEST PAIN; Start 07/11/19 at 15:15 Polyethylene Glycol (miraLAX PACKET) 17 gm PRN DAILY PRN PO CONSTIPATION; Start 07/11/19 at 15:15 Potassium Chloride (Klor-Con) 20 meq DAILYWBKFT PO Last administered on 07/12/19 08:31; Start 07/12/19 at 08:00 Sotalol HCl (Betapace) 80 mg BID PO Last administered on 07/12/19 08:33; Start 07/11/19 at 21:00 Tamsulosin HCl (Flomax) 0.4 mg DAILY PO Last administered on 07/12/19 08:28; Start 07/12/19 at 09:00 Non-Formulary Medication (Albuterol Sulfate (Proventil Hfa Inhaler)) 2 puff PRN Q6HRS PRN IH FOR ASTHMA; Start 07/11/19 at 15:15; Status UNV Atorvastatin Calcium (Lipitor) 80 mg QHS PO Last administered on 07/11/19 20:45; Start 07/11/19 at 21:00 Losartan Potassium (Cozaar) 100 mg DAILY PO Last administered on 07/12/19 08:30; Start 07/12/19 at 09:00 Cefepime HCl (Maxipime) 2 gm Q8HRS IVP Last administered on 07/11/19 20:45; Start 07/11/19 at 16:00; Stop 07/12/19 at 04:17; Status DC Vancomycin HCl (Vanco Per Pharmacy) 1 each PRN DAILY PRN MC SEE COMMENTS Last administered on 07/11/19 18:23; Start 07/11/19 at 15:15; Stop 07/12/19 at 07:55; Status DC Vancomycin HCl 2 gm/Sodium Chloride 500 ml @ 250 mls/hr 1X ONCE IV Last administered on 07/11/19 16:08; Start 07/11/19 at 16:00; Stop 07/11/19 at 17:59; Status DC Albuterol Sulfate (Ventolin Neb Soln) 2.5 mg PRN Q6HRS PRN NEB SHORTNESS OF BREATH; Start 07/11/19 at 18:30 Vancomycin HCl 1.5 gm/Sodium Chloride 500 ml @ 250 mls/hr Q12H IV Last administered on 07/12/19 05:21; Start 07/12/19 at 04:00; Stop 07/12/19 at 07:55; Status DC Vancomycin HCl (Vancomycin Trough Level) 1 each 1X ONCE MC ; Start 07/13/19 at 03:30; Stop 07/12/19 at 07:57; Status DC Magnesium Sulfate 50 ml @ 25 mls/hr 1X ONCE IV Last administered on 07/11/19at 19:53; Start 07/11/19 at 18:45; Stop 07/11/19 at 20:44; Status DC Cefepime HCl (Maxipime) 2 gm Q8HRS IVP Last administered on 07/12/19at 06:27; Start 07/12/19 at 06:00; Stop 07/12/19 at 07:55; Status DC Furosemide (Lasix) 40 mg BID92 IVP Last administered on 07/12/19at 13:41; Start 07/12/19 at 09:00 Info (Anti-Coagulation Monitoring By Pharmacy) 1 each PRN DAILY PRN MC SEE COMMENTS; Start 07/12/19 at 09:30 Active Scripts Active Medrol (Methylprednisolone) 4 Mg Tab.ds.pk 1 Pkg PO UD Proair Hfa Inhaler (Albuterol Sulfate) 8.5 Gm Hfa.aer.ad 2 Puff INH PRN Q6HRS PRN Anusol-Hc (Hydrocortisone) 30 Gm Cream..g. 1 Prabhjot TP BID 12 Days Culturelle (Lactobacillus Rhamnosus Gg) 1 Each Cap.sprink 1 Cap PO BID 30 Days Doxycycline Hyclate 100 Mg Tablet 100 Mg PO BID 10 Days Polyethylene Glycol 3350 17 Gm Powd.pack 17 Gm PO PRN DAILY PRN Amitiza (Lubiprostone) 8 Mcg Capsule 8 Mcg PO BIDWMEALS 30 Days Colace (Docusate Sodium) 100 Mg Capsule 100 Mg PO PRN DAILY PRN Betapace (Sotalol Hcl) 80 Mg Tablet 80 Mg PO BID 30 Days Reported Flomax (Tamsulosin Hcl) 0.4 Mg Cap.er.24h 1 Cap PO DAILY Carvedilol (Carvedilol) 6.25 Mg Tablet 6.25 Mg PO BIDWMEALS Proventil Hfa Inhaler (Albuterol Sulfate) 6.7 Gm Hfa.aer.ad 2 Puff IH PRN Q6HRS PRN Furosemide 40 Mg Tablet 40 Mg PO DAILY Atorvastatin Calcium 80 Mg Tablet 80 Mg PO HS Losartan Potassium 100 Mg Tablet 100 Mg PO DAILY Potassium Chloride (Potassium Chloride) 20 Meq Tablet.er 20 Meq PO DAILY Eliquis (Apixaban) 5 Mg Tablet 5 Mg PO BID Aspir 81 (Aspirin) 81 Mg Tablet.dr 1 Tab PO DAILY LAST DOSE GIVEN: DATE: 07/23/15 TIME: 0900 AM NEXT DOSE DUE: DATE: TOMORROW 07/24/15 TIME: 0900 AM Amlodipine Besylate 10 Mg Tablet 10 Mg PO DAILY LAST DOSE GIVEN: DATE: 07/23/15 TIME: 0900 NEXT DOSE DUE: DATE: Tomorr07/24/15 TIME: 0900 NITROGLYCERIN SubLingual (Nitroglycerin) 0.4 Mg Tab.subl 0.4 Mg SL PRN Q5MIN PRN Vitals/I & O Vital Sign - Last 24 Hours 07/11/19 07/11/19 07/11/19 07/11/19 15:26 15:49 16:19 16:49 B/P (MAP) 159/116 (130) 157/96 (116) 154/108 (123) 174/106 (128) O2 Delivery Room Air Room Air Room Air Room Air 07/11/19 07/11/19 07/11/19 07/11/19 17:19 17:55 18:24 19:55 Temp 97.4 97.9 97.4 97.9 Pulse 97 90 Resp 22 B/P (MAP) 168/108 (128) 153/112 (126) 194/101 (132) Pulse Ox 97 96 O2 Delivery Room Air Room Air Room Air Room Air 07/11/19 07/11/19 07/11/19 07/11/19 20:00 20:44 20:45 22:58 Temp 98.1 98.1 Pulse 90 90 95 Resp 20 B/P (MAP) 194/101 194/101 165/83 (110) Pulse Ox 96 O2 Delivery Room Air Room Air 07/12/19 07/12/19 07/12/19 07/12/19 03:00 03:08 07:00 08:00 Temp 98.4 97.6 98.4 97.6 Pulse 92 85 Resp 23 18 B/P (MAP) 160/75 (103) 183/115 (137) Pulse Ox 95 91 O2 Delivery Room Air Room Air Room Air 07/12/19 07/12/19 07/12/19 07/12/19 08:29 08:30 08:31 08:33 Pulse 99 99 99 99 B/P (MAP) 173/114 173/114 173/114 173/114 07/12/19 07/12/19 07/12/19 10:29 11:00 12:07 Temp 97.6 97.6 97.6 97.6 Pulse 90 76 Resp 20 20 B/P (MAP) 173/104 (127) 158/87 (110) Pulse Ox 96 96 O2 Delivery Room Air Room Air Room Air Intake and Output 07/11/19 07/11/19 07/12/19 15:00 23:00 07:00 Intake Total 120 ml Output Total 400 ml 700 ml Balance -280 ml -700 ml OSCAR CLARK MD Jul 12, 2019 14:00
[2019-07-12] MEDS ORDERED: POTASSIUM CHLORIDE 20 MEQ TABLET.ER. PO ONE (14:30)
[2019-07-12 15:20] LABS: CHOLESTEROL/HDL RATIO 3.3
[2019-07-12] MEDS: ATORVASTATIN CALCIUM 40 MG TABLET. PO SCH (21:15)
[2019-07-13] VITALS (8 sets, daily range): BP systolic 123–218; BP diastolic 78–109
[2019-07-13 06:05] LABS: CREATININE 1.2 mg/dL (0.7-1.3); GFR 61.1
[2019-07-13] MEDS: ASPIRIN ENTERIC COATED 81 MG TABLET.DR. PO SCH (08:02)
[2019-07-13] MEDS: LACTOBACILLUS RHAMNOSUS GG 1 CAPSULE. PO SCH ×2 (08:03→22:56)
[2019-07-13] MEDS: TAMSULOSIN 0.4 MG CAP.ER.24H. PO SCH (08:03)
[2019-07-13] MEDS: APIXABAN 5 MG TABLET. PO SCH ×2 (08:03→22:56)
[2019-07-13] MEDS: amLODIPine BESYLATE 10 MG TABLET PO SCH (08:03)
[2019-07-13] MEDS: POTASSIUM CHLORIDE 20 MEQ TABLET.ER. PO SCH (08:03)
[2019-07-13] MEDS: CARVEDILOL 6.25 MG TABLET. PO SCH ×2 (08:04→17:33)
[2019-07-13] MEDS: SOTALOL 80 MG TABLET. PO SCH ×2 (08:04→22:55)
[2019-07-13] MEDS: LOSARTAN POTASSIUM 50 MG TABLET. PO SCH (08:04)
[2019-07-13] MEDS: FUROSEMIDE 40 MG/4 ML VIAL. IVP SCH ×2 (08:07→13:19)
[2019-07-13] MEDS: hydrALAZINE 20 MG/ML VIAL. IVP PRN (08:37)
--- NOTE | 2019-07-13 10:00 | NUR ---
Patient this morning presented with elevated BP of 218/109 and a headache but no chest pain or other symptoms noted. Morning BP medications given and Dr Marino notified in person. New order for PRN hydralazine ordered and given. BP stabilized finally to 123/83 after all medications were given. No other concerns noted at this time. Will continue to monitor.
--- NOTE | 2019-07-13 14:08 | PDOC ---
PROGRESS NOTES Chief Complaint Chief Complaint Acute Hypoxic Resp failure secondary to Acute on chronic diastolic CHF, Multifactorial secondary to non-compliance with cpap (ALEN), recent bowel prep for colo b/l pleural effusions secondary to CHF HTN, uncontrolled PAFIB ALEN and CPAP noncompliant HLD Morbid obesity a fib on oral AC CAD, cath 03/26 normal COPD LE edema 5 mm RUL nodule, needs outpatient follow up PLAN cefepime and vanc given cocern for PNA. stopped abx 07/12 as symptoms more likely chf flu negative restart home meds including oral AC continue IV lasix echo: the left ventricular systolic function is mild to moderately decreased. LVEF 40-45% Wall motion consistent with conduction abnormality. There is mild global hypokinesis. Doppler and Color-flow revealed moderate mitral regurgitation. Doppler and Color Flow revealed mild tricuspid regurgitation with an estimated PAP of 62 mmHg. There is a trace circumferential pericardial effusion. apprec cards BP markedly elevated this AM. prn pulliam dc bert of BP stable and labs stable BMP in AM History of Present Illness History of Present Illness no acute issues overnight. Vitals Vitals Vital Signs Date Time Temp Pulse Resp B/P (MAP) Pulse Ox O2 Delivery O2 Flow Rate FiO2 07/13/19 13:25 84 156/94 (114) 07/13/19 10:25 97.9 95 Room Air 97.9 07/13/19 07:52 21 Physical Exam General: Alert, Oriented X3, Cooperative, No acute distress Heart: Normal S1, Normal S2, Other (AFIB) Lungs: Clear, Crackles Abdomen: Soft, No tenderness Extremities: No cyanosis, Other (2+) Skin: No breakdown Labs LABS Laboratory Tests Test 07/13/19 04:40 Creatinine 1.2 mg/dL (0.7-1.3) Estimated GFR (Cockcroft-Gault) 61.1 Assessment and Plan Assessmemt and Plan Problems Medical Problems: (1) Congestive heart failure Status: Acute (2) Dyspnea Status: Acute (3) Pneumonitis Status: Acute Comment Review of Relevant I have reviewed the following items robbin (where applicable) has been applied. Labs Laboratory Tests Test 07/12/19 03:45 07/13/19 04:40 Sodium Level 143 mmol/L (136-145) Potassium Level 3.6 mmol/L (3.5-5.1) Chloride Level 105 mmol/L (98-107) Carbon Dioxide Level 28 mmol/L (21-32) Anion Gap 10 (6-14) Blood Urea Nitrogen 20 mg/dL (8-26) Creatinine 1.2 mg/dL (0.7-1.3) 1.2 mg/dL (0.7-1.3) Estimated GFR (Cockcroft-Gault) 61.1 61.1 Glucose Level 117 mg/dL (70-99) Calcium Level 8.3 mg/dL (8.5-10.1) Magnesium Level 1.9 mg/dL (1.8-2.4) Troponin I Quantitative 0.058 ng/mL (0.000-0.055) Triglycerides Level 85 mg/dL (0-150) Cholesterol Level 104 mg/dL (0-200) LDL Cholesterol, Calculated 55 mg/dL (0-100) VLDL Cholesterol, Calculated 17 mg/dL (0-40) Non-HDL Cholesterol Calculated 72 mg/dL (0-129) HDL Cholesterol 32 mg/dL (40-60) Cholesterol/HDL Ratio 3.3 Procalcitonin < 0.10 ng/mL (0.00-0.10) Laboratory Tests Test 07/13/19 04:40 Creatinine 1.2 mg/dL (0.7-1.3) Estimated GFR (Cockcroft-Gault) 61.1 Medications Current Medications Albuterol/ Ipratropium (Duoneb) 3 ml 1X ONCE NEB Last administered on 07/11/19 12:54; Start 07/11/19 at 12:45; Stop 07/11/19 at 12:46; Status DC Azithromycin 250 ml @ 250 mls/hr 1X ONCE IV Last administered on 07/11/19at 14:10; Start 07/11/19 at 14:15; Stop 07/11/19 at 15:14; Status DC Furosemide (Lasix) 40 mg 1X ONCE IVP Last administered on 07/11/19at 14:10; Start 07/11/19 at 14:15; Stop 07/11/19 at 14:16; Status DC Amlodipine Besylate (Norvasc) 10 mg DAILY PO Last administered on 07/13/19at 08:03; Start 07/12/19 at 09:00 Apixaban (Eliquis) 5 mg BID PO Last administered on 07/13/19 08:03; Start 07/11/19 at 21:00 Aspirin (Ecotrin) 81 mg DAILY PO Last administered on 07/13/19 08:02; Start 07/12/19 at 09:00 Carvedilol (Coreg) 6.25 mg BIDWMEALS PO Last administered on 07/13/19at 08:04; Start 07/11/19 at 19:00 Docusate Sodium (Colace) 100 mg PRN DAILY PRN PO HARD STOOLS; Start 07/11/19 at 15:15 Furosemide (Lasix) 40 mg DAILY PO ; Start 07/12/19 at 09:00; Stop 07/12/19 at 07:55; Status DC Hydrocortisone (Proctosol-Hc) 1 edwin BID TP ; Start 07/11/19 at 21:00; Status UNV Lactobacillus Rhamnosus (Culturelle) 1 cap BID PO Last administered on 07/13/19 08:03; Start 07/11/19 at 21:00 Nitroglycerin (Nitrostat) 0.4 mg PRN Q5MIN PRN SL CHEST PAIN; Start 07/11/19 at 15:15 Polyethylene Glycol (miraLAX PACKET) 17 gm PRN DAILY PRN PO CONSTIPATION; Start 07/11/19 at 15:15 Potassium Chloride (Klor-Con) 20 meq DAILYWBKFT PO Last administered on 07/13/19 08:03; Start 07/12/19 at 08:00 Sotalol HCl (Betapace) 80 mg BID PO Last administered on 07/13/19 08:04; Start 07/11/19 at 21:00 Tamsulosin HCl (Flomax) 0.4 mg DAILY PO Last administered on 07/13/19 08:03; Start 07/12/19 at 09:00 Non-Formulary Medication (Albuterol Sulfate (Proventil Hfa Inhaler)) 2 puff PRN Q6HRS PRN IH FOR ASTHMA; Start 07/11/19 at 15:15; Status UNV Atorvastatin Calcium (Lipitor) 80 mg QHS PO Last administered on 07/12/19 21:15; Start 07/11/19 at 21:00 Losartan Potassium (Cozaar) 100 mg DAILY PO Last administered on 07/13/19at 08:04; Start 2/4/20 at 09:00 Cefepime HCl (Maxipime) 2 gm Q8HRS IVP Last administered on 07/11/19at 20:45; Start 07/11/19 at 16:00; Stop 07/12/19 at 04:17; Status DC Vancomycin HCl (Vanco Per Pharmacy) 1 each PRN DAILY PRN MC SEE COMMENTS Last administered on 07/11/19at 18:23; Start 07/11/19 at 15:15; Stop 07/12/19 at 07:55; Status DC Vancomycin HCl 2 gm/Sodium Chloride 500 ml @ 250 mls/hr 1X ONCE IV Last administered on 07/11/19at 16:08; Start 07/11/19 at 16:00; Stop 07/11/19 at 17:59; Status DC Albuterol Sulfate (Ventolin Neb Soln) 2.5 mg PRN Q6HRS PRN NEB SHORTNESS OF BREATH; Start 07/11/19 at 18:30 Vancomycin HCl 1.5 gm/Sodium Chloride 500 ml @ 250 mls/hr Q12H IV Last administered on 07/12/19at 05:21; Start 07/12/19 at 04:00; Stop 07/12/19 at 07:55; Status DC Vancomycin HCl (Vancomycin Trough Level) 1 each 1X ONCE MC ; Start 07/13/19 at 03:30; Stop 07/12/19 at 07:57; Status DC Magnesium Sulfate 50 ml @ 25 mls/hr 1X ONCE IV Last administered on 07/11/19at 19:53; Start 07/11/19 at 18:45; Stop 07/11/19 at 20:44; Status DC Cefepime HCl (Maxipime) 2 gm Q8HRS IVP Last administered on 07/12/19at 06:27; Start 07/12/19 at 06:00; Stop 07/12/19 at 07:55; Status DC Furosemide (Lasix) 40 mg BID92 IVP Last administered on 07/13/19at 13:19; Start 07/12/19 at 09:00 Info (Anti-Coagulation Monitoring By Pharmacy) 1 each PRN DAILY PRN MC SEE COMMENTS; Start 07/12/19 at 09:30 Potassium Chloride (Klor-Con) 20 meq 1X ONCE PO Last administered on 07/12/19at 17:00; Start 07/12/19 at 14:30; Stop 07/12/19 at 14:34; Status DC Hydralazine HCl (Apresoline Inj) 10 mg PRN Q6HRS PRN IVP ELEVATED BP, SEE COMMENTS Last administered on 07/13/19at 08:37; Start 07/13/19 at 08:30 Active Scripts Active Medrol (Methylprednisolone) 4 Mg Tab.ds.pk 1 Pkg PO UD Proair Hfa Inhaler (Albuterol Sulfate) 8.5 Gm Hfa.aer.ad 2 Puff INH PRN Q6HRS PRN Anusol-Hc (Hydrocortisone) 30 Gm Cream..g. 1 Edwin TP BID 12 Days Culturelle (Lactobacillus Rhamnosus Gg) 1 Each Cap.sprink 1 Cap PO BID 30 Days Doxycycline Hyclate 100 Mg Tablet 100 Mg PO BID 10 Days Polyethylene Glycol 3350 17 Gm Powd.pack 17 Gm PO PRN DAILY PRN Amitiza (Lubiprostone) 8 Mcg Capsule 8 Mcg PO BIDWMEALS 30 Days Colace (Docusate Sodium) 100 Mg Capsule 100 Mg PO PRN DAILY PRN Betapace (Sotalol Hcl) 80 Mg Tablet 80 Mg PO BID 30 Days Reported Flomax (Tamsulosin Hcl) 0.4 Mg Cap.er.24h 1 Cap PO DAILY Carvedilol (Carvedilol) 6.25 Mg Tablet 6.25 Mg PO BIDWMEALS Proventil Hfa Inhaler (Albuterol Sulfate) 6.7 Gm Hfa.aer.ad 2 Puff IH PRN Q6HRS PRN Furosemide 40 Mg Tablet 40 Mg PO DAILY Atorvastatin Calcium 80 Mg Tablet 80 Mg PO HS Losartan Potassium 100 Mg Tablet 100 Mg PO DAILY Potassium Chloride (Potassium Chloride) 20 Meq Tablet.er 20 Meq PO DAILY Eliquis (Apixaban) 5 Mg Tablet 5 Mg PO BID Aspir 81 (Aspirin) 81 Mg Tablet. 1 Tab PO DAILY LAST DOSE GIVEN: DATE: 07/23/15 TIME: 0900 AM NEXT DOSE DUE: DATE: TOMORROW 07/24/15 TIME: 0900 AM Amlodipine Besylate 10 Mg Tablet 10 Mg PO DAILY LAST DOSE GIVEN: DATE: 07/23/15 TIME: 0900 NEXT DOSE DUE: DATE: Tomorr07/24/15 TIME: 0900 NITROGLYCERIN SubLingual (Nitroglycerin) 0.4 Mg Tab.subl 0.4 Mg SL PRN Q5MIN PRN Vitals/I & O Vital Sign - Last 24 Hours 07/12/19 07/12/19 07/12/19 07/12/19 15:00 17:00 19:00 20:00 Temp 97.7 98.0 97.7 98.0 Pulse 77 77 86 Resp 18 24 B/P (MAP) 158/88 (111) 158/88 177/93 (121) Pulse Ox 95 93 O2 Delivery Room Air Room Air Room Air 07/12/19 07/12/19 07/13/19 07/13/19 21:15 23:00 03:00 07:52 Temp 98.4 98.2 98.1 98.4 98.2 98.1 Pulse 86 94 80 89 Resp 20 16 21 B/P (MAP) 177/93 138/92 (107) 167/84 (111) 218/109 (145) Pulse Ox 95 89 93 O2 Delivery Room Air Room Air Room Air 07/13/19 07/13/19 07/13/19 07/13/19 08:03 08:04 08:04 08:04 Pulse 89 89 89 89 B/P (MAP) 218/109 218/109 218/109 218/109 07/13/19 07/13/19 07/13/19 07/13/19 08:15 08:37 09:16 10:25 Temp 97.9 97.9 Pulse 78 87 B/P (MAP) 216/139 123/83 (96) 134/94 (107) Pulse Ox 95 O2 Delivery Room Air Room Air 07/13/19 13:25 Pulse 84 B/P (MAP) 156/94 (114) Intake and Output 07/12/19 07/12/19 07/13/19 15:00 23:00 07:00 Intake Total 400 ml Output Total 1525 ml 2050 ml 600 ml Balance -1125 ml -2050 ml -600 ml OSCAR CLARK MD Jul 13, 2019 14:08
--- NOTE | 2019-07-13 16:51 | PDOC ---
PROGRESS NOTES Subjective Subjective Feeling better with improvement in dyspnea Objective Objective Vital Signs Date Time Temp Pulse Resp B/P (MAP) Pulse Ox O2 Delivery O2 Flow Rate FiO2 07/13/19 14:49 98.0 81 21 154/80 (104) 94 Room Air 98.0 Intake and Output 07/13/19 07:00 Intake Total 400 ml Output Total 4175 ml Balance -3775 ml Intake Oral 400 ml Output Urine Total 4175 ml Physical Exam Abdomen: Soft, No tenderness Heart: Normal S1, Normal S2, Other (AFIB) Extremities: No cyanosis, Other (2+) General: Alert, Oriented X3, Cooperative, No acute distress HEENT: Atraumatic, Mucous membr. moist/pink Lungs: Normal air movement, Other (decreased air entry in the bases) Neuro: Normal speech, Sensation intact Psych/Mental Status: Mental status NL, Mood NL Skin: No breakdown Assessment Assessment 1. Acute on chronic combined diastolic/systolic CHF: Multifactorial, improved with diuresis. 2-D echo showed LVEF 40-45%. 2. Accelerated HTN: Better controlled since admission. 3. PAFIB: Continue eliquis for stroke prophylaxis 4. ALEN and CPAP noncompliant: contributing to CHF and refractory AFIB 5. CAD:s/p PCI/stents to RCA/LCx with recent cardiac catheterization showing patent stents. He is clinically stable Plan Plan of Care Problems Medical Problems: (1) Congestive heart failure Status: Acute (2) Dyspnea Status: Acute (3) Pneumonitis Status: Acute Comment Review of Relevant I have reviewed the following items robbin (where applicable) has been applied. Labs Laboratory Tests Test 07/13/19 04:40 Creatinine 1.2 mg/dL (0.7-1.3) Estimated GFR (Cockcroft-Gault) 61.1 Medications Current Medications Hydralazine HCl (Apresoline Inj) 10 mg PRN Q6HRS PRN IVP ELEVATED BP, SEE COMMENTS Last administered on 07/13/19at 08:37; Start 07/13/19 at 08:30 Vancomycin HCl (Vancomycin Trough Level) 1 each 1X ONCE MC ; Start 07/13/19 at 03:30; Stop 07/12/19 at 07:57; Status DC Vitals/I & O Vital Sign - Last 24 Hours 2/4/20 2/4/20 2/4/20 2/4/20 17:00 19:00 20:00 21:15 Temp 98.0 98.0 Pulse 77 86 86 Resp 24 B/P (MAP) 158/88 177/93 (121) 177/93 Pulse Ox 93 O2 Delivery Room Air Room Air 07/12/19 07/13/19 07/13/19 07/13/19 23:00 03:00 07:52 08:03 Temp 98.4 98.2 98.1 98.4 98.2 98.1 Pulse 94 80 89 89 Resp 20 16 21 B/P (MAP) 138/92 (107) 167/84 (111) 218/109 (145) 218/109 Pulse Ox 95 89 93 O2 Delivery Room Air Room Air Room Air 07/13/19 07/13/19 07/13/19 07/13/19 08:04 08:04 08:04 08:15 Pulse 89 89 89 B/P (MAP) 218/109 218/109 218/109 O2 Delivery Room Air 07/13/19 07/13/19 07/13/19 07/13/19 08:37 09:16 10:25 13:25 Temp 97.9 97.9 Pulse 78 87 84 B/P (MAP) 216/139 123/83 (96) 134/94 (107) 156/94 (114) Pulse Ox 95 O2 Delivery Room Air 07/13/19 14:49 Temp 98.0 98.0 Pulse 81 Resp 21 B/P (MAP) 154/80 (104) Pulse Ox 94 O2 Delivery Room Air Intake and Output 07/12/19 07/12/19 07/13/19 15:00 23:00 07:00 Intake Total 400 ml Output Total 1525 ml 2050 ml 600 ml Balance -1125 ml -2050 ml -600 ml CALEB KNIGHT MD Jul 13, 2019 16:51
[2019-07-13] MEDS: ATORVASTATIN CALCIUM 40 MG TABLET. PO SCH (22:55)
[2019-07-14 02:14] VITALS: BP 184/107
[2019-07-14] MEDS: hydrALAZINE 20 MG/ML VIAL. IVP PRN (02:45)
[2019-07-14 05:05] LABS: CALCIUM 8.9 mg/dL (8.5-10.1); CREATININE 1.1 mg/dL (0.7-1.3); GFR 67.6; POTASSIUM 3.6 mmol/L (3.5-5.1)
[2019-07-14 07:00] VITALS: BP 165/84
[2019-07-14] MEDS ORDERED: CARVEDILOL 6.25 MG TABLET. PO SCH (08:00)
[2019-07-14] MEDS: SOTALOL 80 MG TABLET. PO SCH (09:19)
[2019-07-14] MEDS: FUROSEMIDE 40 MG/4 ML VIAL. IVP SCH (09:19)
[2019-07-14] MEDS: POTASSIUM CHLORIDE 20 MEQ TABLET.ER. PO SCH (09:19)
[2019-07-14] MEDS: amLODIPine BESYLATE 10 MG TABLET PO SCH (09:19)
[2019-07-14] MEDS: LOSARTAN POTASSIUM 50 MG TABLET. PO SCH (09:20)
[2019-07-14] MEDS: LACTOBACILLUS RHAMNOSUS GG 1 CAPSULE. PO SCH (09:21)
[2019-07-14] MEDS: APIXABAN 5 MG TABLET. PO SCH (09:21)
[2019-07-14] MEDS: TAMSULOSIN 0.4 MG CAP.ER.24H. PO SCH (09:21)
[2019-07-14] MEDS: ASPIRIN ENTERIC COATED 81 MG TABLET.DR. PO SCH (09:28)
[2019-07-14] MEDS ORDERED: CARV6.2511 PO (09:41)
--- NOTE | 2019-07-14 09:44 | PDOC3 ---
Discharge Summary Visit Information Date of Admission: Jul 11, 2019 Date of Discharge: Jul 14, 2019 Final Diagnosis Problems Medical Problems: (1) Congestive heart failure Status: Acute (2) Dyspnea Status: Acute (3) Pneumonitis Status: Acute Brief Hospital Course Allergies Allergies Coded Allergies Type Severity Reaction Last Updated Verified iodine Allergy Intermediate 03/10/19 Yes Vital Signs GENERAL: No apparent distress. Alert and oriented. HEENT: Head normocephalic, atraumatic. NECK: Supple LUNGS: Clear to auscultation. HEART: RRR, S1, S2 present, pulses intact ABDOMEN: Soft, positive bowel sounds. EXTREMITIES: No cyanosis or edema. NEUROLOGIC: Normal speech, normal tone PSYCHIATRIC: Normal affect, normal mood. SKIN: No ulceration. Vital Signs Date Time Temp Pulse Resp B/P (MAP) Pulse Ox O2 Delivery O2 Flow Rate FiO2 07/14/19 09:21 88 165/84 07/14/19 07:00 97.7 18 96 Room Air 97.7 Lab Results Laboratory Tests Test 07/13/19 04:40 07/14/19 04:30 Creatinine 1.2 mg/dL (0.7-1.3) 1.1 mg/dL (0.7-1.3) Estimated GFR (Cockcroft-Gault) 61.1 67.6 Sodium Level 142 mmol/L (136-145) Potassium Level 3.6 mmol/L (3.5-5.1) Chloride Level 105 mmol/L (98-107) Carbon Dioxide Level 29 mmol/L (21-32) Anion Gap 8 (6-14) Blood Urea Nitrogen 27 mg/dL (8-26) Glucose Level 123 mg/dL (70-99) Calcium Level 8.9 mg/dL (8.5-10.1) Laboratory Tests Test 07/14/19 04:30 Sodium Level 142 mmol/L (136-145) Potassium Level 3.6 mmol/L (3.5-5.1) Chloride Level 105 mmol/L (98-107) Carbon Dioxide Level 29 mmol/L (21-32) Anion Gap 8 (6-14) Blood Urea Nitrogen 27 mg/dL (8-26) Creatinine 1.1 mg/dL (0.7-1.3) Estimated GFR (Cockcroft-Gault) 67.6 Glucose Level 123 mg/dL (70-99) Calcium Level 8.9 mg/dL (8.5-10.1) Brief Hospital Course 64 year old hx of COPD, afib, obesity, cad, preserved EF CHF Ef50%, last admission in Apr 2019 for copd exac/CHF exacerbation presents with 1 week hx of cough sob on ambulation, worsening over past 3 days. reports fever chills seats. reports increased swelling in LE. had cath 03/26 showing No significant coronary artery disease with widely patent previously placed stents and left circumflex and right coronary arteries. in ED patient had chest xray concerning for fluid overload vs PNA. patient wishes to be admitted for further care. Acute Hypoxic Resp failure secondary to Acute on chronic diastolic CHF, Multifactorial secondary to non-compliance with cpap (ALEN), recent bowel prep for colo b/l pleural effusions secondary to CHF HTN, uncontrolled PAFIB ALEN and CPAP noncompliant HLD Morbid obesity a fib on oral AC CAD, cath 03/26 normal COPD LE edema 5 mm RUL nodule, needs outpatient follow up PLAN cefepime and vanc given cocern for PNA. stopped abx 2/ as symptoms more likely chf flu negative restart home meds including oral AC was on IV lasix since admission and tolerated. will continue home diuretics echo: the left ventricular systolic function is mild to moderately decreased. LVEF 40-45% Wall motion consistent with conduction abnormality. There is mild global hypokinesis. Doppler and Color-flow revealed moderate mitral regurgitation. Doppler and Color Flow revealed mild tricuspid regurgitation with an estimated PAP of 62 mmHg. There is a trace circumferential pericardial effusion. apprec cards BP markedly elevated and coreg increased to 12.5 BID suspect UC HTN and symptoms related to non-compliance with cpap for ALEN. encouraged compliance discharge BMP stable stable for dc today Discharge Information Condition at Discharge: Stable Follow Up: Weeks (PCP in 2 weeks) Disposition/Orders: D/C to Home Scheduled Amlodipine Besylate (Amlodipine Besylate) 10 Mg Tablet, 10 MG PO DAILY, (Reported) LAST DOSE GIVEN: DATE: 07/23/15 TIME: 0900 NEXT DOSE DUE: DATE: Tomorrow 07/24/15 TIME: 0900 Entered as Reported by: JARAD COTTON on 08/13/14 0504 Last Action: Continued on 07/11/19 1513 by OSCAR CLARK MD Apixaban (Eliquis) 5 Mg Tablet, 5 MG PO BID, (Reported) Entered as Reported by: Noemi Carrizales on 07/23/15 170 Last Action: Continued on 07/11/191512 by OSCAR CLARK MD Aspirin (Aspir 81) 81 Mg Tablet.dr, 1 TAB PO DAILY, #30 Ref 5 (Reported) LAST DOSE GIVEN: DATE: 07/23/15 TIME: 0900 AM NEXT DOSE DUE: DATE: TOMORROW 07/24/15 TIME: 0900 AM Entered as Reported by: Ruel Ozuna on 07/22/15 0405 Last Action: Continued on 07/11/191512 by OSCAR CLARK MD Atorvastatin Calcium (Atorvastatin Calcium) 80 Mg Tablet, 80 MG PO HS for FOR CHOLESTEROL, #30 Ref 0 (Reported) Entered as Reported by: CARYN MACARIO on 01/01/18855 Last Action: Converted on 07/11/191512 by OSCAR CLARK MD Carvedilol (Carvedilol ) 6.25 Mg Tablet, 12.5 MG PO BIDWMEALS for htn for 30 Days, #120 Ref 1 Prescribed by: OSCAR CLARK MD on 07/14/19 09 Furosemide (Furosemide) 40 Mg Tablet, 40 MG PO DAILY, (Reported) Entered as Reported by: CARYN MACARIO on 01/01/18855 Last Action: Continued on 07/11/191512 by OSCAR CLARK MD Hydrocortisone (Anusol-Hc) 30 Gm Cream..g., 1 PEÑA TP BID for 12 Days, #30 Ref 0 Prescribed by: DUNCAN RODRIGUEZ MD on 06/02/19 0345 Last Action: Continued on 07/11/191512 by OSCAR CLARK MD Losartan Potassium (Losartan Potassium) 100 Mg Tablet, 100 MG PO DAILY, (Reported) Entered as Reported by: CARYN MACARIO on 01/01/18855 Last Action: Converted on 07/11/191512 by OSCAR CLARK MD Lubiprostone (Amitiza) 8 Mcg Capsule, 8 MCG PO BIDWMEALS for 30 Days, #60 Prescribed by: NING GONSALEZ MD on 02/28/18 0918 Last Action: HELD on 07/11/191512 by OSCAR CLARK MD Potassium Chloride (Potassium Chloride ) 20 Meq Tablet.er, 20 MEQ PO DAILY, (Reported) Entered as Reported by: CARYN MACARIO on 01/01/18 0856 Last Action: Continued on 07/11/191512 by OSCAR CLARK MD Sotalol Hcl (Betapace) 80 Mg Tablet, 80 MG PO BID for 30 Days, #60 Prescribed by: NING GONSALEZ MD on 02/28/18 0916 Last Action: Continued on 07/11/191512 by OSCAR CLARK MD Tamsulosin Hcl (Flomax) 0.4 Mg Cap.er.24h, 1 CAP PO DAILY for BPH, #30 Ref 11 (Reported) Entered as Reported by: BRYCE CAMERON RN on 04/15/19 1340 Last Action: Continued on 07/11/191512 by OSCAR CLARK MD Scheduled PRN Albuterol Sulfate (Proventil Hfa Inhaler) 6.7 Gm Hfa.aer.ad, 2 PUFF IH PRN Q6HRS PRN for FOR ASTHMA, Ref 0 (Reported) Entered as Reported by: CARYN MACARIO on 01/01/18 0857 Last Action: Converted on 07/11/191512 by OSCAR CLARK MD Albuterol Sulfate (Proair Hfa Inhaler) 8.5 Gm Hfa.aer.ad, 2 PUFF INH PRN Q6HRS PRN for SHORTNESS OF BREATH, #1 Ref 0 Prescribed by: DUNCAN RODRIGUEZ MD on 06/02/19 0345 Docusate Sodium (Colace) 100 Mg Capsule, 100 MG PO PRN DAILY PRN for CONSTIPATION, #30 Prescribed by: NING GONSALEZ MD on 02/28/18 0918 Last Action: Continued on 07/11/191512 by OSCAR CLARK MD Nitroglycerin (NITROGLYCERIN SubLingual) 0.4 Mg Tab.subl, 0.4 MG SL PRN Q5MIN PRN for CHEST PAIN, (Reported) Entered as Reported by: JARAD COTTON on 08/13/14 0504 Last Action: Continued on 07/11/191512 by OSCAR CLARK MD Polyethylene Glycol 3350 (Polyethylene Glycol 3350) 17 Gm Powd.pack, 17 GM PO PRN DAILY PRN for CONSTIPATION, #30 Prescribed by: NING GONSALEZ MD on 02/28/18 0918 Last Action: Continued on 07/11/191512 by OSCAR CLARK MD Discontinued Medications Carvedilol (Carvedilol ) 6.25 Mg Tablet, 6.25 MG PO BIDWMEALS for CARDIAC, (Reported) Entered as Reported by: FERMIN ANN RN on 03/09/19 1443 Last Action: Continued on 07/11/191512 by OSCAR CLARK MD Doxycycline Hyclate (Doxycycline Hyclate) 100 Mg Tablet, 100 MG PO BID for COUGH for 10 Days, #20 Prescribed by: BLUE ARMAS MD on 04/16/191721 Last Action: HELD on 07/11/191512 by OSCAR CLARK MD Lactobacillus Rhamnosus Gg (Culturelle) 1 Each Cap.sprink, 1 CAP PO BID for SUPPLEMENT for 30 Days, #60 Prescribed by: BLUE ARMAS MD on 04/16/191721 Last Action: Continued on 07/11/191512 by OSCAR CLARK MD Methylprednisolone (Medrol) 4 Mg Tab.ds.pk, 1 PKG PO UD for inflammation, #1 Prescribed by: DUNCAN RODRIGUEZ MD on 06/02/19 0345 Last Action: HELD on 07/11/191512 by MD EDUARDO KOLB MANEESH MD Jul 14, 2019 09:44
[2019-07-14 10:24] VITALS: BP 160/84
--- NOTE | 2019-07-14 13:30 | PDOC ---
CARDIO Progress Notes Date and Time Date of Service 07/14/2019 Time of Evaluation 1130 Subjective Subjective: No Chest Pain, No shortness of breath, No Palpitations Vitals Vitals Vital Signs Date Time Temp Pulse Resp B/P (MAP) Pulse Ox O2 Delivery O2 Flow Rate FiO2 07/14/19 10:24 113 160/84 (109) 07/14/19 08:00 Room Air 07/14/19 07:00 97.7 18 96 97.7 Weight Weight [ ] Input and Output Intake and Output Intake and Output 07/14/19 07:00 Intake Total 1270 ml Output Total 4000 ml Balance -2730 ml Intake Oral 1270 ml Output Urine Total 4000 ml Laboratory Labs Laboratory Tests Test 07/14/19 04:30 Sodium Level 142 mmol/L (136-145) Potassium Level 3.6 mmol/L (3.5-5.1) Chloride Level 105 mmol/L (98-107) Carbon Dioxide Level 29 mmol/L (21-32) Anion Gap 8 (6-14) Blood Urea Nitrogen 27 mg/dL (8-26) Creatinine 1.1 mg/dL (0.7-1.3) Estimated GFR (Cockcroft-Gault) 67.6 Glucose Level 123 mg/dL (70-99) Calcium Level 8.9 mg/dL (8.5-10.1) Physical Exam HEENT: Neck Supple W Full Motion Chest: Symmetric LUNGS: Clear to Auscultation Heart: irregularly irregular (AFIB) Abdomen: Soft N/T Extremities: No Edema, No Calf Tenderness Neurology: alert, oriented, follow commands Assessment Assessment 1. Acute on chronic diastolic/systolic CHF: now compensated 2. Accelerated HTN: remains labile 3. PAFIB: presently in AFIB rate controlled. Suspect RVR episodes based on sensation of palpitations 4. ALEN and CPAP noncompliant: contributing to CHF and refractory AFIB 5. Recent high volume bowel prep for colonoscopy: contributing to CHF. 6. HLP 7. Morbid obesity 8. Chest pain: likely from wheezing and palpitations. Resolved 9. CAD: recent LHC with patent stents. 10. Cardiomyopathy. multifactorial with ALEN, obesity, AFIB, and uncontrolled HTN Recommendations 1. Reinforced follow up compliance and compliance with CPAP 2. Continue eliquis for stroke prevention. Continue sotalol. Secondary prevention measures. Coreg 12.5 mg and will add imdur 3. HBPM bid x1 week 4. Lasix therapy. 6. Will consider renal duplex as an outpt and outpt cardioversion if remains in AFIB. 6. Encouraged to restart using his CPAP 7. DASH diet, wt loss. FR 2L VICKIE MITCHELL APRN Jul 14, 2019 13:30
[2019-07-14] MEDS ORDERED: ISOSORBIDE MONONITRATE ER 30 MG TAB.ER.24H PO SCH (14:00)
[2019-07-15] MEDS ORDERED: FUROSEMIDE 40 MG TABLET. PO SCH (09:00)
== END 2019-07-14 14:00 | disposition home or self-care (01) | DRG 291 ==
LOC: ER 12:01 → OBSVTOIN 14:15 → ED HOLD 14:15 → 2 SOUTH 18:10
PROVIDERS: ADMIT Internal Medicine; ATTEND Internal Medicine
DX: I11.0 Hypertensive heart disease with heart failure (principal); J96.01 Acute respiratory failure with hypoxia; J18.9 Pneumonia, unspecified organism; J44.0 Chronic obstructive pulmonary disease with (acute) lower respiratory infection; I50.43 Acute on chronic combined systolic (congestive) and diastolic (congestive) heart failure; I42.9 Cardiomyopathy, unspecified; E03.9 Hypothyroidism, unspecified; E66.01 Morbid (severe) obesity due to excess calories; E78.00 Pure hypercholesterolemia, unspecified; E78.5 Hyperlipidemia, unspecified; G47.33 Obstructive sleep apnea (adult) (pediatric); I25.10 Atherosclerotic heart disease of native coronary artery without angina pectoris; I48.91 Unspecified atrial fibrillation; Z82.49 Family history of ischemic heart disease and other diseases of the circulatory system; Z87.891 Personal history of nicotine dependence; Z91.19 Patient's noncompliance with other medical treatment and regimen; Z98.61 Coronary angioplasty status; K21.9 Gastro-esophageal reflux disease without esophagitis; K60.2 Anal fissure, unspecified; M19.90 Unspecified osteoarthritis, unspecified site; Z68.38 Body mass index [BMI] 38.0-38.9, adult; Z88.8 Allergy status to other drugs, medicaments and biological substances; Z79.899 Other long term (current) drug therapy
CPT/HCPCS: 36415; 71046; 71250; 80048; 80053; 80061; 82565; 83605; 83735; 83880; 84145; 84484; 85025; 87804; 93005; 93306; 94640; 96365; 99285; J0360; J0456; J0692; J1940; J3370; J3475; J7040; J7620; G0378

== ENCOUNTER → 2020-06-12 | Outpatient (CLI) | payer OTHER, MEDICAID ==
[2020-05-23 11:00] VITALS: BP 154/104
[~2020-06-12] MED LIST changes: +AMLO-187 PO; -AMLO10TA8 PO; +ASPI-886 PO; +CARV12.511 PO; +DOXY100C2 PO; +HYDR50TA6 PO; +METF500T16 PO; +PRED20TA PO; +ZOLPIDEM 5 MG TABLET. PO ONE
--- NOTE | 2020-06-13 12:49 | SLEEP ---
DATE OF STUDY: 06/12/2020 SLEEP STUDY The patient is a 64-year-old who weighs 245 pounds with a BMI of 39. The patient's Mcgregor score was 10. The patient underwent split night study performed at [facility]. During the night study, the patient spent 469 minutes in bed and slept for 408 minutes with a sleep efficiency of 87%. Sleep latency was 11 minutes with a REM latency of 192 minutes. Sleep architecture showed normal stage 1 and stage 2 sleep, increased slow wave sleep, which was 43% of the total sleep time and normal REM sleep. During the initial diagnostic portion of the study, the patient slept for 80 minutes. During that time, the patient had no obstructive mixed or central apneas, but 90 hypopneas. The patient's AHI was 68 per hour with a supine AHI of 96 per hour. REM sleep was not seen during the diagnostic portion. EKG monitoring revealed an average heart rate of 97 beats per minute, no sustained arrhythmias observed. No PLMs observed. Nocturnal oximetry study during the diagnostic portion revealed a mean oxygen saturation of 90% with lowest of 74%; 74% of time oxygen saturation remained between 80% and 89%. The patient was started on CPAP at a pressure of 5 cm water and titrated up to 18 cm water. Due to persistent respiratory events, the patient was switched to BiPAP and titrated up to a BiPAP pressure of 28/20. At that pressure, the patient slept for 44 minutes. The patient had supine as well as REM sleep. The patient's AHI was reduced to 4 per hour and oxygen saturations remained above 88% with few spot desaturation of up to 81%. IMPRESSION: 1. Severe obstructive sleep apnea at an AHI of 68 per hour. 2. Nocturnal hypoxia secondary to obstructive sleep apnea, but resolved with BiPAP. 3. No clinically significant periodic limb movements. RECOMMENDATIONS: 1. BiPAP at a pressure of 28/20 completely eliminated the patient's sleep apnea and should be used on a nightly basis. 2. Follow up in 4-6 weeks to assess compliance with BiPAP and to document clinical improvement. 3. Weight loss is strongly advised. The patient is requiring high BiPAP pressure. With subsequent weight loss, the BiPAP pressure can be reduced to improve compliance. 4. Avoid IMMIGRATION CASE MANAGER depressants. 5. Cautioned regarding driving until symptoms of sleep apnea resolve with the use of BiPAP. JUVENAL PINEDA MD DR: JONNA/shiv JOB#: [id number] / [id number] ТАТЬЯНА Corona MD, SABATO MD MTDD
== END ==
LOC: SLPLAB 18:41
PROVIDERS: ATTEND Internal Medicine Pulmonary Disease
DX: G47.33 Obstructive sleep apnea (adult) (pediatric) (principal); G47.34 Idiopathic sleep related nonobstructive alveolar hypoventilation
CPT/HCPCS: 95810

== ENCOUNTER → 2020-08-31 | Outpatient (CLI) | payer OTHER, MEDICAID ==
[2020-07-26 14:42] VITALS: BP 130/82
[~2020-08-31] MED LIST changes: +BUME1TAB3 PO; -CIPR500T PO; +CIPR500T2 PO; -HYDR50TA6 PO; +HYDR50TA9 PO; +METO25TA4 PO; -POLY17PO28 PO; +POLY17PO52 PO; -ZOLPIDEM 5 MG TABLET. PO ONE
--- NOTE | 2020-08-31 10:22 | RAD ---
MR#: [id number] Date of Study: 08/31/2020 Ordering Physician: CALEB KNIGHT, Referring Physician: CALEB KNIGHT, Tech: Tawana Christopher RDMS, PIPER, RTR APPROVED REPORT Patient Location : OUT-PATIENT Indications Lower Extremity Edema : Bilateral Greater Saphenous Veins (GSV) Significant venous relux noted in the LEFT GSV at the following levels : Superficial Femoral Junction , Proximal Thigh, Mid Thigh, Distal Thigh, Proximal Calf, Mid Calf, Distal Calf Findings Grayscale images of the right and left saphenofemoral junctions are grossly unremarkable. No obvious evidence of thrombus. There is no reflux in the right great saphenous vein. The left great saphenous vein measures approximately 4 mm and has a reflux time of 1.8 seconds. The bilateral lesser saphenous veins did not show any evidence of reflux. Critical Notification Critical Value: No <Conclusion> 1. Positive for reflux in the left great saphenous vein. Signed by : Henrry Heller, Electronically Approved : 08/31/2020 10:21:26
== END ==
LOC: US 08:43
PROVIDERS: ATTEND Internal Medicine Cardiovascular Disease
DX: R60.0 Localized edema (principal)
CPT/HCPCS: 93970

== ENCOUNTER → 2021-02-22 | Outpatient (CLI) | payer OTHER, MEDICAID ==
[2020-11-02 15:13] VITALS: BP 114/74
[~2021-02-22] MED LIST changes: -DOXY100C2 PO; +DOXY100C3 PO; +EMPA25TA PO; +FERR325T72 PO; +LINA5TAB PO; +METO50TA4 PO; +PANT40TA77 PO
--- NOTE | 2021-02-22 16:37 | RAD ---
EXAM: RENAL ULTRASOUND CLINICAL HISTORY: Acute Kidney Failure COMPARISON: None available. TECHNIQUE: Ultrasound examination of the bilateral kidneys and urinary bladder was performed. FINDINGS: The right kidney measures 11.3 x 5.0 x 5.3 cm. The left kidney is 12.0 x 4.9 x 5.9 cm.. There is a 2. 5 x 2.1 x 1.8 cm isoechogenicity identified in the left kidney could be hyperechoic cyst or mass. The urinary bladder is mildly distended. IMPRESSION: 2.5 cm isoechogenicity identified in the left kidney could be hyperechoic cyst or mass. Recommend non emergent follow-up CT urogram if clinically feasible. Electronically signed by: Shree Aguilar MD (02/22/2021 4:34 PM) [id number]
== END ==
LOC: US 16:00
PROVIDERS: ATTEND Nurse Practitioner Adult Health
DX: N17.9 Acute kidney failure, unspecified (principal); N32.89 Other specified disorders of bladder
CPT/HCPCS: 76770

== ENCOUNTER 2021-03-25 12:49 | Emergency (ER) | payer OTHER, MEDICAID ==
[~2021-03-25] VITALS: Ht 167.6 cm; Wt 104.5 kg
[2021-03-25] MEDS ORDERED: HYDROcodone/APAP 5/325MG 1 TAB TABLET PO ONE (15:30)
--- NOTE | 2021-03-25 15:37 | PHYS DOC ---
Past Medical History Past Medical History: A-Fib, CHF, COPD, Diabetes-Type II, Renal Failure Additional Past Medical Histor: CARDIAC STENTS, NOSE SX, HERNIA REPAIR. Past Surgical History: Other Additional Past Surgical Histo: NOSE SX, HERNIA REPAIR, CARDIAC STENTS Smoking Status: Never Smoker Alcohol Use: Rarely Drug Use: None General Adult EDM: Chief Complaint: LOWER EXT PAIN HPI: HPI: Patient is a 65 year old male with history of A. fib on blood thinner he cannot remember the name, diabetes type 2, renal failure, COPD, who presents the ED today complaining of moderate pain to the left knee that began yesterday. Patient denies any injuries. Patient states the pain is worse on flexion of the knee. Denies anything specifically alleviating the pain. Review of Systems: Review of Systems: Constitutional: Denies fever or chills. [] Musculoskeletal: Reports left knee pain Integument: Denies rash. [] Neurologic: Denies headache, focal weakness or sensory changes. [] Psychiatric: Denies depression or anxiety. [] Heart Score: C/O Chest Pain: N/A Risk Factors: Risk Factors: DM, Current or recent (<one month) smoker, HTN, HLP, family history of CAD, obesity. Risk Scores: Score 0 - 3: 2.5% MACE over next 6 weeks - Discharge Home Score 4 - 6: 20.3% MACE over next 6 weeks - Admit for Clinical Observation Score 7 - 10: 72.7% MACE over next 6 weeks - Early Invasive Strategies Current Medications: Current Medications Medications (Trade) Dose Ordered Sig/Connie Start Time Stop Time Status Last Admin Dose Admin Acetaminophen/ Hydrocodone Bitart (Lortab 5/325) 2 tab 1X ONCE 03/25/21 15:30 03/25/21 15:31 DC Allergies: Allergies: Allergies Coded Allergies Type Severity Reaction Last Updated Verified iodine Allergy Intermediate 03/10/19 Yes Physical Exam: PE: Constitutional: Well developed, well nourished, no acute distress, non-toxic appearance. [] Skin: Warm, dry, no erythema, no rash. [] Back: No tenderness, no CVA tenderness. [] Extremities: Left knee with no obvious deformity, no obvious edema or ecchymosis, tenderness on the anterior aspect of the knee. Limited range of motion to the left knee specifically flexion due to pain. Negative Idalia sign, negative Irasema sign, +2 left pedal pulse. +1 bilateral pedal edema, patient states this is chronic Neurologic: Alert and oriented X 3, normal motor function, normal sensory function, no focal deficits noted. [] Psychologic: Affect normal, judgement normal, mood normal. [] EKG: EKG: [] Radiology/Procedures: Radiology/Procedures: []PROCEDURE: KNEE LEFT 3V 3 view left knee HISTORY: Pain AP lateral oblique views The visualized osseous structures appear normal. IMPRESSION: No acute findings. Electronically signed by: Jacob Viera III, MD (03/25/2021 3:53 PM) [facility] DICTATED and SIGNED BY: JACOB VIERA III, MD DATE: 03/25/21 [id number] 0 Course & Med Decision Making: Course & Med Decision Making Pertinent Labs and Imaging studies reviewed. (See chart for details) This is a 65-year-old male patient presenting to the ED today with left knee pain that began last night. No known injury. Left knee x-rays interpreted by radiologist are negative for any acute findings. Nate wrap applied to the left knee by me, neurovascular exam done by me post Nate wrap application is normal. Knee immobilizer applied to the left knee by the industrial engineering technician, neurovascular exam done by the tech is normal. Ice elevation encouraged. Follow-up with orthop edic doctor next week. Judith Disclaimer: Judith Disclaimer: This electronic medical record was generated, in whole or in part, using a voice recognition dictation system. Departure Departure Impression: Primary Impression: Left knee pain Qualified Codes: M25.562 - Pain in left knee Disposition: 01 HOME / SELF CARE / HOMELESS Condition: STABLE Referrals: ERNST WEIR (PCP) MAX KATZ DO follow up in one week if pain persist Patient Instructions: Knee Pain Additional Instructions: You were seen for left knee pain, left knee x-rays are negative for any acute findings. We encourage you to follow-up with the orthopedic doctor provided in the next 7 days. Wear the Nate wrap and immobilizer provided as tolerated. Try to ice and elevate the extremity. Scripts Diclofenac Sodium (Voltaren Arthritis Pain) 20 Gm Gel..gram. 20 GM TP BID, #1 EACH Prov: FERNY GARCÍA LEAD SOFTWARE TEST ENGINEER 03/25/21 Hydrocodone Bit/Acetaminophen (HYDROCODONE-APAP 5-325 ) 1 Tab Tablet 1 TAB PO PRN Q6HRS PRN for PAIN, #10 TAB 0 Refills Prov: FERNY GARCÍA APRN 03/25/21 FERNY GARCÍA APRN Mar 25, 2021 15:37
--- NOTE | 2021-03-25 15:56 | RAD ---
3 view left knee HISTORY: Pain AP lateral oblique views The visualized osseous structures appear normal. IMPRESSION: No acute findings. Electronically signed by: Keanu Rodríguez III, MD (03/25/2021 3:53 PM) [facility]
[2021-03-25] MEDS ORDERED: HYDR-2761 PO (16:49)
[2021-03-25] MEDS ORDERED: DICL20GE TP (16:49)
[2021-03-25 17:14] VITALS: BP 130/74
== END 2021-03-25 17:22 | disposition home or self-care (01) ==
LOC: ER 12:49
DX: M25.562 Pain in left knee (principal); I48.91 Unspecified atrial fibrillation; J44.9 Chronic obstructive pulmonary disease, unspecified; E11.22 Type 2 diabetes mellitus with diabetic chronic kidney disease; N18.9 Chronic kidney disease, unspecified; Z95.5 Presence of coronary angioplasty implant and graft; Z88.8 Allergy status to other drugs, medicaments and biological substances
CPT/HCPCS: 29505; 73562; 99283

== ENCOUNTER 2021-05-13 07:58 | Emergency (ER) | payer OTHER, MEDICAID ==
[~2021-05-13] VITALS: Ht 167.6 cm; Wt 112.4 kg
[~2021-05-13 07:58] MED LIST changes: +DICL20GE TP; +HYDR-2761 PO
--- NOTE | 2021-05-13 08:04 | PHYS DOC ---
Past Medical History Past Medical History: A-Fib, CHF, COPD, Diabetes-Type II, Renal Failure Additional Past Medical Histor: CARDIAC STENTS, NOSE SX, HERNIA REPAIR. Past Surgical History: Other Additional Past Surgical Histo: CARDIAC STENTS, HERNIA Smoking Status: Former Smoker Alcohol Use: None Drug Use: None General Adult EDM: Chief Complaint: SHORTNESS OF BREATH HPI: HPI: Patient is a 65 year old male here with 2 to 3 days of progressive dyspnea, dyspnea exertion as well as cough. He reports that he has been coughing for the past 2 days. No hemoptysis reported. He reports occasional clear sputum. He denies fevers or chills. He does report diffuse myalgias and body ache. He denies abdominal pain. He does report some mild nausea, with vomiting, which sounds more like posttussive emesis, which occurs first thing in the morning. This is not particularly new for him, he indicates this is happened for several years. No recent changes reported changes to date. He reports that he feels like he is "full of fluid." He has a history of congestive heart failure. He reports compliance with diet and medications. He does have bilateral lower extremity swelling, which she reports that he has often, chronically, but seems worse in the last several days. He denies recent travel history. Denies recent known sick contacts. He denies recent hospitalization within the last 90 days. He has a history of atrial fibrillation. He reports that he takes Eliquis, he reports that he has been compliant with this medication. When asked about chest pain he reports "a little." He will not elaborate on this. He does indicate that pain does occur with coughing. He does not have any active pain at present. He reports that he has been fully vaccinated against COVID-19. Review of Systems: Review of Systems: Constitutional: Denies fever or chills. [] HENT: Reports nasal congestion. Denies sore throat. Respiratory: Reports cough, dyspnea and PEDERSON. Cardiovascular: Reports chest pain and peripheral/LE edema. GI: Denies abdominal pain. Reports a.m. vomiting and post-tussive emesis. : Denies urinary symptoms. Musculoskeletal: Denies back pain or joint pain. He does reports diffuse, non- focal myalgia symptoms. Neurologic: Denies headache, focal weakness or sensory changes. [] Psychiatric: Denies depression or anxiety. [] Heart Score: C/O Chest Pain: Yes HEART Score for Chest Pain: HEART Score for Chest Pain Response (Comments) Value History Slighlty/Non-Suspicious 0 ECG Nonspecific Repolarizatio 1 Age > 65 2 Risk Factors >3 Risk Factors or Hx CAD 2 Total 5 Risk Factors: Risk Factors: DM, Current or recent (<one month) smoker, HTN, HLP, family history of CAD, obesity. Risk Scores: Score 0 - 3: 2.5% MACE over next 6 weeks - Discharge Home Score 4 - 6: 20.3% MACE over next 6 weeks - Admit for Clinical Observation Score 7 - 10: 72.7% MACE over next 6 weeks - Early Invasive Strategies Allergies: Allergies: Allergies Coded Allergies Type Severity Reaction Last Updated Verified iodine Allergy Intermediate 03/10/19 Yes Physical Exam: PE: Constitutional: Well developed, well nourished, no acute distress, non-toxic appearance. He is chronically ill appearing. HENT: Normocephalic, atraumatic Eyes: Sclera are clear and anicteric. Neck: Normal range of motion, no tenderness, supple, no stridor. Trachea is midline. Cardiovascular: Irregularly irregular. +2 radial and +2 dorsalis pedis pulses bilaterally. Lungs & Thorax: Equal chest rise. Mild tachypnea. No retractions. No wheezing. No stridor. Diminished breath sounds and fine rales bilateral bases. Speaks in full and clear sentences Abdomen: Abdomen is obese, soft, nondistended, nontender to palpation. No palpable fluid wave. Skin: Warm, dry, no erythema. There is venous stasis changes/venous stasis dermatitis bilateral anterior lower extremities. Back: No tenderness, no CVA tenderness. [] Extremities: +1 bilateral, symmetric, pitting lower extremity edema. No calf tenderness. Bilateral venous stasis and venous stasis dermatitis. No open wounds. No warmth erythema Neurologic: Alert and oriented X 3, normal motor function, normal sensory function, no focal deficits noted. [] Psychologic: Affect is flat. He is cooperative EKG: EKG: EKG is interpreted at 0820 Rhythm is atrial fibrillation Rate is 78 bpm [place] is right Low voltage Artifact No STEMI Radiology/Procedures: Radiology/Procedures: IMAGING REPORT Signed PATIENT: LONDON CRESPO ACCOUNT: [id number] : 1955 LOCATION: ER AGE: 65 SEX: M EXAM STATUS: PRE ER ORD. PHYSICIAN: MARLIN MALLOY DO REASON: dyspnea, cough PROCEDURE: PORTABLE CHEST 1V XR CHEST 1V CLINICAL INDICATIONS: Reason: dyspnea, cough COMPARISON: October 31, 2020. Findings: No acute lung infiltrate or pleural effusion or pulmonary edema or lung mass or pneumothorax is seen. Heart size is prominent but stable. Pulmonary vascularity and mediastinum and both tsering are unremarkable. IMPRESSION: No acute radiographic abnormality is seen. Electronically signed by: Cesilia España MD (05/13/2021 8:43 AM) [id number] DICTATED and SIGNED BY: CESILIA ESPAÑA MD DATE: 05/13/21 [id number] 0 Course & Med Decision Making: Course & Med Decision Making Pertinent Labs and Imaging studies reviewed. (See chart for details) I have discussed the findings, differential diagnosis and plan of care with the patient. He is resting comfortably, manifested no evidence of distress. Evidence of hypoxia. He is not actively dyspneic. He has not had any chest pain symptoms since he has been here. Troponin is trending down, not up. No acute ischemia on EKG. He finally admits that he has been out of his Bumex for several days, he is requesting a refill of this. He is given a dose of IV Bumex here, he urinated without difficulty. He reports feeling much better. I told him to contact his tunnel kiln operator for further outpatient evaluation and for follow-up. I told him to contact his primary care physician as well. He feels comfortable with the plan of care. Strict return precautions are given. Dragon Disclaimer: Dragon Disclaimer: This electronic medical record was generated, in whole or in part, using a voice recognition dictation system. Departure Departure Impression: Primary Impression: Dyspnea Qualified Codes: R06.00 - Dyspnea, unspecified Additional Impression: Congestive heart failure Qualified Codes: I50.9 - Heart failure, unspecified Referrals: ERNST WEIR (PCP) Patient Instructions: Heart Failure, Shortness of Breath Additional Instructions: Return to the ER for chest pain, more severe shortness of breath, coughing up blood, temperature 100.4 or higher, for more severe lower extremity swelling, passing out, weakness, vomiting, abdominal pain or for any other concerns. Eat a low-sodium diet. Take your prescribed medications as directed. Contact your tunnel kiln operator and primary care physician this week to arrange for close follow- up. Scripts Bumetanide (BUMETANIDE) 1 Mg Tablet 1 TAB PO DAILY, #30 TAB 5 Refills Prov: MARLIN MALLOY DO 05/13/21 MARLIN MALLOY DO May 13, 2021 08:04
--- NOTE | 2021-05-13 08:45 | RAD ---
XR CHEST 1V CLINICAL INDICATIONS: Reason: dyspnea, cough COMPARISON: October 31, 2020. Findings: No acute lung infiltrate or pleural effusion or pulmonary edema or lung mass or pneumothora x is seen. Heart size is prominent but stable. Pulmonary vascularity and mediastinum and both tsering ar e unremarkable. IMPRESSION: No acute radiographic abnormality is seen. Electronically signed by: Bryon España MD (05/13/2021 8:43 AM) [id number]
[2021-05-13 09:32] LABS: CALCIUM 7.8 mg/dL (8.5-10.1); CREATININE 1.3 mg/dL (0.7-1.3); GFR 55.4; POTASSIUM 4.2 mmol/L (3.5-5.1)
[2021-05-13 09:39] LABS: BASO # 0.1 x10^3/uL (0.0-0.2); BASO % 1 % (0-3); EOS # 0.1 x10^3/uL (0.0-0.7); EOS % 1 % (0-3); HEMATOCRIT 40.5 % (39.0-53.0); HEMOGLOBIN 12.5 g/dL (13.0-17.5); LYMPH # 0.9 x10^3/uL (1.0-4.8); LYMPH % 11 % (24-48); MEAN CORPUSCULAR HEMOGLOBIN 24 pg (25-35); MEAN CORPUSCULAR HGB CONC 31 g/dL (31-37); MEAN CORPUSCULAR VOLUME 77 fL (79-100); MONO # 0.6 x10^3/uL (0.0-1.1); MONO % 7 % (0-9); NEUT # 5.9 x10^3/uL (1.8-7.7); NEUT % 79 % (31-73); PLATELET COUNT 148 x10^3/uL (140-400); RED BLOOD COUNT 5.26 x10^6/uL (4.30-5.70); RED CELL DISTRIBUTION WIDTH 22.3 % (11.5-14.5); WHITE BLOOD COUNT 7.5 x10^3/uL (4.0-11.0)
[2021-05-13 09:46] LABS: ALBUMIN 3.5 g/dL (3.4-5.0); ALBUMIN/GLOBULIN RATIO 1.2 (1.0-1.7); MAGNESIUM 2.3 mg/dL (1.8-2.4); PHOSPHORUS 4.5 mg/dL (2.6-4.7); TOTAL BILIRUBIN 2.7 mg/dL (0.2-1.0); TOTAL PROTEIN 6.5 g/dL (6.4-8.2)
[2021-05-13 09:49] LABS: INFLUENZA A PATIENT NEGATIVE (NEGATIVE); INFLUENZA B PATIENT NEGATIVE (NEGATIVE)
[2021-05-13] MEDS ORDERED: BUMETANIDE 1 MG/4 ML VIAL. IV SCH (11:00)
[2021-05-13 11:32] LABS: PLT ESTIMATE ADEQUATE (ADEQUATE)
[2021-05-13 11:34] LABS: HYPOCHROMIA SLIGHT
[2021-05-13 11:35] LABS: ANISOCYTOSIS MOD; MICROCYTOSIS PRESENT
[2021-05-13 11:36] LABS: OVALOCYTES PRESENT
[2021-05-13] MEDS ORDERED: BUME1TAB3 PO (12:49)
[2021-05-13 13:31] VITALS: BP 122/81
[2021-05-13 13:48] LABS: BILIRUBIN,URINE NEGATIVE (NEG); CLARITY,URINE CLEAR; COLOR,URINE YELLOW; NITRITE,URINE NEGATIVE (NEG); PROTEIN,URINE 30 mg/dL (NEG-TRACE)
[2021-05-13 14:15] LABS: HYALINE CASTS, URINE FEW /HPF; RBC,URINE 0 /HPF (0-2); WBC,URINE 20-40 /HPF (0-4)
[2021-05-13 14:16] LABS: BACTERIA,URINE FEW /HPF (0-FEW); SPERM,URINE PRESENT /HPF
--- NOTE | 2021-05-13 16:51 | NUR ---
IP: Attempted to contact pt concerning covid results. No answer, no voicemail box.
--- NOTE | 2021-05-14 14:25 | EKG ---
[address] [place] [address] Test Date: 2021-05-13 Test Time: 08:16:36 Pat Name: LONDON CRESPO Department: Room: Gender: M Technology Advisor: : 1955 Requested By: MARLIN MALLOY Order Number: [id number] Reading MD: Cristiano García Measurements Intervals [place] Rate: 78 P: PA: QRS: 144 QRSD: 88 T: 144 QT: 390 QTc: 448 Interpretive Statements ATRIAL FIBRILLATION LOW LIMB LEAD VOLTAGE T ABNORMALITY IN LATERAL LEADS ABNORMAL ECG Electronically Signed On 05-16-2021 13:03:17 CARDIOLOGY FELLOW by Cristiano García
--- NOTE | 2021-05-14 16:54 | NUR ---
IP: Attempted a second time to contact pt. No answer.
== END 2021-05-13 13:45 | disposition home or self-care (01) ==
LOC: ER 07:58
DX: E11.22 Type 2 diabetes mellitus with diabetic chronic kidney disease (principal); I13.0 Hypertensive heart and chronic kidney disease with heart failure and stage 1 through stage 4 chronic kidney disease, or unspecified chronic kidney disease; N18.9 Chronic kidney disease, unspecified; I50.9 Heart failure, unspecified; I48.91 Unspecified atrial fibrillation; J44.9 Chronic obstructive pulmonary disease, unspecified; Z20.822 Contact with and (suspected) exposure to COVID-19; Z87.891 Personal history of nicotine dependence; Z95.5 Presence of coronary angioplasty implant and graft; Z88.8 Allergy status to other drugs, medicaments and biological substances
CPT/HCPCS: 36415; 71045; 80053; 81001; 82550; 83605; 83735; 83880; 84100; 84484; 85025; 87040; 87086; 87426; 87804; 93005; 96374; 99285; J3490; U0003; U0005

== ENCOUNTER → 2021-07-03 | Outpatient (CLI) | payer OTHER, MEDICAID ==
--- NOTE | 2021-07-04 17:03 | RAD ---
MR#: [id number] Date of Study: 07/03/2021 Ordering Physician: CALEB KNIGHT, Referring Physician: CALEB KNIGHT, Tech: Delores Rocha RVT, KAYCEE APPROVED REPORT Patient Location: OUT-PATIENT Indications Claudication: Risk Factors Hypertension Diabetes Smoking VELOCITY AND DOPPLER WAVEFORM ANALYSIS RIGHT cm/secWaveformSeverity LEFT cm/secWaveform Severity dCFA 112.0TriphasicdCFA 119.0Triphasic Prof Fem Art. 123.0BiphasicProf Fem Art. 64.0Biphasic Fem Art Prox. 123.0TriphasicFem Art Prox. 151.0Triphasic Fem Art Mid. 116.0TriphasicFem Art Mid. 132.0Triphasic Fem Art Dist. 121.0TriphasicFem Art Dist. 130.0Triphasic Pop Art(Fossa) 91.0TriphasicPop Art(AK) 60.0Biphasic NURSE RECEPTIONIST Prox. 63.0TriphasicPTA Prox. 82.0Monophasic NURSE RECEPTIONIST Dist. 63.0TriphasicPTA Dist. 57.0Monophasic Per Art Dist.90.0TriphasicPer Art Dist.62.0Monophasic VANESSA Prox. 34.0TriphasicATA Prox. 109.0Monophasic DPA 59TriphasicDPA 70Monophasic Findings Grayscale images of the bilateral lower extremity arterial vessels demonstrate mild to moderate diffu se atherosclerosis. On the right side there are mostly triphasic and biphasic waveforms without any significant obstructi ve disease and three-vessel runoff. On the left side there are mostly triphasic and biphasic waveforms above the knee with monophasic wav eforms below the knee. Nonetheless, no significant high-grade stenosis identified with three-vessel runoff. Critical Notification Critical Value: No <Conclusion> 1. No significant bilateral lower extremity arterial occlusive disease Signed by : Henrry Heller, Electronically Approved : 07/04/2021 17:03:28
== END ==
LOC: US 14:15
PROVIDERS: ATTEND Internal Medicine Cardiovascular Disease
DX: I70.203 Unspecified atherosclerosis of native arteries of extremities, bilateral legs (principal)
CPT/HCPCS: 93925

== ENCOUNTER 2021-10-12 21:07 | Inpatient (IN) | payer OTHER, MEDICAID ==
[~2021-10-12] VITALS: Ht 167.6 cm; Wt 114.6 kg
[~2021-10-12 21:07] MED LIST changes: -EMPA25TA PO; +EMPA25TA3 PO
--- NOTE | 2021-10-12 21:33 | PHYS DOC ---
Past Medical History Past Medical History: A-Fib, CHF, COPD, Diabetes-Type II, High Cholesterol, Hypertension, Renal Failure Additional Past Medical Histor: CARDIAC STENTS, NOSE SX, HERNIA REPAIR. Past Surgical History: Other Additional Past Surgical Histo: CARDIAC STENTS, HERNIA Smoking Status: Former Smoker Alcohol Use: Rarely Drug Use: None General Adult EDM: Chief Complaint: CHEST PAIN HPI: HPI: 66-year-old male presents with report of shortness of air, productive cough, and chest pressure/tightness that has been worse over the past 2 days. Patient also reports scrotal pain and swelling that has been ongoing for the past 10 days. Patient reports some associated nausea this morning. Patient also has had an episode of diarrhea. Denies known exposure to COVID-19. Denies trauma. Reports some dysuria. Patient with significant cardiac risk factors including prior stents, hypertension, high cholesterol, diabetes, and former smoking. Denies history of DVT/PE. Patient does report some chronic swelling which has been worse to bilateral lower extremities. Patient does have history of CHF. Reports compliance with his medications. Denies fever or chills. Review of Systems: Review of Systems: Constitutional: Denies fever or chills Eyes: Denies redness or eye pain HENT: Denies nasal congestion or sore throat Respiratory: Reports productive cough and shortness of breath Cardiovascular: Reports chest pressure; denies palpitations GI: Denies abdominal pain, nausea, or vomiting : Denies dysuria or hematuria; reports scrotal swelling and discomfort Musculoskeletal: Denies back pain; reports bilateral lower extremity edema Integument: Denies rash or skin lesions Neurologic: Denies headache, focal weakness or sensory changes Complete systems were reviewed and found to be within normal limits, except as documented in this note. Heart Score: C/O Chest Pain: Yes HEART Score for Chest Pain: HEART Score for Chest Pain Response (Comments) Value History Moderately Suspicious 1 ECG Normal 0 Age > 65 2 Risk Factors >3 Risk Factors or Hx CAD 2 Troponin >1-<3x Normal Limit 1 Total 6 Risk Factors: Risk Factors: DM, Current or recent (<one month) smoker, HTN, HLP, family history of CAD, obesity. Risk Scores: Score 0 - 3: 2.5% MACE over next 6 weeks - Discharge Home Score 4 - 6: 20.3% MACE over next 6 weeks - Admit for Clinical Observation Score 7 - 10: 72.7% MACE over next 6 weeks - Early Invasive Strategies Allergies: Allergies: Allergies Coded Allergies Type Severity Reaction Last Updated Verified iodine Allergy Intermediate 08/12/21 Yes Physical Exam: PE: Constitutional: Well developed, morbidly obese, uncomfortable, non-toxic appearance HENT: Normocephalic, atraumatic Eyes: Conjunctiva normal, no discharge Neck: Normal range of motion, supple Lungs & Thorax: Coarse breath sounds at bases, equal chest rise and fall Cardiovascular: Irregularly irregular rhythm with normal rate Abdomen: Distended, no tenderness Skin: Warm, dry, venous stasis discoloration noted to bilateral lower extremities : Significant scrotal edema noted, uncircumcised with penile edema Extremities: No tenderness, 4+ edema noted to bilateral lower extremities Neurologic: Alert and oriented X 3, no focal deficits noted Psychologic: Affect normal, judgment normal EKG: EKG: @2125 Afib at 93bpm, NO ST elevation, occasional PVC, QRS 90ms, QT/QTc 364/455ms, low limb voltage @2222 Afib at 86bpm, NO ST elevation, QRS 92ms, QT/QTc 398/480ms, low limb voltage, similar to prior EKG Radiology/Procedures: Radiology/Procedures: PROCEDURE: PORTABLE CHEST 1V Study: XR CHEST 1V Indication: Shortness of air. Cough. Comparison: 05/13/2021 Findings: Unchanged enlargement of the cardiomediastinal silhouette. Similar hilar configuration and aeration pattern of the lungs. No newly apparent focal airspace abnormality. No pleural effusion or pneumothorax. Mild asymmetric elevation of the right hemidiaphragm. Impression: Enlargement of the cardiomediastinal silhouette without findings of overt congestive heart failure/volume overload. Overall no significant change from 05/13/2021. Electronically signed by: VANDANA SCHMIDT MD (10/12/2021 10:13 PM) [facility] Course & Med Decision Making: Course & Med Decision Making Pertinent Labs and Imaging studies reviewed. (See chart for details) Patient presents with report of productive cough, shortness of air, and chest pressure which is been ongoing for the past 2 days. Patient also complaining of 10-day history of scrotal edema and discomfort. Denies trauma. Patient does have significant cardiac risk factors. Patient also with history of CHF. Physical exam concerning for CHF exacerbation. EKG with rate controlled A. fib. Labs obtained and posted to chart. BNP, initial troponin, and D-dimer elevated. Patient with allergy to iodine. CTA held at this time. Patient currently on Eliquis. Patient given aspirin. Chest x-ray with findings of vascular congestion. Given elevated BNP, chest x-ray findings, and physical exam. Concern for CHF exacerbation with heart strain. Doubt infectious etiology. Rapid COVID and influenza negative. WBC and lactic acid within normal limits. Patient requiring admission for further evaluation and treatment. Discussed with Dr. Lew (hospitalist) who is in agreement with admission. Discussed case with Dr. Gonzáles (cardiology) who is in agreement with consultation. Requests to start on Heparin protocol and to hold patient's home Eliquis anticoagulation. Discussed findings and plan with patient, who acknowledges understanding and agreement. Judith Disclaimer: Judith Disclaimer: This electronic medical record was generated, in whole or in part, using a voice recognition dictation system. Departure Departure Impression: Primary Impression: Acute exacerbation of CHF (congestive heart failure) Qualified Codes: I50.9 - Heart failure, unspecified Additional Impressions: Elevated troponin Elevated d-dimer Edema of scrotum Hydrocele in adult Disposition: 09 ADMITTED INPATIENT Admitting Physician: JUAN (Vipin) Condition: GUARDED Referrals: ERNST WEIR (PCP) Critical Care Time Critical care time was 30 minutes which includes time at bedside, spent in discussion of patient's care with specialists and/or family members, with interpretation of laboratory and/or radiological studies and is exclusive of procedures. MAX SAM DO October 12, 2021 21:33
[2021-10-12] MEDS ORDERED: ASPIRIN 325 MG TABLET PO ONE (22:00)
--- NOTE | 2021-10-12 22:05 | EKG ---
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
--- NOTE | 2021-10-12 22:15 | RAD ---
Study: XR CHEST 1V Indication: Shortness of air. Cough. Comparison: 05/13/2021 Findings: Unchanged enlargement of the cardiomediastinal silhouette. Similar hilar configuration and aeration p attern of the lungs. No newly apparent focal airspace abnormality. No pleural effusion or pneumothora x. Mild asymmetric elevation of the right hemidiaphragm. Impression: Enlargement of the cardiomediastinal silhouette without findings of overt congestive heart failure/vo lume overload. Overall no significant change from 05/13/2021. Electronically signed by: VANDANA SCHMIDT MD (10/12/2021 10:13 PM) [facility]
[2021-10-12 22:19] LABS: BASO # 0.1 x10^3/uL (0.0-0.2); BASO % 1 % (0-3); EOS # 0.2 x10^3/uL (0.0-0.7); EOS % 3 % (0-3); HEMATOCRIT 45.7 % (39.0-53.0); HEMOGLOBIN 14.7 g/dL (13.0-17.5); LYMPH # 0.9 x10^3/uL (1.0-4.8); LYMPH % 13 % (24-48); MEAN CORPUSCULAR HEMOGLOBIN 27 pg (25-35); MEAN CORPUSCULAR HGB CONC 32 g/dL (31-37); MEAN CORPUSCULAR VOLUME 83 fL (79-100); MONO # 0.7 x10^3/uL (0.0-1.1); MONO % 11 % (0-9); NEUT # 5.1 x10^3/uL (1.8-7.7); NEUT % 72 % (31-73); PLATELET COUNT 123 x10^3/uL (140-400); RED BLOOD COUNT 5.49 x10^6/uL (4.30-5.70); RED CELL DISTRIBUTION WIDTH 23.4 % (11.5-14.5); WHITE BLOOD COUNT 7.1 x10^3/uL (4.0-11.0)
[2021-10-12 22:26] LABS: CALCIUM 8.7 mg/dL (8.5-10.1); CREATININE 1.8 mg/dL (0.7-1.3); GFR 37.9; POTASSIUM 3.5 mmol/L (3.5-5.1)
[2021-10-12 22:29] LABS: PROTHROMBIN TIME PATIENT 18.5 SEC (11.7-14.0)
[2021-10-12 22:29] LABS: INFLUENZA A PATIENT NEGATIVE (NEGATIVE); INFLUENZA B PATIENT NEGATIVE (NEGATIVE)
[2021-10-12 22:32] LABS: ALBUMIN 3.2 g/dL (3.4-5.0); ALBUMIN/GLOBULIN RATIO 0.8 (1.0-1.7); MAGNESIUM 2.1 mg/dL (1.8-2.4); TOTAL BILIRUBIN 2.2 mg/dL (0.2-1.0)
[2021-10-12 22:44] LABS: ANISOCYTOSIS MOD; PLT ESTIMATE DECREASED (ADEQUATE)
[2021-10-12 22:50] LABS: D-DIMER 3.5 ug/mlFEU (0.00-0.50)
[2021-10-12 22:52] LABS: AMORPHOUS SEDIMENT,UR PRESENT /HPF; BACTERIA,URINE 0 /HPF (0-FEW); GRANULAR CASTS,URINE FEW /HPF; HYALINE CASTS, URINE FEW /HPF; RBC,URINE 0 /HPF (0-2)
[2021-10-12] MEDS ORDERED: DEXTROSE 50% 25 GM / 50ML DISP.SYRIN. IV PRN (23:15)
[2021-10-12] MEDS ORDERED: HEPARIN 25,000UTS/250ML PREMIX 250 ML IV PRN (23:15)
[2021-10-12] MEDS ORDERED: fentaNYL PF VIAL 100 MCG/2 ML VIAL IVP PRN (23:15)
[2021-10-12] MEDS ORDERED: ONDANSETRON PF 4 MG/2 ML VIAL. IVP PRN (23:15)
[2021-10-12] MEDS ORDERED: ANTI-COAG MONITOR BY PHARMACY. MC PRN (23:15)
[2021-10-12] MEDS ORDERED: HEPARIN for IV BOLUS 10,000 UNIT/10 ML VIAL. IV ONE (23:30)
[2021-10-12] MEDS ORDERED: BUMETANIDE 1 MG/4 ML VIAL. IV ONE (23:30)
--- NOTE | 2021-10-12 23:48 | RAD ---
CLINICAL HISTORY: Reason: swelling pain / Spl. Instructions: / History: COMPARISON: None available. TECHNIQUE: Ultrasound images of the scrotum was performed with jensen-scale and color doppler. FINDINGS: The right testis measures 4.3 x 2.5 x 3.2 cm. The left testis measures 3.9 x 3.4 x 2.9 cm. There is no intratesticular abnormality. Testicular vascularity is symmetric and within normal limit s. The epididymis is normal in appearance bilaterally. There is a small to moderate right hydrocele. Diffuse soft tissues scrotal thickening. IMPRESSION: 1. Diffuse scrotal wall edema, correlate for cellulitis. 2. Right hydrocele. 3. Normal appearance of the testicles without evidence of torsion. Electronically signed by: Gabbie Larios MD (10/12/2021 11:45 PM) [facility]
[2021-10-13 00:58] VITALS: BP 137/96
[2021-10-13] MEDS ORDERED: HEPARIN for IV BOLUS 10,000 UNIT/10 ML VIAL. IV PRN ×2 (01:30)
[2021-10-13] MEDS ORDERED: HEPARIN 25,000UTS/250ML PREMIX 250 ML IV PRN (01:30)
--- NOTE | 2021-10-13 01:56 | EKG ---
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
[2021-10-13 07:00] VITALS: BP 147/95
[2021-10-13] MEDS: INSULIN LISPRO 300 UNITS/3 ML VIAL. SQ SCH ×3 (08:00→17:16)
[2021-10-13 08:02] LABS: HEMOGLOBIN 14.6 g/dL (13.0-17.5); RED BLOOD COUNT 5.47 x10^6/uL (4.30-5.70); RED CELL DISTRIBUTION WIDTH 23.5 % (11.5-14.5); WHITE BLOOD COUNT 6.6 x10^3/uL (4.0-11.0)
[2021-10-13 10:53] VITALS: BP 105/55
[2021-10-13] MEDS ORDERED: FUROSEMIDE 40 MG/4 ML VIAL. IVP ONE (11:45)
[2021-10-13] MEDS ORDERED: METOPROLOL IV PUSH 5 MG/5 ML VIAL. IVP PRN (12:00)
--- NOTE | 2021-10-13 12:01 | PDOC1 ---
History and Physical Date of Admission Date of Admission DATE: 10/13/21 TIME: 11:31 Identification/Chief Complaint Chief Complaint Shortness of breath, chest pain Source Source: Chart review, Patient History of Present Illness History of Present Illness Patient is a 66-year-old male with past medical history DM2, CAD with stents, A. fib on Eliquis, who presents to the ED with complaints of shortness of breath and substernal chest pain for the past 2 days. States his chest pain is more like chest pressure, 6/10. He has associated productive cough, lower extremity swelling, and scrotal swelling for the past 10 days. He also notes recent diarrhea and nausea, but none today. Labs on admission showed WBC 7.1, platelets 123, BUN 30, creatinine 1.8, CBG 153, proBNP 1391, troponin 84, with repeat 99, and 100. Urinalysis showed negative nitrites, negative leukoesterase, and 0 bacteria. CXR on admission showed enlarged cardiomediastinal silhouette without overt congestion. Ultrasound of scrotum showed diffuse scrotal swelling, right hydrocele, no evidence of torsion. On evaluation this morning he denies chest pain and he is in rate controlled A. fib. He has been admitted for further medical management. Past Medical History Cardiovascular: AFIB, CAD, HTN, Hyperlipidemia Pulmonary: COPD, Pneumonia CENTRAL NERVOUS SYSTEM: Other GI: GERD Heme/Onc: No pertinent hx Psych: No pertinent hx Musculoskeletal: Osteoarthritis Infectious disease: No pertinent hx Renal/: No pertinent hx, Other Endocrine: Hypothyroidism, Other Past Surgical History Past Surgical History: Hernia Repair, Other Family History Family History: Heart Disease Social History Smoke: Quit ALCOHOL: none Drugs: None Current Problem List Problem List Problems Medical Problems: (1) Acute exacerbation of CHF (congestive heart failure) Status: Acute (2) Edema of scrotum Status: Acute (3) Elevated d-dimer Status: Acute (4) Elevated troponin Status: Acute (5) Hydrocele in adult Status: Acute Current Medications Current Medications Current Medications Aspirin (Nubia Aspirin) 325 mg 1X ONCE PO Last administered on 10/12/21at 22:24; Start 10/12/21 at 22:00; Stop 10/12/21 at 22:01; Status DC Bumetanide (Bumex) 1 mg 1X ONCE IV Last administered on 10/12/21at 23:29; Start 10/12/21 at 23:30; Stop 10/12/21 at 23:31; Status DC Heparin Sodium (Porcine) (Heparin Sodium) 4,000 unit 1X ONCE IV Last administered on 10/12/21at 23:35; Start 10/12/21 at 23:30; Stop 10/12/21 at 23:31; Status DC Heparin Sodium/ Dextrose 250 ml @ 10 mls/hr CONT PRN IV PER PROTOCOL Last administered on 10/12/21at 23:37; Start 10/12/21 at 23:15; Stop 10/13/21 at 01:18; Status DC Info (Anti-Coagulation Monitoring By Pharmacy) 1 each PRN DAILY PRN MC PER PROTOCOL Last administered on 10/13/21at 01:37; Start 10/12/21 at 23:15 Ondansetron HCl (Zofran) 4 mg PRN Q8HRS PRN IVP NAUSEA/VOMITING 1ST CHOICE; Start 10/12/21 at 23:15; Stop 10/13/21 at 23:14 Fentanyl Citrate (Fentanyl 2ml Vial) 50 mcg PRN Q2HRS PRN IVP SEVERE PAIN 7-10 Last administered on 10/12/21at 23:26; Start 10/12/21 at 23:15 Insulin Human Lispro (HumaLOG) 0-5 UNITS TIDWMEALS SQ ; Start 10/13/21 at 08:00 Dextrose (Dextrose 50%-Water Syringe) 12.5 gm PRN Q15MIN PRN IV SEE COMMENTS; Start 10/12/21 at 23:15 Heparin Sodium/ Dextrose 250 ml @ 10 mls/hr CONT PRN IV PER PROTOCOL; Start 10/13/21 at 01:30 Heparin Sodium (Porcine) (Heparin Sodium) 25 UNITS / KG PRN Q6HRS PRN IV FOR PTT < 40; Start 10/13/21 at 01:30; Stop 10/13/21 at 01:20; Status DC Heparin Sodium (Porcine) (Heparin Sodium) 2,900 unit PRN Q6HRS PRN IV FOR PTT < 40; Start 10/13/21 at 01:30 Active Scripts Active Voltaren Arthritis Pain (Diclofenac Sodium) 20 Gm Gel..gram. 20 Gm TP BID Hydrocodone-Apap 5-325 (Hydrocodone Bit/Acetaminophen) 1 Tab Tablet 1 Tab PO PRN Q6HRS PRN Toprol XL (Metoprolol Succinate) 50 Mg Tab.er.24h 50 Mg PO DAILY 30 Days Tradjenta (Linagliptin) 5 Mg Tablet 5 Mg PO DAILY 30 Days Jardiance (Empaglifozin) 25 Mg Tablet 25 Mg PO DAILY 30 Days Bumetanide 1 Mg Tablet 1 Mg PO DAILY 30 Days 1x daily and prn BID for weight gain or shortness of breath Aspirin Ec (Aspirin) 81 Mg Tablet.dr 81 Mg PO DAILYWBKFT Reported Amlodipine Besylate 10 Mg Tablet 10 Mg PO DAILY Atorvastatin Calcium 80 Mg Tablet 80 Mg PO HS Potassium Chloride (Potassium Chloride) 20 Meq Tablet.er 20 Meq PO DAILY Eliquis (Apixaban) 5 Mg Tablet 5 Mg PO BID NITROGLYCERIN SubLingual (Nitroglycerin) 0.4 Mg Tab.subl 0.4 Mg SL PRN Q5MIN PRN Allergies Allergies: Coded Allergies: iodine (Verified Allergy, Intermediate, 10/12/21) ROS Review of System GENERAL: No history of weight change, weakness or fevers. SKIN: No bruising, hair changes or rashes. EYES: No blurred, double or loss of vision. NOSE AND THROAT: No history of nosebleeds, hoarseness or sore throat. HEART: Chest pain. Denies palpitations. LUNGS: Shortness of breath, cough. Denies wheezing. GASTROINTESTINAL: Denies nausea, vomiting, abdominal pain. GENITOURINARY: Scrotal swelling and dysuria. Denies frequency, urgency, hematuria. NEUROLOGIC: Denies history of numbness, tingling, tremor or weakness. PSYCHIATRIC: Denies anxiety, denies depression. ENDOCRINE: No history of heat or cold intolerance, polyuria or polydipsia. EXTREMITIES: Bilateral lower extremity swelling. Denies muscle weakness, joint pain, pain on walking or stiffness. Physical Exam Physical Exam General: Alert, Oriented X3, Cooperative, mild distress HEENT: Atraumatic, EOMI Lungs: Bibasilar rales Heart: Irregularly irregular. No rubs Cardiovascular: S1, S2, S3 Abdomen: Normal bowel sounds, Soft, No tenderness. Significant scrotal edema. Extremities: 3+ bilateral leg edema Skin: No breakdown, No significant lesion Neuro: Normal speech, Sensation intact Psych/Mental Status: Mental status NL, Mood NL Vitals Vitals Vital Signs Date Time Temp Pulse Resp B/P (MAP) Pulse Ox O2 Delivery O2 Flow Rate FiO2 10/13/21 10:53 95.0 85 20 105/55 (72) 98 Nasal Cannula 2.0 95.0 Labs Labs Laboratory Tests Test 10/12/21 21:57 10/12/21 22:03 10/12/21 22:30 10/13/21 04:00 Influenza Type A Antigen Negative (NEGATIVE) Influenza Type B Antigen Negative (NEGATIVE) SARS-CoV-2 Antigen (Rapid) Negative (NEGATIVE) White Blood Count 7.1 x10^3/uL (4.0-11.0) Red Blood Count 5.49 x10^6/uL (4.30-5.70) Hemoglobin 14.7 g/dL (13.0-17.5) Hematocrit 45.7 % (39.0-53.0) Mean Corpuscular Volume 83 fL (79-100) Mean Corpuscular Hemoglobin 27 pg (25-35) Mean Corpuscular Hemoglobin Concent 32 g/dL (31-37) Red Cell Distribution Width 23.4 % (11.5-14.5) Platelet Count 123 x10^3/uL (140-400) Neutrophils (%) (Auto) 72 % (31-73) Lymphocytes (%) (Auto) 13 % (24-48) Monocytes (%) (Auto) 11 % (0-9) Eosinophils (%) (Auto) 3 % (0-3) Basophils (%) (Auto) 1 % (0-3) Neutrophils # (Auto) 5.1 x10^3/uL (1.8-7.7) Lymphocytes # (Auto) 0.9 x10^3/uL (1.0-4.8) Monocytes # (Auto) 0.7 x10^3/uL (0.0-1.1) Eosinophils # (Auto) 0.2 x10^3/uL (0.0-0.7) Basophils # (Auto) 0.1 x10^3/uL (0.0-0.2) Platelet Estimate Decreased (ADEQUATE) Anisocytosis Mod Prothrombin Time 18.5 SEC (11.7-14.0) Prothromb Time International Ratio 1.6 (0.8-1.1) Activated Partial Thromboplast Time 35 SEC (24-38) D-Dimer (Kita) 3.50 ug/mlFEU (0.00-0.50) Sodium Level 140 mmol/L (136-145) Potassium Level 3.5 mmol/L (3.5-5.1) Chloride Level 103 mmol/L (98-107) Carbon Dioxide Level 27 mmol/L (21-32) Anion Gap 10 (6-14) Blood Urea Nitrogen 30 mg/dL (8-26) Creatinine 1.8 mg/dL (0.7-1.3) Estimated GFR (Cockcroft-Gault) 37.9 BUN/Creatinine Ratio 17 (6-20) Glucose Level 153 mg/dL (70-99) Lactic Acid Level 1.4 mmol/L (0.4-2.0) Calcium Level 8.7 mg/dL (8.5-10.1) Magnesium Level 2.1 mg/dL (1.8-2.4) Total Bilirubin 2.2 mg/dL (0.2-1.0) Aspartate Amino Transf (AST/SGOT) 37 U/L (15-37) Alanine Aminotransferase (ALT/SGPT) 25 U/L (16-63) Alkaline Phosphatase 200 U/L (46-116) Troponin I High Sensitivity 84 ng/L (4-75) 99 ng/L (4-75) CZ-Gxi-I-Type Natriuretic Peptide 1391 pg/mL (0-124) Total Protein 7.0 g/dL (6.4-8.2) Albumin 3.2 g/dL (3.4-5.0) Albumin/Globulin Ratio 0.8 (1.0-1.7) Lipase 138 U/L (73-393) Urine Collection Type Unknown Urine Color (Auto) Yellow Urine Turbidity Clear Urine pH (Auto) 5.5 (<5.0-8.0) Urine Specific Lyons 1.024 (1.000-1.030) Urine Protein (Auto) Negative mg/dL (Negative) Urine Glucose (Auto)(UA) >=1000 mg/dL (Negative) Urine Ketones (Auto) Negative mg/dL (Negative) Urine Blood (Auto) Negative (Negative) Urine Nitrite Negative (Negative) Urine Bilirubin (Auto) Negative (Negative) Urine Urobilinogen (Auto) Normal mg/dL (Normal) Urine Leukocyte Esterase (Auto) Negative (Negative) Urine RBC 0 /HPF (0-2) Urine WBC 1-4 /HPF (0-4) Urine Squamous Epithelial Cells Few /LPF Urine Amorphous Sediment Present /HPF Urine Bacteria 0 /HPF (0-FEW) Urine Hyaline Casts Few /HPF Urine Granular Casts Few /HPF Urine Mucus Slight /LPF Test 10/13/21 06:05 10/13/21 07:24 White Blood Count 6.6 x10^3/uL (4.0-11.0) Red Blood Count 5.47 x10^6/uL (4.30-5.70) Hemoglobin 14.6 g/dL (13.0-17.5) Hematocrit 46.0 % (39.0-53.0) Mean Corpuscular Volume 84 fL (79-100) Mean Corpuscular Hemoglobin 27 pg (25-35) Mean Corpuscular Hemoglobin Concent 32 g/dL (31-37) Red Cell Distribution Width 23.5 % (11.5-14.5) Platelet Count 108 x10^3/uL (140-400) Activated Partial Thromboplast Time 64 SEC (24-38) Troponin I High Sensitivity 100 ng/L (4-75) Glucose (Fingerstick) 107 mg/dL (70-99) Laboratory Tests Test 10/12/21 21:57 10/12/21 22:03 10/12/21 22:30 10/13/21 04:00 Influenza Type A Antigen Negative (NEGATIVE) Influenza Type B Antigen Negative (NEGATIVE) SARS-CoV-2 Antigen (Rapid) Negative (NEGATIVE) White Blood Count 7.1 x10^3/uL (4.0-11.0) Red Blood Count 5.49 x10^6/uL (4.30-5.70) Hemoglobin 14.7 g/dL (13.0-17.5) Hematocrit 45.7 % (39.0-53.0) Mean Corpuscular Volume 83 fL (79-100) Mean Corpuscular Hemoglobin 27 pg (25-35) Mean Corpuscular Hemoglobin Concent 32 g/dL (31-37) Red Cell Distribution Width 23.4 % (11.5-14.5) Platelet Count 123 x10^3/uL (140-400) Neutrophils (%) (Auto) 72 % (31-73) Lymphocytes (%) (Auto) 13 % (24-48) Monocytes (%) (Auto) 11 % (0-9) Eosinophils (%) (Auto) 3 % (0-3) Basophils (%) (Auto) 1 % (0-3) Neutrophils # (Auto) 5.1 x10^3/uL (1.8-7.7) Lymphocytes # (Auto) 0.9 x10^3/uL (1.0-4.8) Monocytes # (Auto) 0.7 x10^3/uL (0.0-1.1) Eosinophils # (Auto) 0.2 x10^3/uL (0.0-0.7) Basophils # (Auto) 0.1 x10^3/uL (0.0-0.2) Platelet Estimate Decreased (ADEQUATE) Anisocytosis Mod Prothrombin Time 18.5 SEC (11.7-14.0) Prothromb Time International Ratio 1.6 (0.8-1.1) Activated Partial Thromboplast Time 35 SEC (24-38) D-Dimer (Kita) 3.50 ug/mlFEU (0.00-0.50) Sodium Level 140 mmol/L (136-145) Potassium Level 3.5 mmol/L (3.5-5.1) Chloride Level 103 mmol/L (98-107) Carbon Dioxide Level 27 mmol/L (21-32) Anion Gap 10 (6-14) Blood Urea Nitrogen 30 mg/dL (8-26) Creatinine 1.8 mg/dL (0.7-1.3) Estimated GFR (Cockcroft-Gault) 37.9 BUN/Creatinine Ratio 17 (6-20) Glucose Level 153 mg/dL (70-99) Lactic Acid Level 1.4 mmol/L (0.4-2.0) Calcium Level 8.7 mg/dL (8.5-10.1) Magnesium Level 2.1 mg/dL (1.8-2.4) Total Bilirubin 2.2 mg/dL (0.2-1.0) Aspartate Amino Transf (AST/SGOT) 37 U/L (15-37) Alanine Aminotransferase (ALT/SGPT) 25 U/L (16-63) Alkaline Phosphatase 200 U/L (46-116) Troponin I High Sensitivity 84 ng/L (4-75) 99 ng/L (4-75) RP-Xct-K-Type Natriuretic Peptide 1391 pg/mL (0-124) Total Protein 7.0 g/dL (6.4-8.2) Albumin 3.2 g/dL (3.4-5.0) Albumin/Globulin Ratio 0.8 (1.0-1.7) Lipase 138 U/L (73-393) Urine Collection Type Unknown Urine Color (Auto) Yellow Urine Turbidity Clear Urine pH (Auto) 5.5 (<5.0-8.0) Urine Specific Lyons 1.024 (1.000-1.030) Urine Protein (Auto) Negative mg/dL (Negative) Urine Glucose (Auto)(UA) >=1000 mg/dL (Negative) Urine Ketones (Auto) Negative mg/dL (Negative) Urine Blood (Auto) Negative (Negative) Urine Nitrite Negative (Negative) Urine Bilirubin (Auto) Negative (Negative) Urine Urobilinogen (Auto) Normal mg/dL (Normal) Urine Leukocyte Esterase (Auto) Negative (Negative) Urine RBC 0 /HPF (0-2) Urine WBC 1-4 /HPF (0-4) Urine Squamous Epithelial Cells Few /LPF Urine Amorphous Sediment Present /HPF Urine Bacteria 0 /HPF (0-FEW) Urine Hyaline Casts Few /HPF Urine Granular Casts Few /HPF Urine Mucus Slight /LPF Test 10/13/21 06:05 10/13/21 07:24 White Blood Count 6.6 x10^3/uL (4.0-11.0) Red Blood Count 5.47 x10^6/uL (4.30-5.70) Hemoglobin 14.6 g/dL (13.0-17.5) Hematocrit 46.0 % (39.0-53.0) Mean Corpuscular Volume 84 fL (79-100) Mean Corpuscular Hemoglobin 27 pg (25-35) Mean Corpuscular Hemoglobin Concent 32 g/dL (31-37) Red Cell Distribution Width 23.5 % (11.5-14.5) Platelet Count 108 x10^3/uL (140-400) Activated Partial Thromboplast Time 64 SEC (24-38) Troponin I High Sensitivity 100 ng/L (4-75) Glucose (Fingerstick) 107 mg/dL (70-99) Images Images PATIENT: LONDON CRESPO ACCOUNT: [id number] : 1955 LOCATION: ER AGE: 66 SEX: M EXAM STATUS: PRE ER ORD. PHYSICIAN: MAX SAM DO REASON: SOA, cough PROCEDURE: PORTABLE CHEST 1V Study: XR CHEST 1V Indication: Shortness of air. Cough. Comparison: 05/13/2021 Findings: Unchanged enlargement of the cardiomediastinal silhouette. Similar hilar configuration and aeration pattern of the lungs. No newly apparent focal airspace abnormality. No pleural effusion or pneumothorax. Mild asymmetric elevation of the right hemidiaphragm. Impression: Enlargement of the cardiomediastinal silhouette without findings of overt congestive heart failure/volume overload. Overall no significant change from 05/13/2021. PATIENT: LONDON CRESPO ACCOUNT: [id number] : 1955 LOCATION: ER AGE: 66 SEX: M EXAM STATUS: PRE ER ORD. PHYSICIAN: MAX SAM DO REASON: swelling pain PROCEDURE: TESTICULAR/SCROTUM CLINICAL HISTORY: Reason: swelling pain / Spl. Instructions: / History: COMPARISON: None available. TECHNIQUE: Ultrasound images of the scrotum was performed with jensen-scale and color doppler. FINDINGS: The right testis measures 4.3 x 2.5 x 3.2 cm. The left testis measures 3.9 x 3.4 x 2.9 cm. There is no intratesticular abnormality. Testicular vascularity is symmetric and within normal limits. The epididymis is normal in appearance bilaterally. There is a small to moderate right hydrocele. Diffuse soft tissues scrotal thickening. IMPRESSION: 1. Diffuse scrotal wall edema, correlate for cellulitis. 2. Right hydrocele. 3. Normal appearance of the testicles without evidence of torsion. VTE Prophylaxis Ordered VTE Prophylaxis Devices: No VTE Pharmacological Prophylaxi: Yes Assessment/Plan Assessment/Plan Acute respiratory failure with hypoxia Chest pain Acute on chronic systolic CHF Acute on chronic renal failure Atrial fibrillation DM2 HTN COPD Plan: Consultation placed to cardiology Continue patient's heparin gtt Will hold home medications and Eliquis for likely left heart cath today No signs of infection in his scrotum, likely fluid overload from CHF. Will provide additional dose of IV Lasix at this time. If patient cannot urinate due to scrotal and penile edema he will need insertion of catheter. Echocardiogram from 07/23/2020 showed mildly impaired LV systolic function, EF 45%, moderate mitral regurgitation, PAP 62 mmHg. Repeat echocardiogram pending Creatinine 1.5, EGFR 47, consistent with CKD 3a from 10/31/2020 FEN - NPO PPX - Heparin gtt FULL CODE/surrogate decision-maker is his (Tess Crespo) Dispo - inpatient for above Justifications for Admission Other Justification Hypoxia YAJAIRA CANSECO MD October 13, 2021 12:01
[2021-10-13] MEDS ORDERED: HYDROcodone/APAP 5/325MG 1 TAB TABLET PO PRN ×2 (12:15→16:45)
[2021-10-13] MEDS ORDERED: ZOLPIDEM 5 MG TABLET. PO PRN (12:15)
[2021-10-13] MEDS ORDERED: CALCIUM CARBONATE 500 MG TAB.CHEW PO PRN (12:15)
[2021-10-13] MEDS ORDERED: ONDANSETRON PF 4 MG/2 ML VIAL. IVP PRN (12:15)
[2021-10-13] MEDS ORDERED: ACETAMINOPHEN 325 MG TABLET. PO PRN (12:15)
[2021-10-13] MEDS ORDERED: MAG HYDROX/ALUMINUM HYD/SIMETH 30 ML ORAL.SUSP PO PRN (12:15)
[2021-10-13] MEDS ORDERED: DOCUSATE SODIUM 100 MG CAPSULE. PO PRN (12:15)
[2021-10-13 15:00] VITALS: BP 147/105
--- NOTE | 2021-10-13 15:13 | PDOC2 ---
CONSULT Date of Consult Date of Consult DATE: 10/13/21 TIME: 15:02 Reason for Consult Reason for Consult: Chest pain and shortness of breath. Referring Physician Referring Physician: Dr. Lew Identification/Chief Complaint Chief Complaint Chest pain and shortness of breath Source Source: Chart review, Patient History of Present Illness Reason for Visit: The patient is a 66-year-old male who came to the emergency room for 2 days of increasing shortness of breath and chest pressure. The patient's initial EKG showed an atrial fibrillation with a controlled rate and mild nonspecific ST segment changes. BNP was mildly elevated at 1391. The patient was was admitted and treated with pulmonary medications and mild diuresis. His Eliquis was held and he was converted to IV heparin in case he would need procedures. A chest x- ray showed an enlarged cardiac silhouette but no acute pulmonary edema. Today the patient's chest pain has resolved. His troponins are borderline at 84, 99 and 100. His shortness of breath is still present but improved. His cardiac history includes a cardiac catheterization on 07/24/2020 that showed patent stents in the left circumflex and the right coronary artery. The patient had no new no new lesions. His mean PA P was elevated at 68 mmHg. An echocardiogram the previous day showed an ejection fraction of 45% with mild left ventricular hypertrophy and a pulmonary pressure of 62 mmHg. The patient reports being compliant with his medications. Additionally he is allergic to iodine. Past Medical History Cardiovascular: AFIB, CAD, HTN, Hyperlipidemia Pulmonary: COPD, Pneumonia CENTRAL NERVOUS SYSTEM: Other GI: GERD Heme/Onc: No pertinent hx Psych: No pertinent hx Musculoskeletal: Osteoarthritis Infectious disease: No pertinent hx Renal/: No pertinent hx, Other Endocrine: Diabetes, Hypothyroidism, Other Past Surgical History Past Surgical History: Hernia Repair, Other (Coronary stents in the left c ircumflex and right coronary arteries.) Family History Family History: Heart Disease Social History Quit ALCOHOL: none Drugs: None Lives: with Family Domestic Violence: Neg Current Problem List Problem List Problems Medical Problems: (1) Acute exacerbation of CHF (congestive heart failure) Status: Acute (2) Edema of scrotum Status: Acute (3) Elevated d-dimer Status: Acute (4) Elevated troponin Status: Acute (5) Hydrocele in adult Status: Acute Current Medications Current Medications Current Medications Aspirin (Nubia Aspirin) 325 mg 1X ONCE PO Last administered on 10/12/21at 22:24; Start 10/12/21 at 22:00; Stop 10/12/21 at 22:01; Status DC Bumetanide (Bumex) 1 mg 1X ONCE IV Last administered on 10/12/21at 23:29; Start 10/12/21 at 23:30; Stop 10/12/21 at 23:31; Status DC Heparin Sodium (Porcine) (Heparin Sodium) 4,000 unit 1X ONCE IV Last administered on 10/12/21at 23:35; Start 10/12/21 at 23:30; Stop 10/12/21 at 23:31; Status DC Heparin Sodium/ Dextrose 250 ml @ 10 mls/hr CONT PRN IV PER PROTOCOL Last administered on 10/12/21at 23:37; Start 10/12/21 at 23:15; Stop 10/13/21 at 01:18; Status DC Info (Anti-Coagulation Monitoring By Pharmacy) 1 each PRN DAILY PRN MC PER P ROTOCOL Last administered on 10/13/21at 01:37; Start 10/12/21 at 23:15 Ondansetron HCl (Zofran) 4 mg PRN Q8HRS PRN IVP NAUSEA/VOMITING 1ST CHOICE; Start 10/12/21 at 23:15; Stop 10/13/21 at 23:14 Fentanyl Citrate (Fentanyl 2ml Vial) 50 mcg PRN Q2HRS PRN IVP SEVERE PAIN 7-10 Last administered on 10/12/21at 23:26; Start 10/12/21 at 23:15 Insulin Human Lispro (HumaLOG) 0-5 UNITS TIDWMEALS SQ ; Start 10/13/21 at 08:00 Dextrose (Dextrose 50%-Water Syringe) 12.5 gm PRN Q15MIN PRN IV SEE COMMENTS; Start 10/12/21 at 23:15 Heparin Sodium/ Dextrose 250 ml @ 10 mls/hr CONT PRN IV PER PROTOCOL; Start 10/13/21 at 01:30 Heparin Sodium (Porcine) (Heparin Sodium) 25 UNITS / KG PRN Q6HRS PRN IV FOR PTT < 40; Start 10/13/21 at 01:30; Stop 10/13/21 at 01:20; Status DC Heparin Sodium (Porcine) (Heparin Sodium) 2,900 unit PRN Q6HRS PRN IV FOR PTT < 40; Start 10/13/21 at 01:30 Furosemide (Lasix) 40 mg 1X ONCE IVP Last administered on 10/13/21at 12:19; Start 10/13/21 at 11:45; Stop 10/13/21 at 12:13; Status DC Metoprolol Tartrate (Lopressor Vial) 5 mg PRN Q5MIN PRN IVP TACHYCARDIA; Start 10/13/21 at 12:00 Ondansetron HCl (Zofran) 4 mg PRN Q6HRS PRN IVP NAUSEA/VOMITING; Start 10/13/21 at 12:15 Al Hydroxide/Mg Hydroxide (Mylanta Plus Xs) 30 ml PRN Q3HRS PRN PO HEARTBURN / GAS; Start 10/13/21 at 12:15 Calcium Carbonate/ Glycine (Tums) 500 mg PRN Q3HRS PRN PO UPSET STOMACH; Start 10/13/21 at 12:15 Zolpidem Tartrate (Ambien) 5 mg PRN QHS PRN PO INSOMNIA, MAY REPEAT IN 1HR; Start 10/13/21 at 12:15 Acetaminophen/ Hydrocodone Bitart (Lortab 5/325) 1 tab PRN Q4HRS PRN PO MILD PAIN 1-3; Start 10/13/21 at 12:15 Acetaminophen (Tylenol) 650 mg PRN Q6HRS PRN PO Headaches, Temp > 101.5F; Start 10/13/21 at 12:15 Docusate Sodium (Colace) 100 mg PRN BID PRN PO CONSTIPATION; Start 10/13/21 at 12:15 Active Scripts Active Voltaren Arthritis Pain (Diclofenac Sodium) 20 Gm Gel..gram. 20 Gm TP BID Hydrocodone-Apap 5-325 (Hydrocodone Bit/Acetaminophen) 1 Tab Tablet 1 Tab PO PRN Q6HRS PRN Toprol XL (Metoprolol Succinate) 50 Mg Tab.er.24h 50 Mg PO DAILY 30 Days Tradjenta (Linagliptin) 5 Mg Tablet 5 Mg PO DAILY 30 Days Jardiance (Empaglifozin) 25 Mg Tablet 25 Mg PO DAILY 30 Days Bumetanide 1 Mg Tablet 1 Mg PO DAILY 30 Days 1x daily and prn BID for weight gain or shortness of breath Aspirin Ec (Aspirin) 81 Mg Tablet. 81 Mg PO DAILYWBKFT Reported Amlodipine Besylate 10 Mg Tablet 10 Mg PO DAILY Atorvastatin Calcium 80 Mg Tablet 80 Mg PO HS Potassium Chloride (Potassium Chloride) 20 Meq Tablet.er 20 Meq PO DAILY Eliquis (Apixaban) 5 Mg Tablet 5 Mg PO BID NITROGLYCERIN SubLingual (Nitroglycerin) 0.4 Mg Tab.subl 0.4 Mg SL PRN Q5MIN PRN Allergies Allergies: Coded Allergies: iodine (Verified Allergy, Intermediate, 10/12/21) ROS General: YES: Fatigue Respiratory: YES: Shortness of breath Cardiovascular: yes Chest Pain Physical Exam General: mild distress HEENT: Atraumatic Lungs: Other (Mildly decreased breath sounds) Heart: Other (Irregularly irregular) Abdomen: Normal bowel sounds Vitals VITALS Vital Signs Date Time Temp Pulse Resp B/P (MAP) Pulse Ox O2 Delivery O2 Flow Rate FiO2 10/13/21 10:53 95.0 85 20 105/55 (72) 98 Nasal Cannula 2.0 95.0 Labs Labs Laboratory Tests Test 10/12/21 21:57 10/12/21 22:03 10/12/21 22:30 10/13/21 04:00 Coronavirus (COVID-19)(PCR) Not detected (NOT DETECTD) Influenza Type A Antigen Negative (NEGATIVE) Influenza Type B Antigen Negative (NEGATIVE) SARS-CoV-2 Antigen (Rapid) Negative (NEGATIVE) White Blood Count 7.1 x10^3/uL (4.0-11.0) Red Blood Count 5.49 x10^6/uL (4.30-5.70) Hemoglobin 14.7 g/dL (13.0-17.5) Hematocrit 45.7 % (39.0-53.0) Mean Corpuscular Volume 83 fL (79-100) Mean Corpuscular Hemoglobin 27 pg (25-35) Mean Corpuscular Hemoglobin Concent 32 g/dL (31-37) Red Cell Distribution Width 23.4 % (11.5-14.5) Platelet Count 123 x10^3/uL (140-400) Neutrophils (%) (Auto) 72 % (31-73) Lymphocytes (%) (Auto) 13 % (24-48) Monocytes (%) (Auto) 11 % (0-9) Eosinophils (%) (Auto) 3 % (0-3) Basophils (%) (Auto) 1 % (0-3) Neutrophils # (Auto) 5.1 x10^3/uL (1.8-7.7) Lymphocytes # (Auto) 0.9 x10^3/uL (1.0-4.8) Monocytes # (Auto) 0.7 x10^3/uL (0.0-1.1) Eosinophils # (Auto) 0.2 x10^3/uL (0.0-0.7) Basophils # (Auto) 0.1 x10^3/uL (0.0-0.2) Platelet Estimate Decreased (ADEQUATE) Anisocytosis Mod Prothrombin Time 18.5 SEC (11.7-14.0) Prothromb Time International Ratio 1.6 (0.8-1.1) Activated Partial Thromboplast Time 35 SEC (24-38) D-Dimer (Kita) 3.50 ug/mlFEU (0.00-0.50) Sodium Level 140 mmol/L (136-145) Potassium Level 3.5 mmol/L (3.5-5.1) Chloride Level 103 mmol/L (98-107) Carbon Dioxide Level 27 mmol/L (21-32) Anion Gap 10 (6-14) Blood Urea Nitrogen 30 mg/dL (8-26) Creatinine 1.8 mg/dL (0.7-1.3) Estimated GFR (Cockcroft-Gault) 37.9 BUN/Creatinine Ratio 17 (6-20) Glucose Level 153 mg/dL (70-99) Lactic Acid Level 1.4 mmol/L (0.4-2.0) Calcium Level 8.7 mg/dL (8.5-10.1) Magnesium Level 2.1 mg/dL (1.8-2.4) Total Bilirubin 2.2 mg/dL (0.2-1.0) Aspartate Amino Transf (AST/SGOT) 37 U/L (15-37) Alanine Aminotransferase (ALT/SGPT) 25 U/L (16-63) Alkaline Phosphatase 200 U/L (46-116) Troponin I High Sensitivity 84 ng/L (4-75) 99 ng/L (4-75) FN-Wvb-R-Type Natriuretic Peptide 1391 pg/mL (0-124) Total Protein 7.0 g/dL (6.4-8.2) Albumin 3.2 g/dL (3.4-5.0) Albumin/Globulin Ratio 0.8 (1.0-1.7) Lipase 138 U/L (73-393) Urine Collection Type Unknown Urine Color (Auto) Yellow Urine Turbidity Clear Urine pH (Auto) 5.5 (<5.0-8.0) Urine Specific Riley 1.024 (1.000-1.030) Urine Protein (Auto) Negative mg/dL (Negative) Urine Glucose (Auto)(UA) >=1000 mg/dL (Negative) Urine Ketones (Auto) Negative mg/dL (Negative) Urine Blood (Auto) Negative (Negative) Urine Nitrite Negative (Negative) Urine Bilirubin (Auto) Negative (Negative) Urine Urobilinogen (Auto) Normal mg/dL (Normal) Urine Leukocyte Esterase (Auto) Negative (Negative) Urine RBC 0 /HPF (0-2) Urine WBC 1-4 /HPF (0-4) Urine Squamous Epithelial Cells Few /LPF Urine Amorphous Sediment Present /HPF Urine Bacteria 0 /HPF (0-FEW) Urine Hyaline Casts Few /HPF Urine Granular Casts Few /HPF Urine Mucus Slight /LPF Test 10/13/21 06:05 10/13/21 07:24 10/13/21 11:31 White Blood Count 6.6 x10^3/uL (4.0-11.0) Red Blood Count 5.47 x10^6/uL (4.30-5.70) Hemoglobin 14.6 g/dL (13.0-17.5) Hematocrit 46.0 % (39.0-53.0) Mean Corpuscular Volume 84 fL (79-100) Mean Corpuscular Hemoglobin 27 pg (25-35) Mean Corpuscular Hemoglobin Concent 32 g/dL (31-37) Red Cell Distribution Width 23.5 % (11.5-14.5) Platelet Count 108 x10^3/uL (140-400) Activated Partial Thromboplast Time 64 SEC (24-38) Troponin I High Sensitivity 100 ng/L (4-75) Glucose (Fingerstick) 107 mg/dL (70-99) 133 mg/dL (70-99) Laboratory Tests Test 10/12/21 21:57 10/12/21 22:03 10/12/21 22:30 10/13/21 04:00 Coronavirus (COVID-19)(PCR) Not detected (NOT DETECTD) Influenza Type A Antigen Negative (NEGATIVE) Influenza Type B Antigen Negative (NEGATIVE) SARS-CoV-2 Antigen (Rapid) Negative (NEGATIVE) White Blood Count 7.1 x10^3/uL (4.0-11.0) Red Blood Count 5.49 x10^6/uL (4.30-5.70) Hemoglobin 14.7 g/dL (13.0-17.5) Hematocrit 45.7 % (39.0-53.0) Mean Corpuscular Volume 83 fL (79-100) Mean Corpuscular Hemoglobin 27 pg (25-35) Mean Corpuscular Hemoglobin Concent 32 g/dL (31-37) Red Cell Distribution Width 23.4 % (11.5-14.5) Platelet Count 123 x10^3/uL (140-400) Neutrophils (%) (Auto) 72 % (31-73) Lymphocytes (%) (Auto) 13 % (24-48) Monocytes (%) (Auto) 11 % (0-9) Eosinophils (%) (Auto) 3 % (0-3) Basophils (%) (Auto) 1 % (0-3) Neutrophils # (Auto) 5.1 x10^3/uL (1.8-7.7) Lymphocytes # (Auto) 0.9 x10^3/uL (1.0-4.8) Monocytes # (Auto) 0.7 x10^3/uL (0.0-1.1) Eosinophils # (Auto) 0.2 x10^3/uL (0.0-0.7) Basophils # (Auto) 0.1 x10^3/uL (0.0-0.2) Platelet Estimate Decreased (ADEQUATE) Anisocytosis Mod Prothrombin Time 18.5 SEC (11.7-14.0) Prothromb Time International Ratio 1.6 (0.8-1.1) Activated Partial Thromboplast Time 35 SEC (24-38) D-Dimer (Kita) 3.50 ug/mlFEU (0.00-0.50) Sodium Level 140 mmol/L (136-145) Potassium Level 3.5 mmol/L (3.5-5.1) Chloride Level 103 mmol/L (98-107) Carbon Dioxide Level 27 mmol/L (21-32) Anion Gap 10 (6-14) Blood Urea Nitrogen 30 mg/dL (8-26) Creatinine 1.8 mg/dL (0.7-1.3) Estimated GFR (Cockcroft-Gault) 37.9 BUN/Creatinine Ratio 17 (6-20) Glucose Level 153 mg/dL (70-99) Lactic Acid Level 1.4 mmol/L (0.4-2.0) Calcium Level 8.7 mg/dL (8.5-10.1) Magnesium Level 2.1 mg/dL (1.8-2.4) Total Bilirubin 2.2 mg/dL (0.2-1.0) Aspartate Amino Transf (AST/SGOT) 37 U/L (15-37) Alanine Aminotransferase (ALT/SGPT) 25 U/L (16-63) Alkaline Phosphatase 200 U/L (46-116) Troponin I High Sensitivity 84 ng/L (4-75) 99 ng/L (4-75) AG-Ace-C-Type Natriuretic Peptide 1391 pg/mL (0-124) Total Protein 7.0 g/dL (6.4-8.2) Albumin 3.2 g/dL (3.4-5.0) Albumin/Globulin Ratio 0.8 (1.0-1.7) Lipase 138 U/L (73-393) Urine Collection Type Unknown Urine Color (Auto) Yellow Urine Turbidity Clear Urine pH (Auto) 5.5 (<5.0-8.0) Urine Specific Riley 1.024 (1.000-1.030) Urine Protein (Auto) Negative mg/dL (Negative) Urine Glucose (Auto)(UA) >=1000 mg/dL (Negative) Urine Ketones (Auto) Negative mg/dL (Negative) Urine Blood (Auto) Negative (Negative) Urine Nitrite Negative (Negative) Urine Bilirubin (Auto) Negative (Negative) Urine Urobilinogen (Auto) Normal mg/dL (Normal) Urine Leukocyte Esterase (Auto) Negative (Negative) Urine RBC 0 /HPF (0-2) Urine WBC 1-4 /HPF (0-4) Urine Squamous Epithelial Cells Few /LPF Urine Amorphous Sediment Present /HPF Urine Bacteria 0 /HPF (0-FEW) Urine Hyaline Casts Few /HPF Urine Granular Casts Few /HPF Urine Mucus Slight /LPF Test 10/13/21 06:05 10/13/21 07:24 10/13/21 11:31 White Blood Count 6.6 x10^3/uL (4.0-11.0) Red Blood Count 5.47 x10^6/uL (4.30-5.70) Hemoglobin 14.6 g/dL (13.0-17.5) Hematocrit 46.0 % (39.0-53.0) Mean Corpuscular Volume 84 fL (79-100) Mean Corpuscular Hemoglobin 27 pg (25-35) Mean Corpuscular Hemoglobin Concent 32 g/dL (31-37) Red Cell Distribution Width 23.5 % (11.5-14.5) Platelet Count 108 x10^3/uL (140-400) Activated Partial Thromboplast Time 64 SEC (24-38) Troponin I High Sensitivity 100 ng/L (4-75) Glucose (Fingerstick) 107 mg/dL (70-99) 133 mg/dL (70-99) Images Images Chest x-ray as above. Assessment/Plan Assessment/Plan 1. Chest pain. Patient's pain has resolved. He has no acute ischemic EKG changes. Troponins are borderline at 84, 99 and 100. At this time we will continue medical treatment. He has been started on heparin and his Eliquis has been held in case he would require upcoming procedures. He is also allergic to iodine and will give treatment today in case he does require a procedure. 2. Pulmonary hypertension. Severely elevated pulmonary pressures on previous testing as above. We will continue present medications at this time. 3. History of diastolic heart failure. Mild diuresis and continued monitoring. 4. Rate controlled atrial fibrillation. Anticoagulation as above. 5. Hyperlipidemia. Continue present medical treatment. We will check lab. 6. Diabetes mellitus. Continue present treatments and monitor. PAULINO ESPRAZA MD October 13, 2021 15:13
[2021-10-13] MEDS ORDERED: predniSONE 10 MG TABLET PO ONE ×2 (15:15→21:00)
[2021-10-13] MEDS ORDERED: NITROGLYCERIN SUBLINGUAL 0.4 MG BOTTLE OF 25. SL PRN (16:45)
[2021-10-13] MEDS ORDERED: ANTI-COAG MONITOR BY PHARMACY. MC PRN (17:00)
[2021-10-13 19:23] VITALS: BP 146/97
[2021-10-13] MEDS ORDERED: APIXABAN 5 MG TABLET. PO SCH (21:00)
[2021-10-13] MEDS: ATORVASTATIN CALCIUM 40 MG TABLET. PO SCH (21:02)
[2021-10-13] MEDS: DICLOFENAC SODIUM 1% TOPICAL GEL 100GM TUBE. TP SCH (21:03)
[2021-10-13 22:45] VITALS: BP 150/99
[2021-10-14] VITALS (7 sets, daily range): BP systolic 106–200; BP diastolic 68–126
[2021-10-14] MEDS: INSULIN LISPRO 300 UNITS/3 ML VIAL. SQ SCH ×3 (08:00→18:23)
[2021-10-14 08:49] LABS: HEMATOCRIT 46.5 % (39.0-53.0); HEMOGLOBIN 14.9 g/dL (13.0-17.5); RED BLOOD COUNT 5.56 x10^6/uL (4.30-5.70); RED CELL DISTRIBUTION WIDTH 23.7 % (11.5-14.5); WHITE BLOOD COUNT 5.6 x10^3/uL (4.0-11.0)
--- NOTE | 2021-10-14 08:56 | PDOC ---
[employer] PROGRESS NOTE Date of Service DOS: DATE: 10/14/21 TIME: 08:42 Chief Complaint Chief Complaint Chest pain scrotal edema Pulmonary hypertension - cont home meds Acute Diastolic heart failure Atrial fibrillation - rate controlled. On eliquis Hyperlipidemia - statin DM2 - sliding scale insulin ALEN - needs bipap at home HTN - controlled CAD - s/p SALOME at [facility] CKD stage 3 Microcytic anemia - has outpatient iron infusions History of Present Illness History of Present Illness to the ED with complaints of shortness of breath and substernal chest pain for the past 2 days. States his chest pain is more like chest pressure, 6/10. He has associated productive cough, lower extremity swelling, and scrotal swelling for the past 10 days. He also notes recent diarrhea and nausea, but none today. Labs on admission showed WBC 7.1, platelets 123, BUN 30, creatinine 1.8, CBG 153, proBNP 1391, troponin 84, with repeat 99, and 100. Urinalysis showed negative nitrites, negative leukoesterase, and 0 bacteria. CXR on admission showed enlarged cardiomediastinal silhouette and ltrasound of scrotum showed diffuse scrotal swelling, right hydrocele, no evidence of torsion. He is in rate controlled A. fib. He has been admitted for further medical management. 10/14: Still requiring oxygen still with significant scrotal and penile edema and abdominal edema. Required straight catheterization yesterday after IV Lasix. He had echocardiogram this morning. Still with significant orthopnea. Vitals/I&O Vitals/I&O: Vital Signs Date Time Temp Pulse Resp B/P (MAP) Pulse Ox O2 Delivery O2 Flow Rate FiO2 10/14/21 07:00 97.6 84 19 165/79 (107) 96 Nasal Cannula 2.0 97.6 I & O 10/13/21 10/13/21 10/14/21 15:00 23:00 07:00 Intake Total 600 ml 744 ml 145 ml Output Total 250 ml 1150 ml 250 ml Balance 350 ml -406 ml -105 ml Physical Exam General: mild distress Heart: Other (Irregularly irregular) Lungs: Crackles Abdomen: Normal bowel sounds Labs Labs: Laboratory Tests Test 10/13/21 11:31 10/13/21 14:54 10/13/21 16:42 10/13/21 20:44 Glucose (Fingerstick) 133 mg/dL (70-99) 176 mg/dL (70-99) 205 mg/dL (70-99) Activated Partial Thromboplast Time 66 SEC (24-38) Test 10/13/21 22:30 10/14/21 04:30 10/14/21 07:37 Activated Partial Thromboplast Time 75 SEC (24-38) 91 SEC (24-38) Glucose (Fingerstick) 159 mg/dL (70-99) Assessment and Plan Assessmemt and Plan Problems Medical Problems: (1) Acute exacerbation of CHF (congestive heart failure) Status: Acute (2) Edema of scrotum Status: Acute (3) Elevated d-dimer Status: Acute (4) Elevated troponin Status: Acute (5) Hydrocele in adult Status: Acute Comment Review of Relevant I have reviewed the following items robbin (where applicable) has been applied. Medications: Current Medications Medications (Trade) Dose Ordered Sig/Connie Route PRN Reason Start Time Stop Time Status Last Admin Dose Admin Furosemide (Lasix) 40 mg 1X ONCE IVP 10/13/21 11:45 10/13/21 12:13 DC 10/13/21 12:19 Prednisone (Prednisone) 30 mg 1X ONCE PO 10/13/21 15:15 10/13/21 15:23 DC 10/13/21 16:10 Prednisone (Prednisone) 30 mg 1X ONCE PO 10/13/21 21:00 10/13/21 21:01 DC 10/13/21 21:02 Diclofenac Sodium (Voltaren) 1 prabhjot BID TP 10/13/21 21:00 10/13/21 21:03 Atorvastatin Calcium (Lipitor) 80 mg QHS PO 10/13/21 21:00 10/13/21 21:02 Justifications for Admission Other Justification Hypoxia DANIELLA TAVARES MD October 14, 2021 08:56
[2021-10-14 08:59] LABS: CALCIUM 8.4 mg/dL (8.5-10.1); CREATININE 1.3 mg/dL (0.7-1.3); GFR 55.2; POTASSIUM 3.5 mmol/L (3.5-5.1)
[2021-10-14] MEDS ORDERED: FUROSEMIDE 100 MG/10 ML VIAL. IVP ONE (09:00)
[2021-10-14] MEDS ORDERED: BUMETANIDE 1 MG TABLET. PO SCH (09:00)
[2021-10-14] MEDS: LINAGLIPTIN 5 MG TABLET PO SCH (09:56)
[2021-10-14] MEDS: POTASSIUM CHLORIDE 20 MEQ TABLET.ER. PO SCH (09:56)
[2021-10-14] MEDS: METOPROLOL SUCC 24HR ER 50 MG TAB.ER.24H. PO SCH (09:57)
[2021-10-14] MEDS: EMPAGLIFLOZIN 25 MG TABLET. PO SCH (09:57)
[2021-10-14] MEDS: ASPIRIN ENTERIC COATED 81 MG TABLET.DR. PO SCH (09:57)
[2021-10-14] MEDS: DICLOFENAC SODIUM 1% TOPICAL GEL 100GM TUBE. TP SCH ×2 (10:00→21:34)
--- NOTE | 2021-10-14 11:04 | PDOC ---
ELIZA JETER INSIDE SALES ASSOCIATE 10/14/21 1104: CARDIO Progress Notes Date and Time Date of Service 10/14/21 Time of Evaluation 1100 Subjective Subjective: No shortness of breath, No Palpitations, Other (c/o CP with deep breathing ) Vitals Vitals Vital Signs Date Time Temp Pulse Resp B/P (MAP) Pulse Ox O2 Delivery O2 Flow Rate FiO2 10/14/21 10:53 97.6 107 19 200/126 (150) 96 Nasal Cannula 2.0 97.6 Weight Weight [ ] Input and Output Intake and Output Intake and Output 10/14/21 07:00 Intake Total 1489 ml Output Total 1650 ml Balance -161 ml Intake Oral 1150 ml IV Total 339 ml Output Urine Total 1650 ml Laboratory Labs Laboratory Tests Test 10/13/21 11:31 10/13/21 14:54 10/13/21 16:42 10/13/21 20:44 Glucose (Fingerstick) 133 mg/dL (70-99) 176 mg/dL (70-99) 205 mg/dL (70-99) Activated Partial Thromboplast Time 66 SEC (24-38) Test 10/13/21 22:30 10/14/21 04:30 10/14/21 07:37 10/14/21 10:25 Activated Partial Thromboplast Time 75 SEC (24-38) 91 SEC (24-38) White Blood Count 5.6 x10^3/uL (4.0-11.0) Red Blood Count 5.56 x10^6/uL (4.30-5.70) Hemoglobin 14.9 g/dL (13.0-17.5) Hematocrit 46.5 % (39.0-53.0) Mean Corpuscular Volume 84 fL (79-100) Mean Corpuscular Hemoglobin 27 pg (25-35) Mean Corpuscular Hemoglobin Concent 32 g/dL (31-37) Red Cell Distribution Width 23.7 % (11.5-14.5) Platelet Count 91 x10^3/uL (140-400) Sodium Level 143 mmol/L (136-145) Potassium Level 3.5 mmol/L (3.5-5.1) Chloride Level 105 mmol/L (98-107) Carbon Dioxide Level 28 mmol/L (21-32) Anion Gap 10 (6-14) Blood Urea Nitrogen 25 mg/dL (8-26) Creatinine 1.3 mg/dL (0.7-1.3) Estimated GFR (Cockcroft-Gault) 55.2 Glucose Level 170 mg/dL (70-99) Calcium Level 8.4 mg/dL (8.5-10.1) Glucose (Fingerstick) 159 mg/dL (70-99) Troponin I High Sensitivity 61 ng/L (4-75) Microbiology Micro Microbiology 10/12/21 Blood Culture - Preliminary, Resulted NO GROWTH AFTER 1 DAY Physical Exam HEENT: Neck Supple W Full Motion Chest: Symmetric LUNGS: Clear to Auscultation Heart: irregularly irregular Abdomen: Soft N/T Extremities: 2+ Femoral, Other Neurology: alert, oriented, follow commands Assessment Assessment 1. Chest pain, atypical 2. Mild troponin elevation; highest 100. Possibly type II, demand ischemia. on heparin gtt 3. CAD s/p previous PCI/stents to LCx and RCA, which were patent per cath 07/29 4. Acute on chronic systolic CHF; s/p IV Lasix 5. Cardiomyopathy; Echo 07/29 with LVEF 45%. 6. PAFIB: presently in afib. rate controlled 7. Hypertension; controlled 8. Hyperlipidemia; statin 9. Diabetes, II 10. TARA 11. Severe pulmonary HTN 12. ALEN 13. Scrotal edema; US with diffuse edema, right hydrocele Recommendations Repeat troponin. If no further elevation noted, may discontinue heparin gtt. Continue secondary prevention- ASA/statin therapy Mild diuresis Echo pending Metoprolol for rate control Resume Eliquis for stroke prophylaxis upon discharge Supportive care Justicifation of Admission Dx: Justifications for Admission: Justification of Admission Dx: Yes CHF: Cardiac Arrhythmias CALEB KNIGHT MD 10/14/211812: CARDIO Progress Notes Assessment Assessment Patient seen and examined. Agree with FINISHED STOCK INSPECTOR's assessment and plan as stated above ELIZA JETER APRN October 14, 2021 11:04 CALEB KNIGHT MD October 14, 2021 18:13
--- NOTE | 2021-10-14 15:50 | NUR ---
SS following for discharge planning. SS reviewed pt chart and discussed with pt RN. Pt is from home with spouse and is currently requiring oxygen at two liters nasal canula. COVID19 negative. Cardiology following. PT/OT recommended home independent. SS will continue to follow for discharge planning.
--- NOTE | 2021-10-14 16:54 | CARD ---
MR#: [id number] Date of Study: 10/14/2021 Ordering Physician: PAULINO ESPARZA, Referring Physician: PAULINO ESPARZA, Tech: Keanu Hunt [facility] APPROVED REPORT EXAM: Two-dimensional and M-mode echocardiogram with Doppler and color Doppler. Other Information Quality : FairHR: 90bpm Rhythm : Atrial Fibrillation INDICATION Dyspnea Pulmonary Hypertention RISK FACTORS Obesity Smoking 2D DIMENSIONS Left Atrium(2D)6.2 (1.6-4.0cm)IVSd1.2 (0.7-1.1cm) Aortic Root(2D)3.2 (2.0-3.7cm)LVDd5.2 (3.9-5.9cm) LVOT Diameter2.1 (1.8-2.4cm)PWd1.3 (0.7-1.1cm) LVDs4.7 (2.5-4.0cm)FS (%) 10.8 % SV30.6 mlLVEF(%)23.5 (>50%) Aortic Valve AoV Peak Ej.134.4cm/sAoV VTI26.1cm AO Peak GR.7.2mmHgLVOT Peak Ej.58.2cm/s LVOT VTI 11.70cmAO Mean GR.5mmHg CLARENCE (VMAX)1.92tc1MWO (VTI)1.50cm2 AI P 1/2 Ffei601gf Mitral Valve MV E Mgvlbmrg936.5cm/sMV DECEL NIRC228lk MV A Omuyglhh01.6cm/sMV RTA73cu E/A Ratio4.1MVA (PHT)5.83cm2 TDI E/Medial E'19.8 Pulmonary Valve PV Peak Kmmqvzmo21.4cm/sPV Peak Grad.3mmHg Tricuspid Valve TR P. Mvejaihn456ye/sTR Peak Gr.28mmHg Pulmonary Vein S1 Hcdgzxvv75.6cm/sD2 Mheomnan76.4cm/s LEFT VENTRICLE The left ventricle is normal size. There is mild concentric left ventricular hypertrophy. The ejectio n fraction is severely impaired. EF 25% There is severe global hypokinesis of the left ventricle. Tis aime Doppler imaging reveals moderate left ventricular diastolic dysfunction. No left ventricle thromb us noted on this study. There is no ventricular septal defect visualized. There is no left ventricula r aneurysm. There is no mass noted in the left ventricle. RIGHT VENTRICLE The right ventricle is mildly to moderately dilated. There is normal right ventricular wall thickness . The right ventricular systolic function is normal. ATRIA The left atrium is severely dilated. The right atrium is mildly dilated. The interatrial septum is in tact with no evidence for an atrial septal defect or patent foramen ovale as noted on 2-D or Doppler imaging. AORTIC VALVE The aortic valve is mildly sclerotic. Doppler and Color Flow revealed trace aortic regurgitation. The re is no significant aortic valvular stenosis. There is no aortic valvular vegetation. MITRAL VALVE The mitral valve is mildly thickened. There is no evidence of mitral valve prolapse. There is no mitr al valve stenosis. Doppler and Color-flow revealed mild to moderate mitral regurgitation. TRICUSPID VALVE The tricuspid valve is normal in structure and function. Doppler and Color Flow revealed mild tricusp id regurgitation. The PA pressure was estimated at 50 mmHg. There is no tricuspid valve prolapse or v egetation. There is no tricuspid valve stenosis. PULMONIC VALVE Doppler and Color Flow revealed no pulmonic valvular regurgitation. There is no pulmonic valvular sarabjit nosis. GREAT VESSELS The aortic root is normal in size. The ascending aorta is normal in size. The IVC is mildly dilated w ith blunted inspiratory response. PERICARDIAL EFFUSION There is no pleural effusion. There is no evidence of significant pericardial effusion. Critical Notification Critical Value: No <Conclusion> The ejection fraction is severely impaired. EF 25% There is severe global hypokinesis of the left ventricle. Tissue Doppler imaging reveals moderate left ventricular diastolic dysfunction. Doppler and Color-flow revealed mild to moderate mitral regurgitation. Doppler and Color Flow revealed mild tricuspid regurgitation. The PA pressure was estimated at 50 mmH g. Signed by : Henrry Heller, Electronically Approved : 10/14/2021 16:53:58
[2021-10-14] MEDS ORDERED: APIXABAN 5 MG TABLET. PO SCH (18:00)
[2021-10-14] MEDS: ATORVASTATIN CALCIUM 40 MG TABLET. PO SCH (21:17)
[2021-10-15 02:36] VITALS: BP 121/78
[2021-10-15 05:55] LABS: HEMATOCRIT 45.5 % (39.0-53.0); HEMOGLOBIN 14.7 g/dL (13.0-17.5); RED BLOOD COUNT 5.41 x10^6/uL (4.30-5.70); RED CELL DISTRIBUTION WIDTH 23.6 % (11.5-14.5); WHITE BLOOD COUNT 10.4 x10^3/uL (4.0-11.0)
[2021-10-15 07:00] VITALS: BP 122/75
[2021-10-15] MEDS: INSULIN LISPRO 300 UNITS/3 ML VIAL. SQ SCH ×3 (08:00→17:00)
[2021-10-15 11:00] VITALS: BP 115/84
--- NOTE | 2021-10-15 11:39 | NUR ---
SS following up with discharge planning. SS reviewed pt chart and discussed with pt RN. Pt is currently requiring oxygen at two liters nasal canula. COVID19 negative. Cardiology following. Heart cath today. PT/OT recommended home independent. SS will continue to follow for discharge planning.
--- NOTE | 2021-10-15 12:26 | PDOC ---
Provider Note Date of Service: DATE: 10/15/21 TIME: 0900 Provider Note Noted with cardiomyopathy and continues to have intermittent chest pain with hx of CAD. [facility] today with possible PCI, risks and benefits discussed and agreeable to proceed. Justifications for Admission Other Justification Hypoxia VICKIE MITCHELL APRN October 15, 2021 12:26
--- NOTE | 2021-10-15 12:56 | PDOC ---
[employer] PROGRESS NOTE Date of Service DOS: DATE: 10/15/21 TIME: 12:54 Chief Complaint Chief Complaint Chest pain scrotal edema Pulmonary hypertension - cont home meds Acute Diastolic heart failure Atrial fibrillation - rate controlled. On eliquis Hyperlipidemia - statin DM2 - sliding scale insulin ALEN - needs bipap at home HTN - controlled CAD - s/p SALOME at [facility] CKD stage 3 Microcytic anemia - has outpatient iron infusions History of Present Illness History of Present Illness Mr Davis is a 66yo male brought to the ED with complaints of shortness of breath and substernal chest pain for the past 2 days. States his chest pain is more like chest pressure, 6/10. He has associated productive cough, lower extremity swelling, and scrotal swelling for the past 10 days. He also notes recent diarrhea and nausea, but none today. Labs on admission showed WBC 7.1, platelets 123, BUN 30, creatinine 1.8, CBG 153, proBNP 1391, troponin 84, with repeat 99, and 100. Urinalysis showed negative nitrites, negative leukoesterase, and 0 bacteria. CXR on admission showed enlarged cardiomediastinal silhouette and ultrasound of scrotum showed diffuse scrotal swelling, right hydrocele, no evidence of torsion. He is in rate controlled A. fib. He has been admitted for further medical management. 10/14: Still requiring oxygen still with significant scrotal and penile edema and abdominal edema. Required straight catheterization yesterday after IV Lasix. He had echocardiogram this morning, EF 25%. Still with significant orthopnea. 10/15: Urine output 1650ml yesterday and 2600ml overnight and this morning. Given worsening echocardiogram findings still with shortness of breath and chest discomfort he is n.p.o. for left heart catheterization. Vitals/I&O Vitals/I&O: Vital Signs Date Time Temp Pulse Resp B/P (MAP) Pulse Ox O2 Delivery O2 Flow Rate FiO2 10/15/21 11:00 96.9 65 17 115/84 (94) 97 Nasal Cannula 2.0 96.9 I & O 10/14/21 10/14/21 10/15/21 15:00 23:00 07:00 Intake Total 258 ml 300 ml 0 ml Output Total 900 ml 1700 ml Balance -642 ml -1400 ml 0 ml Physical Exam General: mild distress Heart: Other (Irregularly irregular) Lungs: Crackles Abdomen: Normal bowel sounds Labs Labs: Laboratory Tests Test 10/14/21 16:54 10/14/21 20:37 10/15/21 04:45 10/15/21 07:29 Glucose (Fingerstick) 209 mg/dL (70-99) 137 mg/dL (70-99) 141 mg/dL (70-99) White Blood Count 10.4 x10^3/uL (4.0-11.0) Red Blood Count 5.41 x10^6/uL (4.30-5.70) Hemoglobin 14.7 g/dL (13.0-17.5) Hematocrit 45.5 % (39.0-53.0) Mean Corpuscular Volume 84 fL (79-100) Mean Corpuscular Hemoglobin 27 pg (25-35) Mean Corpuscular Hemoglobin Concent 32 g/dL (31-37) Red Cell Distribution Width 23.6 % (11.5-14.5) Platelet Count 120 x10^3/uL (140-400) Test 10/15/21 12:00 Glucose (Fingerstick) 128 mg/dL (70-99) Assessment and Plan Assessmemt and Plan Problems Medical Problems: (1) Acute exacerbation of CHF (congestive heart failure) Status: Acute (2) Edema of scrotum Status: Acute (3) Elevated d-dimer Status: Acute (4) Elevated troponin Status: Acute (5) Hydrocele in adult Status: Acute Comment Review of Relevant I have reviewed the following items robbin (where applicable) has been applied. Medications: Current Medications Medications (Trade) Dose Ordered Sig/Connie Route PRN Reason Start Time Stop Time Status Last Admin Dose Admin Apixaban (Eliquis) 5 mg BID PO 10/14/21 18:00 10/14/21 21:57 DC 10/14/21 18:24 Justifications for Admission Other Justification Hypoxia DANIELLA TAVARES MD October 15, 2021 12:56
[2021-10-15] MEDS ORDERED: LIDOCAINE 1% PF 2 ML VIAL. ONE (13:21)
[2021-10-15] MEDS ORDERED: fentaNYL PF VIAL 100 MCG/2 ML VIAL ONE (13:29)
[2021-10-15] MEDS ORDERED: NITROGLYCERIN 200 MCG/2 ML SYRINGE FOR CATH/VASC LAB. ONE (13:29)
[2021-10-15] MEDS ORDERED: HEPARIN for IV BOLUS 10,000 UNIT/10 ML VIAL. ONE (13:29)
[2021-10-15] MEDS ORDERED: MIDAZOLAM HCL/PF 5 MG/5 ML VIAL. ONE (13:29)
[2021-10-15] MEDS ORDERED: VERAPAMIL 5 MG/2 ML VIAL. ONE (13:29)
[2021-10-15] MEDS ORDERED: methylPREDNISolone SOD SUCC PF 125 MG/2 ML VIAL. ONE (13:50)
[2021-10-15] MEDS ORDERED: FAMOTIDINE 20 MG/2 ML VIAL ONE (13:50)
[2021-10-15] MEDS ORDERED: diphenhydrAMINE 50 MG/ML VIAL ONE (13:51)
[2021-10-15] MEDS ORDERED: diphenhydrAMINE 50 MG/ML VIAL IV ONE (14:15)
[2021-10-15] MEDS ORDERED: VERAPAMIL 5 MG/2 ML VIAL. IART ONE (14:15)
[2021-10-15] MEDS ORDERED: FAMOTIDINE 20 MG/2 ML VIAL IVP ONE (14:15)
[2021-10-15] MEDS ORDERED: NITROGLYCERIN 200 MCG/2 ML SYRINGE FOR CATH/VASC LAB. IART ONE (14:15)
[2021-10-15] MEDS ORDERED: methylPREDNISolone SOD SUCC PF 125 MG/2 ML VIAL. IV ONE (14:15)
[2021-10-15] MEDS ORDERED: MIDAZOLAM HCL/PF 5 MG/5 ML VIAL. IV ONE (14:15)
[2021-10-15] MEDS ORDERED: fentaNYL PF VIAL 100 MCG/2 ML VIAL IV ONE (14:15)
[2021-10-15] MEDS ORDERED: IODIXANOL 320 MG/ML 100 ML VIAL. IART ONE (14:15)
[2021-10-15] MEDS ORDERED: HEPARIN for IV BOLUS 10,000 UNIT/10 ML VIAL. IART ONE (14:15)
[2021-10-15] MEDS ORDERED: LIDOCAINE 1% PF 2 ML VIAL. INJ ONE (14:15)
[2021-10-15] MEDS ORDERED: ADENOSINE 90 MG/30 ML VIAL. IV ONE (14:19)
[2021-10-15] MEDS ORDERED: ADENOSINE 90 MG in IV NORMAL SALINE 50ML 90 ML IV ONE (14:30)
[2021-10-15] MEDS ORDERED: HEPARIN for IV BOLUS 10,000 UNIT/10 ML VIAL. IV ONE (14:30)
[2021-10-15] MEDS ORDERED: NALOXONE 0.4 MG/ML VIAL. ONE (14:40)
[2021-10-15] MEDS ORDERED: FLUMAZENIL 0.5 MG/5 ML VIAL. IV ONE (14:40)
--- NOTE | 2021-10-15 14:40 | PDOC ---
MODERATE SEDATION ASSESSMENT RISKS/ALTERNATIVES Risks/Alternatives Risks and alternatives of this type of sedation and procedure discussed with: RISK/ALTERNATIVES: Patient H & P ON CHART H & P H & P on chart and reviewed for co-morbid conditions and appropriate labs. H&P ON CHART: Yes STATUS PREG STATUS ASSESSED: N/A MEDS/ALLERGIES REVIEWED Meds/Allergies Reviewed Medications and Allergies including time and route of recently administered narcotics and sedatives. MEDS/ALLERGIES REVIEWED: Yes ASA RATING ASA RATING: III AIRWAY ASSESSMENT Airway Assessment Airway patency, oral function limitations, presence of caps, crowns, dentures, partials, and ability to extend neck assessed. AIRWAY ASSESSMENT: Yes MALLAMPATI SCORE MALLAMPATI SCORE: II PRE-SEDATION ASSESSMENT PRE-SEDATION ASSESSMENT: Yes CALEB KNIGHT MD October 15, 2021 14:40
[2021-10-15] MEDS ORDERED: IV 1/2 NORMAL SALINE 1,000 ML IV SCH (14:45)
[2021-10-15 14:54] VITALS: BP 145/97
[2021-10-15] MEDS: LINAGLIPTIN 5 MG TABLET PO SCH (17:02)
[2021-10-15] MEDS: POTASSIUM CHLORIDE 20 MEQ TABLET.ER. PO SCH (17:02)
[2021-10-15] MEDS: EMPAGLIFLOZIN 25 MG TABLET. PO SCH (17:02)
[2021-10-15] MEDS: ASPIRIN ENTERIC COATED 81 MG TABLET.DR. PO SCH (17:02)
[2021-10-15 17:03] VITALS: BP 145/97
[2021-10-15] MEDS: METOPROLOL SUCC 24HR ER 50 MG TAB.ER.24H. PO SCH (17:03)
--- NOTE | 2021-10-15 17:27 | PDOC3 ---
Discharge Summary Visit Information Date of Admission: October 12, 2021 Date of Discharge: October 15, 2021 Admitting Diagnosis: Acute systolic CHF exacerbation Final Diagnosis Problems Medical Problems: (1) Acute exacerbation of CHF (congestive heart failure) Status: Acute (2) Edema of scrotum Status: Acute (3) Elevated d-dimer Status: Acute (4) Elevated troponin Status: Acute (5) Hydrocele in adult Status: Acute Brief Hospital Course Allergies Allergies Coded Allergies Type Severity Reaction Last Updated Verified iodine Allergy Intermediate 10/12/21 Yes Vital Signs Vital Signs Date Time Temp Pulse Resp B/P (MAP) Pulse Ox O2 Delivery O2 Flow Rate FiO2 10/15/21 17:03 102 145/97 10/15/21 14:54 21 94 Nasal Cannula 4.0 10/15/21 11:00 96.9 96.9 Lab Results Laboratory Tests Test 10/13/21 20:44 10/13/21 22:30 10/14/21 04:30 10/14/21 07:37 Glucose (Fingerstick) 205 mg/dL (70-99) 159 mg/dL (70-99) Activated Partial Thromboplast Time 75 SEC (24-38) 91 SEC (24-38) White Blood Count 5.6 x10^3/uL (4.0-11.0) Red Blood Count 5.56 x10^6/uL (4.30-5.70) Hemoglobin 14.9 g/dL (13.0-17.5) Hematocrit 46.5 % (39.0-53.0) Mean Corpuscular Volume 84 fL (79-100) Mean Corpuscular Hemoglobin 27 pg (25-35) Mean Corpuscular Hemoglobin Concent 32 g/dL (31-37) Red Cell Distribution Width 23.7 % (11.5-14.5) Platelet Count 91 x10^3/uL (140-400) Sodium Level 143 mmol/L (136-145) Potassium Level 3.5 mmol/L (3.5-5.1) Chloride Level 105 mmol/L (98-107) Carbon Dioxide Level 28 mmol/L (21-32) Anion Gap 10 (6-14) Blood Urea Nitrogen 25 mg/dL (8-26) Creatinine 1.3 mg/dL (0.7-1.3) Estimated GFR (Cockcroft-Gault) 55.2 Glucose Level 170 mg/dL (70-99) Calcium Level 8.4 mg/dL (8.5-10.1) Test 10/14/21 10:25 10/14/21 11:33 10/14/21 16:54 10/14/21 20:37 Activated Partial Thromboplast Time 96 SEC (24-38) Troponin I High Sensitivity 61 ng/L (4-75) Glucose (Fingerstick) 154 mg/dL (70-99) 209 mg/dL (70-99) 137 mg/dL (70-99) Test 10/15/21 04:45 10/15/21 07:29 10/15/21 12:00 White Blood Count 10.4 x10^3/uL (4.0-11.0) Red Blood Count 5.41 x10^6/uL (4.30-5.70) Hemoglobin 14.7 g/dL (13.0-17.5) Hematocrit 45.5 % (39.0-53.0) Mean Corpuscular Volume 84 fL (79-100) Mean Corpuscular Hemoglobin 27 pg (25-35) Mean Corpuscular Hemoglobin Concent 32 g/dL (31-37) Red Cell Distribution Width 23.6 % (11.5-14.5) Platelet Count 120 x10^3/uL (140-400) Glucose (Fingerstick) 141 mg/dL (70-99) 128 mg/dL (70-99) Laboratory Tests Test 10/14/21 20:37 10/15/21 04:45 10/15/21 07:29 10/15/21 12:00 Glucose (Fingerstick) 137 mg/dL (70-99) 141 mg/dL (70-99) 128 mg/dL (70-99) White Blood Count 10.4 x10^3/uL (4.0-11.0) Red Blood Count 5.41 x10^6/uL (4.30-5.70) Hemoglobin 14.7 g/dL (13.0-17.5) Hematocrit 45.5 % (39.0-53.0) Mean Corpuscular Volume 84 fL (79-100) Mean Corpuscular Hemoglobin 27 pg (25-35) Mean Corpuscular Hemoglobin Concent 32 g/dL (31-37) Red Cell Distribution Width 23.6 % (11.5-14.5) Platelet Count 120 x10^3/uL (140-400) Brief Hospital Course Mr Davis is a 66yo male brought to the ED with complaints of shortness of breath and substernal chest pain for the past 2 days. States his chest pain is more like chest pressure, 6/10. He has associated productive cough, lower extremity swelling, and scrotal swelling for the past 10 days. He also notes recent diarrhea and nausea, but none today. Labs on admission showed WBC 7.1, platelets 123, BUN 30, creatinine 1.8, CBG 153, proBNP 1391, troponin 84, with repeat 99, and 100. Urinalysis showed negative nitrites, negative leukoes terase, and 0 bacteria. CXR on admission showed enlarged cardiomediastinal silhouette and ultrasound of scrotum showed diffuse scrotal swelling, right hydrocele, no evidence of torsion. He is in rate controlled A. fib. He has been admitted for further medical management. 10/14: Still requiring oxygen still with significant scrotal and penile edema and abdominal edema. Required straight catheterization yesterday after IV Lasix. He had echocardiogram this morning, EF 25%. Still with significant orthopnea. 10/15: Urine output 1650ml yesterday and 2600ml overnight and this morning. Given worsening echocardiogram findings still with shortness of breath and chest discomfort he is n.p.o. for left heart catheterization. To left heart catheterization with no new ischemic findings per cardiology. Given his CKD ANTON/ARB/Entresto therapy is relatively contraindicated particularly because his creatinine was 1.8 on initial admission. Discussed with cardiology outpatient low-dose Entresto may be possible but more likely will start on low-dose isosorbide plus hydralazine and have follow-up to consider eventual AICD consideration. Chest pain Scrotal edema Pulmonary hypertension - cont home meds and O2 Acute combined systolic and Diastolic heart failure Atrial fibrillation - rate controlled. On eliquis Hyperlipidemia - statin DM2 - sliding scale insulin ALEN - needs bipap at home HTN - controlled CAD - s/p SALOME at [facility] CKD stage 3 Microcytic anemia - has outpatient iron infusions Greater than 30 minutes spent on d/c home Discharge Information Condition at Discharge: Improved Follow Up: Weeks (1) Disposition/Orders: D/C to Home Scheduled Amlodipine Besylate (Amlodipine Besylate) 10 Mg Tablet, 10 MG PO DAILY for blood pressure control , (Reported) Entered as Reported by: ZARINA NEWTON RN on 03/10/20 0601 Last Action: Continued on 10/13/211636 by YAJAIRA CANSECO MD Apixaban (Eliquis) 5 Mg Tablet, 5 MG PO BID, (Reported) Entered as Reported by: Noemi Carrizales on 07/23/15 1707 Last Action: Continued on 10/13/211636 by YAJAIRA CANSECO MD Aspirin (Aspirin Ec) 81 Mg Tablet.dr, 81 MG PO DAILYWBKFT for CAD, #30 Ref 2 Prescribed by: YAJAIRA CANSECO MD on 07/25/20 1151 Last Action: Continued on 10/13/211636 by YAJAIRA CANSECO MD Atorvastatin Calcium (Atorvastatin Calcium) 80 Mg Tablet, 80 MG PO HS for FOR CHOLESTEROL, #30 Ref 0 (Reported) Entered as Reported by: CARYN MACARIO on 01/01/18 0856 Last Action: Converted on 10/13/211636 by YAJAIRA CANSECO MD Bumetanide (Bumetanide) 1 Mg Tablet, 1 MG PO DAILY for CHF for 30 Days, #60 Ref 1 1x daily and prn BID for weight gain or shortness of breath Prescribed by: DANIELLA TAVARES MD on 11/02/20 1228 Last Action: Continued on 10/13/211636 by YAJAIRA CANSECO MD Diclofenac Sodium (Voltaren Arthritis Pain) 20 Gm Gel..gram., 20 GM TP BID, #1 Prescribed by: Jessica Marx APRN on 03/25/21 1649 Last Action: Continued on 10/13/211636 by YAJAIRA CANSECO MD Empagliflozin (Jardiance) 25 Mg Tablet, 25 MG PO DAILY for CHF/DM2 for 30 Days, #30 Ref 5 Prescribed by: DANIELLA TAVARES MD on 11/02/20 1228 Last Action: Continued on 10/13/211636 by YAJAIRA CANSECO MD Linagliptin (Tradjenta) 5 Mg Tablet, 5 MG PO DAILY for TYPE 2 DIABETES for 30 Days, #30 Ref 5 Prescribed by: DANIELLA TAVARES MD on 11/02/20 1228 Last Action: Continued on 10/13/211636 by YAJAIRA CANSECO MD Metoprolol Succinate (Toprol XL) 50 Mg Tab.er.24h, 50 MG PO DAILY for FOR HYPERTENSION for 30 Days, #30 Ref 5 Prescribed by: DANIELLA TAVARES MD on 11/02/20 1228 Last Action: Continued on 10/13/211636 by YAJAIRA CANSECO MD Potassium Chloride (Potassium Chloride ) 20 Meq Tablet.er, 20 MEQ PO DAILY, (Reported) Entered as Reported by: CARYN MACARIO on 01/01/18 0856 Last Action: Continued on 10/13/211636 by YAJAIRA CANSECO MD Scheduled PRN Hydrocodone Bit/Acetaminophen (Hydrocodone-Apap 5-325 ) 1 Tab Tablet, 1 TAB PO PRN Q6HRS PRN for PAIN, #10 Ref 0 Prescribed by: Jessica Marx APRN on 03/25/21 1649 Last Action: Continued on 10/13/211636 by YAJAIRA CANSECO MD Nitroglycerin (NITROGLYCERIN SubLingual) 0.4 Mg Tab.subl, 0.4 MG SL PRN Q5MIN PRN for CHEST PAIN, (Reported) Entered as Reported by: JARAD COTTON on 08/13/14 0504 Last Action: Continued on 10/13/211636 by YAJAIRA CANSECO MD Justicifation of Admission Dx: Justifications for Admission: Justification of Admission Dx: Yes CHF: Cardiac Arrhythmias DANIELLA TAVARES MD October 15, 2021 17:27
[2021-10-15] MEDS ORDERED: HYDR-2869 PO (17:29)
[2021-10-15] MEDS ORDERED: ISOS30TA68 PO (17:29)
--- NOTE | 2021-10-15 18:50 | NUR ---
PATIENT DISCHARGED TO HOME. DISCHARGE INSTRUCTIONS GIVEN. PIV AND HEART MONITOR REMOVED. ESCORTED PATIENT OFF UNIT INTO A PRIVATE VEHICLE.
--- NOTE | 2021-10-16 09:11 | CARD ---
MR#: [id number] Date of Study: 10/15/2021 Ordering Physician: ELIZA JETER, Referring Physician: ELIZA JETER, Tech: RT Jassi(R) APPROVED REPORT Technologist: Leisa Washburn RT(R) Nurse: Manju Viera RN Procedure(s) performed: 1. Left heart catheterization and selective coronary angiography. 2. Instantaneous wave free ratio (IFR) and fractional flow reserve (FFR) measurement left anterior d escending artery stenosis MODERATE SEDATION TIME:60 MINS FLUORO TIME: 4.6 MIN DOSE: 62.6 GYCM2 CONTRAST: 76CC VISI INDICATION The indication(s) include : Unstable angina, cardiomyopathy. [facility] Clinical Frailty Scale [facility] Clinical Frailty Scale: Mildly Frail Heart Failure Heart Failure: Yes If Yes, Newly Diagnosed: No If Yes, HF Type: Systolic If Yes, NYHA Class: Class II CASE TECHNIQUE IV conscious sedation was used throughout procedure with appropriate monitoring and was performed in the presence of a registered nurse who was an independent trained observer other than the physician p erforming the procedure. During this case, Fluoroscopy and low osmolar contrast were used for imaging . Specimen(s) Removed: No Estimated Blood loss: 15 cc's. PROCEDURE NARRATIVE After explaining the risks, benefits and alternative options, informed consent was obtained from fatemeh ent. Patient was brought to the cardiac Administrative Clerk and right wrist was prepped and draped in the usual fashion after confirming a positive modified Demetrius's test. Arterial access was obtained in the [facility] radial artery and a 6 Icelandic sheath was inserted. 6 Icelandic Harrison catheter was used to perform shilpa ective angiography of the left and right coronary arteries. Left ventriculography was not performed since recent 2D echo showed LVEF 25%. Since patient was found to have angiographically borderline si gnificant stenosis involving the mid segment of left anterior descending artery, a decision was made to assess the physiologic significance using instantaneous wave free ratio (IFR) measurement. The le ft main coronary artery was engaged with a 6 Icelandic XB 3.5 guide catheter and the stenosis in the mid segment of LAD was crossed with a [employer] Om[employer] wire PressureWire. iFR measurement was made there w as borderline significant at 0.90. Hence we decided to proceed with fractional flow reserve (FFR) me asurement. Patient was given intravenous adenosine infusion per protocol and FFR was measured that w as insignificant at 0.88. Patient tolerated the procedure well. Hemostasis was achieved using TR ba nd. There were no immediate complications FINDINGS Coronary angiography: a. The left main coronary artery arose from the left sinus of Valsalva, gave rise to the left anteri or descending and left circumflex arteries and did not show any significant stenosis. b. The left anterior descending artery showed 50% stenosis in the midsegment that was physiologicall y insignificant based on FFR measurement of 0.88. c. The left circumflex artery showed widely patent stent in the proximal to mid segment. The obtuse marginal branch showed two tandem 40% stenosis in the midsegment. d. The right coronary artery was a large and dominant vessel arising from the right sinus of Valsalv a that showed widely patent previously placed stent in the proximal to mid segment. Conclusion Patent previously placed stents in left circumflex and right coronary arteries. 50% stenosis involvi ng the left anterior descending artery that was physiologically insignificant based on FFR measuremen t of 0.88. Recommendations Optimization of medical therapy for patient's cardiomyopathy and repeat 2D echo in 3 months to evalua te the need for AICD implantation. Signed by : Cristiano García, Electronically Approved : 10/16/2021 09:11:43
== END 2021-10-15 18:50 | disposition home or self-care (01) | DRG 286 ==
LOC: ER 21:07 → 6 SOUTH 23:10
PROVIDERS: ADMIT Student in an Organized Health Care Education/Training Program; ATTEND Student in an Organized Health Care Education/Training Program
PROC: 4A023N7 Measurement of Cardiac Sampling and Pressure, Left Heart, Percutaneous Approach (ICD-10-PCS; principal; 2021-10-15)
PROC: B211YZZ Fluoroscopy of Multiple Coronary Arteries using Other Contrast (ICD-10-PCS; 2021-10-15)
PROC: 4A033BC Measurement of Arterial Pressure, Coronary, Percutaneous Approach (ICD-10-PCS; 2021-10-15)
DX: I13.0 Hypertensive heart and chronic kidney disease with heart failure and stage 1 through stage 4 chronic kidney disease, or unspecified chronic kidney disease (principal); I50.43 Acute on chronic combined systolic (congestive) and diastolic (congestive) heart failure; J96.01 Acute respiratory failure with hypoxia; N17.9 Acute kidney failure, unspecified; I42.9 Cardiomyopathy, unspecified; D50.9 Iron deficiency anemia, unspecified; E03.9 Hypothyroidism, unspecified; E11.22 Type 2 diabetes mellitus with diabetic chronic kidney disease; E78.00 Pure hypercholesterolemia, unspecified; Z20.822 Contact with and (suspected) exposure to COVID-19; E78.5 Hyperlipidemia, unspecified; G47.33 Obstructive sleep apnea (adult) (pediatric); I25.10 Atherosclerotic heart disease of native coronary artery without angina pectoris; I27.20 Pulmonary hypertension, unspecified; I48.0 Paroxysmal atrial fibrillation; J44.9 Chronic obstructive pulmonary disease, unspecified; N18.30 Chronic kidney disease, stage 3 unspecified; N43.3 Hydrocele, unspecified; N48.89 Other specified disorders of penis; Z87.891 Personal history of nicotine dependence; Z91.041 Radiographic dye allergy status; Z95.5 Presence of coronary angioplasty implant and graft; K21.9 Gastro-esophageal reflux disease without esophagitis; M19.90 Unspecified osteoarthritis, unspecified site; Z88.8 Allergy status to other drugs, medicaments and biological substances
CPT/HCPCS: 36415; 71045; 76870; 80048; 80053; 81001; 82962; 83605; 83690; 83735; 83880; 84484; 85025; 85027; 85379; 85610; 85730; 87040; 87428; 93005; 93306; 93454; 93571; 96365; 96375; 96376; 99152; 99153; C1769; C1894; J0153; J1200; J1644; J1815; J1940; J2250; J2930; J3010; J3490; J7512; Q9967; U0003; 99291-25; C8929; G0378